=== PATIENT | male | born 1935 | race Caucasian/White ===

== ENCOUNTER → 2017-03-12 | Outpatient (CLI) | payer BC ==
[~2017-03-12] MED LIST: ATOR-22 PO; DUTACAP PO; FAMO20TA11 PO; METO50TA7 PO; MULT-506 PO; OXYC-88 PO; SALI1SPR3 NAE
[2017-03-12 11:29] LABS: ALT/SGPT 31 U/L (12-78); AST/SGOT 23 U/L (15-37); BLOOD UREA NITROGEN 16 mg/dl (7-18); BUN/CREATININE RATIO 17.8 (10-20); CALCIUM 8.7 mg/dl (8.5-10.1); CARBON DIOXIDE 27 mmol/L (21-32); CHLORIDE 103 mmol/L (98-107); CHOLESTEROL 120 mg/dl (0-200); GLUCOSE 89 mg/dl (70-99); POTASSIUM 4.1 mmol/L (3.5-5.1); SODIUM 135 mmol/L (136-145); TRIGLYCERIDES 62 mg/dl (0-150); VERY LOW DENSITY LIPOPROT CALC 12 mg/dl
[2017-03-12 11:44] LABS: BASO % 0.6 %; BASO ABS # 0.03 K/uL (0-0.2); CHOLESTEROL/HDL RATIO 2.4; COMPLETE YES; EOS % 11.6 %; HDL CHOLESTEROL 51 mg/dl; LDL CHOLESTEROL CALCULATED 57 mg/dl; LYMPH % 24.5 %; LYMPH ABS # 1.25 K/uL (1.2-3.4); MAGNESIUM 2.1 mg/dl (1.8-2.4); MEAN CELL VOLUME 94.3 fL (80-100); MEAN PLATELET VOLUME 12.9 fL (7.4-10.4); MONO % 8.8 %; NEUT % 54.5 %; PLATELET COUNT 122 K/uL (130-400); PLT ESTIMATE DECREASED; RED BLOOD COUNT 4.56 M/uL (4.7-6.1)
[2017-03-12 11:47] LABS: ESTIMATED AVERAGE GLUCOSE 111 mg/dl; HA1C FLAG Normal (Normal)
== END | disposition home or self-care (01) ==
LOC: C.LABBC 08:58
PROVIDERS: ATTEND Internal Medicine
DX: Z00.00 Encounter for general adult medical examination without abnormal findings (principal); I48.91 Unspecified atrial fibrillation; E78.5 Hyperlipidemia, unspecified

== ENCOUNTER → 2017-06-30 | Outpatient (CLI) | payer BC ==
[~2017-06-30] MED LIST changes: -METO50TA7 PO; +METO50TA8 PO
--- NOTE | 2017-06-30 11:46 | DIAGNOSTIC IMAGING REPORT ---
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 A dose lowering technique was used consistent with the principals of ANDRESSA. FINDINGS: The imaged intracranial structures demonstrate no acute abnormality. Mild to moderate cerebral and cerebellar atrophy. Cerebral vascular calcifications are seen at the level of the skull base. Mastoid air cells and middle ear cavities are clear. Moderate mucoperiosteal thickening about the left maxillary sinus. There is severe mucosal opacification about the right maxillary, bilateral frontal and bilateral ethmoid air cells. Mild mucosal thickening of the sphenoid sinuses with aerated secretions within the right sphenoid sinus. Additionally, there is mucosal thickening of the bilateral nasal turbinates. Multiple areas of polypoid mucosal thickening of the nasal turbinates are seen measuring up to 2.0 cm on the right, image 27 series 2 and 2.0 cm and the left, image 29 of series 2. The nasopharynx appears patent. Only minimal rightward bowing and spurring of the nasal septum. Small left kian bullosa. Poornima arnulfo appears normal. Moderate left and severe right mucosal thickening of the maxillary ostiomeatal units. Moderate sized bilateral Neville cells. Severe mucosal thickening with opacification of the bilateral frontoethmoidal recesses. There is mucus opacification the bilateral sphenoethmoidal recesses. No acute facial bone fracture or dislocation identified. Degenerative changes are noted within the imaged cervical spine. Soft tissues are unremarkable without opaque foreign body. Postsurgical changes of the globes. IMPRESSION: 1. Severe paranasal sinus disease as above with mucosal thickening and opacification of the sinonasal recesses and bilateral maxillary ostiomeatal units. 2. Multiple areas of polypoid mucosal thickening involves the the bilateral nasal turbinates measuring up to 2.0 cm. 3. Bilateral Neville cells. The above report was generated using voice recognition software. It may contain grammatical, syntax or spelling errors. Electronically signed by: Vik Strauss M.D. 06/30/2017 11:45 AM Dictated Date/Time: 06/30/2017 11:39 AM
== END | disposition home or self-care (01) ==
LOC: C.CTS 11:22
PROVIDERS: ATTEND Physician Assistant
DX: J32.9 Chronic sinusitis, unspecified (principal)

== ENCOUNTER → 2017-07-13 | Outpatient (CLI) | payer BC ==
[~2017-07-13] MED LIST changes: +AMOX875T PO; +BCTROWC NAE; +CLOTCRE TOP; +DUTA1CAP3 PO; +FLM4 PO; +METO-217 PO; +SACC250C3 PO; +SALI-3 NAE; -SALI1SPR3 NAE; +TRIA1SPR4 NAE; +TRMCR130WC TOP; +XRL20 PO
[2017-07-13 13:53] LABS: BLOOD UREA NITROGEN 11 mg/dl (7-18); CREATININE 0.92 mg/dl (0.60-1.40)
== END | disposition home or self-care (01) ==
LOC: C.LABBC 11:55
PROVIDERS: ATTEND Urology
DX: R33.9 Retention of urine, unspecified (principal)

== ENCOUNTER 2017-07-24 17:01 | Inpatient (IN) | payer BC, OTHER ==
[~2017-07-24] VITALS: Ht 185.4 cm; Wt 107.5 kg
[~2017-07-24 17:01] MED LIST changes: -AMOX875T PO; -BCTROWC NAE; -CLOTCRE TOP; -DUTA1CAP3 PO; -FLM4 PO; -METO-217 PO; -SACC250C3 PO; -TRIA1SPR4 NAE; -TRMCR130WC TOP; -XRL20 PO
[2017-07-24] MEDS ORDERED: SODIUM CHLORIDE 0.9% 1000ML 1,000 ML IV STA ×3 (17:37→19:46)
--- NOTE | 2017-07-24 17:51 | EMERGENCY ROOM VISIT NOTE ---
History Report prepared by Jonh: Red Pleitez Under the Supervision of: Dr. Jyoti Alston D.O. First contact with patient: 17:29 Chief Complaint: GI ASSESSMENT Stated Complaint: DIARRHEA,ABDOMINAL PAIN,ORTHOSTASIS History of Present Illness The patient is an 82 year old male who presents to the Emergency Room with complaints of persistent diarrhea beginning today. Per son, the patient has been having recent episodes of constipation and diarrhea. He states that the patient also has been feeling weak and almost passed out at home. He notes that the patient was also tachypneic, had a heart rate over 100, was diaphoretic, and did not have any blood in his diarrhea. The patient reports that he has been having a productive cough mostly at night, abdominal pain, SOB with exertion, and multiple episodes of confusion. He states that he has been producing a smaller amount of urine than usual. He notes that the urine is typically dark yellow in the mornings but becomes clear at night. The patient reports that he has not been drinking a lot of water recently. Per son, the patient seemed to be feeling better this morning and had a better appetite than usual. He states that the patient has not been sleeping a lot recently. He notes that the patient takes Xarelto for his atrial fibrillation. He reports that he also has a history of BPH. Son reports patient's recently and her memorial service is tomorrow and he feels that his father's grief could be contributing to his poor p.o. intake and subsequent symptoms. Source of History: patient, family (son) Onset: today Position: abdomen Quality: other (diarrhea) Timing: other (persistent) Associated Symptoms: + diaphoresis, + cough (productive cough mostly at night), + SOB (with exertion), + abdominal pain, + urinary symptoms (smaller amount, dark yellow in the morning and clear at night), + weakness Note: Per son, the patient has also been having episodes of constipation, was tachypneic, had a heart rate over 100, and did not have any blood in his diarrhea. He notes that the patient has also been having multiple episodes of confusion. Review of Systems See HPI for pertinent positives & negatives. A total of 10 systems reviewed and were otherwise negative. Past Medical & Surgical Medical Problems: (1) Acute respiratory failure with hypoxia (2) Atrial fibrillation (3) BPH (benign prostatic hyperplasia) (4) Dehydration (5) Diarrhea (6) Fatigue Family History No pertinent family history stated. Social History Smoking Status: Never Smoker Marital Status: Housing Status: lives with family Occupation Status: retired Current/Historical Medications Scheduled Amoxicillin & Pot Clavulanate (Augmentin 875-125 mg), 1 TAB PO BID Atorvastatin (Lipitor), 20 MG PO QPM Clotrimazole W/ Betamethasone (Lotrisone), 1 APPLN TOP BID Dutasteride (Dutasteride), 0.5 MG PO DAILY Metoprolol Succinate (Toprol Xl), 50 MG PO BID Multivitamin (Multivitamin), 1 TAB PO QPM Mupirocin (Bactroban 2% Oint), 1 APPLN MARIAM BID Rivaroxaban (Xarelto), 20 MG PO DAILY Saccharomyces Boulardii (Florastor), 1 TAB PO BID Tamsulosin HCl (Tamsulosin HCl), 0.4 MG PO DAILY Triamcinolone Acet (Aristocort 0.1%), 1 APPL TOP UD Triamcinolone Acetonide (Nasal (Nasacort Allergy 24Hr), 1 MARIAM BID Scheduled PRN Famotidine (Pepcid), 20 MG PO DAILY PRN for Indigestion Saline (Saline Nasal [place]), 2 SPRAYS MARIAM BID PRN for Nasal Congestion Allergies Coded Allergies: Cyclobenzaprine (Unverified Allergy, Severe, RASH ON FACE, 04/03/15) Flecainide (Verified Allergy, Severe, DISCOLORATION OF SKIN, 04/03/15) Ibuprofen (Verified Adverse Reaction, Unknown, RHINORRHEA, 07/24/17) INFO FROM [facility] Physical Exam Vital Signs Date Time Temp Pulse Resp B/P (MAP) Pulse Ox O2 Delivery O2 Flow Rate FiO2 07/24/17 20:51 102 29 113/80 90 07/24/17 20:41 105 28 138/60 93 07/24/17 20:31 110 28 124/72 94 07/24/17 20:20 104 07/24/17 20:15 104 07/24/17 20:11 29 123/72 92 Oxymask 07/24/17 20:10 101 07/24/17 20:05 104 07/24/17 20:01 28 134/95 92 Oxymask 07/24/17 20:00 100 07/24/17 19:55 112 29 07/24/17 19:51 27 121/70 93 Oxymask 07/24/17 19:50 105 07/24/17 19:45 115 07/24/17 19:41 30 125/83 92 Oxymask 4.0 07/24/17 19:40 112 07/24/17 19:35 106 07/24/17 19:30 110 30 116/72 89 Oxymask 4.0 07/24/17 19:20 102 18 115/68 90 Nasal Cannula 6.0 07/24/17 19:10 99 18 119/71 91 Oxymask 6.0 07/24/17 19:01 78/53 07/24/17 19:00 110 27 90 07/24/17 18:56 88/47 07/24/17 18:30 103 27 94 07/24/17 18:20 118/70 07/24/17 18:15 115 29 92 07/24/17 18:10 128/59 07/24/17 18:02 101/67 07/24/17 18:00 104 30 100 07/24/17 17:56 93/62 07/24/17 17:46 80/52 07/24/17 17:45 100 24 95 07/24/17 17:32 68/45 07/24/17 17:30 99 31 87 07/24/17 17:29 105 07/24/17 17:27 75/44 07/24/17 17:14 36.3 78 18 56/39 85 Room Air Physical Exam GENERAL: alert, ill appearing, well nourished, no distress, pale, diaphoretic. EYE EXAM: normal conjunctiva, PERRL and EOM's grossly intact OROPHARYNX: no exudate, no erythema, lips, buccal mucosa, and tongue normal and mucous membranes are moist NECK: supple, no nuchal rigidity, no adenopathy, non-tender LUNGS: Normal chest wall mechanics. Lung sounds diminished, no wheezes, rhonchi , and rales. HEART: no murmurs, S1 normal and S2 normal, grossly normal ejection fraction, no obvious pericardial effusion, no obvious AAA or flap suggestive of dissection. ABDOMEN: abdomen soft, non-tender, normo-active bowel sounds, no rebound or guarding, no pulsatile mass BACK: Back is symmetrical on inspection and there is no deformity, no midline tenderness, no CVA tenderness. SKIN: no rashes and no bruising UPPER EXTREMITIES: upper extremities are grossly normal. Normal pulses bilaterally. LOWER EXTREMITIES: No pitting edema. Normal pulses bilaterally. NEURO EXAM: Normal sensorium, cranial nerves II-XII grossly intact, normal speech, no gross weakness of arms, no gross weakness of legs. Medical Decision & Procedures ER Provider Diagnostic Interpretation: Radiology results have been interpreted by the radiologist and reviewed by me. CHEST ONE VIEW PORTABLE FINDINGS: Atherosclerosis of aortic arch. Cardiac silhouette enlarged. No focal opacity. No large effusion or pneumothorax. Degenerative changes of the thoracic spine. Degenerative changes of the right acromioclavicular and glenohumeral joints. Anterior cervical fusion hardware also noted. IMPRESSION: 1. Cardiomegaly. No other convincing evidence of acute cardiopulmonary disease. Electronically signed by: Agustin Carney M.D. 07/24/2017 6:07 PM HEAD WITHOUT CONTRAST (CT) FINDINGS: [place] topogram: Unremarkable. Ventricles and sulci normal in size. Brain parenchyma normal in appearance with preserved hood-white differentiation. No mass effect or midline shift. No hemorrhage or acute territorial infarct. No extra-axial fluid collection. Extensive mucosal thickening in the bilateral maxillary sinuses and ethmoid air cells as well as the sphenoid sinuses and frontal sinuses. Aerated secretions noted in the maxillary sinuses. Scant fluid in the left mastoid air cells may be present. No gray evidence of osseous erosion. Calvarium intact. IMPRESSION: 1. No acute intracranial abnormality. 2. Findings suspicious for acute sinusitis. Electronically signed by: Agustin Carney M.D. 07/24/2017 6:55 PM CHEST COMBO ANGIO DISSECTION FINDINGS: [place] topogram: Unremarkable. Vasculature: The study is adequate for assessment of the aorta. Precontrast imaging demonstrates no evidence of intramural hematoma. Atherosclerosis of the aorta. Postcontrast imaging demonstrates no evidence of dissection, penetrating ulcer, or aneurysm. Allowing for timing of the contrast bolus, no gross evidence of a filling defect within the pulmonary arteries to suggest embolus. Main pulmonary artery is not enlarged. No flattening of the interventricular septum. No intracardiac filling defect. No reflux of contrast into the hepatic veins. Remaining chest: On soft tissue windows, normal thyroid and thoracic inlet. No axillary, supraclavicular, hilar, or mediastinal lymphadenopathy. Mild multichamber enlargement of the heart. Coronary artery calcification. Small right and trace left pleural effusion. No pericardial effusion. Suggestion of mild esophageal wall thickening in the mid to distal portion. Multiple exophytic renal cysts. Additionally, one cyst in the left kidney measuring 5 cm is elevated in density measuring 43 Hounsfield units. On lung windows, dependent opacities greater on the right. Patchy groundglass nodular opacities at the apices. Respiratory motion artifact evaluation of lung parenchyma. 2 additional nodular groundglass opacities noted in the superior segment of the right lower lobe (series 8 image 170). Bronchial wall thickening evident. Minimal debris and subsegmental airways of the lower lobes. Central airways also demonstrate layering debris. On bone windows, partially visualized anterior cervical fusion hardware. Degenerative changes of the spine. IMPRESSION: 1. No evidence of acute aortic injury. 2. Patchy nodular groundglass opacities with an upper lobe predominance. These are nonspecific and could suggest respiratory bronchiolitis or less likely infectious bronchiolitis. 3. Additional findings suggest chronic aspiration. 4. Small right and trace left pleural effusions. 5. Indeterminate 5 cm left renal lesion. Please see separately dictated CTA of the abdomen and pelvis. Electronically signed by: Agustin Carney M.D. 07/24/2017 7:16 PM ANGIO ABD/PELVIS COMBO FINDINGS: [place] topogram: Unremarkable. Vasculature: Atherosclerosis of the abdominal aorta. Abdominal aorta is normal in caliber. Celiac, superior mesenteric, bilateral single main renal, and inferior mesenteric arteries patent aneurysmal dilatation of the right common iliac artery, which measures 3.4 cm in diameter. Displaced intimal calcifications noted (series 8 image 474). The right external and internal iliac arteries are normal in caliber and patent. Left common, external, and internal iliac arteries patent and normal in caliber. Bilateral femoral artery. Remaining abdomen and pelvis: Lung bases: Dependent consolidation greater on the right. Respiratory motion artifact at the lung bases degrades evaluation. Mild multichamber enlargement of the heart. Coronary artery calcification. Small right and trace left pleural effusions. No pericardial effusion. Liver: Normal morphology. No focal lesion allowing for arterial phase of contrast. Biliary: No gross evidence of biliary ductal dilatation allowing for arterial phase of contrast. Gallbladder contains gallstones. Pancreas: Mild parenchymal atrophy. Spleen: Normal. Adrenal glands: Normal. Kidneys and ureters: Multiple hypodensities in the bilateral kidneys, many exophytic and the largest measuring nearly 10 cm. The majority are simple appearing grade 1 exophytic cyst arising from the interpolar region of the left kidney measuring 5 cm in diameter has an elevated density (series 8 image 365). No nephrolithiasis. No hydronephrosis. Ureters normal. Bladder: Incompletely evaluated secondary to underdistention. Pelvic organs: Prostate enlargement likely secondary to benign prostatic hyperplasia. Bowel: Diverticulosis of the sigmoid colon. Fluid in the distal colon could suggest a diarrheal state. The appendix is normal. No bowel obstruction. Trace hiatal hernia may be present. Peritoneal cavity: No free fluid or intraperitoneal gas. Lymph nodes: No enlarged lymph nodes in the abdomen or pelvis. Abdominal wall: Fat-containing right inguinal hernia. Fat-containing umbilical hernia. Musculoskeletal: Degenerative changes of the spine. Degenerative changes of the hip joints and sacroiliac joints. IMPRESSION: 1. 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 2. Patent vasculature despite atherosclerotic disease. 3. No acute intra-abdominal pathology. 4. Indeterminate 5 cm hyperdense left renal lesion. This may represent a hemorrhagic or proteinaceous cyst, however, this is incompletely evaluated on this single phase examination. There is clinical concern, dedicated CT or MR renal protocol could be obtained. 5. Diverticulosis. 6. Fluid in the colon suggests a diarrheal state. Electronically signed by: Agustin Carney M.D. 07/24/2017 7:10 PM Laboratory Results Test 07/24/17 17:41 07/24/17 17:45 07/24/17 19:45 07/24/17 19:48 Phosphorus Level 3.7 mg/dl (2.5-4.9) Magnesium Level 1.8 mg/dl (1.8-2.4) Total Bilirubin 1.9 mg/dl (0.2-1) Aspartate Amino Transf (AST/SGOT) 19 U/L (15-37) Alanine Aminotransferase (ALT/SGPT) 18 U/L (12-78) Alkaline Phosphatase 70 U/L (45-117) Troponin I < 0.015 ng/ml (0-0.045) Pro-B-Type Natriuretic Peptide 2068 pg/ml (0-1800) Total Protein 7.5 gm/dl (6.4-8.2) Albumin 3.6 gm/dl (3.4-5.0) Globulin 3.9 gm/dl (2.5-4.0) Albumin/Globulin Ratio 0.9 (0.9-2) Thyroid Stimulating Hormone (TSH) 3.220 uIu/ml (0.300-4.500) Bedside D-Dimer > 450 ng/mlFEU (0-450) Bedside Troponin I < 0.030 ng/ml (0-0.045) Bedside Lactic Acid Venous 1.83 mmol/L (0.90-1.70) Bedside Hemoglobin 15.6 g/dl (14.0-18.0) Bedside Hematocrit 46 % (42-52) Bedside Sodium 136 mEq/L (135-144) Bedside Potassium 3.4 mEq/L (3.3-5.0) Bedside Chloride 101 mEq/L (101-112) Bedside Total CO2 20 mEq/l (24-31) Bedside Blood Urea Nitrogen 17 mg/dl (7-18) Bedside Creatinine 1.1 mg/dl (0.6-1.3) Bedside Glucose (other) 117 mg/dl (70-99) Bedside Ionized Calcium ([place]) 1.08 mmol/l (1.12-1.32) Laboratory results per my review. Medications Administered Medications (Trade) Dose Ordered Sig/Cassi Route Start Time Stop Time Status Last Admin Dose Admin Sodium Chloride 1,000 ml @ 999 mls/hr Q1H1M STAT IV 07/24/17 17:37 07/24/17 18:37 DC 07/24/17 17:37 999 MLS/HR Sodium Chloride 1,000 ml @ 999 mls/hr Q1H1M STAT IV 07/24/17 17:57 07/24/17 18:57 DC 07/24/17 18:12 999 MLS/HR Pantoprazole Sodium 40 mg/ Syringe 10 ml @ 5 mls/min NOW ONCE IV 07/24/17 18:15 07/24/17 18:16 DC 07/24/17 20:17 5 MLS/MIN Sodium Chloride 1,000 ml @ 125 mls/hr Q8H STAT IV 07/24/17 19:46 07/24/17 22:05 DC 07/24/17 20:18 125 MLS/HR Piperacillin Sod/ Tazobactam Sod (Zosyn Iv) 4.5 gm NOW STAT IV 07/24/17 19:51 07/24/17 19:53 DC 07/24/17 20:36 4.5 GM Albuterol/ Ipratropium (Duoneb) 3 ml STK-MED ONCE .ROUTE 07/24/17 20:54 07/24/17 20:55 DC 07/24/17 21:17 3 ML Zolpidem Tartrate (Ambien Tab) 5 mg HSZ PRN PO 07/24/17 20:45 07/25/17 10:57 DC 07/24/17 23:56 5 MG Atorvastatin Calcium (Lipitor Tab) 20 mg QPM PO 07/24/17 21:00 07/25/17 10:57 DC 07/24/17 23:56 20 MG Metoprolol Succinate (Toprol Xl Tab) 50 mg BID PO 07/24/17 21:00 07/25/17 10:57 DC 07/25/17 07:44 50 MG Triamcinolone Acetonide (Nasacort Allergy 24hr) 1 sprays BID MARIAM 07/24/17 21:00 07/25/17 10:57 DC 07/25/17 07:45 1 SPRAYS ECG Per My Interpretation Indication: weakness Rate (beats per minute): 85 Rhythm: atrial fibrillation Findings: no acute ischemic change, other (Normal axis, prolonged QTC, normal QRS) Change: EKG #2: Atrial fibrillation, 108, normal axis, normal QRS, prolonged QTC, no acute ischemic changes. ED Course 1729: The patient was evaluated in room B1. A complete history and physical exam was performed. 1737: Sodium Chloride 1000 ml @ 999 mls/hr IV 1740: I performed a bedside US of the heart and aorta on the patient. 174: The patient had an EKG done. 1757: Sodium Chloride 1000 ml @ 999 mls/hr IV 181: I reevaluated and updated the patient. He has a blood pressure of 101 systolic. He is not in any pain and his breathing is better. 1814: Pantoprazole Sodium 40mg/Syringe 10ml @ 5 mls/min IV 1907: I rechecked the patient. He is awake and alert. His blood pressure dropped when stopped receiving fluids at the end of his CT. It has since come back up again when he was restarted on fluids. 1925: Discussed the patient's CT scans with Dr. Carney - Radiologist, [facility]. 1928: Upon reevaluation, the patient is holding his blood pressure. I had an extensive bedside discussion with the patient's family. They report patient would be amenable to BiPAP if needed, however is otherwise DNR/DNI. 1950: Zosyn Iv 4.5gm IV 2052: Upon reevaluation, the patient is stable. I discussed the findings and the treatment plan with the patient. He expresses agreement and understanding. I spoke with Dr. Arroyo of the [facility] Hospitalist Service. The patient will be evaluated for further management. Medical Decision Differential diagnosis: Etiologies such as metabolic, infection, hypo/hyperglycemia, electrolyte abnormalities, cardiac sources, intracerebral event, toxicologic, neurologic, appendicitis, diverticulitis, PUD, biliary pathology, UTI, pancreatitis, obstruction, mesenteric ischemia, aortic pathology, inflammatory bowel disease, renal colic, as well as others were entertained. Patient initially quite ill-appearing here and aggressive treatment started by first obtaining IVs and starting IV fluids as well as performing a bedside echo and abdominal ultrasound for aorta by myself. No acute abnormalities were noted there. Given the reported diarrhea by the patient's family, they were concerned for volume depletion or infectious etiology of his hypotension. After a specimen was obtained and the patient was disrobed, this was found to be heme positive on guaiac testing despite not being melanotic and no gross blood. [id number] labs were drawn given concern for possible need for transfusion as well as sepsis as well as the need for additional imaging. Family present throughout evaluation and treatment and kept updated consistently on results. Patient began to improve here following 2 L of IV fluids and went for CAT scan. As the fluids finished while patient was in CAT scan his blood pressure began to drop again. Additional IV fluids were started on him when he returned to the room and his blood pressure began to improve again. Patient with normal mentation throughout this despite hypotension and initial hypoxia. Patient with a nonfocal neuro exam at bedside throughout. Patient's lactic acid improved also following IV fluids and rehydration. Multiple chronic findings noted on CAT scan including pleural effusions bilaterally as well as concern for possible aspiration. In light of this patient was covered with antibiotics after blood cultures had already been drawn. Patient made aware of all CT findings including need for outpatient follow-up of a renal lesion, need for evaluation from GI for possible GERD/ esophagitis. Patient with no active GI bleed or colitis noted on CT. H&H still stable on repeat following IV fluid resuscitation, but will need to be monitored. Patient with chronic A. fib which was seen on telemetry, heart rate improved following IV hydration. Patient and family aware of need for additional evaluation and monitoring. Case discussed with hospitalist. Medication Reconcilliation Current Medication List: was personally reviewed by me Blood Pressure Screening Patient's blood pressure: Normal blood pressure Blood pressure disposition: Did not require urgent referral Consults Time Called: 1924 Consulting Physician: Dr. Carney - Radiologist, [facility] Returned Call: 1925 Discussed the patient's CT scans with Dr. Carney Radiologist, [facility]. Additional Consults: Time Called: 1956 Consulted Physician: NORMAN Odom Returned Call: 2052 Additional Comments: I reviewed the patient's case with NORMAN Odom. He will evaluate the patient for further management. Impression Primary Impression: Hypotension Additional Impressions: Hypoxia GI bleed Pleural effusion Atrial fibrillation Aspiration pneumonia Dehydration Fatigue Critical Care I have personally spent 60 minutes of critical care time in the direct management of this patient. This includes bedside care, interpretation of diagnostic studies, and testing, discussion with consultants, patient, and family members, and other required patient management activities. This 60 minutes is in excess of all separately billable procedures. Scribe Attestation The scribe's documentation has been prepared under my direction and personally reviewed by me in its entirety. I confirm that the note above accurately reflects all work, treatment, procedures, and medical decision making performed by me. Departure Information Dispostion Being Evaluated By Hospitalist Prescriptions Saccharomyces Boulardii (Florastor) 250 Mg Cap 1 TAB PO BID for 30 Days, #60 TAB Prov: Piedad Caro MD 07/25/17 Amoxicillin & Pot Clavulanate (Augmentin 875-125 mg) 1 Tab Tab 1 TAB PO BID for 10 Days, #20 TAB Prov: Piedad Caro MD 07/25/17 Referrals Justino Mandujano M.D. (PCP) Patient Instructions My [facility] Problem Qualifiers Primary Impression: Hypotension Hypotension type: unspecified hypotension type Qualified Codes: I95.9 - Hypotension, unspecified Additional Impressions: GI bleed GI bleed type/associated pathology: unspecified gastrointestinal hemorrhage type Qualified Codes: K92.2 - Gastrointestinal hemorrhage, unspecified Atrial fibrillation Atrial fibrillation type: chronic Qualified Codes: I48.2 - Chronic atrial fibrillation Aspiration pneumonia Aspiration pneumonia type: unspecified Laterality: unspecified laterality Lung location: lower lobe of lung Qualified Codes: J69.0 - Pneumonitis due to inhalation of food and vomit Fatigue Fatigue type: unspecified Qualified Codes: R53.83 - Other fatigue
[2017-07-24 18:00] LABS: BASO % 0.1 %; BASO ABS # 0.01 K/uL (0-0.2); EOS % 2.9 %; HEMATOCRIT 46.3 % (42-52); IG# 0.06 K/uL (0.00-0.02); LYMPH % 8.6 %; LYMPH ABS # 0.88 K/uL (1.2-3.4); MEAN CELL VOLUME 91.1 fL (80-100); MEAN CORPUSCULAR HEMOGLOBIN 31.5 pg (25-34); MEAN CORPUSCULAR HGB CONC 34.6 g/dl (32-36); MEAN PLATELET VOLUME 12.3 fL (7.4-10.4); MONO % 2.4 %; MONO ABS # 0.25 K/uL (0.11-0.59); NEUT % 85.4 %; NEUT ABS # 8.78 K/uL (1.4-6.5); PLATELET COUNT 176 K/uL (130-400); RED CELL DISTRIBUTION WIDTH SD 43.3 fL (36.4-46.3); WHITE BLOOD COUNT 10.28 K/uL (4.8-10.8)
[2017-07-24 18:03] LABS: ISTAT CREATININE 1.2 mg/dl (0.6-1.3); ISTAT IONIZED CALCIUM 1.09 mmol/l (1.12-1.32); ISTAT POTASSIUM 3.3 mEq/L (3.3-5.0)
--- NOTE | 2017-07-24 18:08 | DIAGNOSTIC IMAGING REPORT ---
CHEST ONE VIEW PORTABLE CLINICAL HISTORY: 82 years-old Male presenting with hypotension. TECHNIQUE: Portable upright AP view of the chest was obtained. COMPARISON: 07/12/[address] from 03/28/2014. FINDINGS: Atherosclerosis of aortic arch. Cardiac silhouette enlarged. No focal opacity. No large effusion or pneumothorax. Degenerative changes of the thoracic spine. Degenerative changes of the right acromioclavicular and glenohumeral joints. Anterior cervical fusion hardware also noted. IMPRESSION: 1. Cardiomegaly. No other convincing evidence of acute cardiopulmonary disease. Electronically signed by: Agustin Carney M.D. 07/24/2017 6:07 PM Dictated Date/Time: 07/24/2017 6:06 PM
[2017-07-24] MEDS ORDERED: PANTOprazole INJ 40 MG in SYRINGE 0 ML IV ONE (18:15)
[2017-07-24 18:30] LABS: ALBUMIN 3.6 gm/dl (3.4-5.0); ALT/SGPT 18 U/L (12-78); AST/SGOT 19 U/L (15-37); BLOOD UREA NITROGEN 17 mg/dl (7-18); CALCIUM 9.3 mg/dl (8.5-10.1); CARBON DIOXIDE 22 mmol/L (21-32); GLUCOSE 150 mg/dl (70-99); POTASSIUM 3.3 mmol/L (3.5-5.1); SODIUM 132 mmol/L (136-145)
[2017-07-24 18:30] LABS: INR 1.9 (0.9-1.1)
[2017-07-24 18:41] LABS: ALKALINE PHOSPHATASE 70 U/L (45-117); PHOSPHORUS 3.7 mg/dl (2.5-4.9); TOTAL PROTEIN 7.5 gm/dl (6.4-8.2)
--- NOTE | 2017-07-24 18:59 | DIAGNOSTIC IMAGING REPORT ---
HEAD WITHOUT CONTRAST (CT) CLINICAL HISTORY: 82 years-old Male presenting with change in MS. TECHNIQUE: Multidetector CT imaging of the head was performed without the use of intravenous contrast. IV contrast: None. A dose lowering technique was used consistent with the principles of ALARA (as low as reasonably achievable). COMPARISON: MR brain from 2016. CT DOSE (mGy.cm): The estimated cumulative dose is 1228.53 mGy.cm. FINDINGS: Plant Maintenance Technician topogram: Unremarkable. Ventricles and sulci normal in size. Brain parenchyma normal in appearance with preserved hood-white differentiation. No mass effect or midline shift. No hemorrhage or acute territorial infarct. No extra-axial fluid collection. Extensive mucosal thickening in the bilateral maxillary sinuses and ethmoid air cells as well as the sphenoid sinuses and frontal sinuses. Aerated secretions noted in the maxillary sinuses. Scant fluid in the left mastoid air cells may be present. No gray evidence of osseous erosion. Calvarium intact. IMPRESSION: 1. No acute intracranial abnormality. 2. Findings suspicious for acute sinusitis. Electronically signed by: Agustin Carney M.D. 07/24/2017 6:55 PM Dictated Date/Time: 07/24/2017 6:53 PM
[2017-07-24] MEDS ORDERED: OPTIRAY 320 IV PRN (19:00)
--- NOTE | 2017-07-24 19:11 | DIAGNOSTIC IMAGING REPORT ---
ANGIO ABD/PELVIS COMBO CLINICAL HISTORY: 82 years-old Male presenting with hypotension and shortness of breath, abdominal pain. TECHNIQUE: Multidetector CT angiography of the abdomen and pelvis was performed before and after the administration of intravenous contrast. 3-D volumetric and/or maximum intensity projection (MIP) images were subsequently reconstructed for review. IV contrast: 115 mL of Optiray 320. A dose lowering technique was used consistent with the principles of ALARA (as low as reasonably achievable). Stenosis measurements were based on NASCET-like criteria. COMPARISON: None. CT DOSE (mGy.cm): The estimated cumulative dose is 3312.94 mGy.cm. FINDINGS: Pharmacy Customer Care Specialist topogram: Unremarkable. Vasculature: Atherosclerosis of the abdominal aorta. Abdominal aorta is normal in caliber. Celiac, superior mesenteric, bilateral single main renal, and inferior mesenteric arteries patent aneurysmal dilatation of the right common iliac artery, which measures 3.4 cm in diameter. Displaced intimal calcifications noted (series 8 image 474). The right external and internal iliac arteries are normal in caliber and patent. Left common, external, and internal iliac arteries patent and normal in caliber. Bilateral femoral artery. Remaining abdomen and pelvis: Lung bases: Dependent consolidation greater on the right. Respiratory motion artifact at the lung bases degrades evaluation. Mild multichamber enlargement of the heart. Coronary artery calcification. Small right and trace left pleural effusions. No pericardial effusion. Liver: Normal morphology. No focal lesion allowing for arterial phase of contrast. Biliary: No gross evidence of biliary ductal dilatation allowing for arterial phase of contrast. Gallbladder contains gallstones. Pancreas: Mild parenchymal atrophy. Spleen: Normal. Adrenal glands: Normal. Kidneys and ureters: Multiple hypodensities in the bilateral kidneys, many exophytic and the largest measuring nearly 10 cm. The majority are simple appearing grade 1 exophytic cyst arising from the interpolar region of the left kidney measuring 5 cm in diameter has an elevated density (series 8 image 365). No nephrolithiasis. No hydronephrosis. Ureters normal. Bladder: Incompletely evaluated secondary to underdistention. Pelvic organs: Prostate enlargement likely secondary to benign prostatic hyperplasia. Bowel: Diverticulosis of the sigmoid colon. Fluid in the distal colon could suggest a diarrheal state. The appendix is normal. No bowel obstruction. Trace hiatal hernia may be present. Peritoneal cavity: No free fluid or intraperitoneal gas. Lymph nodes: No enlarged lymph nodes in the abdomen or pelvis. Abdominal wall: Fat-containing right inguinal hernia. Fat-containing umbilical hernia. Musculoskeletal: Degenerative changes of the spine. Degenerative changes of the hip joints and sacroiliac joints. IMPRESSION: 1. 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 2. Patent vasculature despite atherosclerotic disease. 3. No acute intra-abdominal pathology. 4. Indeterminate 5 cm hyperdense left renal lesion. This may represent a hemorrhagic or proteinaceous cyst, however, this is incompletely evaluated on this single phase examination. There is clinical concern, dedicated CT or MR renal protocol could be obtained. 5. Diverticulosis. 6. Fluid in the colon suggests a diarrheal state. Electronically signed by: Agustin Carney M.D. 07/24/2017 7:10 PM Dictated Date/Time: 07/24/2017 7:01 PM
--- NOTE | 2017-07-24 19:17 | DIAGNOSTIC IMAGING REPORT ---
CHEST COMBO ANGIO DISSECTION CLINICAL HISTORY: 82 years-old Male presenting with ^hypotension, sob. TECHNIQUE: Multidetector CT angiography of the chest was performed before and after the administration of intravenous contrast. 3-D volumetric and/or maximum intensity projection (MIP) images were subsequently reconstructed for review. IV contrast: 115 mL of Optiray 320. A dose lowering technique was used consistent with the principles of ALARA (as low as reasonably achievable). COMPARISON: None. CT DOSE (mGy.cm): The estimated cumulative dose is 3312.94 inclusive of the CTA abdomen and pelvis. FINDINGS: Vault Attendant topogram: Unremarkable. Vasculature: The study is adequate for assessment of the aorta. Precontrast imaging demonstrates no evidence of intramural hematoma. Atherosclerosis of the aorta. Postcontrast imaging demonstrates no evidence of dissection, penetrating ulcer, or aneurysm. Allowing for timing of the contrast bolus, no gross evidence of a filling defect within the pulmonary arteries to suggest embolus. Main pulmonary artery is not enlarged. No flattening of the interventricular septum. No intracardiac filling defect. No reflux of contrast into the hepatic veins. Remaining chest: On soft tissue windows, normal thyroid and thoracic inlet. No axillary, supraclavicular, hilar, or mediastinal lymphadenopathy. Mild multichamber enlargement of the heart. Coronary artery calcification. Small right and trace left pleural effusion. No pericardial effusion. Suggestion of mild esophageal wall thickening in the mid to distal portion. Multiple exophytic renal cysts. Additionally, one cyst in the left kidney measuring 5 cm is elevated in density measuring 43 Hounsfield units. On lung windows, dependent opacities greater on the right. Patchy groundglass nodular opacities at the apices. Respiratory motion artifact evaluation of lung parenchyma. 2 additional nodular groundglass opacities noted in the superior segment of the right lower lobe (series 8 image 170). Bronchial wall thickening evident. Minimal debris and subsegmental airways of the lower lobes. Central airways also demonstrate layering debris. On bone windows, partially visualized anterior cervical fusion hardware. Degenerative changes of the spine. IMPRESSION: 1. No evidence of acute aortic injury. 2. Patchy nodular groundglass opacities with an upper lobe predominance. These are nonspecific and could suggest respiratory bronchiolitis or less likely infectious bronchiolitis. 3. Additional findings suggest chronic aspiration. 4. Small right and trace left pleural effusions. 5. Indeterminate 5 cm left renal lesion. Please see separately dictated CTA of the abdomen and pelvis. Electronically signed by: Agustin Carney M.D. 07/24/2017 7:16 PM Dictated Date/Time: 07/24/2017 7:10 PM
[2017-07-24] MEDS ORDERED: PIPERACILLIN/TAZOBACTAM 4.5 GM/100ML D5W IV STA (19:51)
[2017-07-24 20:01] LABS: ISTAT CREATININE 1.1 mg/dl (0.6-1.3); ISTAT IONIZED CALCIUM 1.08 mmol/l (1.12-1.32); ISTAT POTASSIUM 3.4 mEq/L (3.3-5.0)
--- NOTE | 2017-07-24 20:15 | History and Physical ---
History & Physical Date & Time of Service: Jul 24, 2017 at 20:15 Chief Complaint: Diarrhea,Abdominal Pain,Orthostasis Primary Care Physician: Justino Mandujano M.D. History of Present Illness Source: patient, family (son and daughter in law) 62M with a PMHx of Atrial Fibrillation on Xarelto, chronic rhinosinusitis p/w diarrhea x 3 days, lethargy and decreased PO intake. Pt denies that the stools are black or bright red. He denies any recent travel or eating any new foods. Of note the patient's has recently and the service and scattering of the ashes is tomorrow on 07/25/2017. Pt denies chest pain, denies SOB, denies dysuria, denies any recently swelling of the hands or feet. Pt is not on oxygen at home. Pt does have a 40pack year smoking history but has never been diagnosed with COPD or emphysema. Pt was given a bolus of 3L of NSS in the ER and a dose of Zosyn for pulmonary infiltrates. Since admission patient feels a lot better, his discomfort was an 8/10 on admission and is now a 4/10. Son confirms that his dad looks better. He does however have a new oxygen requirement. Pt is accompanied by son who is a physician in [place]. 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 PMHx: Afib, pt denies ever have an OK or invasive heart procedure. SHx: 40 pack year smoking history, never been diagnosed with COPD or emphysema. 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 Pt drinks 1 glass of whiskey per night. Past Medical/Surgical History Medical Problems: (1) Atrial fibrillation (2) BPH (benign prostatic hyperplasia) (3) Spinal stenosis, lumbar region, with neurogenic claudication Social History Smoking Status: Never Smoker Marital Status: Housing status: lives with family Occupational Status: retired Allergies Coded Allergies: Cyclobenzaprine (Unverified Allergy, Severe, RASH ON FACE, 04/03/15) Flecainide (Verified Allergy, Severe, DISCOLORATION OF SKIN, 04/03/15) Ibuprofen (Verified Adverse Reaction, Unknown, RHINORRHEA, 07/24/17) INFO FROM [facility] Home Medications Scheduled Atorvastatin (Lipitor), 20 MG PO QPM Clotrimazole W/ Betamethasone (Lotrisone), 1 APPLN TOP BID Dutasteride (Dutasteride), 0.5 MG PO DAILY Metoprolol Succinate (Toprol Xl), 50 MG PO BID Multivitamin (Multivitamin), 1 TAB PO QPM Mupirocin (Bactroban 2% Oint), 1 APPLN MARIAM BID Rivaroxaban (Xarelto), 20 MG PO DAILY Tamsulosin HCl (Tamsulosin HCl), 0.4 MG PO DAILY Triamcinolone Acet (Aristocort 0.1%), 1 APPL TOP UD Triamcinolone Acetonide (Nasal (Nasacort Allergy 24Hr), 1 MARIAM BID Scheduled PRN Famotidine (Pepcid), 20 MG PO DAILY PRN for Indigestion Saline (Saline Nasal Butler), 2 SPRAYS MARIAM BID PRN for Nasal Congestion Review of Systems Constitutional: No fever, No chills Respiratory: + cough (nightime cough x 6 months), + dyspnea at rest, No sputum Cardiovascular: No chest pain, No orthopnea, No edema, No claudication, No palpitations Abdomen: + diarrhea, No pain, No nausea, No GI bleeding Genitourinary - Male: + problem reported (dark urine earlier today), No hematuria, No urinary frequency, No urinary urgency Endocrine: + fatigue Physical Exam Vital Signs Date Time Temp Pulse Resp B/P (MAP) Pulse Ox O2 Delivery O2 Flow Rate FiO2 07/24/17 19:20 102 18 115/68 90 Nasal Cannula 6.0 07/24/17 19:10 99 18 119/71 91 Oxymask 6.0 07/24/17 19:01 78/53 07/24/17 19:00 110 27 90 07/24/17 18:56 88/47 07/24/17 18:30 103 27 94 07/24/17 18:20 118/70 07/24/17 18:15 115 29 92 07/24/17 18:10 128/59 07/24/17 18:02 101/67 07/24/17 18:00 104 30 100 07/24/17 17:56 93/62 07/24/17 17:46 80/52 07/24/17 17:45 100 24 95 07/24/17 17:32 68/45 07/24/17 17:30 99 31 87 07/24/17 17:29 105 07/24/17 17:27 75/44 07/24/17 17:14 36.3 78 18 56/39 85 Room Air General Appearance: WD/WN, no apparent distress Head: normocephalic Eyes: PERRL ENT: normal ENT inspection, hearing grossly normal Neck: supple, no adenopathy Respiratory/Chest: chest non-tender, no respiratory distress, no accessory muscle use, + pertinent finding (some crackling at the right lung base) Cardiovascular: no edema, no gallop, no JVD, no murmur, normal peripheral pulses, + tachycardia, + irregularly irregular Abdomen/GI: normal bowel sounds, non tender, soft, no organomegaly, no pulsatile mass Back: normal inspection, no CVA tenderness, no muscle spasm Extremities/Musculoskelatal: normal inspection, no calf tenderness, normal capillary refill, no pedal edema, normal range of motion Neurologic/Psych: timber bucker II-XII nml as tested, no motor/sensory deficits, alert, normal mood/affect, normal reflexes, oriented x 3 (pt could not name the hospital, but per son pt is at his mental status baseline. Pt did tell me he had 1 loose stool today when he in fact had 5 per soon. ) Skin: normal color, warm/dry, no rash Diagnostics Laboratory Results Results Past 24 Hours Test 07/24/17 17:41 07/24/17 17:45 07/24/17 17:46 07/24/17 17:50 Range/Units White Blood Count 10.28 4.8-10.8 K/uL Red Blood Count 5.08 4.7-6.1 M/uL Hemoglobin 16.0 14.0-18.0 g/dL Hematocrit 46.3 42-52 % Mean Corpuscular Volume 91.1 80-100 fL Mean Corpuscular Hemoglobin 31.5 25-34 pg Mean Corpuscular Hemoglobin Concent 34.6 32-36 g/dl Platelet Count 176 130-400 K/uL Mean Platelet Volume 12.3 7.4-10.4 fL Neutrophils (%) (Auto) 85.4 % Lymphocytes (%) (Auto) 8.6 % Monocytes (%) (Auto) 2.4 % Eosinophils (%) (Auto) 2.9 % Basophils (%) (Auto) 0.1 % Neutrophils # (Auto) 8.78 1.4-6.5 K/uL Lymphocytes # (Auto) 0.88 1.2-3.4 K/uL Monocytes # (Auto) 0.25 0.11-0.59 K/uL Eosinophils # (Auto) 0.30 0-0.5 K/uL Basophils # (Auto) 0.01 0-0.2 K/uL RDW Standard Deviation 43.3 36.4-46.3 fL RDW Coefficient of Variation 13.0 11.5-14.5 % Immature Granulocyte % (Auto) 0.6 % Immature Granulocyte # (Auto) 0.06 0.00-0.02 K/uL Sodium Level 132 136-145 mmol/L Potassium Level 3.3 3.5-5.1 mmol/L Chloride Level 99 98-107 mmol/L Carbon Dioxide Level 22 21-32 mmol/L Anion Gap 11.0 21.0 16-25 mmol/L Blood Urea Nitrogen 17 7-18 mg/dl Creatinine 1.40 0.60-1.40 mg/dl Estimated GFR () 53.8 Estimated GFR (Non- 46.5 BUN/Creatinine Ratio 12.3 10-20 Random Glucose 150 70-99 mg/dl Calcium Level 9.3 8.5-10.1 mg/dl Phosphorus Level 3.7 2.5-4.9 mg/dl Magnesium Level 1.8 1.8-2.4 mg/dl Total Bilirubin 1.9 0.2-1 mg/dl Aspartate Amino Transf (AST/SGOT) 19 15-37 U/L Alanine Aminotransferase (ALT/SGPT) 18 12-78 U/L Alkaline Phosphatase 70 45-117 U/L Troponin I < 0.015 0-0.045 ng/ml Pro-B-Type Natriuretic Peptide 2068 0-1800 pg/ml Total Protein 7.5 6.4-8.2 gm/dl Albumin 3.6 3.4-5.0 gm/dl Globulin 3.9 2.5-4.0 gm/dl Albumin/Globulin Ratio 0.9 0.9-2 Thyroid Stimulating Hormone (TSH) 3.220 0.300-4.500 uIu/ml Bedside D-Dimer > 450 0-450 ng/mlFEU Bedside Troponin I < 0.030 0-0.045 ng/ml Bedside Lactic Acid Venous 3.29 0.90-1.70 mmol/L Bedside Hemoglobin 18.0 14.0-18.0 g/dl Bedside Hematocrit 53 42-52 % Bedside Sodium 135 135-144 mEq/L Bedside Potassium 3.3 3.3-5.0 mEq/L Bedside Chloride 96 101-112 mEq/L Bedside Total CO2 22 24-31 mEq/l Bedside Blood Urea Nitrogen 19 7-18 mg/dl Bedside Creatinine 1.2 0.6-1.3 mg/dl Bedside Glucose (other) 154 70-99 mg/dl Bedside Ionized Calcium ([place]) 1.09 1.12-1.32 mmol/l Test 07/24/17 18:00 07/24/17 19:45 07/24/17 19:48 Range/Units Prothrombin Time 20.1 9.0-12.0 SECONDS Prothromb Time International Ratio 1.9 0.9-1.1 Bedside Lactic Acid Venous 1.83 0.90-1.70 mmol/L Bedside Hemoglobin 15.6 14.0-18.0 g/dl Bedside Hematocrit 46 42-52 % Bedside Sodium 136 135-144 mEq/L Bedside Potassium 3.4 3.3-5.0 mEq/L Bedside Chloride 101 101-112 mEq/L Bedside Total CO2 20 24-31 mEq/l Anion Gap 19.0 16-25 mmol/L Bedside Blood Urea Nitrogen 17 7-18 mg/dl Bedside Creatinine 1.1 0.6-1.3 mg/dl Bedside Glucose (other) 117 70-99 mg/dl Bedside Ionized Calcium ([place]) 1.08 1.12-1.32 mmol/l Microbiology Results 07/24/17 Blood Culture, Ordered Pending 07/24/17 Blood Culture, Ordered Pending Diagnostic Radiology CHEST COMBO ANGIO DISSECTION CLINICAL HISTORY: 82 years-old Male presenting with ^hypotension, sob. TECHNIQUE: Multidetector CT angiography of the chest was performed before and after the administration of intravenous contrast. 3-D volumetric and/or maximum intensity projection (MIP) images were subsequently reconstructed for review. IV contrast: 115 mL of Optiray 320. A dose lowering technique was used consistent with the principles of ALARA (as low as reasonably achievable). COMPARISON: None. CT DOSE (mGy.cm): The estimated cumulative dose is 3312.94 inclusive of the CTA abdomen and pelvis. FINDINGS: Dragline Engineer topogram: Unremarkable. Vasculature: The study is adequate for assessment of the aorta. Precontrast imaging demonstrates no evidence of intramural hematoma. Atherosclerosis of the aorta. Postcontrast imaging demonstrates no evidence of dissection, penetrating ulcer, or aneurysm. Allowing for timing of the contrast bolus, no gross evidence of a filling defect within the pulmonary arteries to suggest embolus. Main pulmonary artery is not enlarged. No flattening of the interventricular septum. No intracardiac filling defect. No reflux of contrast into the hepatic veins. Remaining chest: On soft tissue windows, normal thyroid and thoracic inlet. No axillary, supraclavicular, hilar, or mediastinal lymphadenopathy. Mild multichamber enlargement of the heart. Coronary artery calcification. Small right and trace left pleural effusion. No pericardial effusion. Suggestion of mild esophageal wall thickening in the mid to distal portion. Multiple exophytic renal cysts. Additionally, one cyst in the left kidney measuring 5 cm is elevated in density measuring 43 Hounsfield units. On lung windows, dependent opacities greater on the right. Patchy groundglass nodular opacities at the apices. Respiratory motion artifact evaluation of lung parenchyma. 2 additional nodular groundglass opacities noted in the superior segment of the right lower lobe (series 8 image 170). Bronchial wall thickening evident. Minimal debris and subsegmental airways of the lower lobes. Central airways also demonstrate layering debris. On bone windows, partially visualized anterior cervical fusion hardware. Degenerative changes of the spine. IMPRESSION: 1. No evidence of acute aortic injury. 2. Patchy nodular groundglass opacities with an upper lobe predominance. These are nonspecific and could suggest respiratory bronchiolitis or less likely infectious bronchiolitis. 3. Additional findings suggest chronic aspiration. 4. Small right and trace left pleural effusions. 5. Indeterminate 5 cm left renal lesion. Please see separately dictated CTA of the abdomen and pelvis. CHEST ONE VIEW PORTABLE CLINICAL HISTORY: 82 years-old Male presenting with hypotension. TECHNIQUE: Portable upright AP view of the chest was obtained. COMPARISON: 07/12/[address] from 03/28/2014. FINDINGS: Atherosclerosis of aortic arch. Cardiac silhouette enlarged. No focal opacity. No large effusion or pneumothorax. Degenerative changes of the thoracic spine. Degenerative changes of the right acromioclavicular and glenohumeral joints. Anterior cervical fusion hardware also noted. IMPRESSION: 1. Cardiomegaly. No other convincing evidence of acute cardiopulmonary disease. HEAD WITHOUT CONTRAST (CT) CLINICAL HISTORY: 82 years-old Male presenting with change in MS. TECHNIQUE: Multidetector CT imaging of the head was performed without the use of intravenous contrast. IV contrast: None. A dose lowering technique was used consistent with the principles of ALARA (as low as reasonably achievable). COMPARISON: MR brain from 2016. CT DOSE (mGy.cm): The estimated cumulative dose is 1228.53 mGy.cm. FINDINGS: Dragline Engineer topogram: Unremarkable. Ventricles and sulci normal in size. Brain parenchyma normal in appearance with preserved hood-white differentiation. No mass effect or midline shift. No hemorrhage or acute territorial infarct. No extra-axial fluid collection. Extensive mucosal thickening in the bilateral maxillary sinuses and ethmoid air cells as well as the sphenoid sinuses and frontal sinuses. Aerated secretions noted in the maxillary sinuses. Scant fluid in the left mastoid air cells may be present. No gray evidence of osseous erosion. Calvarium intact. IMPRESSION: 1. No acute intracranial abnormality. 2. Findings suspicious for acute sinusitis. EKG Indication: weakness Rate (beats per minute): 85 Rhythm: atrial fibrillation Findings: no acute ischemic change, other (Normal axis, prolonged QTC, normal QRS) Change: EKG #2: Atrial fibrillation, 108, normal axis, normal QRS, prolonged QTC, no acute ischemic changes. Impression Assessment and Plan 82M with a PMHx of Afib and 40pk year smoking hx p/w dehydration, fatigue and new oxygen requirement. Given 3L NSS in the ER. Trops negative. BNP was > 2000 (but no previous BNP to compare it to). Pt currently requires 4L via facemask - not on O2 at home. Pt's has a tomorrow. Will rehydrate and try to prepare for discharge in the AM. Pt will need repeat echo (last was in 2014) and PFTs as outpatient. Acute Hypoxic Respiratory Failure in setting of possible intrinsic lung disease vs CHF Pt has a 40 pack year smoking history but was never diagnosed with COPD, per Dr. Arroyo and my discussion, there is likely underlying intrinsic lung disease. Son reports a new onset nighttime cough x 6 months. Last echo was in 2014 and had an EF of 65% without wall motion abnormalities. Will reorder echo - if not completed in hospital then to be done as outpatient. s/p 3L NSS in the ER, no clinical signs of fluid overload, but we will have to watch. Pt is likely saturating in the high 80s at home. Chest Portable at 6am to assess for pulm edema. Incentive spirometry. Wean O2 as tolerated. We recommend outpatient PFTs Discharge plannning eval note - if possible we would like to send the patient to his 's on oxygen. Pt and family (son) aware of risks of hospital discharge while further workup is pending. New onset cough x 6 months 2/2 CHF vs COPD vs Aspiration Pneumo vs GERD Per son, new onset night time cough for 6 months. Pulm effusions seen on CT, given Zosyn in the ER. Pt afebrile and is not coughing on exam but hs crackles in right lung base. c/w home Pepcid. Will order speech swallow eval. Will hold off starting ABx, crackles may be from 3L fluid bolus in the ER. Recommend outpatient PFTs and PPI trial. Follow up ESR, CRP, Procalcitonin. Diarrhea Abdomen non tender, CT Abdomen did not show an inflammatory state. Follow up stool studies (rota, c diff, stool culture). EKATERINA in setting of dehydration 2/2 diarrhea s/p 3L in the ER, last creatinine was 1.1. (resolved) Lactate elevated on admission and downtrending, likely due to dehydration. Will hold IVF, PO intake is good. BMP and Lactate in AM. A. Fib Follow up echo. c/w BB and Xarelto. Heme Positive Stool Pt is actually hemoconcentrated. Pt denies melena or gross red blood per rectum. Numerous etiologies. Will not hold Xarelto. CBC in AM. Chronic Sinusitis Pt scheduled for outpatient surgical procedure for sinuses. CT Head confirm acute sinusitis. c/w Nasocort. Insomnia Per patient request he wants something for sleep, not insomnia meds at home, pt does drink 1 shot of whiskey per night, will give Ambien 5mg QHS PRN insomnia. Mild Dementia vs AMS 2/2 acute respiratory failure. Pt unable to name hospital or tell me the accurate number of loose stools (said 1 vs 5 in actuality) Per son pt is sometimes confused, son denies pt has dementia, monitor clinically. Consider MMSE once acute illness has resolved. GERD May explain pt new onset nightime cough x 6 months. c/w home Pepcid Recommend outpatient H Pylori testing and PPI trial. BPH & Urinary Retention c/w home Tamsulosin & Dutasteride PO daily. 5cmm hyperdense renal lesion Outpatient follow up - Pt's PCP is Dr. Mandujano. 3.4cm abdominal aneurysm Will need outpatient follow up. Social - Pt's of 39years recently passed , is Thursday07/15/2017, pt would like to attend (with oxygen if required). He understands that there should be further outpatient workup. Dispo - Admit to Tele. Diet: Heart Healthy DNR/DNI - per Dr. Alston Resident Physician Supervision Note: Pt evaluated independently. I discussed the case with the resident and agree with the findings and plan as documented in the note. Any exceptions or clarifications are listed here: 82 y/o M hx AF, HTN, obese, extensive smoking history. Presenting with lethargy , diarrhea and poor PO intake. Had also c/o SOB on arrival and is requiring 02 to maintain an adequate saturation - does not use ay home although son suspects possible COPD or early CHF - initial labs are notable for EKATERINA. OE AAO x 2-3 S1,2 irr , faint NT , ND Minimal edema No deficits P: IVF provided for diarrhea and lethargy which has improved labs He continues to exhibit mild hypoxia without supplemental 02 although he does not c/o of SOB so that it is possible that this is his baseline. The pt requires an echo and PFTs for additional w/u He has informed us that he would like to attend his 's 07/25 3PM so that we willl treat symptomatically and differ what can safely be pursued as an outpt. He may require home 02 It is reported that he had a (+) guiac exam, howeevr, he does not report bleeding and is anticoagulated due to AF - this should not affect the decision to DC therefore, unless his Hb drops significantly We have discussed the above with his son his is a physician and therefore would presumably have good judgement to determine if the pt should return to the hospital following the . Documented By: Best Arroyo Resuscitation Status VTE Prophylaxis Will order VTE Prophylaxis: Yes Resident Involvement: Resident Care Provided Care Provided: Adult Hospital Medicine
[2017-07-24] MEDS ORDERED: CLOTCRE TOP (20:36)
[2017-07-24] MEDS ORDERED: XRL20 PO (20:36)
[2017-07-24] MEDS ORDERED: FLM4 PO (20:36)
[2017-07-24] MEDS ORDERED: DUTA1CAP3 PO (20:36)
[2017-07-24] MEDS ORDERED: METO-217 PO (20:36)
[2017-07-24] MEDS ORDERED: TRMCR130WC TOP (20:36)
[2017-07-24] MEDS ORDERED: ZOLPIDEM TARTRATE 5 MG TAB PO PRN (20:45)
[2017-07-24] MEDS ORDERED: ALUMINUM/MAGNESIUM/SIMETH (MAALOX MAX) 30 ML UDC PO PRN (20:45)
[2017-07-24] MEDS ORDERED: ACETAMINOPHEN 325 MG TAB PO PRN (20:45)
[2017-07-24] MEDS ORDERED: MAGNESIUM HYDROXIDE SUSP 30 ML UDC PO PRN (20:45)
[2017-07-24] MEDS ORDERED: ONDANSETRON INJ 2 MG/ML 2 ML VIAL IV PRN (20:45)
[2017-07-24] MEDS ORDERED: NITROGLYCERIN 0.4 MG SL PER TAB CHARGE SL PRN (20:45)
[2017-07-24] MEDS ORDERED: POLYETHYLENE (MIRALAX) 17 GM PACK PO PRN (20:45)
[2017-07-24] MEDS ORDERED: TRIA1SPR4 NAE (20:52)
[2017-07-24] MEDS ORDERED: BCTROWC NAE (20:52)
[2017-07-24] MEDS ORDERED: ALBUT/IPRATROP 3MG/0.5MG NEB 3 ML VIAL ONE (20:54)
[2017-07-24] MEDS ORDERED: FAMOTIDINE 20 MG TAB PO PRN (21:00)
[2017-07-24] MEDS ORDERED: MULTIVITAMIN TAB PO SCH (21:00)
[2017-07-24] MEDS ORDERED: SODIUM CHLORIDE 0.65% NA SOLN 45 ML (OCEAN) NAE PRN (21:00)
[2017-07-24] MEDS ORDERED: CLOTRIMAZOLE/BETAMETHASONE CR 15 GM TUBE EXT PRN (21:00)
[2017-07-24] MEDS ORDERED: ATORVASTATIN 20 MG TAB PO SCH (21:00)
[2017-07-24] MEDS ORDERED: BACITRACIN OINT 15 GM TUBE EXT PRN (21:00)
[2017-07-24] MEDS ORDERED: IV FLUIDS COMPLETED PRN (21:30)
[2017-07-24 22:00] VITALS: BP 98/60; PULSE 113; TEMP 35.7; O2SAT 92; Ht 185.4 cm; Wt 107.5 kg
[2017-07-24] MEDS: METOPROLOL SUCC 50MG EXT REL TAB PO SCH (23:30)
[2017-07-24] MEDS: TRIAMCINOLONE ACET NASAL SPRAY 10.8ML BTL NAE SCH (23:58)
[2017-07-25 00:19] VITALS: BP 95/64; PULSE 95; TEMP 36.4; O2SAT 94
[2017-07-25 03:20] VITALS: BP 95/58; PULSE 112; TEMP 36.7; O2SAT 95
[2017-07-25 06:37] LABS: BASO % 0.1 %; BASO ABS # 0.01 K/uL (0-0.2); EOS % 3.8 %; EOS ABS # 0.32 K/uL (0-0.5); HEMATOCRIT 40.5 % (42-52); HEMOGLOBIN 13.9 g/dL (14.0-18.0); IG# 0.02 K/uL (0.00-0.02); LYMPH % 8.1 %; LYMPH ABS # 0.68 K/uL (1.2-3.4); MEAN CELL VOLUME 90.4 fL (80-100); MEAN CORPUSCULAR HGB CONC 34.3 g/dl (32-36); MEAN PLATELET VOLUME 12.3 fL (7.4-10.4); MONO % 5.4 %; MONO ABS # 0.45 K/uL (0.11-0.59); NEUT % 82.4 %; NEUT ABS # 6.89 K/uL (1.4-6.5); PLATELET COUNT 158 K/uL (130-400); RED CELL DISTRIBUTION WIDTH CV 13.2 % (11.5-14.5); RED CELL DISTRIBUTION WIDTH SD 43.2 fL (36.4-46.3); WHITE BLOOD COUNT 8.37 K/uL (4.8-10.8)
[2017-07-25 07:06] LABS: CALCIUM 8.2 mg/dl (8.5-10.1); CREATININE 1.08 mg/dl (0.60-1.40); POTASSIUM 3.9 mmol/L (3.5-5.1)
--- NOTE | 2017-07-25 07:15 | DIAGNOSTIC IMAGING REPORT ---
CHEST ONE VIEW PORTABLE CLINICAL HISTORY: Respiratory failure COMPARISON STUDY: 07/24/2017 FINDINGS: The heart is enlarged. There is elevation of the interstitium. This could indicate an interstitial inflammatory process or mild congestive failure/fluid overload. Small pleural effusions are present.[ IMPRESSION: 1. Cardiomegaly and small bilateral pleural effusions 2. Elevation of the interstitium, consistent with either mild congestive failure/fluid overload, or an interstitial inflammatory process Electronically signed by: Miko Oswald M.D. 07/25/2017 7:13 AM Dictated Date/Time: 07/25/2017 7:12 AM
[2017-07-25 07:29] VITALS: BP 125/66; PULSE 113; TEMP 36.9; O2SAT 96
[2017-07-25] MEDS: METOPROLOL SUCC 50MG EXT REL TAB PO SCH (07:44)
[2017-07-25] MEDS: TRIAMCINOLONE ACET NASAL SPRAY 10.8ML BTL NAE SCH (07:45)
[2017-07-25 07:53] LABS: INR 1.8 (0.9-1.1); PTT PATIENT 36.4 SECONDS (21.0-31.0)
[2017-07-25 08:40] VITALS: PULSE 98; O2SAT 94
[2017-07-25] MEDS ORDERED: TAMSULOSIN HCL 0.4 MG CAP PO SCH (09:00)
[2017-07-25] MEDS ORDERED: RIVAROXABAN 20 MG TAB PO SCH (09:00)
--- NOTE | 2017-07-25 09:54 | Discharge Instructions ---
Discharge Instructions Date of Service Jul 25, 2017. Admission Reason for Admission: Acute Respiratory Failure With Hypoxia; Fatigue Discharge Discharge Diagnosis / Problem: Hypoxia/ Diarrhea Discharge Goals Goal(s): Improve disease control, Improve nutritional status, Therapeutic intervention Activity Recommendations Activity Limitations: resume your previous activity Lifting Limitations: none Driving or Machine Use: no limitations . Instructions / Follow-Up Instructions / Follow-Up You were admitted to the hospital for the treatment of your dehydration/ low blood pressure and fatigue secondary to the diarrhea. Your diarrhea was tested for a bacteria called C diff and this was negative. We have also tested it for some bacterial sources of diarrhea however these studies are still pending. You were treated with IV fluids in order to improve your blood pressure. There was a slight oxygen requirement and the CT of the chest was suggestive of a possible infectious process. We would like you to complete a course of antibiotics which will be sent to your pharmacy. A script for probiotics will be provided to take with the antibiotics. Imaging was also completed in order to assess reasons for your diarrhea as well as the low oxygen level. A few incidental findings were noted which may require further imaging. 1. Indeterminate 5 cm hyperdense left renal lesion. A repeat CT specific for the kidney is required 2. 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 Follow up imaging can be arranged per your PCP You may still be weakened from your persistent diarrhea. Please maintain fluid intake as well trying not to overdo it today as I do understand you have a busy day. If you have worsening of symptoms, develop a fever, chest pain or SOB please return to the hospital for evaluation Please follow up with PCP in 1 week Current Hospital Diet Patient's current hospital diet: AHA Diet (Heart Healthy) Discharge Diet Recommended Diet: Regular Diet Pending Studies Studies pending at discharge: yes List of pending studies: Stool culture studies Medical Emergencies . Who to Call and When: Medical Emergencies: If at any time you feel your situation is an emergency, please call 911 immediately. . Non-Emergent Contact Non-Emergency issues call your: Primary Care Provider Call Non-Emergent contact if: you have a fever, your pain is worsening, you have any medication questions . . "Provider Documentation" section prepared by Piedad aCro. .
--- NOTE | 2017-07-25 10:24 | Discharge Summary ---
Discharge Summary Date of Service Jul 25, 2017. Discharge Summary Admission Date: Jul 24, 2017 at 21:06 Discharge Date: Jul 25, 2017 Discharge Disposition: Home Principal Diagnosis: dehydration Problems/Secondary Diagnoses: Atrial fibrillation BPH Spinal Stenosis Bronchiolitis Renal Cysts Abdominal Aneurysm Mild cognitive impairment Chronic sinusitis Medication Reconciliation New Medications: Amoxicillin & Pot Clavulanate (Augmentin 875-125 mg) 1 Tab Tab 1 TAB PO BID for 10 Days, #20 TAB Saccharomyces Boulardii (Florastor) 250 Mg Cap 1 TAB PO BID for 30 Days, #60 TAB Continued Medications: Atorvastatin (Lipitor) 20 Mg Tab 20 MG PO QPM, TAB Clotrimazole W/ Betamethasone (Lotrisone) 1 Cre Cre 1 APPLN TOP BID for 5 Days, #15 GM Dutasteride (Dutasteride) 0.5 Mg Cap 0.5 MG PO DAILY Famotidine (Pepcid) 20 Mg Tab 20 MG PO DAILY PRN for Indigestion, TAB Metoprolol Succinate (Toprol Xl) 50 Mg Tabcr 50 MG PO BID Multivitamin (Multivitamin) Tab 1 TAB PO QPM, TAB Mupirocin (Bactroban 2% Oint) 66 Appln/22 Gm Oint 1 APPLN MARIAM BID Rivaroxaban (Xarelto) 20 Mg Tab 20 MG PO DAILY Saline (Saline Nasal [place]) 0.65 % Spr 2 SPRAYS MARIAM BID PRN for Nasal Congestion Tamsulosin HCl (Tamsulosin HCl) 0.4 Mg Cap 0.4 MG PO DAILY Triamcinolone Acet (Aristocort 0.1%) 90 Appln/30 Gm Cr 1 APPL TOP UD Triamcinolone Acetonide (Nasal (Nasacort Allergy 24Hr) 55 Mcg/Act Spr 1 MARIAM BID Discharge Exam Patient was back to baseline this am. States that he has no cough, dyspnea or chest pain. Anxious for discharge as the patient is to be at his 's this afternoon. Discussed the case in detail with the son and father as well as plan for discharge and both are comfortable for discharge and agree with plan. We did discuss that patient may benefit from further inpatient treatment for persistent diarrhea however considering social circumstances there is preference for discharge. Review of Systems: Constitutional: No fever Eyes: No worsening of vision ENT: No hearing loss Respiratory: No cough, No sputum, No wheezing, No shortness of breath, No dyspnea on exertion, No dyspnea at rest, No hemoptysis Cardiovascular: No chest pain Abdomen: + diarrhea (without blood), No pain, No nausea, No vomiting, No constipation Musculoskeletal: No joint pain, No muscle pain Genitourinary - Male: No hematuria, No dysuria Neurologic: + weakness, + balance problems, No numbness/tingling Psychiatric: + anxiety, No depression symptoms Endocrine: No fatigue Hematologic / Lymphatic: No abnormal bleeding/bruising Integumentary: No rash Physical Exam: General Appearance: no apparent distress Eyes: normal inspection ENT: normal ENT inspection Neck: supple Respiratory/Chest: normal breath sounds, no respiratory distress, no accessory muscle use, + decreased breath sounds (bilat bases) Cardiovascular: no murmur, normal peripheral pulses, + irregularly irregular Abdomen / GI: normal bowel sounds, non tender, soft Extremities: no calf tenderness, + pedal edema (trace bilat) Neurologic/Psychiatric: alert, normal mood/affect, oriented x 3 Skin: normal color, warm/dry, no rash Lymphatic: no adenopathy Hospital Course 82M with a PMHx of Afib and 40pk year smoking hx p/w dehydration, fatigue and new oxygen requirement. The patient was quite hypotensive in the ED and required 3.5 L of NSS for resuscitation. This improved bp and patient on day of discharge was hemodynamically stable. Patient did have persistent diarrhea on day of d/c however continued to remain non bloody and considering the patient's social circumstances there was preference for discharge. He was made aware of incidental findings on CT which were noted below and was treated for potential pulmonary infectious based on consolidative changes on CT chest and oxygen requirement on admission. Acute hypoxic respiratory failure possibly secondary to infectious process - CT reveals possible infectious bronchiolitis and chronic aspiration changes - Speech eval completed, no indication of chronic aspiration on exam - Augmentin x 10 days with addition of Florastor, close follow up with PCP to determine if full 10 day course required, however less likely acute infectious process considering ESR normal, no WBC count and no respiratory symptoms otherwise - consider outpatient PFT Diarrhea - Stool cultures pending - C diff negative - Hemoccult in ED positive, HH 13.9 on day of discharge , could consider repeat hemoccult/ FIT testing vs colonoscopy in outpatient setting 5cmm hyperdense renal lesion CT renal combo ordered for outpatient, to follow up with PCP 3.4cm abdominal aneurysm Follow up with PCP to determine follow up imaging needs DNR/DNI Total Time Spent: Greater than 30 minutes (35 min) This includes examination of the patient, discharge planning, medication reconciliation, and communication with other providers. Discharge Instructions Please refer to the electronic Patient Visit Report (Discharge Instructions) for additional information. Additional Copies To Justino Mandujano M.D. Reviewed: Pt Seen/Exam by Me History breathing back to normal. no cough. Constitutional: denies: fever Respiratory: negative: short of breath Cardiovascular: denies chest pain General Appearance: no apparent distress Respiratory: lungs clear, no respiratory distress Cardiovascular: regular rate, rhythm Neurologic/Psychiatric: alert Skin Characteristics: warm/dry Assessment/Plan Resident Physician Supervision Note: I independently interviewed and examined the patient and verified the potts history and physical, reviewed labs and image studies, discussed the case with the resident Dr. Caro and agree with the findings and care plan. Time spent in discharge 40 min
[2017-07-25 10:29] VITALS: BP 125/66; PULSE 98; TEMP 36.9; O2SAT 94
[2017-07-25] MEDS ORDERED: AMOX875T PO (10:31)
[2017-07-25] MEDS ORDERED: SACC250C3 PO (10:31)
== END 2017-07-25 10:57 | disposition home or self-care (01) | DRG 189 ==
LOC: C.EDB 17:03 → C.2T 21:06 → EDBEDREQ 21:07 → ENRESERV 21:08
PROVIDERS: ADMIT Internal Medicine; ATTEND Family Medicine
DX: J96.01 Acute respiratory failure with hypoxia (principal); J21.9 Acute bronchiolitis, unspecified; I50.9 Heart failure, unspecified; R05 Cough; R19.7 Diarrhea, unspecified; R19.5 Other fecal abnormalities; I48.91 Unspecified atrial fibrillation; J32.9 Chronic sinusitis, unspecified; G47.00 Insomnia, unspecified; F03.90 Unspecified dementia, unspecified severity, without behavioral disturbance, psychotic disturbance, mood disturbance, and anxiety; R41.82 Altered mental status, unspecified; K21.9 Gastro-esophageal reflux disease without esophagitis; N40.0 Benign prostatic hyperplasia without lower urinary tract symptoms; R33.9 Retention of urine, unspecified; I71.4 Abdominal aortic aneurysm, without rupture; R93.422 Abnormal radiologic findings on diagnostic imaging of left kidney; F17.200 Nicotine dependence, unspecified, uncomplicated; Z66 Do not resuscitate; Z72.89 Other problems related to lifestyle; Z79.01 Long term (current) use of anticoagulants; Z79.51 Long term (current) use of inhaled steroids; Z79.899 Other long term (current) drug therapy; Z88.6 Allergy status to analgesic agent; Z88.8 Allergy status to other drugs, medicaments and biological substances

== ENCOUNTER 2017-07-29 13:53 | Emergency (ER) | payer BC ==
[~2017-07-29 13:53] MED LIST changes: +AMOX875T PO; +BCTROWC NAE; +CLOTCRE TOP; +DUTA1CAP3 PO; -DUTACAP PO; +FLM4 PO; +METO-217 PO; -METO50TA8 PO; -OXYC-88 PO; +SACC250C3 PO; +TRIA1SPR4 NAE; +TRMCR130WC TOP; +XRL20 PO
[2017-07-29 13:54] VITALS: TEMP 36.5
--- NOTE | 2017-07-29 14:01 | EMERGENCY ROOM VISIT NOTE ---
History First contact with patient: 13:58 Chief Complaint: UNABLE TO VOID Stated Complaint: UNABLE TO VOID History of Present Illness The patient is a 82 year old male with a h/o a fibb, htn who presents to the Emergency Room with complaints of inability to void. The patient was admitted on July for severe hypotension following 48 hours of profuse diarrhea. The patient was given 3.5 L of NSS as bolus and was discharged home with Augmentin for a potential aspiration PNA. The patient notes he has been keeping his fluid intake increased because of persistent diarrhea. He notes his diarrhea really has not improved since his discharge and he has been having frequent stools > 3/day, occasional blood in stool and has had several "accidents"/ incontinence of his stool. With the increased fluid intake he has also had increasing frequency of urination. He has had no dysuria and the daughter questions on moment of hematuria and then two days prior completely unable to void. He has no abdominal pain but abdominal pressure above the pelvic rim. He denies any back pain and his spinal stenosis surgery was "years ago". On review of the previous admission stool cultures completed and revealed no c diff, shigella/salmonella, Ecoli, norovirus or rotavirus. The UA did note to have calcium Oxalate. Patient is still taking his Augmentin. He is on Xarelto for A fibb and typically lives rate controlled. A prostate exam was completed recently by his urologist and it was considered " normal" and he is currently treated with Flomax and Dutasteride. Review of Systems A 10 point review of systems completed and negative aside from above Past Medical/Surgical History Medical Problems: (1) Acute respiratory failure with hypoxia (2) Atrial fibrillation (3) BPH (benign prostatic hyperplasia) (4) Dehydration (5) Diarrhea (6) Fatigue Family History No pertinent family history Social History Smoking Status: Former Smoker Smokeless Tobacco Use: No Alcohol Use: none Drug Use: none Marital Status: Housing Status: lives with family Occupation Status: retired Current/Historical Medications Scheduled Amoxicillin & Pot Clavulanate (Augmentin 875-125 mg), 1 TAB PO BID Atorvastatin (Lipitor), 20 MG PO QPM Dutasteride (Dutasteride), 0.5 MG PO DAILY Metoprolol Succinate (Toprol Xl), 50 MG PO BID Multivitamin (Multivitamin), 1 TAB PO QPM Mupirocin (Bactroban 2% Oint), 1 APPLN MARIAM BID Rivaroxaban (Xarelto), 20 MG PO DAILY Saccharomyces Boulardii (Florastor), 1 TAB PO BID Tamsulosin HCl (Tamsulosin HCl), 0.4 MG PO DAILY Triamcinolone Acet (Aristocort 0.1%), 1 APPL TOP UD Triamcinolone Acetonide (Nasal (Nasacort Allergy 24Hr), 1 MARIAM BID Scheduled PRN Famotidine (Pepcid), 20 MG PO DAILY PRN for Indigestion Saline (Saline Nasal [place]), 2 SPRAYS MARIAM BID PRN for Nasal Congestion Allergies Cyclobenzaprine, Flecanide, Ibuprofen Physical Exam Vital Signs Date Time Temp Pulse Resp B/P (MAP) Pulse Ox O2 Delivery O2 Flow Rate FiO2 07/29/17 20:09 88 18 137/86 96 Room Air 07/29/17 20:05 96 Room Air 07/29/17 18:55 92 18 95 Mask 4.0 07/29/17 18:10 113 24 141/89 94 Nasal Cannula 2.0 07/29/17 17:37 84 18 126/59 87 Room Air 07/29/17 15:54 95 20 142/78 97 Room Air 07/29/17 13:54 36.5 97 20 152/82 97 Room Air Physical Exam General: ambulatory, not in acute distress Skin: no rashes noted, no suspicious lesions, no areas of inflammations/ lacerations/ erythema noted CVS: S1/ S2 noted, RRR, no rubs/ murmurs noted, no cyanosis RVS: Clear throughout bilaterally, not in acute respiratory distress, no wheezing/ rales/ crackles noted ENT: no erythema/ injection/ ulcerations noted in the pharynx, no lymphadenopathy Neck: , inspection WNL, full ROM of neck ABD: BSx4, no pain/ tenderness on palpation but fullness palpated above the pelvic rim, no organomegaly, negative murphys, psoas, Rovsing, CVA tenderness Rectal: prostate is firm, slightly enlarged and non tender, very poor rectal tone, no saddle anesthesia appreciated NVS: difficult to elicit bilat patellar reflexes MSK: inspection of all limbs WNL, motor and sensation intact in all limbs, + 3 swelling of bilat LE ( BL for the patient) Lymph: No lymphadenopathy palpable Psych: Well dressed, Mood: "Good", Affect appropriate Medical Decision & Procedures ER Provider Diagnostic Interpretation: ABD/PELVIS WITHOUT FOR STONE HISTORY: 82 years-old Male urinary retention acute urinary retention COMPARISON: CTA 07/24/2017 TECHNIQUE: Multiple axial CT images of the abdomen and pelvis were obtained without the use of IV contrast. A dose lowering technique was used consistent with the principals of ANDRESSA. FINDINGS: Trace bilateral pleural effusions with subsegmental dependent bibasilar opacities suggest compressive atelectasis. There is no pneumatosis or pneumoperitoneum identified. The imaged inferior cardiac chambers are mildly enlarged with coronary arterial disease. Liver, spleen, pancreas and adrenal glands are unremarkable. Cholelithiasis without CT evidence of acute cholecystitis. No intrahepatic biliary ductal dilation. Multiple bilateral renal cysts are again seen measuring up to 10.5 cm within the superior pole right kidney. Mildly hyperattenuating 5.2 cm homogeneous lesion of the interpolar left kidney is redemonstrated suggesting possible proteinaceous or hemorrhagic cyst. No renal calculi or obstructive uropathy. Mild nonspecific perinephric and periureteral stranding. Prostate is enlarged measuring up to 6.2 cm transversely. Bladder is dilated measuring up to 16 cm in length. 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 Possible calcified intimal flap is noted which is better characterized on comparison CTA study. No bulky adenopathy identified. Scattered nonenlarged periaortic lymph nodes. Small duodenal diverticulum. No bowel obstruction or focal bowel wall thickening. Small fat filled bilateral hernias. Colonic diverticulosis without evidence of acute diverticulitis. Soft tissues are unremarkable. Degenerative changes of the lumbar spine and pelvis. IMPRESSION: 1. Prostatomegaly with distention of the urinary bladder measuring up to 16 cm in length suggesting bladder outlet obstruction. 2. No renal calculi or hydronephrosis. 3. Bilateral renal cysts redemonstrated along with a 5.2 cm mildly hyperattenuating homogeneous lesion of the left kidney suggesting possible proteinaceous or hemorrhagic cyst. 4. Cholelithiasis without evidence of acute cholecystitis. 5. Colonic diverticulosis without diverticulitis. 6. Trace bilateral pleural effusions with bibasilar opacities suggesting atelectasis. CHEST ONE VIEW PORTABLE CLINICAL HISTORY: 82 years-old Male presenting with hypoxia. TECHNIQUE: Portable upright AP view of the chest was obtained. COMPARISON: 07/25/2017. FINDINGS: Atherosclerosis of aortic arch. Cardiac silhouette enlarged. Reticular opacities in the mid to basilar distribution bilaterally. No large pleural effusion or pneumothorax. Degenerative changes of the thoracic spine. Anterior cervical fusion hardware. Upper abdomen normal. IMPRESSION: 1. Reticular opacities in the mid to basilar distribution is stable to slightly increased from prior and could reflect congestive change, pulmonary infiltrates, or chronic lung disease. No gray pulmonary edema. 2. Cardiomegaly. LUMBAR SPINE W/O CONTRAST CLINICAL HISTORY: 82 years-old Male presenting with difficulty walking for a few days, radiculopathy down both legs, no history of cancer, to prior lumbar surgeries, concern for cauda equina syndrome. TECHNIQUE: Multisequence, multiplanar MR imaging of the lumbar spine was performed without the use of intravenous contrast. IV contrast: None. COMPARISON: 08/10/2015. FINDINGS: Localizer images: Numerous T2 hyperintense well-defined lesions in the kidneys, likely cysts. The largest cyst is in the right kidney measuring over 11 cm. Postsurgical changes of L4-5 laminectomies. Adequate posterior decompression at these levels. Normal lumbar lordosis. Mild anterior vertebral body height loss of L1 with focal T2 hyperintense changes at the superior endplate, possibly a Schmorl's node. This is similar though somewhat exaggerated from prior exam. Focal fluid signal intensity in the adjacent central portion of the T12-L1 disc. Fatty endplate changes noted anteriorly at L1-2 and centrally at the superior endplate of L3. Remaining vertebral bodies demonstrate normal height, alignment, and bone marrow signal intensity. Diffuse intervertebral disc desiccation. Intervertebral disc heights are largely preserved. Multilevel degenerative changes further detailed below: L1-2: Facet arthropathy with mild bilateral neural foraminal narrowing. No significant spinal canal narrowing. L2-3: Disc bulge, ligamentum flavum hypertrophy, and facet arthropathy result in circumferential effacement of the thecal sac with no significant residual CSF signal intensity. This is stable to slightly worsened from prior exam. Mild to moderate bilateral neural foraminal narrowing. L3-4: Mild disc bulge, ligamentum flavum hypertrophy, and facet arthropathy result in mild circumferential effacement of the thecal sac and moderate bilateral neural foraminal narrowing. L4-5: Mild disc bulge and severe facet arthropathy. No significant spinal canal narrowing. Moderate to severe bilateral neural foraminal narrowing. And L5-S1: Facet arthropathy results in mild to moderate bilateral neural foraminal narrowing. No significant spinal canal narrowing. The spinal cord ends in good position at L1-2. Cauda equina crowding at L2-3. Below this level the cauda equina is not significantly buckled in morphology. Postsurgical changes noted in the subcutaneous tissue of the lumbar region. No evidence of a focal fluid collection. IMPRESSION: 1. Stable to slight interval worsened severe spinal canal stenosis at L2-3 secondary to disc bulge, ligamentum flavum hypertrophy, and facet arthropathy. No buckling of the cauda equina to suggest impingement. Correlate clinically. 2. Multilevel neural foraminal narrowing as detailed above. 3. Mild intervertebral body height loss of L1 is similar to prior exam in 2016 with slightly exaggerated deformity of the superior endplate, likely herniation of the nucleus pulposus at the T12-L1 disc into the vertebral body (enlarging Schmorl's node). Laboratory Results 07/29/17 14:25 Red Blood Count 4.79, Mean Corpuscular Volume 91.0, Mean Corpuscular Hemoglobin 31.3, Mean Corpuscular Hemoglobin Concent 34.4, Mean Platelet Volume 11.5, Neutrophils (%) (Auto) 68.4, Lymphocytes (%) (Auto) 11.4, Monocytes (%) (Auto) 8.3, Eosinophils (%) (Auto) 11.1, Basophils (%) (Auto) 0.4, Neutrophils # (Auto ) 4.68, Lymphocytes # (Auto) 0.78, Monocytes # (Auto) 0.57, Eosinophils # (Auto ) 0.76, Basophils # (Auto) 0.03 07/29/17 14:25 Test 07/29/17 14:25 07/29/17 17:20 White Blood Count 6.85 K/uL (4.8-10.8) Red Blood Count 4.79 M/uL (4.7-6.1) Hemoglobin 15.0 g/dL (14.0-18.0) Hematocrit 43.6 % (42-52) Mean Corpuscular Volume 91.0 fL (80-100) Mean Corpuscular Hemoglobin 31.3 pg (25-34) Mean Corpuscular Hemoglobin Concent 34.4 g/dl (32-36) Platelet Count 175 K/uL (130-400) Mean Platelet Volume 11.5 fL (7.4-10.4) Neutrophils (%) (Auto) 68.4 % Lymphocytes (%) (Auto) 11.4 % Monocytes (%) (Auto) 8.3 % Eosinophils (%) (Auto) 11.1 % Basophils (%) (Auto) 0.4 % Neutrophils # (Auto) 4.68 K/uL (1.4-6.5) Lymphocytes # (Auto) 0.78 K/uL (1.2-3.4) Monocytes # (Auto) 0.57 K/uL (0.11-0.59) Eosinophils # (Auto) 0.76 K/uL (0-0.5) Basophils # (Auto) 0.03 K/uL (0-0.2) RDW Standard Deviation 43.8 fL (36.4-46.3) RDW Coefficient of Variation 13.3 % (11.5-14.5) Immature Granulocyte % (Auto) 0.4 % Immature Granulocyte # (Auto) 0.03 K/uL (0.00-0.02) Prothrombin Time 13.3 SECONDS (9.0-12.0) Prothromb Time International Ratio 1.3 (0.9-1.1) Activated Partial Thromboplast Time 31.5 SECONDS (21.0-31.0) Partial Thromboplastin Ratio 1.2 Anion Gap 3.0 mmol/L (3-11) Estimated GFR () 92.7 Estimated GFR (Non- 80.0 BUN/Creatinine Ratio 7.4 (10-20) Calcium Level 9.2 mg/dl (8.5-10.1) Urine Color YELLOW Urine Appearance CLEAR (CLEAR) Urine pH 5.5 (4.5-7.5) Urine Specific [place] 1.010 (1.000-1.030) Urine Protein NEG (NEG) Urine Glucose (UA) NEG (NEG) Urine Ketones NEG (NEG) Urine Occult Blood 2+ (NEG) Urine Nitrite NEG (NEG) Urine Bilirubin NEG (NEG) Urine Urobilinogen NEG (NEG) Urine Leukocyte Esterase NEG (NEG) Urine WBC (Auto) 1-5 /hpf (0-5) Urine RBC (Auto) 0-4 /hpf (0-4) Urine Hyaline Casts (Auto) 1-5 /lpf (0-5) Urine Epithelial Cells (Auto) 0-5 /lpf (0-5) Urine Bacteria (Auto) NEG (NEG) Date/Time Source Procedure Growth Status 07/29/17 15:02 Stool C.difficile Toxin B Gene (PCR) - Final No C. difficile toxin B gene detected Complete Medications Administered Medications (Trade) Dose Ordered Sig/Cassi Route Start Time Stop Time Status Last Admin Dose Admin Levalbuterol (Xopenex 1.25MG/ 0.5ML Neb) 1.25 mg NOW STAT INH 07/29/17 18:26 07/29/17 18:27 DC 07/29/17 18:55 1.25 MG Ipratropium [place] (Atrovent 0.02% 0.5MG/2.5ML Neb) 0.5 mg NOW STAT INH 07/29/17 18:26 07/29/17 18:27 DC 07/29/17 18:55 0.5 MG Dexamethasone Sodium Phosphate (Dexamethasone Inj Pf) 10 mg NOW ONCE IV 07/29/17 18:45 07/29/17 18:46 DC 07/29/17 19:15 10 MG ECG Per My Interpretation Indication: other Rate (beats per minute): 86 Rhythm: atrial fibrillation Findings: no acute ischemic change Change: no significant change Medical Decision Differential diagnosis includes but is not limited to BPH, Prostate cancer, nephrolithiasis, UTI, pyelonephritis, cauda equina syndrome, conus medullaris syndrome This is an 82 yo m that presents to us with acute onset urinary retention with persistent fecal incontinence. The patient was evaluated and the symptoms are concerning for "red flag" symptoms of back pain and the patient was ordered and MRI of the lumbar spine. It was also concerning for a possible obstruction secondary to the BPH so a CT was ordered as well to assess for obstruction. The patient did have a recent CT abdomen which revealed lesions in the kidney however this was a CTA and may not have adequately evaluated for nephrolithiasis. The CBC did not reveal any leukocytosis and no anemia appreciated. INR elevated to 1.3 however appropriate considering the patient's Xarelto use. The patient's BMP revealed a mild hyponatremia of 130 and no EKATERINA. Negative C diff. A chandler was placed for the patient for the urinary retention following the CT abd and drained > 2000cc. Based on the CT abd there was no indication of nephrolithiasis and enlarged prostate noted. The patient is most likely suffering from urinary retention secondary to BPH. MRI was reviewed with radiologist and no indication of significant impingement which could contribute to the cause. At 1820 we were informed the patient was laying flat and coughing and got acutely hypoxic. On reexamination the patient was not tachypneic however the patient had persistent hypoxia despite being sat up. He also had diminished breath sounds throughout with occasional expiratory wheezing. He was given a nebulizer treatment as well as dexamethasone and reassessed. Patient then had improved breath sounds and was 96% on RA. Patient was not hypoxic during ambulation trial. We discussed how the most likely cause of the urinary retention was secondary to his BPH. A chandler will remain until follow up with urology which was recommended to be in the next 24-48 hours. The hypoxia the patient suffered from is concerning to be secondary to severe reflux/ aspiration. The patient was assessed by speech during the previous admission and it was felt that the patient's deglutination was WNL. Considering this and the recurrent episodes of overnight cough and the hypoxia reflux was considered. This was discussed with the family and instructions to have HOB elevated with sleep as well as a follow up sleep study was discussed. The family and patient were informed of the course and plan for discharge and they were agreeable with d/c home. Medication Reconcilliation Current Medication List: was personally reviewed by me Blood Pressure Screening Patient's blood pressure: Elevated blood pressure Blood pressure disposition: Elevated BP felt to be situational Impression Primary Impression: Urinary retention due to benign prostatic hyperplasia Additional Impressions: Hypoxia Diarrhea Departure Information Dispostion Home / Self-Care Condition GOOD Referrals Justino Mandujano M.D. (PCP) Patient Instructions My [facility] Problem Qualifiers
[2017-07-29 14:38] LABS: BASO % 0.4 %; BASO ABS # 0.03 K/uL (0-0.2); EOS % 11.1 %; EOS ABS # 0.76 K/uL (0-0.5); HEMATOCRIT 43.6 % (42-52); IG# 0.03 K/uL (0.00-0.02); LYMPH % 11.4 %; LYMPH ABS # 0.78 K/uL (1.2-3.4); MEAN CORPUSCULAR HEMOGLOBIN 31.3 pg (25-34); MEAN CORPUSCULAR HGB CONC 34.4 g/dl (32-36); MEAN PLATELET VOLUME 11.5 fL (7.4-10.4); MONO % 8.3 %; MONO ABS # 0.57 K/uL (0.11-0.59); NEUT % 68.4 %; NEUT ABS # 4.68 K/uL (1.4-6.5); PLATELET COUNT 175 K/uL (130-400); RED CELL DISTRIBUTION WIDTH CV 13.3 % (11.5-14.5); RED CELL DISTRIBUTION WIDTH SD 43.8 fL (36.4-46.3); WHITE BLOOD COUNT 6.85 K/uL (4.8-10.8)
[2017-07-29 14:48] LABS: INR 1.3 (0.9-1.1); PTT PATIENT 31.5 SECONDS (21.0-31.0)
[2017-07-29 14:59] LABS: BLOOD UREA NITROGEN 7 mg/dl (7-18); CALCIUM 9.2 mg/dl (8.5-10.1); CARBON DIOXIDE 29 mmol/L (21-32); CREATININE 0.88 mg/dl (0.60-1.40); GLUCOSE 90 mg/dl (70-99); POTASSIUM 4.1 mmol/L (3.5-5.1); SODIUM 131 mmol/L (136-145)
--- NOTE | 2017-07-29 15:40 | DIAGNOSTIC IMAGING REPORT ---
ABD/PELVIS WITHOUT FOR STONE HISTORY: 82 years-old Male urinary retention acute urinary retention COMPARISON: CTA 07/24/2017 TECHNIQUE: Multiple axial CT images of the abdomen and pelvis were obtained without the use of IV contrast. A dose lowering technique was used consistent with the principals of ANDRESSA. FINDINGS: Trace bilateral pleural effusions with subsegmental dependent bibasilar opacities suggest compressive atelectasis. There is no pneumatosis or pneumoperitoneum identified. The imaged inferior cardiac chambers are mildly enlarged with coronary arterial disease. Liver, spleen, pancreas and adrenal glands are unremarkable. Cholelithiasis without CT evidence of acute cholecystitis. No intrahepatic biliary ductal dilation. Multiple bilateral renal cysts are again seen measuring up to 10.5 cm within the superior pole right kidney. Mildly hyperattenuating 5.2 cm homogeneous lesion of the interpolar left kidney is redemonstrated suggesting possible proteinaceous or hemorrhagic cyst. No renal calculi or obstructive uropathy. Mild nonspecific perinephric and periureteral stranding. Prostate is enlarged measuring up to 6.2 cm transversely. Bladder is dilated measuring up to 16 cm in length. 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 Possible calcified intimal flap is noted which is better characterized on comparison CTA study. No bulky adenopathy identified. Scattered nonenlarged periaortic lymph nodes. Small duodenal diverticulum. No bowel obstruction or focal bowel wall thickening. Small fat filled bilateral hernias. Colonic diverticulosis without evidence of acute diverticulitis. Soft tissues are unremarkable. Degenerative changes of the lumbar spine and pelvis. IMPRESSION: 1. Prostatomegaly with distention of the urinary bladder measuring up to 16 cm in length suggesting bladder outlet obstruction. 2. No renal calculi or hydronephrosis. 3. Bilateral renal cysts redemonstrated along with a 5.2 cm mildly hyperattenuating homogeneous lesion of the left kidney suggesting possible proteinaceous or hemorrhagic cyst. 4. Cholelithiasis without evidence of acute cholecystitis. 5. Colonic diverticulosis without diverticulitis. 6. Trace bilateral pleural effusions with bibasilar opacities suggesting atelectasis. The above report was generated using voice recognition software. It may contain grammatical, syntax or spelling errors. Electronically signed by: Vik Strauss M.D. 07/29/2017 3:39 PM Dictated Date/Time: 07/29/2017 3:31 PM
--- NOTE | 2017-07-29 15:59 | EMERGENCY ROOM VISIT NOTE ---
ED Visit Note First contact with patient: 13:58 HPI: 82M with recent admission/discharge for dehydration/diarrhea presents to ED with 2 days of urinary retention. PE: AFVSS, NAD NC/AT IRIR, no murmurs CTAB Abd distended with suprapubic fullness. Mild discomfort. Ext: no edema, erythema Neuro: grossly intact Plan: CT with prostatomegaly likely etiology of urinary retention. UA negative for infection. Questionable rectal tone by resident in setting of known spinal stenosis. MRI L-spine without evidence of cord compression. WBC wnl. Cr wnl. Vera placed with ~2L retained. Patient briefly hypoxic but resolved with single dose of dexamethasone and Xopenex. Like due to patient's underlying lung disease. Plan for d/c with leg bag and urology f/u. I reviewed the patient's past medical history, medications, and visit nursing notes. I discussed the case with the resident physician, examined the patient, and agree with the findings and plan as documented in the residents note unless otherwise clarified here by me.
--- NOTE | 2017-07-29 17:37 | DIAGNOSTIC IMAGING REPORT ---
LUMBAR SPINE W/O CONTRAST CLINICAL HISTORY: 82 years-old Male presenting with difficulty walking for a few days, radiculopathy down both legs, no history of cancer, to prior lumbar surgeries, concern for cauda equina syndrome. TECHNIQUE: Multisequence, multiplanar MR imaging of the lumbar spine was performed without the use of intravenous contrast. IV contrast: None. COMPARISON: 08/10/2015. FINDINGS: Localizer images: Numerous T2 hyperintense well-defined lesions in the kidneys, likely cysts. The largest cyst is in the right kidney measuring over 11 cm. Postsurgical changes of L4-5 laminectomies. Adequate posterior decompression at these levels. Normal lumbar lordosis. Mild anterior vertebral body height loss of L1 with focal T2 hyperintense changes at the superior endplate, possibly a Schmorl's node. This is similar though somewhat exaggerated from prior exam. Focal fluid signal intensity in the adjacent central portion of the T12-L1 disc. Fatty endplate changes noted anteriorly at L1-2 and centrally at the superior endplate of L3. Remaining vertebral bodies demonstrate normal height, alignment, and bone marrow signal intensity. Diffuse intervertebral disc desiccation. Intervertebral disc heights are largely preserved. Multilevel degenerative changes further detailed below: L1-2: Facet arthropathy with mild bilateral neural foraminal narrowing. No significant spinal canal narrowing. L2-3: Disc bulge, ligamentum flavum hypertrophy, and facet arthropathy result in circumferential effacement of the thecal sac with no significant residual CSF signal intensity. This is stable to slightly worsened from prior exam. Mild to moderate bilateral neural foraminal narrowing. L3-4: Mild disc bulge, ligamentum flavum hypertrophy, and facet arthropathy result in mild circumferential effacement of the thecal sac and moderate bilateral neural foraminal narrowing. L4-5: Mild disc bulge and severe facet arthropathy. No significant spinal canal narrowing. Moderate to severe bilateral neural foraminal narrowing. And L5-S1: Facet arthropathy results in mild to moderate bilateral neural foraminal narrowing. No significant spinal canal narrowing. The spinal cord ends in good position at L1-2. Cauda equina crowding at L2-3. Below this level the cauda equina is not significantly buckled in morphology. Postsurgical changes noted in the subcutaneous tissue of the lumbar region. No evidence of a focal fluid collection. IMPRESSION: 1. Stable to slight interval worsened severe spinal canal stenosis at L2-3 secondary to disc bulge, ligamentum flavum hypertrophy, and facet arthropathy. No buckling of the cauda equina to suggest impingement. Correlate clinically. 2. Multilevel neural foraminal narrowing as detailed above. 3. Mild intervertebral body height loss of L1 is similar to prior exam in 2016 with slightly exaggerated deformity of the superior endplate, likely herniation of the nucleus pulposus at the T12-L1 disc into the vertebral body (enlarging Schmorl's node). The report will be called/faxed according to standard departmental protocol. Electronically signed by: Agustin Carney M.D. 07/29/2017 5:36 PM Dictated Date/Time: 07/29/2017 5:28 PM
[2017-07-29] MEDS ORDERED: IPRATROPIUM BROMIDE NEB SOLN 0.02% 2.5 ML VIAL INH STA (18:26)
[2017-07-29] MEDS ORDERED: LEVALBUTEROL 1.25MG/0.5ML NEB INH STA (18:26)
[2017-07-29] MEDS ORDERED: DEXAMETHASONE **PF** INJ 10 MG/ML VIAL IV ONE (18:45)
--- NOTE | 2017-07-29 18:48 | DIAGNOSTIC IMAGING REPORT ---
CHEST ONE VIEW PORTABLE CLINICAL HISTORY: 82 years-old Male presenting with hypoxia. TECHNIQUE: Portable upright AP view of the chest was obtained. COMPARISON: 07/25/2017. FINDINGS: Atherosclerosis of aortic arch. Cardiac silhouette enlarged. Reticular opacities in the mid to basilar distribution bilaterally. No large pleural effusion or pneumothorax. Degenerative changes of the thoracic spine. Anterior cervical fusion hardware. Upper abdomen normal. IMPRESSION: 1. Reticular opacities in the mid to basilar distribution is stable to slightly increased from prior and could reflect congestive change, pulmonary infiltrates, or chronic lung disease. No gray pulmonary edema. 2. Cardiomegaly. Electronically signed by: Agustin Carney M.D. 07/29/2017 6:47 PM Dictated Date/Time: 07/29/2017 6:46 PM
[2017-07-29 18:55] VITALS: PULSE 92; O2SAT 95
[2017-07-29 20:09] VITALS: BP 137/86; PULSE 88; O2SAT 96
== END 2017-07-29 20:38 | disposition home or self-care (01) ==
LOC: C.EDB 13:54
DX: N40.1 Benign prostatic hyperplasia with lower urinary tract symptoms (principal); R09.02 Hypoxemia; R19.7 Diarrhea, unspecified; J96.01 Acute respiratory failure with hypoxia; I48.91 Unspecified atrial fibrillation; Z87.891 Personal history of nicotine dependence; Z88.8 Allergy status to other drugs, medicaments and biological substances

== ENCOUNTER 2017-07-31 03:19 | Emergency (ER) | payer BC ==
[~2017-07-31] VITALS: Ht 185.4 cm; Wt 109.1 kg
[~2017-07-31 03:19] MED LIST changes: -CLOTCRE TOP
[2017-07-31 03:21] VITALS: TEMP 36.6; Ht 185.4 cm; Wt 109.1 kg
[2017-07-31] MEDS ORDERED: AMOX1TAB42 PO ×2 (03:35→03:37)
[2017-07-31] MEDS ORDERED: SACC250C PO (03:40)
[2017-07-31 04:09] LABS: BASO % 0.1 %; BASO ABS # 0.01 K/uL (0-0.2); EOS % 2.2 %; EOS ABS # 0.21 K/uL (0-0.5); HEMATOCRIT 41.5 % (42-52); HEMOGLOBIN 14.1 g/dL (14.0-18.0); IG# 0.04 K/uL (0.00-0.02); LYMPH % 11.6 %; MEAN CELL VOLUME 91.4 fL (80-100); MEAN CORPUSCULAR HEMOGLOBIN 31.1 pg (25-34); MEAN PLATELET VOLUME 11.3 fL (7.4-10.4); MONO % 8.8 %; MONO ABS # 0.84 K/uL (0.11-0.59); NEUT % 76.9 %; NEUT ABS # 7.32 K/uL (1.4-6.5); PLATELET COUNT 169 K/uL (130-400); RED CELL DISTRIBUTION WIDTH CV 13.7 % (11.5-14.5); RED CELL DISTRIBUTION WIDTH SD 44.8 fL (36.4-46.3); WHITE BLOOD COUNT 9.52 K/uL (4.8-10.8)
[2017-07-31 04:42] LABS: CALCIUM 9.2 mg/dl (8.5-10.1); CREATININE 0.85 mg/dl (0.60-1.40); POTASSIUM 3.9 mmol/L (3.5-5.1)
[2017-07-31 05:20] VITALS: BP 144/70; PULSE 98; O2SAT 98
[2017-07-31] MEDS ORDERED: CEPHALEXIN MONOHYDRATE 250 MG CAP PO ONE (05:30)
[2017-07-31] MEDS ORDERED: CEPH500C PO (05:47)
--- NOTE | 2017-08-01 03:34 | EMERGENCY ROOM VISIT NOTE ---
History First contact with patient: 03:27 Chief Complaint: URINARY SYMPTOMS Stated Complaint: BLOODY URINE Nursing Triage Summary: Patient states, "I've been here a lot recently, but tonight my catheter is half full of blood." States cath was put in approx. 4 days ago. Denies pain. History of Present Illness The patient is a 82 year old male who presents to the Emergency Room with complaints of blood in his catheter bag that began about 3 hours ago. The patient states that he was at home when he noticed a very small amount of red blood in his leg bag. He states over the past few hours this has increased significantly. The patient has a recent history of urinary retention where 2 L was drained from his bladder after catheter placement. He is expecting a call from urology this morning to arrange follow-up. The patient is not having significant pain, fever, or chills. No injury or trauma otherwise. He rates his current discomfort as 0/10. He is on Xarelto. Review of Systems More than 10 systems were reviewed and otherwise negative with the exception of history of present illness. Past Medical/Surgical History Medical Problems: (1) Acute respiratory failure with hypoxia (2) Atrial fibrillation (3) BPH (benign prostatic hyperplasia) (4) Dehydration (5) Diarrhea (6) Fatigue Family History No pertinent family history Social History Smoking Status: Never Smoker Alcohol Use: none Drug Use: none Marital Status: Housing Status: lives with family Occupation Status: retired Current/Historical Medications Scheduled Amoxicillin & Pot Clavulanate (Amoxicillin/Clavulanate P), 1 TAB PO BID Atorvastatin (Lipitor), 20 MG PO QPM Cephalexin Monohydrate (Keflex), 500 MG PO BID Dutasteride (Dutasteride), 0.5 MG PO DAILY Metoprolol Succinate (Toprol Xl), 50 MG PO BID Multivitamin (Multivitamin), 1 TAB PO QPM Mupirocin (Bactroban 2% Oint), 1 APPLN MARIAM BID Rivaroxaban (Xarelto), 20 MG PO DAILY Saccharomyces Boulardii (Florastor), 250 MG PO BID Tamsulosin HCl (Tamsulosin HCl), 0.4 MG PO DAILY Triamcinolone Acet (Aristocort 0.1%), 1 APPL TOP UD Triamcinolone Acetonide (Nasal (Nasacort Allergy 24Hr), 1 MARIAM BID Scheduled PRN Famotidine (Pepcid), 20 MG PO DAILY PRN for Indigestion Saline (Saline Nasal [place]), 2 SPRAYS MARIAM BID PRN for Nasal Congestion Physical Exam Vital Signs Date Time Temp Pulse Resp B/P (MAP) Pulse Ox O2 Delivery O2 Flow Rate FiO2 07/31/17 05:20 98 144/70 98 Room Air 07/31/17 03:21 36.6 109 20 142/67 93 Room Air Physical Exam VITALS: Vitals are noted on the nurse's note and reviewed by myself. Vital signs stable. GENERAL: Well-developed, well-nourished, white male, who is in no acute distress and resting comfortably. Patient is cooperative with the examination. HEART: Regular rate and rhythm without murmurs gallops or rubs. LUNGS: Clear to auscultation bilaterally without wheezes, rales or rhonchi. No retractions or accessory muscle use. ABDOMEN: Positive normal bowel sounds x 4. Soft, nontender, without masses or organomegaly. No guarding or rebound tenderness. Medical Decision & Procedures Laboratory Results 07/31/17 03:47 Red Blood Count 4.54, Mean Corpuscular Volume 91.4, Mean Corpuscular Hemoglobin 31.1, Mean Corpuscular Hemoglobin Concent 34.0, Mean Platelet Volume 11.3, Neutrophils (%) (Auto) 76.9, Lymphocytes (%) (Auto) 11.6, Monocytes (%) (Auto) 8.8, Eosinophils (%) (Auto) 2.2, Basophils (%) (Auto) 0.1, Neutrophils # (Auto) 7.32, Lymphocytes # (Auto) 1.10, Monocytes # (Auto) 0.84, Eosinophils # (Auto) 0.21, Basophils # (Auto) 0.01 07/31/17 03:47 Test 07/31/17 03:47 07/31/17 04:05 White Blood Count 9.52 K/uL (4.8-10.8) Red Blood Count 4.54 M/uL (4.7-6.1) Hemoglobin 14.1 g/dL (14.0-18.0) Hematocrit 41.5 % (42-52) Mean Corpuscular Volume 91.4 fL (80-100) Mean Corpuscular Hemoglobin 31.1 pg (25-34) Mean Corpuscular Hemoglobin Concent 34.0 g/dl (32-36) Platelet Count 169 K/uL (130-400) Mean Platelet Volume 11.3 fL (7.4-10.4) Neutrophils (%) (Auto) 76.9 % Lymphocytes (%) (Auto) 11.6 % Monocytes (%) (Auto) 8.8 % Eosinophils (%) (Auto) 2.2 % Basophils (%) (Auto) 0.1 % Neutrophils # (Auto) 7.32 K/uL (1.4-6.5) Lymphocytes # (Auto) 1.10 K/uL (1.2-3.4) Monocytes # (Auto) 0.84 K/uL (0.11-0.59) Eosinophils # (Auto) 0.21 K/uL (0-0.5) Basophils # (Auto) 0.01 K/uL (0-0.2) RDW Standard Deviation 44.8 fL (36.4-46.3) RDW Coefficient of Variation 13.7 % (11.5-14.5) Immature Granulocyte % (Auto) 0.4 % Immature Granulocyte # (Auto) 0.04 K/uL (0.00-0.02) Anion Gap 4.0 mmol/L (3-11) Est Creatinine Clear Calc Drug Dose 86.8 ml/min Estimated GFR () 94.0 Estimated GFR (Non- 81.1 BUN/Creatinine Ratio 19.6 (10-20) Calcium Level 9.2 mg/dl (8.5-10.1) Urine Color RED Urine Appearance CLOUDY (CLEAR) Urine pH (4.5-7.5) Urine Specific [place] 1.019 (1.000-1.030) Urine Protein POS (NEG) Urine Glucose (UA) (NEG) Urine Ketones (NEG) Urine Occult Blood (NEG) Urine Nitrite (NEG) Urine Bilirubin (NEG) Urine Urobilinogen (NEG) Urine Leukocyte Esterase (NEG) Urine RBC >30 /hpf (0-4) Urine WBC >30 /hpf (0-5) Urine Epithelial Cells 20-30 /lpf (0-5) Urine Bacteria 1+ (NEG) Medications Administered Medications (Trade) Dose Ordered Sig/Cassi Route Start Time Stop Time Status Last Admin Dose Admin Cephalexin Monohydrate (Keflex Cap) 500 mg NOW ONCE PO 07/31/17 05:30 07/31/17 05:31 DC 07/31/17 05:30 500 MG ED Course Physical exam and history were performed. Nursing notes, EMR, and Medication List were personally reviewed. Patient appears to have red blood in his urine bag which was clearly noted on presentation. The patient is on Xarelto. He is not having pain or fever. I did elect to draw basic labs and replace his catheter. His urine is very suggestive of a UTI. His blood work is as above and does not show signs of significant anemia or bandemia. The patient will be started on a short course of Keflex for presumed UTI with culture pending. His first dose was provided here in the department. He is to follow-up with urology, who is evidently to call him later this morning. This seems reasonable. The patient was otherwise invited back to the ER with any new, worsening, or concerning symptoms. The chart was completed utilizing [employer] Speech Voice Recognition Software. Grammatical errors, random word insertions, pronoun errors, and incomplete sentences are an occasional consequence of this system due to software limitations, ambient noise, and hardware issues. Any formal questions or concerns about the content, text, or information contained within the body of this dictation should be directly addressed to the provider for clarification. . Medical Decision Differential diagnosis includes, but is not limited to: Infection, hematuria, cancer, enlarged prostate, Vera catheter malfunction, and others Impression Primary Impression: Symptoms of urinary tract infection Departure Information Dispostion Home / Self-Care Condition GOOD Prescriptions Cephalexin Monohydrate (Keflex) 500 Mg Cap 500 MG PO BID for 7 Days, #14 CAP Prov: Jim Preston PA-C 07/31/17 Referrals Justino Mandujano M.D. (PCP) Ventura Crowe MD, Urology Forms HOME CARE DOCUMENTATION FORM, IMPORTANT VISIT INFORMATION Patient Instructions My [facility] Additional Instructions You were seen and evaluated today on an emergency basis only. This is not a substitute for, or an effort to provide, complete comprehensive medical care. It is not possible to recognize and treat all injuries or illnesses in a single emergency department visit. For this reason it is recommended that you followup with Urology, Dr. Crowe's office, today for recheck. Take Keflex 500 mg twice daily for the next 7 days. You are welcome to return to the emergency department anytime with new, worsening, or concerning symptoms.
== END 2017-07-31 06:02 | disposition home or self-care (01) ==
LOC: C.EDB 03:21 → C.EDA 06:02
DX: R31.9 Hematuria, unspecified (principal); I48.91 Unspecified atrial fibrillation; N40.0 Benign prostatic hyperplasia without lower urinary tract symptoms; Z79.01 Long term (current) use of anticoagulants; Z79.899 Other long term (current) drug therapy

== ENCOUNTER 2017-08-03 04:17 | Emergency (ER) | payer BC ==
[~2017-08-03] VITALS: Ht 185.4 cm; Wt 99.5 kg
[~2017-08-03 04:17] MED LIST changes: +AMOX1TAB42 PO; -AMOX875T PO; +CEPH500C PO; +SACC250C PO; -SACC250C3 PO
[2017-08-03 04:20] VITALS: Ht 185.4 cm; Wt 99.5 kg
[2017-08-03] MEDS ORDERED: HYDROCODONE/ACETAMIN 5/325MG TAB PO ONE (04:45)
[2017-08-03] MEDS ORDERED: FENTANYL CITRATE INJ 50 MCG/1 ML 2 ML VIAL IV ONE (04:45)
[2017-08-03] MEDS ORDERED: CEPH500C PO (04:53)
[2017-08-03 05:34] LABS: BASO % 0.1 %; BASO ABS # 0.01 K/uL (0-0.2); EOS % 1.7 %; EOS ABS # 0.21 K/uL (0-0.5); HEMATOCRIT 46.3 % (42-52); HEMOGLOBIN 15.5 g/dL (14.0-18.0); IG# 0.09 K/uL (0.00-0.02); LYMPH % 4.5 %; LYMPH ABS # 0.57 K/uL (1.2-3.4); MEAN CORPUSCULAR HEMOGLOBIN 31.1 pg (25-34); MEAN CORPUSCULAR HGB CONC 33.5 g/dl (32-36); MEAN PLATELET VOLUME 11.6 fL (7.4-10.4); MONO % 3.8 %; MONO ABS # 0.48 K/uL (0.11-0.59); NEUT % 89.2 %; NEUT ABS # 11.27 K/uL (1.4-6.5); PLATELET COUNT 160 K/uL (130-400); RED CELL DISTRIBUTION WIDTH CV 13.5 % (11.5-14.5); RED CELL DISTRIBUTION WIDTH SD 45.8 fL (36.4-46.3); WHITE BLOOD COUNT 12.63 K/uL (4.8-10.8)
[2017-08-03 05:51] LABS: ALBUMIN 3.4 gm/dl (3.4-5.0); CALCIUM 8.9 mg/dl (8.5-10.1); CREATININE 1.12 mg/dl (0.60-1.40); POTASSIUM 3.7 mmol/L (3.5-5.1)
[2017-08-03 05:54] LABS: TOTAL PROTEIN 7.1 gm/dl (6.4-8.2)
[2017-08-03] MEDS ORDERED: NORCO 5/325MG HOME PACK PO ONE (06:15)
[2017-08-03 06:33] VITALS: O2SAT 95
--- NOTE | 2017-08-03 06:38 | DIAGNOSTIC IMAGING REPORT ---
CT OF THE RIGHT HIP WITHOUT CONTRAST CLINICAL HISTORY: Right hip pain. Right leg pain. COMPARISON STUDY: Pelvis and right hip radiographs August 01, 2017. TECHNIQUE: Axial images of the right hip were obtained without IV contrast. Sagittal and coronal reconstructions were viewed. FINDINGS: Alignment of the right hip is anatomic. There is no acute fracture or suspicious osseous lesion. There is no evidence for avascular necrosis. There is moderate to severe joint space narrowing with osteophytosis of the right hip. The prostate gland is enlarged. There is sigmoid diverticulosis without evidence for acute diverticulitis within visualized portions of the colon. A Vera balloon is present within the bladder which is collapsed. No mass or fluid collection shown adjacent to the right hip. IMPRESSION: 1. No acute fracture or dislocation of the right hip. 2. 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 3. Prosthetic enlargement. Electronically signed by: Don Georges M.D. 08/03/2017 6:36 AM Dictated Date/Time: 08/03/2017 6:26 AM
[2017-08-03 07:20] VITALS: BP 112/64; PULSE 76
--- NOTE | 2017-08-04 04:47 | EMERGENCY ROOM VISIT NOTE ---
History First contact with patient: 04:33 Chief Complaint: LEG PAIN,LEG INJURY Stated Complaint: LEG PAIN History of Present Illness The patient is a 82 year old male who presents to the Emergency Room with complaints of right hip pain causing him to come into the emergency department tonight. The patient has been seen previously in the ER for this, but states his pain is worse than normal. He states that he was sleeping in his bed and awoke with the pain. The patient has been seen several times for another complaints, including hematuria after Vera catheter placement. He was started on antibiotics, and states the hematuria has resolved. The patient does not report injury or trauma. No numbness or paresthesias. He is not having abdominal pain or chest pain. He did not take anything [id number] for his symptoms, and states that it worsens when he tries to walk. He has upcoming appointments this week with orthopedics, urology, and his primary care physician. He rates his current discomfort in 11/20. Review of Systems More than 10 systems were reviewed and otherwise negative with the exception of history of present illness. Past Medical/Surgical History Medical Problems: (1) Acute respiratory failure with hypoxia (2) Atrial fibrillation (3) BPH (benign prostatic hyperplasia) (4) Dehydration (5) Diarrhea (6) Fatigue Family History No pertinent family history Social History Smoking Status: Former Smoker Alcohol Use: none Drug Use: none Marital Status: Housing Status: lives with family Occupation Status: retired Current/Historical Medications Scheduled Atorvastatin (Lipitor), 20 MG PO QPM Cephalexin Monohydrate (Keflex), 500 MG PO BID Dutasteride (Dutasteride), 0.5 MG PO DAILY Metoprolol Succinate (Toprol Xl), 50 MG PO BID Multivitamin (Multivitamin), 1 TAB PO QPM Mupirocin (Bactroban 2% Oint), 1 APPLN MARIAM BID Rivaroxaban (Xarelto), 20 MG PO DAILY Saccharomyces Boulardii (Florastor), 250 MG PO BID Tamsulosin HCl (Tamsulosin HCl), 0.4 MG PO DAILY Triamcinolone Acet (Aristocort 0.1%), 1 APPL TOP UD Triamcinolone Acetonide (Nasal (Nasacort Allergy 24Hr), 1 MARIAM BID Scheduled PRN Famotidine (Pepcid), 20 MG PO DAILY PRN for Indigestion Saline (Saline Nasal [place]), 2 SPRAYS MARIAM BID PRN for Nasal Congestion Physical Exam Vital Signs Date Time Temp Pulse Resp B/P (MAP) Pulse Ox O2 Delivery O2 Flow Rate FiO2 08/03/17 07:20 76 112/64 08/03/17 06:33 78 18 102/62 95 Room Air 08/03/17 05:24 80 18 111/65 92 Room Air 08/03/17 04:20 109 16 92/58 96 Room Air Physical Exam VITALS: Vitals are noted on the nurse's note and reviewed by myself. Vital signs stable. GENERAL: Elderly appearing male who is holding his right hip with his right hand. He appears uncomfortable on presentation. NECK: Supple without nuchal rigidity. No lymphadenopathy. No thyromegaly. Cervical spine is nontender. HEART: Regular rate and rhythm with systolic murmur LUNGS: Clear to auscultation bilaterally without wheezes, rales or rhonchi. No retractions or accessory muscle use. ABDOMEN: Positive normal bowel sounds x 4. Soft, nontender, without masses or organomegaly. No guarding or rebound tenderness. MUSCULOSKELETAL: No significant thoracolumbar spine tenderness. Diffuse tenderness throughout the right lateral proximal hip into the right inguinal hip. The right leg is not shortened or rotated. Neurovascular status appears intact. Internal and external rotation causes significant patient discomfort, thus limiting exam. No saddle paresthesias. NEURO: Patient was alert and oriented to person place and time. Medical Decision & Procedures ER Provider Diagnostic Interpretation: CT OF THE RIGHT HIP WITHOUT CONTRAST CLINICAL HISTORY: Right hip pain. Right leg pain. COMPARISON STUDY: Pelvis and right hip radiographs August 01, 2017. TECHNIQUE: Axial images of the right hip were obtained without IV contrast. Sagittal and coronal reconstructions were viewed. FINDINGS: Alignment of the right hip is anatomic. There is no acute fracture or suspicious osseous lesion. There is no evidence for avascular necrosis. There is moderate to severe joint space narrowing with osteophytosis of the right hip. The prostate gland is enlarged. There is sigmoid diverticulosis without evidence for acute diverticulitis within visualized portions of the colon. A Vera balloon is present within the bladder which is collapsed. No mass or fluid collection shown adjacent to the right hip. IMPRESSION: 1. No acute fracture or dislocation of the right hip. 2. 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 3. Prosthetic enlargement. Laboratory Results 08/03/17 05:23 Red Blood Count 4.98, Mean Corpuscular Volume 93.0, Mean Corpuscular Hemoglobin 31.1, Mean Corpuscular Hemoglobin Concent 33.5, Mean Platelet Volume 11.6, Neutrophils (%) (Auto) 89.2, Lymphocytes (%) (Auto) 4.5, Monocytes (%) (Auto) 3.8, Eosinophils (%) (Auto) 1.7, Basophils (%) (Auto) 0.1, Neutrophils # (Auto) 11.27, Lymphocytes # (Auto) 0.57, Monocytes # (Auto) 0.48, Eosinophils # (Auto) 0.21, Basophils # (Auto) 0.01 08/03/17 05:23 Test 08/03/17 05:23 White Blood Count 12.63 K/uL (4.8-10.8) Red Blood Count 4.98 M/uL (4.7-6.1) Hemoglobin 15.5 g/dL (14.0-18.0) Hematocrit 46.3 % (42-52) Mean Corpuscular Volume 93.0 fL (80-100) Mean Corpuscular Hemoglobin 31.1 pg (25-34) Mean Corpuscular Hemoglobin Concent 33.5 g/dl (32-36) Platelet Count 160 K/uL (130-400) Mean Platelet Volume 11.6 fL (7.4-10.4) Neutrophils (%) (Auto) 89.2 % Lymphocytes (%) (Auto) 4.5 % Monocytes (%) (Auto) 3.8 % Eosinophils (%) (Auto) 1.7 % Basophils (%) (Auto) 0.1 % Neutrophils # (Auto) 11.27 K/uL (1.4-6.5) Lymphocytes # (Auto) 0.57 K/uL (1.2-3.4) Monocytes # (Auto) 0.48 K/uL (0.11-0.59) Eosinophils # (Auto) 0.21 K/uL (0-0.5) Basophils # (Auto) 0.01 K/uL (0-0.2) RDW Standard Deviation 45.8 fL (36.4-46.3) RDW Coefficient of Variation 13.5 % (11.5-14.5) Immature Granulocyte % (Auto) 0.7 % Immature Granulocyte # (Auto) 0.09 K/uL (0.00-0.02) Anion Gap 8.0 mmol/L (3-11) Est Creatinine Clear Calc Drug Dose 63.1 ml/min Estimated GFR () 70.5 Estimated GFR (Non- 60.8 BUN/Creatinine Ratio 12.1 (10-20) Calcium Level 8.9 mg/dl (8.5-10.1) Total Bilirubin 1.6 mg/dl (0.2-1) Aspartate Amino Transf (AST/SGOT) 28 U/L (15-37) Alanine Aminotransferase (ALT/SGPT) 35 U/L (12-78) Alkaline Phosphatase 70 U/L (45-117) Total Protein 7.1 gm/dl (6.4-8.2) Albumin 3.4 gm/dl (3.4-5.0) Globulin 3.7 gm/dl (2.5-4.0) Albumin/Globulin Ratio 0.9 (0.9-2) Medications Administered Medications (Trade) Dose Ordered Sig/Cassi Route Start Time Stop Time Status Last Admin Dose Admin Fentanyl Citrate (Fentanyl Inj) 50 mcg NOW ONCE IV 08/03/17 04:45 08/03/17 04:46 DC 08/03/17 04:55 50 MCG ED Course Physical exam and history were performed. Nursing notes, EMR, and Medication List were personally reviewed. Patient appears to have right hip pain bring him to the ER tonight. The patient 's symptoms are reportedly worse than they were the other night. He appears quite uncomfortable on exam, and movement of the right leg certainly worsens his pain. IV access was established and basic labs were obtained. I did give the patient a dose of fentanyl here in the department. CT scan of the hip was performed. The patient's blood work is as above and was reviewed. The patient has a minimally elevated white blood cell count. He does not have a gross anemia or significant electrolyte imbalance. CT scan is as above and was reviewed by myself and radiology showing severe degenerative changes but no acute fracture. On reevaluation the patient felt much better after analgesics. He was monitored for some time and was very comfortably resting in his ER bed. I discussed options of care with the patient, who is comfortable with being discharged home. He has multiple specialty appointments over the next 3 or 4 days, including one with orthopedics. The patient primary concern today is for pain, and I will give him a a home pack of Vicodin. I did discuss the importance of taking extra precautions to prevent falling. He may otherwise use vfxv-[id number]-hodylqo analgesics. The patient was very pleased with this and rated his discomfort a 1/10 at the time of departure. The chart was completed utilizing [employer] Speech Voice Recognition Software. Grammatical errors, random word insertions, pronoun errors, and incomplete sentences are an occasional consequence of this system due to software limitations, ambient noise, and hardware issues. Any formal questions or concerns about the content, text, or information contained within the body of this dictation should be directly addressed to the provider for clarification. . Medical Decision Differential diagnosis includes, but is not limited to: Sprain, strain, fracture , dislocation, subluxation, contusion, infection, and others Medication Reconcilliation Current Medication List: was personally reviewed by me Blood Pressure Screening Patient's blood pressure: Normal blood pressure Impression Primary Impression: Right hip pain Departure Information Dispostion Home / Self-Care Condition GOOD Forms HOME CARE DOCUMENTATION FORM, IMPORTANT VISIT INFORMATION Patient Instructions My [facility] Additional Instructions You were seen and evaluated today on an emergency basis only. This is not a substitute for, or an effort to provide, complete comprehensive medical care. It is not possible to recognize and treat all injuries or illnesses in a single emergency department visit. For this reason it is recommended that you followup with your primary care physician on and your orthopedist on Thursday as scheduled. [place] (hydrocodone/acetaminophen) 5/325 mg every 6 hours as needed for worsening breakthrough pain. Do not drink or drive on [place]. This medication will likely make you tired. Do not take [place] and Tylenol at the same time as both contain acetaminophen. [place] may cause constipation. You may wish to take an egrq-wsd-vjsguxn stool softener like Colace if this occurs. Take extra precautions to prevent falling. You are welcome to return to the emergency department anytime with new, worsening, or concerning symptoms.
== END 2017-08-03 07:21 | disposition home or self-care (01) ==
LOC: C.EDB 04:18
DX: M25.551 Pain in right hip (principal); N40.0 Benign prostatic hyperplasia without lower urinary tract symptoms; I48.91 Unspecified atrial fibrillation; Z79.01 Long term (current) use of anticoagulants; Z87.891 Personal history of nicotine dependence

== ENCOUNTER 2017-08-05 19:30 | Emergency (ER) | payer BC ==
[~2017-08-05] VITALS: Ht 185.4 cm; Wt 105.4 kg
[~2017-08-05 19:30] MED LIST changes: -OPTIRAY 320 IV PRN
[2017-08-05 19:38] VITALS: TEMP 36.7; Ht 185.4 cm; Wt 105.4 kg
--- NOTE | 2017-08-05 20:10 | EMERGENCY ROOM VISIT NOTE ---
History Report prepared by Jonh: Grace Schmitz Under the Supervision of: Anuja GarciaO. First contact with patient: 19:42 Chief Complaint: CATHETER REPLACEMENT Stated Complaint: BLOCKED CATHETER History of Present Illness The patient is a 82 year old male who presents to the Emergency Room with complaints of a catheter replacement today. The patient states that the last time he emptied his catheter earlier today it was bloody but that his catheter is blocked now. The patient also reports having abdominal pressure, but denies having headache, change in vision, fevers, chest pain, shortness of breath, nausea, vomiting, diarrhea, and melena. The patient states that he sees Dr. Crowe and that the last time he saw him was about 3 weeks ago and states that Dr Crowe is aware that he has been having issues with his catheter. The patient states that he originally had a catheter placed about a week ago due to urinary retention. His family reports that the patient had a CT scan of his kidneys done this morning. Source of History: patient Onset: today Position: other (genitourinary) Quality: other (catheter replacement ) Associated Symptoms: + abdominal pain (abdominal pressure ), No fevers Review of Systems See HPI for pertinent positives & negatives. A total of 10 systems reviewed and were otherwise negative. Past Medical & Surgical Medical Problems: (1) Acute respiratory failure with hypoxia (2) Atrial fibrillation (3) BPH (benign prostatic hyperplasia) (4) Dehydration (5) Diarrhea (6) Fatigue Family History Diabetes mellitus Hypertension Social History Smoking Status: Never Smoker Alcohol Use: none Drug Use: none Marital Status: Housing Status: lives with family Occupation Status: retired Current/Historical Medications Scheduled Atorvastatin (Lipitor), 20 MG PO QPM Cephalexin Monohydrate (Keflex), 500 MG PO BID Dutasteride (Dutasteride), 0.5 MG PO DAILY Metoprolol Succinate (Toprol Xl), 50 MG PO BID Multivitamin (Multivitamin), 1 TAB PO QPM Mupirocin (Bactroban 2% Oint), 1 APPLN MARIAM BID Rivaroxaban (Xarelto), 20 MG PO DAILY Saccharomyces Boulardii (Florastor), 250 MG PO BID Tamsulosin HCl (Tamsulosin HCl), 0.4 MG PO DAILY Triamcinolone Acet (Aristocort 0.1%), 1 APPL TOP UD Triamcinolone Acetonide (Nasal (Nasacort Allergy 24Hr), 1 MARIAM BID Scheduled PRN Famotidine (Pepcid), 20 MG PO DAILY PRN for Indigestion Saline (Saline Nasal [place]), 2 SPRAYS MARIAM BID PRN for Nasal Congestion Allergies Coded Allergies: Cyclobenzaprine (Verified Allergy, Severe, RASH ON FACE, 08/05/17) Flecainide (Verified Allergy, Severe, DISCOLORATION OF SKIN, 08/05/17) Ibuprofen (Verified Adverse Reaction, Unknown, RHINORRHEA, 08/05/17) INFO FROM [facility] Physical Exam Vital Signs Date Time Temp Pulse Resp B/P (MAP) Pulse Ox O2 Delivery O2 Flow Rate FiO2 08/05/17 22:31 85 19 129/73 95 Room Air 08/05/17 21:21 72 16 126/80 08/05/17 19:38 36.7 91 18 114/68 93 Room Air Physical Exam GENERAL: alert, well appearing, well nourished, no distress, non-toxic LUNGS: Clear to auscultation. Normal chest wall mechanics HEART: no murmurs, S1 normal and S2 normal ABDOMEN: abdomen soft, non-tender, normo-active bowel sounds, no masses, no rebound or guarding. BACK: Back is symmetrical on inspection and there is no deformity, no midline tenderness, no CVA tenderness. SKIN: no rashes and no bruising UPPER EXTREMITIES: upper extremities are grossly normal. LOWER EXTREMITIES: No pitting edema. NEURO EXAM: Normal sensorium, cranial nerves II-XII intact, normal speech, no weakness of arms, no weakness of legs. : Circumcised. Vera catheter in place. Gross hematuria noted in catheter bag. Medical Decision & Procedures Laboratory Results 08/05/17 20:04 Red Blood Count 4.46, Mean Corpuscular Volume 92.6, Mean Corpuscular Hemoglobin 30.9, Mean Corpuscular Hemoglobin Concent 33.4, Mean Platelet Volume 11.3, Neutrophils (%) (Auto) 75.2, Lymphocytes (%) (Auto) 12.0, Monocytes (%) (Auto) 6.8, Eosinophils (%) (Auto) 5.6, Basophils (%) (Auto) 0.2, Neutrophils # (Auto) 4.46, Lymphocytes # (Auto) 0.71, Monocytes # (Auto) 0.40, Eosinophils # (Auto) 0.33, Basophils # (Auto) 0.01 08/05/17 20:04 Test 08/05/17 20:04 White Blood Count 5.92 K/uL (4.8-10.8) Red Blood Count 4.46 M/uL (4.7-6.1) Hemoglobin 13.8 g/dL (14.0-18.0) Hematocrit 41.3 % (42-52) Mean Corpuscular Volume 92.6 fL (80-100) Mean Corpuscular Hemoglobin 30.9 pg (25-34) Mean Corpuscular Hemoglobin Concent 33.4 g/dl (32-36) Platelet Count 171 K/uL (130-400) Mean Platelet Volume 11.3 fL (7.4-10.4) Neutrophils (%) (Auto) 75.2 % Lymphocytes (%) (Auto) 12.0 % Monocytes (%) (Auto) 6.8 % Eosinophils (%) (Auto) 5.6 % Basophils (%) (Auto) 0.2 % Neutrophils # (Auto) 4.46 K/uL (1.4-6.5) Lymphocytes # (Auto) 0.71 K/uL (1.2-3.4) Monocytes # (Auto) 0.40 K/uL (0.11-0.59) Eosinophils # (Auto) 0.33 K/uL (0-0.5) Basophils # (Auto) 0.01 K/uL (0-0.2) RDW Standard Deviation 46.5 fL (36.4-46.3) RDW Coefficient of Variation 13.8 % (11.5-14.5) Immature Granulocyte % (Auto) 0.2 % Immature Granulocyte # (Auto) 0.01 K/uL (0.00-0.02) Anion Gap 3.0 mmol/L (3-11) Est Creatinine Clear Calc Drug Dose 84.4 ml/min Estimated GFR () 93.6 Estimated GFR (Non- 80.8 BUN/Creatinine Ratio 17.1 (10-20) Calcium Level 8.8 mg/dl (8.5-10.1) Total Bilirubin 1.1 mg/dl (0.2-1) Aspartate Amino Transf (AST/SGOT) 23 U/L (15-37) Alanine Aminotransferase (ALT/SGPT) 28 U/L (12-78) Alkaline Phosphatase 60 U/L (45-117) Total Protein 6.8 gm/dl (6.4-8.2) Albumin 3.1 gm/dl (3.4-5.0) Globulin 3.7 gm/dl (2.5-4.0) Albumin/Globulin Ratio 0.8 (0.9-2) Laboratory results per my review. Medications Administered Medications (Trade) Dose Ordered Sig/Cassi Route Start Time Stop Time Status Last Admin Dose Admin Sodium Chloride 1,000 ml @ 999 mls/hr Q1H1M STAT IV 08/05/17 21:04 08/05/17 22:04 DC 08/05/17 21:53 999 MLS/HR ED Course 1943: The patient was evaluated in room D7. A complete history and physical exam was performed. 2054: I checked on the patient and he is doing well. A new catheter has been placed but there is nothing draining into it right now. 2103: Ordered Sodium Chloride 1,000 ml @ 999 mls/hr IV. 2223: Upon reevaluation, the urine in the catheter is now a dark yellow and not hematuria. I discussed the findings and the treatment plan with the patient. He verbalizes agreement and understanding. He was discharged home. Medical Decision The patient is a 82 year old male who presents to the ED with complaints of a Vera catheter replacement. Differentials include catheter obstruction, catheter dislodgement, UTI, acute renal failure, and bladder cancer. Patient well-appearing here despite complaints. Nurse initially unable to flush an en bloc his catheter so it was removed and a new catheter was placed. This likely contributed to some blood noted given the trauma reinsertion. Patient also takes a blood thinner daily which contributes to bleeding. Patient with no other new or concerning symptoms to suggest evolving urinary tract infection. A specimen from the catheter was sent for culture as a precaution. Labs are drawn as a precaution given recurrence of bleeding and were reassuring. Patient does have an appointment Thursday with urology and encouraged him to keep this. Patient encouraged to continue his routine medications as prescribed. No evidence of acute kidney failure or UTI. Likely this was a catheter obstruction or slight dislodgment initially which contributed to irritation and bleeding. Discussed with patient and family his urinary retention and why the catheter was originally placed. All questions answered at bedside. Patient well-appearing at time of discharge and daughter driving home. Medication Reconcilliation Current Medication List: was personally reviewed by me Blood Pressure Screening Patient's blood pressure: Normal blood pressure Impression Primary Impression: Hematuria Additional Impressions: Vera catheter problem Dehydration Scribe Attestation The scribe's documentation has been prepared under my direction and personally reviewed by me in its entirety. I confirm that the note above accurately reflects all work, treatment, procedures, and medical decision making performed by me. Departure Information Dispostion Home / Self-Care Referrals No Doctor, Assigned (PCP) Forms HOME CARE DOCUMENTATION FORM, IMPORTANT VISIT INFORMATION Patient Instructions My [facility] Additional Instructions Please keep your appointment with Dr. Crowe on Thursday. Please make sure you are drinking adequate fluid to create urine and allow the catheter to drain. If you are having abdominal pain, back pain, nausea or vomiting, fevers or chills, the catheter does not seem to be draining, or you have any other new concerns, please return the emergency room. Problem Qualifiers Primary Impression: Hematuria Hematuria type: unspecified type Qualified Codes: R31.9 - Hematuria, unspecified Additional Impressions: Vera catheter problem Encounter type: subsequent encounter Qualified Codes: T83.9XXD - Unspecified complication of genitourinary prosthetic device, implant and graft, subsequent encounter
[2017-08-05 20:18] LABS: BASO % 0.2 %; BASO ABS # 0.01 K/uL (0-0.2); EOS % 5.6 %; EOS ABS # 0.33 K/uL (0-0.5); HEMATOCRIT 41.3 % (42-52); HEMOGLOBIN 13.8 g/dL (14.0-18.0); IG# 0.01 K/uL (0.00-0.02); LYMPH ABS # 0.71 K/uL (1.2-3.4); MEAN CELL VOLUME 92.6 fL (80-100); MEAN CORPUSCULAR HEMOGLOBIN 30.9 pg (25-34); MEAN CORPUSCULAR HGB CONC 33.4 g/dl (32-36); MEAN PLATELET VOLUME 11.3 fL (7.4-10.4); MONO % 6.8 %; NEUT % 75.2 %; NEUT ABS # 4.46 K/uL (1.4-6.5); PLATELET COUNT 171 K/uL (130-400); RED CELL DISTRIBUTION WIDTH CV 13.8 % (11.5-14.5); RED CELL DISTRIBUTION WIDTH SD 46.5 fL (36.4-46.3); WHITE BLOOD COUNT 5.92 K/uL (4.8-10.8)
[2017-08-05 20:46] LABS: ALBUMIN 3.1 gm/dl (3.4-5.0); CALCIUM 8.8 mg/dl (8.5-10.1); CREATININE 0.86 mg/dl (0.60-1.40); POTASSIUM 4.3 mmol/L (3.5-5.1)
[2017-08-05 21:01] LABS: TOTAL PROTEIN 6.8 gm/dl (6.4-8.2)
[2017-08-05] MEDS ORDERED: SODIUM CHLORIDE 0.9% 1000ML 1,000 ML IV STA (21:04)
[2017-08-05 22:31] VITALS: BP 129/73; PULSE 85; O2SAT 95
== END 2017-08-05 22:40 | disposition home or self-care (01) ==
LOC: C.EDB 19:31 → C.EDD 22:40
DX: R31.9 Hematuria, unspecified (principal); T83.098A Other mechanical complication of other urinary catheter, initial encounter; Y84.6 Urinary catheterization as the cause of abnormal reaction of the patient, or of later complication, without mention of misadventure at the time of the procedure; E86.0 Dehydration; I48.91 Unspecified atrial fibrillation; N40.0 Benign prostatic hyperplasia without lower urinary tract symptoms; Z79.01 Long term (current) use of anticoagulants; Z79.899 Other long term (current) drug therapy; Z88.8 Allergy status to other drugs, medicaments and biological substances

== ENCOUNTER → 2017-08-05 | Outpatient (CLI) | payer BC ==
[~2017-08-05] MED LIST changes: -AMOX1TAB42 PO; +OPTIRAY 320 IV PRN
--- NOTE | 2017-08-05 12:13 | DIAGNOSTIC IMAGING REPORT ---
ABDOMEN COMBO CT DOSE: 1912.19 mGycm HISTORY: Renal cyst RENAL LESION/CYSTS TECHNIQUE: Multiaxial CT images of the abdomen was performed pre and post intravenous contrast enhancement. A dose lowering technique was utilized adhering to the principles of ALARA. COMPARISON STUDY: 07/29/2017 FINDINGS: Chronic pleural reactive change right lung base. Small right effusion unchanged. Improved aeration left base compared to the prior study. Liver enhances uniformly. Spleen and pancreas are also uniform. There multiple bilateral renal cysts which have been described previously. These are unchanged. A slightly hyperdense cyst of left kidney is unchanged. There is no abnormal postcontrast enhancement or calcification. Kidneys are specifically negative for hydronephrosis. Bowel pattern is nonobstructive. There is atherosclerotic change abdominal aorta. 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 This is considered stable. Overall diameter of the aneurysm is 3.5 cm. This is unchanged in the prior study. No significant adenopathy of the retroperitoneum is present. Bowel pattern again is nonobstructive.. IMPRESSION: 1. Multiple bilateral renal cysts including a mildly hyperdense cyst of the interpolar region left kidney. 2. No evidence for abnormal postcontrast enhancement with these cysts considered benign. 3. Gallstones. 4. 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 5. Unchanging pleural reactive change with a small amount pleural fluid right base. 6. Study is otherwise negative. The above report was generated using voice recognition software. It may contain grammatical, syntax or spelling errors. Electronically signed by: Lg Arzate M.D. 08/05/2017 12:12 PM Dictated Date/Time: 08/05/2017 12:05 PM
== END | disposition home or self-care (01) ==
LOC: C.CTS 10:58
PROVIDERS: ATTEND Student in an Organized Health Care Education/Training Program
DX: N28.1 Cyst of kidney, acquired (principal); K80.20 Calculus of gallbladder without cholecystitis without obstruction; I72.3 Aneurysm of iliac artery

== ENCOUNTER → 2017-08-07 | Outpatient (CLI) | payer BC ==
--- NOTE | 2017-08-07 09:06 | DIAGNOSTIC IMAGING REPORT ---
GI WITH AIR AND BARIUM SWALLOW CLINICAL HISTORY: 82 years-old Male with COUGH. Chronic cough with concern for aspiration TECHNIQUE: A standard air contrast upper GI series was performed following administration of barium and effervescent crystals. Multiple spot fluoroscopic images were obtained and provided for review. COMPARISON STUDY: Chest radiograph 07/29/2017 FLUOROSCOPY TIME: 0.5 minutes. 7 total images were submitted. FINDINGS: The patient swallowed barium without difficulty. At the beginning of the study, the patient aspirated barium. The study was then terminated. Limited images of the contrast opacified esophagus appear unremarkable without evidence of strictures, mucosal ulcerations, or intraluminal mass lesions. The gastroesophageal junction, stomach and duodenum are not evaluated. Fusion hardware of the cervical spine incidentally noted. IMPRESSION: The patient aspirated and the study was then terminated. Follow-up with speech pathology recommended. The above report was generated using voice recognition software. It may contain grammatical, syntax or spelling errors. Electronically signed by: Vik Strauss M.D. 08/07/2017 9:04 AM Dictated Date/Time: 08/07/2017 9:02 AM
== END | disposition home or self-care (01) ==
LOC: C.RAD 07:34
PROVIDERS: ATTEND Physician Assistant
DX: R05 Cough (principal)

== ENCOUNTER 2017-11-29 12:31 | Emergency (ER) | payer BC ==
[~2017-11-29] VITALS: Ht 185.4 cm; Wt 103.0 kg
[~2017-11-29 12:31] MED LIST changes: +DUTA1CAP17 PO; -DUTA1CAP3 PO
[2017-11-29 12:36] VITALS: TEMP 36.3; Ht 185.4 cm; Wt 103.0 kg
--- NOTE | 2017-11-29 14:05 | EMERGENCY ROOM VISIT NOTE ---
ED Visit Note First contact with patient: 13:12 The patient was seen and examined with Jennifer Rose PA-C. I agree with the history, physical and findings. Please see the note for disposition and details.
--- NOTE | 2017-11-29 14:33 | EMERGENCY ROOM VISIT NOTE ---
ED Visit Note First contact with patient: 13:12 CHIEF COMPLAINT: Hematuria HISTORY OF PRESENTING ILLNESS: This is an 82-year-old male who presents to the emergency department with complaint of hematuria that started yesterday. He self caths once a day for history of urinary retention, he states that after he self cathed last night that he noticed a little bit of blood in his urine. He denies any pain. He denies any abdominal or pelvic pain, he denies any dysuria or urinary frequency. He denies any back pain. He is on Xarelto. He denies any other unusual bruising or bleeding. He denies any fevers or chills. He is followed by Dr. Crowe with urology, he is not sure when he has his next follow- up appointment. He denies any symptoms of chest pain, shortness of breath, dizziness, syncope, nausea or vomiting, diarrhea, or unusual rash. REVIEW OF SYSTEMS: A complete 10 point review of systems was reviewed with the patient with pertinent positives and negatives as per history of present illness. All else were negative. PAST MEDICAL HISTORY: Hyperlipidemia, BPH, hypertension, A. fib SOCIAL HISTORY: Lives at home. Denies tobacco use. ALLERGIES: Reviewed in chart, see below. PHYSICAL EXAM: CONSTITUTIONAL: Pleasant and cooperative. No acute distress. Well-hydrated, well appearing and well nourished. HEENT: Normocephalic, atraumatic. Moist mucous membranes. NECK: Supple, full active range of motion without discomfort. RESPIRATORY: Clear to auscultation bilaterally with no wheezing, crackles, rhonchi or stridor. Equal expansion bilaterally. CARDIOVASCULAR: Regular rate and rhythm with no murmurs, rubs or gallops. Normal peripheral perfusion. No edema. GASTROINTESTINAL: Soft, nontender, nondistended. No palpable masses or HSM. Bowel sounds present in all quadrants. MUSCULOSKELETAL: Full range of motion of all joints without discomfort. INTEGUMENTARY: No rash or other significant dermatologic conditions noted. NEUROLOGIC: Alert and oriented X 4 with normal affect. Normal strength and sensation in all 4 extremities. No focal neurologic deficits noted. Normal speech. Normal gait observed. ED COURSE AND MEDICAL DECISION MAKING: CC: Patient presenting with complaint of hematuria DIFFERENTIAL DIAGNOSIS: Includes, but not limited to traumatic hematuria, UTI, cystitis, ureteral stone, among others. INTERPRETATION OF LABS: UA shows microscopic blood, no evidence of infection. MEDICATION RECONCILIATION: I attest that I have personally reviewed the patient 's current medication list. INITIAL VITAL SIGNS REVIEW: I reviewed the patient's initial vital signs and interpret them as follows: T: Afebrile; BP: Normotensive; HR: Bradycardic; RR : Within normal limits; Pulse Ox: Within normal limits on room air. Blood pressure screening: The patient was found to have normal blood pressure on screening and does not require follow-up for repeat blood pressure check. SUMMARY: Patient was evaluated at bedside, history and physical exam performed. Patient is alert and oriented, no acute distress, resting calmly in a chair in the exam room. No abdominal tenderness, no CVA tenderness. The patient appears to be well- hydrated and does not appear to be anemic. Orders were placed at bedside for urinalysis to evaluate for hematuria. Patient discussed with Dr. Morales, who also evaluated the patient and agrees with my assessment and plan. UA shows blood and no evidence of infection. I suspect the hematuria is most likely secondary to trauma of catheterization and exacerbated by blood thinners. Patient reassessed multiple times throughout ED stay, he has remained stable with no complaints. Patient was updated on all results and plan for discharge, he was encouraged to follow-up with his PCP and urologist. Patient was also given strict return precautions should his symptoms worsen, he verbalized understanding. Patient was discharged home in stable condition and ambulatory. Current/Historical Medications Scheduled Atorvastatin (Lipitor), 20 MG PO QPM Cephalexin Monohydrate (Keflex), 500 MG PO BID Dutasteride (Dutasteride), 0.5 MG PO DAILY Metoprolol Succinate (Toprol Xl), 50 MG PO BID Multivitamin (Multivitamin), 1 TAB PO QPM Mupirocin (Bactroban 2% Oint), 1 APPLN MARIAM BID Rivaroxaban (Xarelto), 20 MG PO DAILY Saccharomyces Boulardii (Florastor), 250 MG PO BID Tamsulosin HCl (Tamsulosin HCl), 0.4 MG PO DAILY Triamcinolone Acet (Aristocort 0.1%), 1 APPL TOP UD Triamcinolone Acetonide (Nasal (Nasacort Allergy 24Hr), 1 MARIAM BID Scheduled PRN Famotidine (Pepcid), 20 MG PO DAILY PRN for Indigestion Saline (Saline Nasal [place]), 2 SPRAYS MARIAM BID PRN for Nasal Congestion Allergies Coded Allergies: Cyclobenzaprine (Verified Allergy, Intermediate, RASH ON FACE, 09/25/17) Flecainide (Verified Allergy, Intermediate, DISCOLORATION OF SKIN, 09/25/17 ) Ibuprofen (Verified Adverse Reaction, Mild, RHINORRHEA, 09/25/17) INFO FROM [facility] Vital Signs Date Time Temp Pulse Resp B/P (MAP) Pulse Ox O2 Delivery O2 Flow Rate FiO2 11/29/17 14:40 67 20 141/82 100 11/29/17 12:36 36.3 58 16 127/72 99 Room Air Laboratory Results Test 11/29/17 13:30 Urine Color YELLOW Urine Appearance CLEAR (CLEAR) Urine pH 8.0 (4.5-7.5) Urine Specific [place] 1.007 (1.000-1.030) Urine Protein NEG (NEG) Urine Glucose (UA) NEG (NEG) Urine Ketones NEG (NEG) Urine Occult Blood 3+ (NEG) Urine Nitrite NEG (NEG) Urine Bilirubin NEG (NEG) Urine Urobilinogen NEG (NEG) Urine Leukocyte Esterase NEG (NEG) Urine WBC (Auto) 1-5 /hpf (0-5) Urine RBC (Auto) >30 /hpf (0-4) Urine Hyaline Casts (Auto) 0 /lpf (0-5) Urine Epithelial Cells (Auto) 0-5 /lpf (0-5) Urine Bacteria (Auto) NEG (NEG) Departure Information Impression Primary Impression: Hematuria Dispostion Home / Self-Care Condition GOOD Referrals Justino Mandujano M.D. (PCP) Ventura Crowe MD, Urology Patient Instructions ED Hematuria, [facility] Additional Instructions You have been evaluated and treated in the emergency department today for blood in your urine (hematuria). Urinalysis today shows microscopic blood in your urine, but does not show any signs of infection. The blood in your urine is most likely secondary to catheterization and that you are on Xarelto blood thinner medication. Please follow-up with your urologist in the next few days if you continue to have blood in your urine. Please return to the emergency department for any worsening symptoms, including abdominal or back pain, large amounts of blood in the urine or passing blood clots, difficulty urinating or inability to urinate for more than 8 hours, development of fevers, chills, or feeling ill, dizziness or passing out, or for any other concerns. Problem Qualifiers Primary Impression: Hematuria Hematuria type: unspecified type Qualified Codes: R31.9 - Hematuria, unspecified
[2017-11-29 14:40] VITALS: BP 141/82; PULSE 67; O2SAT 100
== END 2017-11-29 14:40 | disposition home or self-care (01) ==
LOC: C.EDB 12:32 → C.EDD 14:40
DX: R31.9 Hematuria, unspecified (principal); E78.5 Hyperlipidemia, unspecified; N40.0 Benign prostatic hyperplasia without lower urinary tract symptoms; I10 Essential (primary) hypertension; I48.91 Unspecified atrial fibrillation; Z79.01 Long term (current) use of anticoagulants; Z79.899 Other long term (current) drug therapy; Z88.6 Allergy status to analgesic agent; Z88.8 Allergy status to other drugs, medicaments and biological substances

== ENCOUNTER 2018-05-30 18:41 | Inpatient (IN) ==
[2018-05-30] MEDS ORDERED: NITROGLYCERIN SL 0.4 MG/TAB TAB SL STA (18:48)
[2018-05-30] MEDS ORDERED: NITROGLYCERIN/D5W 100MCG/ML 250 ML IV SCH (19:00)
[2018-05-30 19:19] LABS: Base Excess VBG 0.6 mEq/L; Oxygen Saturation VBG 76.3 %; pH VBG 7.23 (7.36-7.41)
[2018-05-30 19:21] LABS: iSTAT Hemoglobin 14.6 g/dl (14.0-18.0); iSTAT Ionized Calcium 1.22 mmol/l (1.12-1.32)
[2018-05-30 19:24] LABS: Basophils # (auto) 0.01 K/uL (0-0.2); Basophils % (auto) 0.2 %; Eosinophils # (auto) 0.23 K/uL (0-0.5); Eosinophils % (auto) 5.7 %; Hematocrit (blood only) 41.3 % (42-52); Hemoglobin 13.3 g/dL (14.0-18.0); Immature Granulocytes # (auto) 0.01 K/uL (0.00-0.02); Immature Granulocytes % (auto) 0.2 %; Lymphocytes % (auto) 31.9 %; Mean Corpuscular Hgb Conc 32.2 g/dL (32-36); Mean Corpuscular Volume 88.1 fL (80-100); Mean Platelet Volume 12.6 fL (7.4-10.4); Monocytes # (auto) 0.21 K/uL (0.11-0.59); Monocytes % (auto) 5.2 %; Neutrophils # (auto) 2.31 K/uL (1.4-6.5); Neutrophils % (auto) 56.8 %; Platelet Count 181 K/uL (130-400); RDW Coefficient of Variation 14.2 % (11.5-14.5); RDW Standard Deviation 45.5 fL (36.4-46.3); Red Blood Count 4.69 M/uL (4.7-6.1); White Blood Count 4.07 K/uL (4.8-10.8)
[2018-05-30 19:35] LABS: INR 1.6 (0.9-1.1); Partial Thromboplastin Ratio 1.1; Partial Thromboplastin Time 29.3 Seconds (21.0-31.0); Prothrombin Time 15.5 Seconds (9.0-12.0)
--- NOTE | 2018-05-30 19:45 | XRay Report ---
XR chest 1V portable CLINICAL HISTORY: Shortness of breath COMPARISON STUDY: 01/21/2018 FINDINGS: The heart remains enlarged. There is no failure. There is no lobar consolidation. There is an indeterminate 15 mm left midlung zone opacity. A nonemergent CT scan is recommended in follow-up. There are no pleural effusions. IMPRESSION: 1. Cardiomegaly 2. No evidence of lobar consolidation 3. Indeterminate 15 mm left midlung zone opacity. A nonemergent chest CT is recommended in follow-up. Electronically signed by: Miko Oswald M.D. 05/30/2018 7:43 PM
[2018-05-30 19:59] LABS: Alanine Aminotransferase 28 U/L (12-78); Albumin Globulin Ratio 0.9 (0.9-2); Albumin Level 3.7 gm/dl (3.4-5.0); Alkaline Phosphatase 94 U/L (45-117); Aspartate Aminotransferase 30 U/L (15-37); BUN Creatinine Ratio 19.1 (10-20); Blood Urea Nitrogen 20 mg/dl (7-18); Calcium 8.7 mg/dl (8.5-10.1); Carbon Dioxide 29 mmol/L (21-32); Chloride 100 mmol/L (98-107); Creatinine Clr Calc Pharmacy 66.2 ml/min; Est GFR (African American) 78.4; Est GFR (Non-African American) 67.7; Globulin 4.3 gm/dl (2.5-4.0); Glucose 120 mg/dl (70-99); Potassium 4.6 mmol/L (3.5-5.1); Sodium 137 mmol/L (136-145); Troponin I < 0.015 ng/ml (0-0.045)
[2018-05-30 20:08] LABS: NT Pro B Type Natriuretic Pept 1361 pg/ml (0-1800)
[2018-05-30 20:12] LABS: Influenza A virus by PCR Neg for Influ A (Neg); Influenza B virus by PCR Neg for Influ B (Neg)
--- NOTE | 2018-05-30 23:48 | History & Physical Report ---
Date of Service May 30, 2018 Assessment & Plan (1) Acute respiratory failure with hypoxia: Patient initially with SOB, tachypnea and hypoxia. Was on CPAP to BiPAP to NC. Saturation has since improved. Patient is conversing without difficulty , no evidence of respiratory distress. Pulmonary exam unremarkable and saturation adequate on nasal cannula. ?episode of aspiration vs pulmonary edema - patient with relatively elevated blood pressure on arrival. -Supplemental O2 as needed -Aspiration precautions -Blood pressure control as needed -CXR mentions indeterminate 15mm left midlung zone opacity - will order CT chest to further assess -Albuterol PRN (2) Hypertension: Elevated blood pressure on arrival. On Nitro drip in ER, now improved. -Will DC Nitro drip -Continue Metoprolol XL 50mg po BID -Continue to monitor (3) Atrial fibrillation: Rate controlled, on Xarelto anticoagulation -Continue Toprol XL -Continue Xarelto -Monitor (4) Chronic pulmonary aspiration: ?aspiration event. Patient denies coughing prior to SOB. 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 Gao is an 83yo male with history of AF, chronic aspiration presenting with acute episode of SOB, hypoxia. At 18:00 patient was getting ready to sit down for dinner when he became acutely short of breath and began to experience palpitations. EMS was called, patient found to be 75% on room air. He was initially started on CPAP and transferred to [facility]. Upon arrival he was found to be hypertensive at 189/107. He was transitioned to BiPAP and he was started on a Nitro drip for presumed hypertensive emergency/flash pulmonary edema. During my encounter, patient was looking markedly improved. He was weaned off the BiPAP and placed on NC x 2 liters with adequate saturation 94-96%. The Nitro drip was weaned off prior to transfer to the floor. Patient with no additional complaints at this time. Specifically denies chest pain, cough, weight gain, worsening orthopnea or edema - he does report stable orthopnea and bilateral LE edema. Denies wheezing. Does not use O2 at home. Patient presented to [facility] similarly in July 2017. He was diagnosed with chronic aspiration. He was treated with Augmentin x 10 days. ER Course: BiPAP, Nitro drip Allergies Allergy/AdvReac Type Severity Reaction Status Date / Time cyclobenzaprine Allergy Intermediate RASH ON Verified 05/30/18 19:58 FACE flecainide Allergy Intermediate DISCOLORATION Verified 05/30/18 19:58 OF SKIN ibuprofen AdvReac Mild RHINORRHEA Verified 05/30/18 19:58 Home Medications Home Medications Medication Instructions Recorded Confirmed Type albuterol sulfate [Proventil HFA] 2 puff INHALATION Q6H PRN 05/30/18 05/30/18 History alprazolam [Xanax] 0.25 mg PO HS 05/30/18 05/30/18 History atorvastatin [Lipitor] 20 mg PO HS 05/30/18 05/30/18 History cholecalciferol (vitamin D3) 1,000 unit PO DAILY 05/30/18 05/30/18 History [Vitamin D3] dutasteride [Avodart] 0.5 mg PO DAILY 05/30/18 05/30/18 History famotidine 20 mg PO DAILY PRN 05/30/18 05/30/18 History metoprolol succinate [Toprol XL] 50 mg PO BID 05/30/18 05/30/18 History multivitamin 1 tab PO DAILY 05/30/18 05/30/18 History mupirocin [Centany] 1 applic TOPICAL BID 05/30/18 05/30/18 History pantoprazole [Protonix] 40 mg PO DAILY 05/30/18 05/30/18 History ranitidine HCl [Zantac] 300 mg PO HS 05/30/18 05/30/18 History rivaroxaban [Xarelto] 20 mg PO DAILY 05/30/18 05/30/18 History sodium chloride [Saline Nasal] 1 spray INTRANASAL BID PRN 05/30/18 05/30/18 History triamcinolone acetonide 1 applic TOPICAL BID 05/30/18 05/30/18 History triamcinolone acetonide [Nasacort] 2 spray INTRANASAL BID 05/30/18 05/30/18 History Past Med/Surg History Medical History Atrial fibrillation BPH (benign prostatic hyperplasia) CHF (congestive heart failure) Chronic pulmonary aspiration Iliac artery aneurysm Spinal stenosis Surgical History History of back surgery Family History Other Family history non-contributory Social History Feels Safe at Home: Yes Smoking Status: Former smoker Hx Alcohol Use: Yes (1.5 drinks/day) Hx Substance Use: No Review of Systems All systems reviewed & are unremarkable except as noted in HPI & below Physical Exam 2 Vital Signs (Past 24 Hours): Last Vital Signs Temp 37.7 C H 05/30/18 18:52 Pulse 71 05/30/18 23:34 Resp 16 05/30/18 23:34 BP 130/70 05/30/18 23:34 Pulse Ox 99 05/30/18 23:34 Physical Exam: General: patient resting comfortably, NAD, non-toxic in appearance, AA&O x 4 Skin: warm, dry, abrasions on right arm with eschar, no active bleeding or evidence of infection HEENT: NC/AT, PERRL, EOMI, anicteric sclera, conjunctiva without injection, external ear normal to inspection and nontender, nares patent, moist mucus membranes, dentition intact, no oropharyngeal lesions, neck supple, trachea midline, no LAD, no thyromegaly, no JVD Heart: +S1/S2, irregularly irregular, no m/r/g Lungs: equal air entry bilaterally, no rales/rhonchi, scattered end-expiratory wheezing Abd: +BS, soft, NT/ND, no masses/organomegaly/ascites Ext: warm, 2+ pulses in UE/LE bilaterally, no clubbing/cyanosis, trace edema bilateral LE Neuro: nonfocal, patient AA&O x 4, speech intact, no facial droop, moving all extremities on command with equal strength 5/5 Results & Data Laboratory Results Lab Results 05/30/18 05/30/18 05/30/18 Range/Units 19:00 19:00 19:00 WBC 4.07 L (4.8-10.8) K/uL RBC 4.69 L (4.7-6.1) M/uL Hgb 13.3 L (14.0-18.0) g/dL POC Hgb (14.0-18.0) g/dl Hct 41.3 L (42-52) % POC Hct (42-52) % MCV 88.1 (80-100) fL MCH 28.4 (25-34) pg MCHC 32.2 (32-36) g/dL RDW Std Deviation 45.5 (36.4-46.3) fL RDW Coeff of Gilda 14.2 (11.5-14.5) % Plt Count 181 (130-400) K/uL MPV 12.6 H (7.4-10.4) fL Immature Gran % (Auto) 0.2 % Neut % (Auto) 56.8 % Lymph % (Auto) 31.9 % [place] % (Auto) 5.2 % Eos % (Auto) 5.7 % Baso % (Auto) 0.2 % Immature Gran # (Auto) 0.01 (0.00-0.02) K/uL Neut # (Auto) 2.31 (1.4-6.5) K/uL Lymph # (Auto) 1.30 (1.2-3.4) K/uL [place] # (Auto) 0.21 (0.11-0.59) K/uL Eos # (Auto) 0.23 (0-0.5) K/uL Baso # (Auto) 0.01 (0-0.2) K/uL PT 15.5 H (9.0-12.0) Seconds INR 1.6 H (0.9-1.1) APTT 29.3 (21.0-31.0) Seconds PTT Ratio 1.1 VBG pH (7.36-7.41) VBG pCO2 (38-50) mmHg VBG pO2 mmHg VBG HCO3 mmol/L VBG O2 Saturation % VBG Base Excess mEq/L Barometric Pressure mm/Hg POC Sodium (135-144) mEq/L Sodium 137 (136-145) mmol/L POC Potassium (3.3-5.0) mEq/L Potassium 4.6 (3.5-5.1) mmol/L POC Chloride (101-112) mEq/L Chloride 100 (98-107) mmol/L Carbon Dioxide 29 (21-32) mmol/L POC Total CO2 (24-31) mEq/l Anion Gap 7.0 (3-11) POC Anion Gap (16-25) mmol/L POC BUN (7-18) mg/dl BUN 20 H (7-18) mg/dl Creatinine 1.02 (0.6-1.4) mg/dl POC Creatinine (0.6-1.3) mg/dl Est Cr Clr Drug Dosing 66.2 ml/min Est GFR ( Amer) 78.4 Est GFR (Non-Af Amer) 67.7 BUN/Creatinine Ratio 19.1 (10-20) Glucose 120 H (70-99) mg/dl POC Glucose (other) (70-99) mg/dl Calcium 8.7 (8.5-10.1) mg/dl POC Ioniz Calcium [place] (1.12-1.32) mmol/l Total Bilirubin 2.0 H (0.2-1) mg/dl AST 30 (15-37) U/L ALT 28 (12-78) U/L Alkaline Phosphatase 94 (45-117) U/L Troponin I < 0.015 (0-0.045) ng/ml NT-Pro-B Natriuret Pep 1361 (0-1800) pg/ml Total Protein 8.0 (6.4-8.2) gm/dl Albumin 3.7 (3.4-5.0) gm/dl Globulin 4.3 H (2.5-4.0) gm/dl Albumin/Globulin Ratio 0.9 (0.9-2) Influenza Type A (PCR) (Neg) Influenza Type B (PCR) (Neg) 05/30/18 05/30/18 05/30/18 Range/Units 19:02 19:07 19:33 WBC (4.8-10.8) K/uL RBC (4.7-6.1) M/uL Hgb (14.0-18.0) g/dL POC Hgb 14.6 (14.0-18.0) g/dl Hct (42-52) % POC Hct 43 (42-52) % MCV (80-100) fL MCH (25-34) pg MCHC (32-36) g/dL RDW Std Deviation (36.4-46.3) fL RDW Coeff of Gilda (11.5-14.5) % Plt Count (130-400) K/uL MPV (7.4-10.4) fL Immature Gran % (Auto) % Neut % (Auto) % Lymph % (Auto) % [place] % (Auto) % Eos % (Auto) % Baso % (Auto) % Immature Gran # (Auto) (0.00-0.02) K/uL Neut # (Auto) (1.4-6.5) K/uL Lymph # (Auto) (1.2-3.4) K/uL [place] # (Auto) (0.11-0.59) K/uL Eos # (Auto) (0-0.5) K/uL Baso # (Auto) (0-0.2) K/uL PT (9.0-12.0) Seconds INR (0.9-1.1) APTT (21.0-31.0) Seconds PTT Ratio VBG pH 7.23 L (7.36-7.41) VBG pCO2 73 H (38-50) mmHg VBG pO2 49 mmHg VBG HCO3 30 mmol/L VBG O2 Saturation 76.3 % VBG Base Excess 0.6 mEq/L Barometric Pressure 728.2 mm/Hg POC Sodium 138 (135-144) mEq/L Sodium (136-145) mmol/L POC Potassium 4.7 (3.3-5.0) mEq/L Potassium (3.5-5.1) mmol/L POC Chloride 97 L (101-112) mEq/L Chloride (98-107) mmol/L Carbon Dioxide (21-32) mmol/L POC Total CO2 30 (24-31) mEq/l Anion Gap (3-11) POC Anion Gap 16.0 (16-25) mmol/L POC BUN 26 H (7-18) mg/dl BUN (7-18) mg/dl Creatinine (0.6-1.4) mg/dl POC Creatinine 0.9 (0.6-1.3) mg/dl Est Cr Clr Drug Dosing ml/min Est GFR ( Amer) Est GFR (Non-Af Amer) BUN/Creatinine Ratio (10-20) Glucose (70-99) mg/dl POC Glucose (other) 122 H (70-99) mg/dl Calcium (8.5-10.1) mg/dl POC Ioniz Calcium [place] 1.22 (1.12-1.32) mmol/l Total Bilirubin (0.2-1) mg/dl AST (15-37) U/L ALT (12-78) U/L Alkaline Phosphatase (45-117) U/L Troponin I (0-0.045) ng/ml NT-Pro-B Natriuret Pep (0-1800) pg/ml Total Protein (6.4-8.2) gm/dl Albumin (3.4-5.0) gm/dl Globulin (2.5-4.0) gm/dl Albumin/Globulin Ratio (0.9-2) Influenza Type A (PCR) Neg for Influ A (Neg) Influenza Type B (PCR) Neg for Influ B (Neg) Diagnostic Findings XR chest 1V portable CLINICAL HISTORY: Shortness of breath COMPARISON STUDY: 01/21/2018 FINDINGS: The heart remains enlarged. There is no failure. There is no lobar consolidation. There is an indeterminate 15 mm left midlung zone opacity. A nonemergent CT scan is recommended in follow-up. There are no pleural effusions. IMPRESSION: 1. Cardiomegaly 2. No evidence of lobar consolidation 3. Indeterminate 15 mm left midlung zone opacity. A nonemergent chest CT is recommended in follow-up. Electronically signed by: Miko Oswald M.D. 05/30/2018 7:43 PM Dictated: 05/30/181940 Transcribed: 05/30/181940 ECG Additional Comments: The study shows atrial fibrillation at 72bpm, QRS=92, QTc= 429, no acute ischemia Code Status & VTE Plan Code Status Full per discussion with patient VTE Prophylaxis Plan VTE Prophylaxis will be ordered: Yes Critical Care Time Critical Care Time: No _ (1) Hypertension Hypertension type: unspecified Qualified Code(s): I10 - Essential (primary) hypertension (2) Atrial fibrillation Atrial fibrillation type: permanent Qualified Code(s): I48.2 - Chronic atrial fibrillation (3) BPH (benign prostatic hyperplasia) Lower urinary tract symptom presence: symptoms absent Qualified Code(s): N40.0 - Benign prostatic hyperplasia without lower urinary tract symptoms (4) Chronic pulmonary aspiration Encounter type: subsequent encounter Qualified Code(s): T17.908D - Unspecified foreign body in respiratory tract, part unspecified causing other injury, subsequent encounter
--- NOTE | 2018-05-31 00:51 | Emergency Department Note ---
Entered by Kevin Taylor acting as a scribe for History of Present Illness General Chief complaint: Shortness of Breath/Dyspnea Time Seen by Provider: 05/30/18 18:42 Source: patient and EMS History of Present Illness Provider complaint: SOB Onset (ago): minute(s) Location: chest Severity: severe Quality: + constant Relieved By: + other (biPap) Associated symptoms: + denies other symptoms ( sore throat, abdominal pain, pain with urination, orthopnea); no chest pain, no cough and no nausea/vomiting Treatments prior to arrival: other (biPap, NG) The patient is a 83 year old male who presents to the Emergency Room via EMS with complaints of shortness of breath beginning shortly prior to arrival. Per EMS, the patient was unable to explain how fast this episode of shortness of breath came on. They also note the patient was "fighting for air", making gurgling sounds. EMS adds that the patient has a history of COPD and CHF. They treatment intervention of biPap with 95% O2 and add that the patient was given 7 Nitroglycerin with no relief of his symptoms. The patient reports that he has had shortness of breath for the past 5 hours. He denies a cough, sore throat, abdominal pain, nausea/vomiting, pain with urination, chest pain with exertion, and orthopnea. The patient also notes that the biPap has been helping his breathing. Home Medications Home Medications Medication Instructions Recorded Confirmed Type albuterol sulfate [Proventil HFA] 2 puff INHALATION Q6H PRN 05/30/18 05/30/18 History alprazolam [Xanax] 0.25 mg PO HS 05/30/18 05/30/18 History atorvastatin [Lipitor] 20 mg PO HS 05/30/18 05/30/18 History cholecalciferol (vitamin D3) 1,000 unit PO DAILY 05/30/18 05/30/18 History [Vitamin D3] dutasteride [Avodart] 0.5 mg PO DAILY 05/30/18 05/30/18 History famotidine 20 mg PO DAILY PRN 05/30/18 05/30/18 History metoprolol succinate [Toprol XL] 50 mg PO BID 05/30/18 05/30/18 History multivitamin 1 tab PO DAILY 05/30/18 05/30/18 History mupirocin [Centany] 1 applic TOPICAL BID 05/30/18 05/30/18 History pantoprazole [Protonix] 40 mg PO DAILY 05/30/18 05/30/18 History ranitidine HCl [Zantac] 300 mg PO HS 05/30/18 05/30/18 History rivaroxaban [Xarelto] 20 mg PO DAILY 05/30/18 05/30/18 History sodium chloride [Saline Nasal] 1 spray INTRANASAL BID PRN 05/30/18 05/30/18 History triamcinolone acetonide 1 applic TOPICAL BID 05/30/18 05/30/18 History triamcinolone acetonide [Nasacort] 2 spray INTRANASAL BID 05/30/18 05/30/18 History Allergies Allergy/AdvReac Type Severity Reaction Status Date / Time cyclobenzaprine Allergy Intermediate RASH ON Verified 05/30/18 19:58 FACE flecainide Allergy Intermediate DISCOLORATION Verified 05/30/18 19:58 OF SKIN ibuprofen AdvReac Mild RHINORRHEA Verified 05/30/18 19:58 Past Med/Surg History Medical History Atrial fibrillation BPH (benign prostatic hyperplasia) CHF (congestive heart failure) Chronic pulmonary aspiration Iliac artery aneurysm Spinal stenosis Surgical History History of back surgery Social History Feels Safe at Home: Yes Smoking Status: Former smoker Hx Alcohol Use: Yes (1.5 drinks/day) Hx Substance Use: No Review of Systems See HPI for pertinent positives & negatives. and A total of 10 systems reviewed and were otherwise negative Physical Exam Vital Signs Vital Signs - 24 hr 05/30/18 18:52 05/30/18 18:57 05/30/18 19:11 Temperature 37.7 C H Temperature Source Axillary Sepsis Recent Fever Within 48 Hours No Sepsis Action Taken by Nursing No Action Required Pulse Rate 80 90 Pulse Rate [Finger] Respiratory Rate 33 H Respiratory Effort / Characteristics Accessory Muscle Use Labored Short of Breath Respiratory Pattern Tachypnea Blood Pressure 189/107 H Blood Pressure [Right Arm] Blood Pressure Mean 134 Blood Pressure Mean [Right Arm] Blood Pressure Position [Right Arm] Pulse Oximetry 97 96 99 Oxygen Delivery Method CPAP Oxygen Flow Rate Fraction of Inspired Oxygen 60 05/30/18 19:13 05/30/18 19:15 05/30/18 19:16 Temperature Temperature Source Sepsis Recent Fever Within 48 Hours Sepsis Action Taken by Nursing Pulse Rate 71 76 80 Pulse Rate [Finger] Respiratory Rate 26 H 24 25 H Respiratory Effort / Characteristics Respiratory Pattern Blood Pressure 148/82 H 155/77 H Blood Pressure [Right Arm] Blood Pressure Mean 104 103 Blood Pressure Mean [Right Arm] Blood Pressure Position [Right Arm] Pulse Oximetry 100 100 100 Oxygen Delivery Method CPAP CPAP CPAP Oxygen Flow Rate Fraction of Inspired Oxygen 05/30/18 19:23 05/30/18 19:24 05/30/18 19:30 Temperature Temperature Source Sepsis Recent Fever Within 48 Hours Sepsis Action Taken by Nursing Pulse Rate 72 70 Pulse Rate [Finger] 69 Respiratory Rate 24 24 Respiratory Effort / Characteristics Respiratory Pattern Blood Pressure Blood Pressure [Right Arm] 155/77 H Blood Pressure Mean Blood Pressure Mean [Right Arm] 103 Blood Pressure Position [Right Arm] Pulse Oximetry 100 100 100 Oxygen Delivery Method CPAP CPAP CPAP Oxygen Flow Rate Fraction of Inspired Oxygen 05/30/18 19:31 05/30/18 19:32 05/30/18 19:45 Temperature Temperature Source Sepsis Recent Fever Within 48 Hours Sepsis Action Taken by Nursing Pulse Rate 73 70 70 Pulse Rate [Finger] Respiratory Rate 23 23 22 Respiratory Effort / Characteristics Respiratory Pattern Blood Pressure 154/82 H Blood Pressure [Right Arm] Blood Pressure Mean 106 Blood Pressure Mean [Right Arm] Blood Pressure Position [Right Arm] Pulse Oximetry 100 99 100 Oxygen Delivery Method CPAP Oxygen Flow Rate Fraction of Inspired Oxygen 05/30/18 19:46 05/30/18 20:00 05/30/18 20:01 Temperature Temperature Source Sepsis Recent Fever Within 48 Hours Sepsis Action Taken by Nursing Pulse Rate 72 64 71 Pulse Rate [Finger] Respiratory Rate 20 21 22 Respiratory Effort / Characteristics Respiratory Pattern Blood Pressure 165/79 H 155/72 H Blood Pressure [Right Arm] Blood Pressure Mean 107 99 Blood Pressure Mean [Right Arm] Blood Pressure Position [Right Arm] Pulse Oximetry 100 100 100 Oxygen Delivery Method Oxygen Flow Rate Fraction of Inspired Oxygen 05/30/18 20:15 05/30/18 20:16 05/30/18 20:30 Temperature Temperature Source Sepsis Recent Fever Within 48 Hours Sepsis Action Taken by Nursing Pulse Rate 66 73 68 Pulse Rate [Finger] Respiratory Rate 19 19 19 Respiratory Effort / Characteristics Respiratory Pattern Blood Pressure 147/78 H Blood Pressure [Right Arm] Blood Pressure Mean 101 Blood Pressure Mean [Right Arm] Blood Pressure Position [Right Arm] Pulse Oximetry 100 100 100 Oxygen Delivery Method Oxygen Flow Rate Fraction of Inspired Oxygen 05/30/18 20:31 05/30/18 20:45 05/30/18 20:46 Temperature Temperature Source Sepsis Recent Fever Within 48 Hours Sepsis Action Taken by Nursing Pulse Rate 75 95 H 65 Pulse Rate [Finger] Respiratory Rate 22 26 H 21 Respiratory Effort / Characteristics Respiratory Pattern Blood Pressure 136/58 L 144/76 H Blood Pressure [Right Arm] Blood Pressure Mean 84 98 Blood Pressure Mean [Right Arm] Blood Pressure Position [Right Arm] Pulse Oximetry 98 Oxygen Delivery Method Oxygen Flow Rate Fraction of Inspired Oxygen 05/30/18 21:00 05/30/18 21:01 05/30/18 21:15 Temperature Temperature Source Sepsis Recent Fever Within 48 Hours Sepsis Action Taken by Nursing Pulse Rate 68 61 62 Pulse Rate [Finger] Respiratory Rate 18 18 18 Respiratory Effort / Characteristics Respiratory Pattern Blood Pressure 120/61 Blood Pressure [Right Arm] Blood Pressure Mean 80 Blood Pressure Mean [Right Arm] Blood Pressure Position [Right Arm] Pulse Oximetry 100 100 100 Oxygen Delivery Method Oxygen Flow Rate Fraction of Inspired Oxygen 05/30/18 21:16 05/30/18 21:17 05/30/18 21:30 Temperature Temperature Source Sepsis Recent Fever Within 48 Hours Sepsis Action Taken by Nursing Pulse Rate 70 58 L 64 Pulse Rate [Finger] Respiratory Rate 18 18 16 Respiratory Effort / Characteristics Respiratory Pattern Blood Pressure 118/66 Blood Pressure [Right Arm] Blood Pressure Mean 83 Blood Pressure Mean [Right Arm] Blood Pressure Position [Right Arm] Pulse Oximetry 100 100 100 Oxygen Delivery Method Oxygen Flow Rate Fraction of Inspired Oxygen 05/30/18 21:31 05/30/18 21:32 05/30/18 21:45 Temperature Temperature Source Sepsis Recent Fever Within 48 Hours Sepsis Action Taken by Nursing Pulse Rate 63 64 71 Pulse Rate [Finger] Respiratory Rate 17 18 20 Respiratory Effort / Characteristics Respiratory Pattern Blood Pressure 115/57 L Blood Pressure [Right Arm] Blood Pressure Mean 76 Blood Pressure Mean [Right Arm] Blood Pressure Position [Right Arm] Pulse Oximetry 100 100 98 Oxygen Delivery Method Oxygen Flow Rate Fraction of Inspired Oxygen 05/30/18 21:47 05/30/18 22:00 05/30/18 22:01 Temperature Temperature Source Sepsis Recent Fever Within 48 Hours Sepsis Action Taken by Nursing Pulse Rate 76 73 74 Pulse Rate [Finger] Respiratory Rate 24 25 H 16 Respiratory Effort / Characteristics Respiratory Pattern Blood Pressure 123/65 139/69 Blood Pressure [Right Arm] Blood Pressure Mean 84 92 Blood Pressure Mean [Right Arm] Blood Pressure Position [Right Arm] Pulse Oximetry 99 92 94 Oxygen Delivery Method Nasal Cannula Nasal Cannula Oxygen Flow Rate 2 2 Fraction of Inspired Oxygen 05/30/18 22:02 05/30/18 22:15 05/30/18 22:17 Temperature Temperature Source Sepsis Recent Fever Within 48 Hours Sepsis Action Taken by Nursing Pulse Rate 67 68 72 Pulse Rate [Finger] Respiratory Rate 13 19 19 Respiratory Effort / Characteristics Respiratory Pattern Blood Pressure 110/57 L Blood Pressure [Right Arm] Blood Pressure Mean 74 Blood Pressure Mean [Right Arm] Blood Pressure Position [Right Arm] Pulse Oximetry 95 94 95 Oxygen Delivery Method Oxygen Flow Rate Fraction of Inspired Oxygen 05/30/18 22:30 05/30/18 22:31 05/30/18 22:32 Temperature Temperature Source Sepsis Recent Fever Within 48 Hours Sepsis Action Taken by Nursing Pulse Rate 67 65 68 Pulse Rate [Finger] Respiratory Rate 15 19 20 Respiratory Effort / Characteristics Respiratory Pattern Blood Pressure 129/60 Blood Pressure [Right Arm] Blood Pressure Mean 83 Blood Pressure Mean [Right Arm] Blood Pressure Position [Right Arm] Pulse Oximetry 95 96 95 Oxygen Delivery Method Oxygen Flow Rate Fraction of Inspired Oxygen 05/30/18 22:45 05/30/18 22:46 05/30/18 22:47 Temperature Temperature Source Sepsis Recent Fever Within 48 Hours Sepsis Action Taken by Nursing Pulse Rate 66 67 64 Pulse Rate [Finger] Respiratory Rate 18 20 20 Respiratory Effort / Characteristics Respiratory Pattern Blood Pressure 115/68 Blood Pressure [Right Arm] Blood Pressure Mean 83 Blood Pressure Mean [Right Arm] Blood Pressure Position [Right Arm] Pulse Oximetry 94 95 96 Oxygen Delivery Method Oxygen Flow Rate Fraction of Inspired Oxygen 05/30/18 23:00 05/30/18 23:01 05/30/18 23:34 Temperature Temperature Source Sepsis Recent Fever Within 48 Hours Sepsis Action Taken by Nursing Pulse Rate 67 64 Pulse Rate [Finger] 71 Respiratory Rate 16 19 16 Respiratory Effort / Characteristics Non-Labored Spontaneous Respiratory Pattern Regular Blood Pressure 131/66 Blood Pressure [Right Arm] 130/70 Blood Pressure Mean 87 Blood Pressure Mean [Right Arm] 90 Blood Pressure Position [Right Arm] Sitting Pulse Oximetry 96 97 99 Oxygen Delivery Method Nasal Cannula Nasal Cannula Oxygen Flow Rate 2 2 Fraction of Inspired Oxygen 05/31/18 00:39 Temperature Temperature Source Sepsis Recent Fever Within 48 Hours Sepsis Action Taken by Nursing Pulse Rate 66 Pulse Rate [Finger] Respiratory Rate 18 Respiratory Effort / Characteristics Respiratory Pattern Blood Pressure 127/77 Blood Pressure [Right Arm] Blood Pressure Mean Blood Pressure Mean [Right Arm] Blood Pressure Position [Right Arm] Pulse Oximetry 99 Oxygen Delivery Method Nasal Cannula Oxygen Flow Rate 2 Fraction of Inspired Oxygen GENERAL: Sitting up in bed, diaphoretic, in respiratory distress. EYE EXAM: normal conjunctiva. OROPHARYNX: no exudate, no erythema, lips, buccal mucosa, and tongue normal and mucous membranes are moist NECK: supple, no nuchal rigidity, no adenopathy, non-tender. Positive JVD LUNGS: Diffuse rhonchi bilaterally. Normal chest wall mechanics HEART: no murmurs, S1 normal and S2 normal. Tachycardic ABDOMEN: abdomen soft, non-tender, normo-active bowel, sounds, no masses, no rebound or guarding. BACK: Back is symmetrical on inspection and there is no deformity, no midline tenderness, no CVA tenderness. SKIN: no rashes and no bruising UPPER EXTREMITIES: upper extremities are grossly normal. LOWER EXTREMITIES: Bilateral pitting edema NEURO EXAM: Normal sensorium, cranial nerves II-XII grossly intact, normal speech, no gross weakness of arms, no gross weakness of legs. Course ED COURSE: Vital signs were reviewed and showed hypoxia and hypertension The patients medical record was reviewed The above diagnostic studies were performed and reviewed. ED treatments and interventions as stated above. 1842: The patient was evaluated in room A10. A complete history and physical examination was performed. 1940: With biPap and NG, the patient is much more comfortable 2116: The patient significantly improved Based on the patients age, coexisting illnesses, exam and lab findings the decision to treat as an inpatient was made. The patient remained stable while under my care. The patient will be evaluated for further management. Administered Medications Nitroglycerin/Dextrose (Nitroglycerin/D5w 100 Mcg/Ml) 250 mls @ 3 mls/hr IV .Q24H [facility]; Protocol Stop: 06/29/18 18:59 Last Titration: 05/30/18 22:22 Dose: 0 mcg/min, 0 mls/hr Titration: 05/30/18 20:04 Dose: 10 mcg/min, 6 mls/hr Admin: 05/30/18 19:18 Dose: 5 mcg/min, 3 mls/hr Discontinued Medications Nitroglycerin (Nitrostat) 0.4 mg SL NOW STA Stop: 05/30/18 18:49 Last Admin: 05/30/18 19:36 Dose: Not Given Medical Decision Making Differential Diagnosis Differential diagnosis: Etiologies such as infections, reactive airway disease, COPD, pneumonia, pleural effusion, pulmonary edema, ARDS, pneumothorax, CHF, cardiac ischemia, cardiac tamponade, dysrhythmia, anemia, pulmonary embolism, musculoskeletal, gastrointestinal process, as well as others were entertained. . Medical Records Attestation: I reviewed the patient's medical records. Home Medications Current Medication List: was personally reviewed by me Laboratory Data Attestation: I reviewed the patient's lab results. Result diagrams: 05/30/18 19:00 05/30/18 19:00 Lab Results 05/30/18 05/30/18 05/30/18 Range/Units 19:00 19:00 19:00 WBC 4.07 L (4.8-10.8) K/uL RBC 4.69 L (4.7-6.1) M/uL Hgb 13.3 L (14.0-18.0) g/dL POC Hgb (14.0-18.0) g/dl Hct 41.3 L (42-52) % POC Hct (42-52) % MCV 88.1 (80-100) fL MCH 28.4 (25-34) pg MCHC 32.2 (32-36) g/dL RDW Std Deviation 45.5 (36.4-46.3) fL RDW Coeff of Gilda 14.2 (11.5-14.5) % Plt Count 181 (130-400) K/uL MPV 12.6 H (7.4-10.4) fL Immature Gran % (Auto) 0.2 % Neut % (Auto) 56.8 % Lymph % (Auto) 31.9 % [place] % (Auto) 5.2 % Eos % (Auto) 5.7 % Baso % (Auto) 0.2 % Immature Gran # (Auto) 0.01 (0.00-0.02) K/uL Neut # (Auto) 2.31 (1.4-6.5) K/uL Lymph # (Auto) 1.30 (1.2-3.4) K/uL [place] # (Auto) 0.21 (0.11-0.59) K/uL Eos # (Auto) 0.23 (0-0.5) K/uL Baso # (Auto) 0.01 (0-0.2) K/uL PT 15.5 H (9.0-12.0) Seconds INR 1.6 H (0.9-1.1) APTT 29.3 (21.0-31.0) Seconds PTT Ratio 1.1 VBG pH (7.36-7.41) VBG pCO2 (38-50) mmHg VBG pO2 mmHg VBG HCO3 mmol/L VBG O2 Saturation % VBG Base Excess mEq/L Barometric Pressure mm/Hg POC Sodium (135-144) mEq/L Sodium 137 (136-145) mmol/L POC Potassium (3.3-5.0) mEq/L Potassium 4.6 (3.5-5.1) mmol/L POC Chloride (101-112) mEq/L Chloride 100 (98-107) mmol/L Carbon Dioxide 29 (21-32) mmol/L POC Total CO2 (24-31) mEq/l Anion Gap 7.0 (3-11) POC Anion Gap (16-25) mmol/L POC BUN (7-18) mg/dl BUN 20 H (7-18) mg/dl Creatinine 1.02 (0.6-1.4) mg/dl POC Creatinine (0.6-1.3) mg/dl Est Cr Clr Drug Dosing 66.2 ml/min Est GFR ( Amer) 78.4 Est GFR (Non-Af Amer) 67.7 BUN/Creatinine Ratio 19.1 (10-20) Glucose 120 H (70-99) mg/dl POC Glucose (other) (70-99) mg/dl Calcium 8.7 (8.5-10.1) mg/dl POC Ioniz Calcium [place] (1.12-1.32) mmol/l Total Bilirubin 2.0 H (0.2-1) mg/dl AST 30 (15-37) U/L ALT 28 (12-78) U/L Alkaline Phosphatase 94 (45-117) U/L Troponin I < 0.015 (0-0.045) ng/ml NT-Pro-B Natriuret Pep 1361 (0-1800) pg/ml Total Protein 8.0 (6.4-8.2) gm/dl Albumin 3.7 (3.4-5.0) gm/dl Globulin 4.3 H (2.5-4.0) gm/dl Albumin/Globulin Ratio 0.9 (0.9-2) Influenza Type A (PCR) (Neg) Influenza Type B (PCR) (Neg) 05/30/18 05/30/18 05/30/18 Range/Units 19:02 19:07 19:33 WBC (4.8-10.8) K/uL RBC (4.7-6.1) M/uL Hgb (14.0-18.0) g/dL POC Hgb 14.6 (14.0-18.0) g/dl Hct (42-52) % POC Hct 43 (42-52) % MCV (80-100) fL MCH (25-34) pg MCHC (32-36) g/dL RDW Std Deviation (36.4-46.3) fL RDW Coeff of Gilda (11.5-14.5) % Plt Count (130-400) K/uL MPV (7.4-10.4) fL Immature Gran % (Auto) % Neut % (Auto) % Lymph % (Auto) % [place] % (Auto) % Eos % (Auto) % Baso % (Auto) % Immature Gran # (Auto) (0.00-0.02) K/uL Neut # (Auto) (1.4-6.5) K/uL Lymph # (Auto) (1.2-3.4) K/uL [place] # (Auto) (0.11-0.59) K/uL Eos # (Auto) (0-0.5) K/uL Baso # (Auto) (0-0.2) K/uL PT (9.0-12.0) Seconds INR (0.9-1.1) APTT (21.0-31.0) Seconds PTT Ratio VBG pH 7.23 L (7.36-7.41) VBG pCO2 73 H (38-50) mmHg VBG pO2 49 mmHg VBG HCO3 30 mmol/L VBG O2 Saturation 76.3 % VBG Base Excess 0.6 mEq/L Barometric Pressure 728.2 mm/Hg POC Sodium 138 (135-144) mEq/L Sodium (136-145) mmol/L POC Potassium 4.7 (3.3-5.0) mEq/L Potassium (3.5-5.1) mmol/L POC Chloride 97 L (101-112) mEq/L Chloride (98-107) mmol/L Carbon Dioxide (21-32) mmol/L POC Total CO2 30 (24-31) mEq/l Anion Gap (3-11) POC Anion Gap 16.0 (16-25) mmol/L POC BUN 26 H (7-18) mg/dl BUN (7-18) mg/dl Creatinine (0.6-1.4) mg/dl POC Creatinine 0.9 (0.6-1.3) mg/dl Est Cr Clr Drug Dosing ml/min Est GFR ( Amer) Est GFR (Non-Af Amer) BUN/Creatinine Ratio (10-20) Glucose (70-99) mg/dl POC Glucose (other) 122 H (70-99) mg/dl Calcium (8.5-10.1) mg/dl POC Ioniz Calcium [place] 1.22 (1.12-1.32) mmol/l Total Bilirubin (0.2-1) mg/dl AST (15-37) U/L ALT (12-78) U/L Alkaline Phosphatase (45-117) U/L Troponin I (0-0.045) ng/ml NT-Pro-B Natriuret Pep (0-1800) pg/ml Total Protein (6.4-8.2) gm/dl Albumin (3.4-5.0) gm/dl Globulin (2.5-4.0) gm/dl Albumin/Globulin Ratio (0.9-2) Influenza Type A (PCR) Neg for Influ A (Neg) Influenza Type B (PCR) Neg for Influ B (Neg) Imaging Data Radiologist's Impression: Radiology results as stated below per my review and the radiologist's interpretation: XR chest 1V portable CLINICAL HISTORY: Shortness of breath COMPARISON STUDY: 01/21/2018 FINDINGS: The heart remains enlarged. There is no failure. There is no lobar consolidation. There is an indeterminate 15 mm left midlung zone opacity. A nonemergent CT scan is recommended in follow-up. There are no pleural effusions. IMPRESSION: 1. Cardiomegaly 2. No evidence of lobar consolidation 3. Indeterminate 15 mm left midlung zone opacity. A nonemergent chest CT is recommended in follow-up. Electronically signed by: Miko Oswald M.D. 05/30/2018 7:43 PM ECG Data Attestation: I personally reviewed and interpreted this ECG as follows: Indication: SOB/dyspnea Rate (beats per minute): 72 Rhythm: atrial fibrillation Findings: + other (normal axis); no PVC Blood Pressure Blood Pressure Findings: Elevated blood pressure Blood Pressure Disposition: further management by hospitalist ANIA Narrative Patient is an 83-year-old male that presents the ER via EMS on CPAP. Upon arrival to the ER patient is in clear respiratory distress. He was placed on BiPAP. He was hypertensive with systolic pressures in the 180s-190s. On exam he had rhonchi bilaterally with mild JVD and pitting edema in the lower extremities. He notes the symptoms all started within the past 5 hours. IV was established and labs were obtained and showed no significant leukocytosis or anemia. INR was 1.6. ABG with pH of 7.23 and a CO2 of 73. BMP along with LFTs bilirubin was unremarkable. Troponin was negative. I did place him on a nitroglycerin drip although the chest x-ray showed no overt failure. He did improve significantly and was able to have a conversation. Patient was updated bedside. Did discuss with hospitalist and he was admitted on BiPAP and nitroglycerin drip. Impression & Plan Respiratory failure, CHF (congestive heart failure) Critical Care Time I have personally spent greater than 75 minutes of critical care time in the direct management of this patient. This includes bedside care, interpretation of diagnostic studies, and testing, discussion with consultants, patient, and family members, and other required patient management activities. This 75 minutes is in excess of all separately billable procedures. Critical Care Time: Yes Total Critical Care Time: 75 Discharge Plan Visit Data Chief Complaint: Shortness of Breath/Dyspnea ED Provider: Yves Summers Discharge Problem: Respiratory failure, CHF (congestive heart failure) Discharge Instructions Interventions: ED Discharge Assessment Last Done: 05/31/18 00:39 The scribe's documentation has been prepared under my direction and personally reviewed by me in its entirety. I confirm that the note above accurately reflects all work, treatment, procedures, and medical decision making performed by me.
[2018-05-31] MEDS ORDERED: ALBUTEROL 0.083% NEBU SOLN 3 ML VIAL NEB PRN (00:53)
[2018-05-31] MEDS ORDERED: SODIUM CHLORIDE 0.65% NA SOLN 45 ML (OCEAN) PRN (00:53)
[2018-05-31] MEDS ORDERED: DOCUSATE SODIUM 100 MG CAP PO PRN (00:53)
[2018-05-31] MEDS ORDERED: FAMOTIDINE 20 MG TAB PO PRN (00:53)
[2018-05-31] MEDS ORDERED: ACETAMINOPHEN 325 MG TAB PO PRN (00:53)
[2018-05-31 01:31] LABS: Phosphorus 5.1 mg/dl (2.5-4.9)
[2018-05-31] MEDS: AVODART~ORDER AWAITING ACTION SCH ×3 (01:54→21:05)
[2018-05-31] MEDS ORDERED: ALPRAZolam 0.25 MG TABLET PO ONE (02:00)
[2018-05-31] MEDS: TRIAMCINOLONE ACET NASAL SPRAY 10.8ML BTL SCH ×2 (08:14→21:06)
[2018-05-31] MEDS: RIVAROXABAN 20 MG TAB PO SCH (08:15)
[2018-05-31] MEDS: PANTOprazole 40 MG TAB PO SCH (08:15)
[2018-05-31] MEDS: TRIAMCINOLONE ACET 0.1% CR 15 GM TUBE TOP SCH ×2 (08:15→21:05)
[2018-05-31 08:42] LABS: Appearance Urine Clear (Clear); Bacteria Urine Automated 1+ (Negative); Bilirubin Urine Negative (Negative); Color Urine Yellow; Glucose Urine UA Negative (Negative); Ketones Urine Negative (Negative); Leukocyte Esterase Urine Trace (Negative); Nitrite Urine Positive (Negative); Protein Urine Negative (Negative); Specific Gravity Urine 1.016 (1.000-1.030); Urobilinogen Urine Negative (Negative)
[2018-05-31] MEDS ORDERED: METOPROLOL SUCC 50MG EXT REL TAB PO SCH (09:00)
--- NOTE | 2018-05-31 11:33 | CT Scan Report ---
CT chest wo con CT DOSE: 898.96 mGy.cm CLINICAL HISTORY: 83 years-old Male with abnormal CXR. Follow-up study in a patient with indetermina te density about the left midlung seen on comparison chest radiograph. TECHNIQUE: Multiaxial CT images of the chest were performed without contrast. A dose lowering techni que was utilized adhering to the principles of ALARA. COMPARISON: Chest radiograph 05/30/2018, CTA chest 07/24/2017. FINDINGS: Limited study without the use of IV contrast. No large thyroid lesion identified. Prominent and mild ly enlarged paratracheal and subcarinal lymph nodes measure up to 1.1 cm in short axis, unchanged. Mo derate multichamber cardiac enlargement with coronary arterial calcifications. Mild fusiform dilation about the ascending thoracic aorta, 4.1 x 4.1 cm is unchanged. The unopacified pulmonary arterial tr ee is within normal limits. Trace bilateral pleural effusions. No pneumothorax. Pleural calcifications about the lung apices. Sub pleural bleb formation with suggestion of mild emphysematous changes of the lung apices also noted. M oderate bilateral bronchial wall thickening with mild dependent groundglass densities suggestive of a telectasis. Additionally, dependent bibasilar left greater than right subsegmental consolidative opac ities are present. No suspicious pulmonary nodules or masses identified. The previously described nod ular density about the left midlung on comparison chest radiograph is likely secondary to summation d ensity from adjacent rib. Mild degree of tracheobronchial secretions are noted. 4 mm solid nodule of the right middle lobe on image 173 series 4 is unchanged. 6 mm nodule about the right lung base on im age 205 series 4 is suggestive of a fissural lymph node. Nodules abutting the left major fissure prosper uring up to 5 mm are also suggestive of fissural lymph nodes. These appear unchanged from comparison. Lesions about the superior kidneys are noted bilaterally which appear unchanged from comparison study . No acute process of the imaged upper abdomen. Mild wall thickening about the distal esophagus. Soft tissues are unremarkable. Degenerative changes of the shoulders and spine. Complete opacification ab out the bilateral maxillary sinuses. IMPRESSION: 1. No suspicious pulmonary nodule or mass identified about the left midlung to correlate with the fin ding seen on comparison chest radiograph, likely reflecting summation density from adjacent rib. 2. There are a few likely benign bilateral solid pulmonary nodules as above measuring up to 6 mm, mos t of which are suggestive of fissural lymph nodes and appear unchanged from comparison study. 3. Cardiomegaly without overt pulmonary edema. 4. Trace bilateral pleural effusions with bilateral bronchial wall thickening suggestive of bronchiti s. 5. Left greater than right subsegmental bibasilar groundglass and consolidative opacities suggest ate lectasis with a superimposed pneumonitis difficult to exclude. 6. Unchanged mild fusiform dilation of the thinning thoracic aorta, 4.1 cm. Please refer to below summary of Fleischner criteria recommendations for follow-up of incidental CT n odules (Ramin Munguia, Guidelines for management of small pulmonary nodules detected on CT scans: A sta tement from the Fleischner Society, Radiology 237: [phone].) SOLID NODULES Multiple nodules size: <6 mm * Low risk patients: no routine follow-up * high risk patients: optional CT at 12 months Multiple nodules size: 6-8 mm * Low risk patients: follow-up at 3-6 months, then consider further follow-up at 18-24 months * high risk patients: follow-up at 3-6 months, then at 18-24 months if no change Note: newly detected indeterminate nodule in persons 35 years of age or older. * Low risk patients: minimal or absent history of smoking and/or other known risk factors * high risk patients: history of smoking or of other known risk factors (e.g. first degree relative with lung cancer, or exposure to asbestos, radon, uranium) * if a nodule up to 8 mm is partly solid or is ground glass further follow-up is required after 24 m onths to exclude possible slow growing adenocarcinoma (GARRY) The above report was generated using voice recognition software. It may contain grammatical, syntax o r spelling errors. Dictated: 05/31/2018 11:17 AM Transcribed: 05/31/2018 11:33 AM Tesha [id number] Yanely Electronically signed by: Vik Strauss M.D. 05/31/2018 12:11 PM
--- NOTE | 2018-05-31 17:26 | Hospitalist Progress Note ---
Date of Service May 31, 2018 Assessment & Plan (1) Acute respiratory failure with hypoxia: most likely reflux aspiration based on acuity /// rapid resolution // very little other disease burden noted -CT quite c/w that described from [place] [facility] stay in december (was able to see reference in allscripts) -not currently on abx, and without infiltrate/leukocytosis/fever and with much improved hypoxia, seems unnecessary - continue to follow -speech re-eval ?updated recs or value in modifying diet -work to wean O2 and work towards home (2) Hypertension: continue home meds, continue to follow - BP's have ipmroved (3) Atrial fibrillation: Rate controlled, on Xarelto anticoagulation -continue above meds, continue to follow (4) Chronic pulmonary aspiration: continue PPI and H2, speech eval again as above (5) BPH (benign prostatic hyperplasia): Chronic -Continue Dutasteride F/E/N- Heplock, monitor electrolytes and replete as needed, regular diet as tolerated with aspiration precautions, Colace PRN DVT proph - anticoagulation Code - Full per discussion with patient and admitting hospitalist Dispo - PT/OT eval and treat, hopefully will be able to go home in 1-2 days as long as O2 can be weaned Subjective feeling better, notes that the same thing happened in [place] "and they let me out in time for the football game" in december. later notes that it was in [place] but he was visiting family on the way to the [employer] game. doesn't quite remember what they told him happened, asks me if i could write it down when he is discharged. when i ask about aspiration, he believes that sounds familiar. no other new complaints, wonders when he can go home. when discussing further testing (pt seen prior to CT) he seems confused a little and reiterates about CT that was done in april as ordered by [facility] - discussed that this was a different CT and he still seems a little easily confused by the situation. Review of Systems chronic cough yellow sputum now no different. all other ROS negative except for as above. ROS otherwise entirely negative except for as above Physical Exam 2 Vital Signs (Past 24 Hours): Last Vital Signs Temp 36.6 C 05/31/18 14:31 Pulse 62 05/31/18 14:31 Resp 18 05/31/18 14:31 BP 118/68 05/31/18 14:31 Pulse Ox 97 05/31/18 14:31 Physical Exam: gen - pleasant nad heent - nc at [facility] cardio - reg no r/m/g lungs - cta b/l no r/r/w good effort no accessory muscles abd - soft nd nt ext - no c/c/e neuro - no focal deficits mental - as above _ (1) Hypertension Hypertension type: unspecified Qualified Code(s): I10 - Essential (primary) hypertension (2) Atrial fibrillation Atrial fibrillation type: permanent Qualified Code(s): I48.2 - Chronic atrial fibrillation (3) Chronic pulmonary aspiration Encounter type: subsequent encounter Qualified Code(s): T17.908D - Unspecified foreign body in respiratory tract, part unspecified causing other injury, subsequent encounter (4) BPH (benign prostatic hyperplasia) Lower urinary tract symptom presence: symptoms absent Lower urinary tract symptom detail: Qualified Code(s): N40.0 - Benign prostatic hyperplasia without lower urinary tract symptoms
[2018-05-31] MEDS: ATORVASTATIN 20 MG TAB PO SCH (21:05)
[2018-05-31] MEDS: METOPROLOL SUCC 50MG EXT REL TAB PO SCH (21:06)
[2018-05-31] MEDS: ALPRAZolam 0.25 MG TABLET PO SCH (21:08)
[2018-06-01] MEDS: AVODART~ORDER AWAITING ACTION SCH ×3 (00:14→16:22)
[2018-06-01] MEDS: PANTOprazole 40 MG TAB PO SCH (07:56)
[2018-06-01] MEDS: METOPROLOL SUCC 50MG EXT REL TAB PO SCH (07:57)
[2018-06-01] MEDS: TIOTROPIUM BROMIDE 5 PUFF/90 MCG INH INH SCH (07:58)
[2018-06-01] MEDS: RIVAROXABAN 20 MG TAB PO SCH (07:58)
[2018-06-01] MEDS: TRIAMCINOLONE ACET NASAL SPRAY 10.8ML BTL SCH ×2 (07:59→20:27)
[2018-06-01] MEDS: TRIAMCINOLONE ACET 0.1% CR 15 GM TUBE TOP SCH ×2 (07:59→20:26)
--- NOTE | 2018-06-01 13:33 | Cardiology Consultation ---
Date of Consultation June 01, 2018 Assessment & Plan (1) Bradycardia: Pt has hx of permanent rate controlled Afib and has been stable on his medication regimen. During this current admission he had an episode of bradycardia to the high 30's with corresponding pause. Given his recent hx x 2 of admissions for trouble breathing I am concerned these could be bradycardic episodes presenting as apnea. An ecg obtained during the episode demonstrated Afib with slow ventricular response. Question whether slow ventricular response is present all the time or 2/2 to stress from recent illness and medications -Continue Toprolol xl 25 mg bid and monitor on tele for 48 hours, if no more bradycardic episodes occur discharge with close ep follow up, if more bradycardia persists will try lowering toprolol further -EP Cardiology referral + Holter monitor as outpt -Consider ICD placement, -Consider radioablative therapy for afib (2) Atrial fibrillation: Hx of permanent afib as above. -Toprolol 25 mg BID -Continue Xarelto (3) Hypertension: HTN episode requiring nitro drip on admission, has been normotensive with few deviations since -Toprolol XL 25mg BID as above (4) Hypercholesteremia: Tolerating Atorvastatin - Continue 20 mg QHS Supervising Physician Co-Signing Physician Notes Cardiology attending addendum: This is a family practice resident note. Please refer to cardiology consultation under separate cover. History of Present Illness Reason for Consultation: Bradycardia in the setting of afib Requesting Physician: Dr. Tavarez Attending Physician: Dr. Lemus History of Present Illness Admission HPI and Interval hx: Mr. Gao is an 83yo male with history of AF, chronic aspiration presenting with acute episode of SOB, hypoxia. At 18:00 patient was getting ready to sit down for dinner when he became acutely short of breath and began to experience palpitations. EMS was called, patient found to be 75% on room air. He was initially started on CPAP and transferred to [facility]. Upon arrival he was found to be hypertensive at 189/107. He was transitioned to BiPAP and he was started on a Nitro drip for presumed hypertensive emergency/flash pulmonary edema. During my encounter, patient was looking markedly improved. He was weaned off the BiPAP and placed on NC x 2 liters with adequate saturation 94-96%. The Nitro drip was weaned off prior to transfer to the floor. The patient was monitored over the next 2 days, given supportive therapy, his condition improved and was about to be discharged by the primary team when he had an episode of bradycardia to the 30's with corresponding pause. (Questionable HX. Pt has dementia, however it is hard to assess the severity given his high baseline IQ. He was AAOx3 however I suspect he pieced this together from information in the room ie. dates on the nursing board etc. When asked to recall stories he repeatedly changed the cities name, was unsure of an upcoming procedure, and asked me the same questions repeatedly.) Cardiology was consulted for evaluation of bradycardia. The patient is a 83 year old male known to Dr. Elliott with a cardiac PMHX of HTN, Hypercholesterolemia, 3 cm Illiac aneurysm, and permanent afib previously rate controlled. Pt reports being asyx from a cardiac standpoint since admission. Specifically denies chest pain, chest heaviness, palpitations, funny feeling in his left arm, odd feelings in his chest or neck. During our interview the patients biggest concern was discharge. Pt endorsed some baseline SOB, when I asked him why he came to the hospital he changed is story repeatedly stating his heart stopped, later he told me he stopped breathing. (see hx above) Upon reviewing his telemetry stripes he had a couple episodes of bradycardia to the high 30's with corresponding pause, longest was 3 seconds, when questioning the pt about these episodes he reports that he was asyx. The patients ECG demonstrated bradycardia with an irregularly irregular rhythm consistent with Afib with slow ventricular response, HR 47, Qtc 410. Allergies Allergy/AdvReac Type Severity Reaction Status Date / Time cyclobenzaprine Allergy Intermediate RASH ON Verified 06/04/18 14:25 FACE flecainide Allergy Intermediate DISCOLORATION Verified 06/04/18 14:25 OF SKIN ibuprofen AdvReac Mild RHINORRHEA Verified 06/04/18 14:25 Home Medications Home Medications Medication Instructions Recorded Confirmed Type albuterol sulfate [Proventil HFA] 2 puff INHALATION Q6H PRN 05/30/18 06/04/18 History alprazolam [Xanax] 0.25 mg PO HS 05/30/18 06/04/18 History atorvastatin [Lipitor] 20 mg PO HS 05/30/18 06/04/18 History cholecalciferol (vitamin D3) 1,000 unit PO QAM 05/30/18 06/04/18 History [Vitamin D3] dutasteride [Avodart] 0.5 mg PO QAM 05/30/18 06/04/18 History famotidine 20 mg PO DAILY PRN 05/30/18 06/04/18 History multivitamin 1 tab PO QAM 05/30/18 06/04/18 History mupirocin [Centany] 1 applic TOPICAL BID 05/30/18 06/04/18 History pantoprazole [Protonix] 40 mg PO QAM 05/30/18 06/04/18 History ranitidine HCl [Zantac] 300 mg PO HS 05/30/18 06/04/18 History rivaroxaban [Xarelto] 20 mg PO QAM 05/30/18 06/04/18 History sodium chloride [Saline Nasal] 1 spray INTRANASAL BID 05/30/18 06/04/18 History triamcinolone acetonide 1 applic TOPICAL BID 05/30/18 06/04/18 History triamcinolone acetonide [Nasacort] 2 spray INTRANASAL BID 05/30/18 06/04/18 History tiotropium bromide [Spiriva with 1 puff INHALATION QAM #30 inh 06/03/18 Rx HandiHaler] Patient History Medical History AVNRT (AV danette re-entry tachycardia) Atrial fibrillation BPH (benign prostatic hyperplasia) Chronic pulmonary aspiration Iliac artery aneurysm Spinal stenosis Family History Other Family history non-contributory Social History marital status: / Current Living Situation: Alone Other Information That Helps Us Care for You: No Feels Safe at Home: Yes Safety Concerns: Feels Safe At This Time Smoking Status: Former smoker Hx Alcohol Use: Yes Alcohol type: wine and hard liquor Alcohol Intake Frequency : 0-2 drinks per day Hx Substance Use: No Beliefs That Will Affect Care: None Communication Ability: Effective Communication Ability Comment: Hx:Short term memory loss per MD noted. Burglar Alarm Inspector Required: Yes Review of Systems 12 point review of systems was conducted and negative except as detailed above. Physical Exam 2 Vital Signs (Past 24 Hours): Last Vital Signs Temp 36.4 C L 06/01/18 11:28 Pulse 51 L 06/01/18 11:28 Resp 18 06/01/18 11:28 BP 128/60 06/01/18 11:28 Pulse Ox 95 06/01/18 11:28 Physical Exam: General: Well developed 80 year old male sitting up in his chair HEENT: EOMI, Neck: - JVD, Trachea midline, normal to visual inspection Cards: Irregularly Irregular Rhythm, Rate=59, I did not appreciate MRG Resp: CTAB/L Abd: NL BS, soft nontender, nondistended MSK: Moved all 4 extremities Skin: diffuse bruises 2/2 AC, otherwise intact, warm, dry, and well perfused Neuro: High baseline IQ, AAOx3, tangential, repetitive Results & Data Medications Administered Current Inpatient Medications Acetaminophen (Tylenol) 650 mg PO Q4H PRN PRN Reason: pain/fever Stop: 06/30/18 00:52 Albuterol (Ventolin 0.083% 2.5mg/3ml) 2.5 mg NEB Q4H PRN PRN Reason: sob Stop: 06/30/18 00:52 Alprazolam (Xanax) 0.25 mg PO HS VIBHA Stop: 06/30/18 20:59 Last Admin: 05/31/18 21:08 Dose: 0.25 mg Atorvastatin Calcium (Lipitor) 20 mg PO HS VIBHA Stop: 06/30/18 20:59 Last Admin: 05/31/18 21:05 Dose: 20 mg Docusate Sodium (Colace) 100 mg PO BID PRN PRN Reason: Constipation Stop: 06/30/18 00:52 Famotidine (Pepcid) 20 mg PO DAILY PRN PRN Reason: Acid Reflux Stop: 06/30/18 00:52 Last Admin: 05/31/18 08:15 Dose: 20 mg Metoprolol Succinate (Toprol Xl) 25 mg PO BID VIBHA Stop: 06/30/18 20:59 Last Admin: 06/01/18 07:57 Dose: 25 mg Miscellaneous (Order Awaiting Action) 1 ea N/A QS VIBHA Stop: 06/30/18 00:59 Last Admin: 06/01/18 08:00 Dose: Not Given Pantoprazole Sodium (Protonix) 40 mg PO DAILY VIBHA Stop: 06/30/18 08:59 Last Admin: 06/01/18 07:56 Dose: 40 mg Ranitidine HCl (Zantac) 300 mg PO HS [facility] Stop: 06/30/18 20:59 Last Admin: 05/31/18 21:07 Dose: 300 mg Rivaroxaban (Xarelto) 20 mg PO DAILY [facility] Stop: 06/30/18 08:59 Last Admin: 06/01/18 07:58 Dose: 20 mg Sodium Chloride (Schuyler Nasal) 1 sprays NA BID PRN PRN Reason: Nasal Congestion Stop: 06/30/18 00:52 Tiotropium [place] (Spiriva) 1 puffs INH QAM [facility] Stop: 07/01/18 08:59 Last Admin: 06/01/18 07:58 Dose: 1 puffs Triamcinolone Acetonide (Nasacort) 2 sprays NA BID [facility] Stop: 06/30/18 08:59 Last Admin: 06/01/18 07:59 Dose: 2 sprays Triamcinolone Acetonide (Kenalog 0.1%) 1 appln TOP BID [facility] Stop: 06/30/18 08:59 Last Admin: 06/01/18 07:59 Dose: 1 appln Resident Activity Tracking Resident Involvement: Resident Care Provided Care Provided: Adult [facility] Medicine _ (1) Atrial fibrillation Atrial fibrillation type: permanent Qualified Code(s): I48.2 - Chronic atrial fibrillation (2) Hypertension Hypertension type: unspecified Qualified Code(s): I10 - Essential (primary) hypertension
--- NOTE | 2018-06-01 16:23 | Cardiology Consultation ---
Date of Consultation June 01, 2018 Assessment & Plan (1) Bradycardia: He has atrial fibrillation with slow ventricular response. He appears to be asymptomatic but reportedly had a pause of approximately 3 seconds while walking. Agree with reduction in beta-leidy. Heart rate remains in the 50s and had a 3.5 second pause late this morning. Can further reduce metoprolol succinate to 25 mg once daily. Monitor for tachycardia. 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 Continue monitoring. TSH ordered. (2) Atrial fibrillation: He has permanent atrial fibrillation and appears to be asymptomatic in this regard. Reducing beta-leidy as noted above for bradycardia. Continue anticoagulation for stroke risk reduction. (3) Hypertension: Blood pressure has been normotensive to mildly hypertensive more recently. With reduction in beta-leidy, other agents can be adjusted to better control blood pressure as necessary. Will defer to primary service. (4) Acute respiratory failure with hypoxia: According to records there was initially concern for flash pulmonary edema but now the consensus appears to be aspiration as the cause. According to his PCP records, he has a history of aspiration causing respiratory distress and has had aspiration pneumonia. As per primary service. He currently appears euvolemic on examination and has not been aggressively diuresed but despite this, is now on room air and feels back to his baseline. It does not appear as though heart failure is playing a role in this presentation. Disposition: Dr. Elliott, his primary revolving inventory clerk, will resume his cardiology care tomorrow. Plan of care discussed with Dr. Tavarez of the primary hospitalist service. Thank you for allowing me to participate in the care of your patient. Please call for any other questions or concerns. Sincerely, Zane Lemus M.D. History of Present Illness Reason for Consultation: Bradycardia with pauses Requesting Physician: Dr. Tavarez Attending Physician: Yves Tavarez, History of Present Illness Mr. Gao is a pleasant 83-year-old gentleman with a history significant for AV danette reentry tachycardia, permanent atrial fibrillation, anticoagulation therapy, and dyslipidemia. He also has iliac aneurysm and aspiration pneumonia. Dr. Elliott is his primary revolving inventory clerk. He was hospitalized in January while visiting family in [place]. He was hospitalized for acute shortness of breath with respiratory distress requiring BiPAP for oxygen saturation is 77%. Symptoms were thought to be secondary to aspiration, which is a notedIssue for him. He was hospitalized in July 2017 with aspiration pneumonia as well according to outpatient records. This hospitalization occurred on 05/31/2018 for acute shortness of breath with an oxygen saturation of 75% on room air according to EMS. He was started on CPAP and was found to be hypertensive. He was transitioned to BiPAP and started on a nitroglycerin drip. He did well throughout his hospital stay but due to pauses noted on telemetry up to 3.5 seconds in duration, primary service has consult to Cardiology. He denies a history of syncope, near-syncope, and has not had palpitations. It does not appear as though he was symptomatic during the pauses despite 1 episode occurring at 10:40 a.m. today. Through report, he apparently had a pause while ambulating however his longest pause appears to be less than 4 seconds. He denies chest pain, angina, orthopnea, PND. His shortness of breath upon presentation occurred while sitting at a restaurant and occurred acutely. He now denies shortness of breath and feels back to his baseline. He has had edema for the past 6 months or so, mostly at the ankles. He does not monitor his sodium intake but basically eats frozen dinners most of the time. He denies melena, hematochezia, hematuria, or other bleeding but admits to easy bruising. Review of systems: As above. Review of systems otherwise negative/ unremarkable. Social history: He is a . He quit smoking over 40 years ago. 1-2 alcoholic beverages per day. He has a total of 4 children, 3 with his first in 1 with a second. His son is a doctor in [place]. He is unaccompanied. He lives alone. Family history: No known premature CAD. Brother of DC in his 80s. Allergies Allergy/AdvReac Type Severity Reaction Status Date / Time cyclobenzaprine Allergy Intermediate RASH ON Verified 05/30/18 19:58 FACE flecainide Allergy Intermediate DISCOLORATION Verified 05/30/18 19:58 OF SKIN ibuprofen AdvReac Mild RHINORRHEA Verified 05/30/18 19:58 Home Medications Home Medications Medication Instructions Recorded Confirmed Type albuterol sulfate [Proventil HFA] 2 puff INHALATION Q6H PRN 05/30/18 05/30/18 History alprazolam [Xanax] 0.25 mg PO HS 05/30/18 05/30/18 History atorvastatin [Lipitor] 20 mg PO HS 05/30/18 05/30/18 History cholecalciferol (vitamin D3) 1,000 unit PO DAILY 05/30/18 05/30/18 History [Vitamin D3] dutasteride [Avodart] 0.5 mg PO DAILY 05/30/18 05/30/18 History famotidine 20 mg PO DAILY PRN 05/30/18 05/30/18 History metoprolol succinate [Toprol XL] 50 mg PO BID 05/30/18 05/30/18 History multivitamin 1 tab PO DAILY 05/30/18 05/30/18 History mupirocin [Centany] 1 applic TOPICAL BID 05/30/18 05/30/18 History pantoprazole [Protonix] 40 mg PO DAILY 05/30/18 05/30/18 History ranitidine HCl [Zantac] 300 mg PO HS 05/30/18 05/30/18 History rivaroxaban [Xarelto] 20 mg PO DAILY 05/30/18 05/30/18 History sodium chloride [Saline Nasal] 1 spray INTRANASAL BID PRN 05/30/18 05/30/18 History triamcinolone acetonide 1 applic TOPICAL BID 05/30/18 05/30/18 History triamcinolone acetonide [Nasacort] 2 spray INTRANASAL BID 05/30/18 05/30/18 History Patient History Medical History AVNRT (AV danette re-entry tachycardia) Atrial fibrillation BPH (benign prostatic hyperplasia) Chronic pulmonary aspiration Iliac artery aneurysm Spinal stenosis Surgical History History of back surgery Family History Other Family history non-contributory Social History marital status: / Current Living Situation: Alone Feels Safe at Home: Yes Smoking Status: Former smoker Hx Alcohol Use: Yes Alcohol type: wine and hard liquor Alcohol Intake Frequency : 0-2 drinks per day Hx Substance Use: No Beliefs That Will Affect Care: None Communication Ability: Effective Physical Exam 2 Vital Signs (Past 24 Hours): Last Vital Signs Temp 36.5 C 06/01/18 14:33 Pulse 53 L 06/01/18 14:33 Resp 18 06/01/18 14:33 BP 145/75 H 06/01/18 14:33 Pulse Ox 99 06/01/18 14:33 Physical Exam: Gen.: No acute distress. Alert and oriented. HEENT: Anicteric sclera. Neck: No JVD. No bruits. Normal carotid upstrokes bilaterally. Cardiac: PMI was nonpalpable. No ventricular heave. Irregularly irregular and bradycardic in the 50s. Normal S1-S2. No murmurs, rubs, or gallops. Pulmonary: Clear to auscultation bilaterally without wheezes, rales, or rhonchi. Abdomen: Soft, nontender, nondistended, with normoactive bowel sounds. No bruits noted. Extremities: 2+ radial pulses bilaterally. 1+ posterior tibialis pulses bilaterally. Trace to 1+ bilateral pedal edema. No cyanosis. Psychiatric: Affect appears appropriate. Results & Data Laboratory Results Laboratory Results - last 48 hr 05/30/18 05/30/18 05/30/18 19:00 19:00 19:00 WBC 4.07 L RBC 4.69 L Hgb 13.3 L POC Hgb Hct 41.3 L POC Hct MCV 88.1 MCH 28.4 MCHC 32.2 RDW Std Deviation 45.5 RDW Coeff of Gilda 14.2 Plt Count 181 MPV 12.6 H Immature Gran % (Auto) 0.2 Neut % (Auto) 56.8 Lymph % (Auto) 31.9 [place] % (Auto) 5.2 Eos % (Auto) 5.7 Baso % (Auto) 0.2 Immature Gran # (Auto) 0.01 Neut # (Auto) 2.31 Lymph # (Auto) 1.30 [place] # (Auto) 0.21 Eos # (Auto) 0.23 Baso # (Auto) 0.01 PT 15.5 H INR 1.6 H APTT 29.3 PTT Ratio 1.1 VBG pH VBG pCO2 VBG pO2 VBG HCO3 VBG O2 Saturation VBG Base Excess Barometric Pressure POC Sodium Sodium 137 POC Potassium Potassium 4.6 POC Chloride Chloride 100 Carbon Dioxide 29 POC Total CO2 Anion Gap 7.0 POC Anion Gap POC BUN BUN 20 H Creatinine 1.02 POC Creatinine Est Cr Clr Drug Dosing 66.2 Est GFR ( Amer) 78.4 Est GFR (Non-Af Amer) 67.7 BUN/Creatinine Ratio 19.1 Glucose 120 H POC Glucose (other) Calcium 8.7 POC Ioniz Calcium Tahira Phosphorus Magnesium Total Bilirubin 2.0 H AST 30 ALT 28 Alkaline Phosphatase 94 Troponin I < 0.015 NT-Pro-B Natriuret Pep 1361 Total Protein 8.0 Albumin 3.7 Globulin 4.3 H Albumin/Globulin Ratio 0.9 Urine Color Urine Appearance Urine pH Ur Specific [place] Urine Protein Urine Glucose (UA) Urine Ketones Urine Blood Urine Nitrite Urine Bilirubin Urine Urobilinogen Ur Leukocyte Esterase Urine WBC (Auto) Urine RBC (Auto) U Hyaline Cast (Auto) U Epithel Cells (Auto) Urine Bacteria (Auto) Influenza Type A (PCR) Influenza Type B (PCR) 05/30/18 05/30/18 05/30/18 19:00 19:02 19:07 WBC RBC Hgb POC Hgb 14.6 Hct POC Hct 43 MCV MCH MCHC RDW Std Deviation RDW Coeff of Gilda Plt Count MPV Immature Gran % (Auto) Neut % (Auto) Lymph % (Auto) [place] % (Auto) Eos % (Auto) Baso % (Auto) Immature Gran # (Auto) Neut # (Auto) Lymph # (Auto) [place] # (Auto) Eos # (Auto) Baso # (Auto) PT INR APTT PTT Ratio VBG pH 7.23 L VBG pCO2 73 H VBG pO2 49 VBG HCO3 30 VBG O2 Saturation 76.3 VBG Base Excess 0.6 Barometric Pressure 728.2 POC Sodium 138 Sodium POC Potassium 4.7 Potassium POC Chloride 97 L Chloride Carbon Dioxide POC Total CO2 30 Anion Gap POC Anion Gap 16.0 POC BUN 26 H BUN Creatinine POC Creatinine 0.9 Est Cr Clr Drug Dosing Est GFR ( Amer) Est GFR (Non-Af Amer) BUN/Creatinine Ratio Glucose POC Glucose (other) 122 H Calcium POC Ioniz Calcium Tahira 1.22 Phosphorus 5.1 H Magnesium 2.0 Total Bilirubin AST ALT Alkaline Phosphatase Troponin I NT-Pro-B Natriuret Pep Total Protein Albumin Globulin Albumin/Globulin Ratio Urine Color Urine Appearance Urine pH Ur Specific [place] Urine Protein Urine Glucose (UA) Urine Ketones Urine Blood Urine Nitrite Urine Bilirubin Urine Urobilinogen Ur Leukocyte Esterase Urine WBC (Auto) Urine RBC (Auto) U Hyaline Cast (Auto) U Epithel Cells (Auto) Urine Bacteria (Auto) Influenza Type A (PCR) Influenza Type B (PCR) 05/30/18 05/31/18 19:33 08:15 WBC RBC Hgb POC Hgb Hct POC Hct MCV MCH MCHC RDW Std Deviation RDW Coeff of Gilda Plt Count MPV Immature Gran % (Auto) Neut % (Auto) Lymph % (Auto) [place] % (Auto) Eos % (Auto) Baso % (Auto) Immature Gran # (Auto) Neut # (Auto) Lymph # (Auto) [place] # (Auto) Eos # (Auto) Baso # (Auto) PT INR APTT PTT Ratio VBG pH VBG pCO2 VBG pO2 VBG HCO3 VBG O2 Saturation VBG Base Excess Barometric Pressure POC Sodium Sodium POC Potassium Potassium POC Chloride Chloride Carbon Dioxide POC Total CO2 Anion Gap POC Anion Gap POC BUN BUN Creatinine POC Creatinine Est Cr Clr Drug Dosing Est GFR ( Amer) Est GFR (Non-Af Amer) BUN/Creatinine Ratio Glucose POC Glucose (other) Calcium POC Ioniz Calcium [place] Phosphorus Magnesium Total Bilirubin AST ALT Alkaline Phosphatase Troponin I NT-Pro-B Natriuret Pep Total Protein Albumin Globulin Albumin/Globulin Ratio Urine Color Yellow Urine Appearance Clear Urine pH 7.0 Ur Specific [place] 1.016 Urine Protein Negative Urine Glucose (UA) Negative Urine Ketones Negative Urine Blood Negative Urine Nitrite Positive H Urine Bilirubin Negative Urine Urobilinogen Negative Ur Leukocyte Esterase Trace H Urine WBC (Auto) 10-30 H Urine RBC (Auto) 5-10 H U Hyaline Cast (Auto) 1-5 U Epithel Cells (Auto) 10-20 H Urine Bacteria (Auto) 1+ H Influenza Type A (PCR) Neg for Influ A Influenza Type B (PCR) Neg for Influ B Diagnostic Findings Telemetry personally reviewed: Atrial fibrillation with slow ventricular response. 3.5 second pause this morning at approximately 10:40 a.m.. Through report, he apparently also had a short pause while ambulating. ECG personally reviewed: ECG 05/30/18 at 1859: AFib 72 bpm. ECG 05/31/2018 at 9:48 a.m.: Atrial fibrillation [address] chest 05/31/2018: Pulmonary nodules. No pulmonary edema. Bilateral bronchial wall thickening suggestive of bronchitis. Left greater than right subsegmental bibasilar ground-glass and consolidative opacities. Thoracic aorta 4.1 cm. Medications Administered Current Inpatient Medications Acetaminophen (Tylenol) 650 mg PO Q4H PRN PRN Reason: pain/fever Stop: 06/30/18 00:52 Albuterol (Ventolin 0.083% 2.5mg/3ml) 2.5 mg NEB Q4H PRN PRN Reason: sob Stop: 06/30/18 00:52 Alprazolam (Xanax) 0.25 mg PO HS VIBHA Stop: 06/30/18 20:59 Last Admin: 05/31/18 21:08 Dose: 0.25 mg Atorvastatin Calcium (Lipitor) 20 mg PO HS VIBHA Stop: 06/30/18 20:59 Last Admin: 05/31/18 21:05 Dose: 20 mg Docusate Sodium (Colace) 100 mg PO BID PRN PRN Reason: Constipation Stop: 06/30/18 00:52 Famotidine (Pepcid) 20 mg PO DAILY PRN PRN Reason: Acid Reflux Stop: 06/30/18 00:52 Last Admin: 05/31/18 08:15 Dose: 20 mg Metoprolol Succinate (Toprol Xl) 25 mg PO QAM [facility] Stop: 07/02/18 08:59 Miscellaneous (Order Awaiting Action) 1 ea N/A QS VIBHA Stop: 06/30/18 00:59 Last Admin: 06/01/18 08:00 Dose: Not Given Pantoprazole Sodium (Protonix) 40 mg PO DAILY VIBHA Stop: 06/30/18 08:59 Last Admin: 06/01/18 07:56 Dose: 40 mg Ranitidine HCl (Zantac) 300 mg PO HS VIBHA Stop: 06/30/18 20:59 Last Admin: 05/31/18 21:07 Dose: 300 mg Rivaroxaban (Xarelto) 20 mg PO DAILY VIBHA Stop: 06/30/18 08:59 Last Admin: 06/01/18 07:58 Dose: 20 mg Sodium Chloride ([place] Nasal) 1 sprays NA BID PRN PRN Reason: Nasal Congestion Stop: 06/30/18 00:52 Tiotropium [place] (Spiriva) 1 puffs INH QAM [facility] Stop: 07/01/18 08:59 Last Admin: 06/01/18 07:58 Dose: 1 puffs Triamcinolone Acetonide (Nasacort) 2 sprays NA BID [facility] Stop: 06/30/18 08:59 Last Admin: 06/01/18 07:59 Dose: 2 sprays Triamcinolone Acetonide (Kenalog 0.1%) 1 appln TOP BID [facility] Stop: 06/30/18 08:59 Last Admin: 06/01/18 07:59 Dose: 1 appln _ (1) Atrial fibrillation Atrial fibrillation type: permanent Qualified Code(s): I48.2 - Chronic atrial fibrillation (2) Hypertension Hypertension type: unspecified Qualified Code(s): I10 - Essential (primary) hypertension
--- NOTE | 2018-06-01 18:37 | Hospitalist Progress Note ---
Date of Service June 01, 2018 Assessment & Plan (1) Acute respiratory failure with hypoxia: -most likely reflux aspiration based on acuity /// rapid resolution // very little other disease burden noted -Mucus plugging from chronic bronchitis also possible, Spiriva added. -speech re-eval appreciated, video tomorrow. -O2 weaned (2) Hypertension: continue home meds, continue to follow - BP's have ipmroved (3) Atrial fibrillation: -Xarelto anticoagulation -Weights have been quite slow. Metoprolol is being weaned down, he does appear that he may be devolving into sick sinus. Continue to monitor on lower metoprolol. If his rates are reasonable on the lower dosing, he will be able to go home with close and ongoing monitoring. If he becomes more tachycardic at lower dosing or continues to be inappropriately bradycardic, then we may need to move to a pacemaker sooner. (4) Chronic pulmonary aspiration: continue PPI and H2, speech eval ongoing (5) BPH (benign prostatic hyperplasia): Chronic -Continue Dutasteride F/E/N- Heplock, monitor electrolytes and replete as needed, regular diet as tolerated with aspiration precautions, Colace PRN DVT proph - anticoagulation Code - Full per discussion with patient and admitting hospitalist Dispo - PT/OT eval and treat, home once bradycardia situation is more stabilized Subjective Feeling good overall. Breathing feels better. He feels steady on his feet, I discussed needing to see how therapy works for the more given yesterday's input , he appreciates this. Later I am informed that he is significantly bradycardic in the 30s while he is walking on the room. He also has a 3.5- second pause And later revisit to discuss all this, he is feeling fine sitting in the chair, he is understanding of why it is not quite time to go home They discussed the case with his son Alvaro over the phone at the bedside with the patient. Answered all questions to the best of my ability. Review of Systems All systems reviewed & are unremarkable except as noted in HPI & below Physical Exam 2 Vital Signs (Past 24 Hours): Last Vital Signs Temp 36.5 C 06/01/18 14:33 Pulse 53 L 06/01/18 14:33 Resp 18 06/01/18 14:33 BP 145/75 H 06/01/18 14:33 Pulse Ox 99 06/01/18 14:33 Physical Exam: In general he is awake alert and oriented pleasant no distress. HEENT normocephalic atraumatic mucous members moist. Cardio is bradycardic. Lungs are clear to auscultation bilaterally no rales rhonchi or wheezes good effort. Skin shows no rashes no pallor or icterus. Neuro shows no focal deficits. _ (1) Hypertension Hypertension type: unspecified Qualified Code(s): I10 - Essential (primary) hypertension (2) Atrial fibrillation Atrial fibrillation type: permanent Qualified Code(s): I48.2 - Chronic atrial fibrillation (3) Chronic pulmonary aspiration Encounter type: subsequent encounter Qualified Code(s): T17.908D - Unspecified foreign body in respiratory tract, part unspecified causing other injury, subsequent encounter (4) BPH (benign prostatic hyperplasia) Lower urinary tract symptom presence: symptoms absent Lower urinary tract symptom detail: Qualified Code(s): N40.0 - Benign prostatic hyperplasia without lower urinary tract symptoms
[2018-06-01] MEDS: ATORVASTATIN 20 MG TAB PO SCH (20:26)
[2018-06-01] MEDS: ALPRAZolam 0.25 MG TABLET PO SCH (20:28)
[2018-06-02] MEDS: AVODART~ORDER AWAITING ACTION SCH ×3 (00:02→15:50)
[2018-06-02] MEDS: TRIAMCINOLONE ACET NASAL SPRAY 10.8ML BTL SCH ×2 (08:33→21:10)
[2018-06-02] MEDS: TIOTROPIUM BROMIDE 5 PUFF/90 MCG INH INH SCH (08:34)
[2018-06-02] MEDS: PANTOprazole 40 MG TAB PO SCH (08:35)
[2018-06-02] MEDS: RIVAROXABAN 20 MG TAB PO SCH (08:35)
[2018-06-02] MEDS: TRIAMCINOLONE ACET 0.1% CR 15 GM TUBE TOP SCH ×2 (08:36→21:10)
[2018-06-02] MEDS ORDERED: METOPROLOL SUCC 25MG EXT REL TAB PO SCH (09:00)
--- NOTE | 2018-06-02 09:26 | Cardiology Progress Note ---
Date of Service June 02, 2018 Assessment & Plan (1) Bradycardia: Patient was admitted with atrial fibrillation with slow ventricular response. He had a 3.5 second pause yesterday morning. His metoprolol succinate was reduced to 25 mg daily and his heart rate has improved to 50-60s without any further pauses. Continue current dose of metoprolol. Pacemaker implantation not indicated at this time. OK to discharge from a cardiac standpoint. (2) Atrial fibrillation: He has permanent atrial fibrillation and appears to be asymptomatic in this regard. Reducing beta-leidy as noted above for bradycardia. Continue anticoagulation for stroke risk reduction. (3) Hypertension: Blood pressure is adequately controlled on current regimen. (4) Acute respiratory failure with hypoxia: According to records there was initially concern for flash pulmonary edema but acutually felt to be secondary to aspiration which he has a history of. He appears euvolemic on exam. As per primary service. Supervising Physician Co-Signing Physician Notes Agree with above. Continue to withhold beta-leidy for heart rate. Anand Elliott MD Subjective Patient is feeling well and has no acute complaints. He denies any palpitations , lightheadedness, near syncope or syncope. His heart rate has improved with reduction in his metoprolol. He denies chest pain, dyspnea, orthopnea, PND or edema. Review of Systems 10 point ROS was completed and otherwise negative unless stated in HPI Physical Exam 2 Vital Signs (Past 24 Hours): Last Vital Signs Temp 36.6 C 06/02/18 07:27 Pulse 66 06/02/18 07:27 Resp 18 06/02/18 07:27 BP 127/79 06/02/18 07:27 Pulse Ox 94 06/02/18 07:27 Physical Exam: General: No acute distress, comfortable. HEENT: Head is normal. PERRLA. EOMI. Sclerae anicteric. Ears, nose and throat unremarkable. Mucous membranes moist. Neck: Normal carotid upstrokes, no bruits. No appreciable JVD. Lungs: Clear to auscultation bilaterally without rales, rhonchi or wheezes. Cardiac: Irregularly irregular. S1-S2 normal. No appreciable murmur, gallop or rub. Abdomen: Soft and nontender. Bowel sounds normal. No mass or organomegaly. No abdominal bruit. Extremities/vascular: Well perfused. Trace to 1+ pretibial edema bilaterally Radial, DP and PT pulses intact Skin: No rash or abnormal lesions. Normal turgor. Neurologic: Nonfocal Psychiatric: Affect appropriate. Alert and oriented. Results & Data ECG Additional Comments: Telemetry reviewed- afib with rate in 50-60s, no pauses since late yesterday morning _ (1) Atrial fibrillation Atrial fibrillation type: permanent Qualified Code(s): I48.2 - Chronic atrial fibrillation (2) Hypertension Hypertension type: unspecified Qualified Code(s): I10 - Essential (primary) hypertension
--- NOTE | 2018-06-02 13:01 | Fluoroscopy Report ---
FL video swallow CLINICAL HISTORY: 83 years-old Male presenting with aspiration on prior barium swallow from July, reassess for aspiration. TECHNIQUE: Video fluoroscopic evaluation of swallowing was performed in the AP and lateral projection s in conjunction with speech pathology. The patient was administered various textures, including nect ar-thick and thin liquid barium, a barium coated wafer, and barium pudding. COMPARISON: 08/07/2017. FINDINGS: Anterior cervical fusion hardware noted. Prominent anterior osteophytosis. Residual evident with vari ous textures in the valleculae and piriform sinuses. Limited evaluation of the esophagus demonstrates intraesophageal reflux and tertiary contractions. Normal oral transit time though premature pooling of the oral bolus in the vallecula evident. Normal oral propulsion. The epiglottis has an exaggerated cranial curvature. This slightly negatively affect s epiglottic deflection. Intermittent silent aspiration of thin liquids in addition to intermittent flash penetration. There i s no penetration or aspiration of nectar thick liquids, pudding, or solid consistencies. Fluoroscopy dosage (mGy): Not available. Fluoroscopy time: 1.9 minutes. Number or time of fluoroscopic spot images: 0. IMPRESSION: 1. Intermittent silent aspiration of thin liquids. 2. 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 3. Please see the speech pathologist report for detailed findings and recommendations. Electronically signed by: Agustin Carney M.D. 06/02/2018 1:00 PM
--- NOTE | 2018-06-02 16:41 | Hospitalist Progress Note ---
Date of Service June 02, 2018 Assessment & Plan (1) Acute respiratory failure with hypoxia: -most likely reflux aspiration based on acuity /// rapid resolution // very little other disease burden noted -Mucus plugging from chronic bronchitis also possible, Iglesia added. -speech re-eval appreciated, will try to make his swallowing recommendations quite clear to him. His memory loss may make this difficult. -O2 weaned -From the standpoint he is actually stable to go home (2) Hypertension: continue home meds, continue to follow - BP's reasonable control (3) Atrial fibrillation: -Xarelto anticoagulation -Rates have been quite slow. He had pauses again today after having been seen by cardiology. We will stop the metoprolol and continue to follow. It is not clear but he may need a pacemaker sooner rather than later, versus being off of metoprolol altogether and being followed closely. Fortunately he has been asymptomatic and hemodynamically stable, but with his memory issues, and living alone, it does not appear safe to get him home until it is clear that his heart rates are stable enough to not get him into trouble. (4) Chronic pulmonary aspiration: continue PPI and H2, speech eval appreciated (5) BPH (benign prostatic hyperplasia): Chronic -Continue Dutasteride F/E/N- Heplock, monitor electrolytes and replete as needed, regular diet as tolerated with aspiration precautions, Colace PRN DVT proph - anticoagulation Code - Full per discussion with patient and admitting hospitalist Dispo - PT/OT eval and treat, home once bradycardia situation is more stabilized (6) Memory loss: He has very poor short-term memory, despite having good other cognitive function. My suspicion is that he is a very high functioning individual who now has a degree of dementia. TSH was okay, head CT from not quite a year ago showed no focal findings, MRI brain from about 2-1/2 years ago similar. He shows no focal issues and repeat brain imaging seems to be low yield. Check a B12. It seems unlikely, but if he is having low perfusion from the bradycardia it is possible that improving that situation may improve his memory, but again this is not extremely likely to be the case. He does have some extra caregiving at home, this may need to be increased over the near future. Subjective Feeling good overall. He denies any complaints. He does not have any shortness of breath, no cough right now, no dyspnea on exertion, he feels stronger on his feet. Case discussed with speech therapy, input greatly appreciated. Video swallow results and high risk for aspiration noted. furthermore cognitive testing yielded extremely poor memory, despite good overall reasoning and judgment Telemetry reviewed several times throughout the day. This morning he had had nothing significant through the night, with no pauses, and bradycardia only to may be the 50s. Mid morning unfortunately dropped in the 30s again, with about a 2-1/2-second pause Physical Exam 2 Vital Signs (Past 24 Hours): Last Vital Signs Temp 36.4 C L 06/02/18 11:21 Pulse 58 L 06/02/18 16:04 Resp 20 06/02/18 11:21 BP 136/68 06/02/18 11:21 Pulse Ox 97 06/02/18 11:21 Physical Exam: He is awake and alert, pleasant no distress. HEENT normocephalic atraumatic mucous members are moist. Cardio is regular without rubs murmurs or gallops. Lungs are unlabored clear to auscultation bilaterally no rales rhonchi or wheezes good effort. Skin shows no rashes no pallor or icterus. He shows no focal neuro deficits. _ (1) Hypertension Hypertension type: unspecified Qualified Code(s): I10 - Essential (primary) hypertension (2) Atrial fibrillation Atrial fibrillation type: permanent Qualified Code(s): I48.2 - Chronic atrial fibrillation (3) Chronic pulmonary aspiration Encounter type: subsequent encounter Qualified Code(s): T17.908D - Unspecified foreign body in respiratory tract, part unspecified causing other injury, subsequent encounter (4) BPH (benign prostatic hyperplasia) Lower urinary tract symptom presence: symptoms absent Lower urinary tract symptom detail: Qualified Code(s): N40.0 - Benign prostatic hyperplasia without lower urinary tract symptoms
[2018-06-02] MEDS: ATORVASTATIN 20 MG TAB PO SCH (21:11)
[2018-06-02] MEDS: ALPRAZolam 0.25 MG TABLET PO SCH (22:20)
[2018-06-03] MEDS: AVODART~ORDER AWAITING ACTION SCH ×3 (09:01→15:04)
[2018-06-03] MEDS: TRIAMCINOLONE ACET 0.1% CR 15 GM TUBE TOP SCH (09:02)
[2018-06-03] MEDS: TIOTROPIUM BROMIDE 5 PUFF/90 MCG INH INH SCH (09:02)
[2018-06-03] MEDS: PANTOprazole 40 MG TAB PO SCH (09:02)
[2018-06-03] MEDS: TRIAMCINOLONE ACET NASAL SPRAY 10.8ML BTL SCH (09:02)
[2018-06-03] MEDS: RIVAROXABAN 20 MG TAB PO SCH (09:03)
[2018-06-03] MEDS ORDERED: ALBUTEROL HFA 8 GM INHALER INH ONE (10:22)
--- NOTE | 2018-06-03 10:31 | Cardiology Progress Note ---
Date of Service June 03, 2018 Assessment & Plan (1) Bradycardia: Although he had some bradycardia on presentation I do not believe this is a cause of his presentation. I suspect that was pulmonary. I would agree with discontinuing beta-blockade now as he may not need beta-blockers for rate control any longer. We can follow this as an outpatient but he has not been bradycardic over the last 24 hours off of beta-blockade. (2) Atrial fibrillation: He has permanent atrial fibrillation and appears to be asymptomatic in this regard. He may not need medications for rate control. Continue anticoagulation for stroke risk reduction. (3) Hypertension: Blood pressure is elevated on his current regimen, I would avoid blood pressure medications which slow heart rate. (4) Acute respiratory failure with hypoxia: The cause remains unclear, it does not appear to have been due to pulmonary edema. Subjective He is feeling well today. He has had no further lightheadedness or dizziness. He now reports 2 episodes of syncope, one several months ago and one on presentation here, both with a prolonged prodrome of lightheadedness followed by loss of consciousness. On this most recent occasion leading to this admission he describes being very lightheaded but was able to walk all the way to the bar, get his coat, ask someone to call 911 before he passed out. This disagrees with the history outlined in the chart where he was complaining of shortness of breath. I suspect he did not actually become unresponsive, but perhaps was so hypoxic he does not recall it and has a gap in his memory which he relates to being unconscious. This is certainly not suggestive of a sudden arrhythmia such as a pause during atrial fibrillation or even a moderately slow heart rate. He denies having that prodrome when he does not pass out in the past. Physical Exam 2 Vital Signs (Past 24 Hours): Last Vital Signs Temp 36.3 C L 06/03/18 07:15 Pulse 60 06/03/18 10:07 Resp 16 06/03/18 10:07 BP 151/79 H 06/03/18 07:15 Pulse Ox 99 06/03/18 10:07 Physical Exam: Constitutional: Alert, cooperative and in no distress. Pulmonary: Clear to auscultation bilaterally. Cardiac: Irregular rhythm with no murmur, gallop or rub. Abdomen: Soft, nontender with normal bowel sounds. Extremities: No edema. Skin: No rash, ecchymoses or petechiae. Results & Data Diagnostic Findings Atrial fibrillation, heart rate overnight in the 50s and 60s, no significant pauses _ (1) Atrial fibrillation Atrial fibrillation type: permanent Qualified Code(s): I48.2 - Chronic atrial fibrillation (2) Hypertension Hypertension type: unspecified Qualified Code(s): I10 - Essential (primary) hypertension
--- NOTE | 2018-06-03 17:50 | Discharge Summary ---
Date of Service June 03, 2018 Admission HPI Per Admitting Provider Mr. Gao is an 83yo male with history of AF, chronic aspiration presenting with acute episode of SOB, hypoxia. At 18:00 patient was getting ready to sit down for dinner when he became acutely short of breath and began to experience palpitations. EMS was called, patient found to be 75% on room air. He was initially started on CPAP and transferred to [facility]. Upon arrival he was found to be hypertensive at 189/107. He was transitioned to BiPAP and he was started on a Nitro drip for presumed hypertensive emergency/flash pulmonary edema. During my encounter, patient was looking markedly improved. He was weaned off the BiPAP and placed on NC x 2 liters with adequate saturation 94-96%. The Nitro drip was weaned off prior to transfer to the floor. Patient with no additional complaints at this time. Specifically denies chest pain, cough, weight gain, worsening orthopnea or edema - he does report stable orthopnea and bilateral LE edema. Denies wheezing. Does not use O2 at home. Patient presented to [facility] similarly in July 2017. He was diagnosed with chronic aspiration. He was treated with Augmentin x 10 days. ER Course: BiPAP, Nitro drip Principal Diagnosis Transient hypoxia most likely related to aspiration, less likely related to mucous plugging Secondary diagnosis bradycardia, with concern on developing sick sinus syndrome Discharge Data Allergies Allergy/AdvReac Type Severity Reaction Status Date / Time cyclobenzaprine Allergy Intermediate RASH ON Verified 05/30/18 19:58 FACE flecainide Allergy Intermediate DISCOLORATION Verified 05/30/18 19:58 OF SKIN ibuprofen AdvReac Mild RHINORRHEA Verified 05/30/18 19:58 Consultations 05/30/18 20:12 ED Decision to Admit Stat 06/01/18 11:13 Consult Cardiology Routine Ordered Studies 05/31/18 00:53 CT chest wo con Routine 06/02/18 12:30 FL video swallow Routine Hospital Course (1) Acute respiratory failure with hypoxia: -most likely reflux aspiration based on acuity /// rapid resolution // very little other disease burden noted -Mucus plugging from chronic bronchitis also possible, Spiriva added. -speech re-eval appreciated, reviewed swallowing recommendations with patient both by speech therapy who also left things in writing and in my discharge instructions. His memory loss may make this difficult, but we discussed that he should definitely work on a system for this. -O2 weaned (2) Hypertension: Metoprolol stopped, continue home meds otherwise (3) Atrial fibrillation: -Xarelto anticoagulation -Rates have been quite slow. He even had at times bradycardia in the 30s and several pauses of 2-1/2-3-1/2 seconds. His metoprolol eventually was weaned and then stopped, and his rates have been better. Fortunately he has been asymptomatic the whole time. Given his age, atrial fibrillation, and apparent exquisite sensitivity to beta-blockers, it seems most likely he is working towards sick sinus syndrome. Cardiology is actively following him, he will have an event monitor done as an outpatient, and we anticipate the likelihood of needing a pacemaker in the near future, however it certainly did not need one now. (4) Chronic pulmonary aspiration: continue PPI and H2, speech eval appreciated Instructions given verbally and in writing by speech and myself (5) BPH (benign prostatic hyperplasia): Chronic -Continue Dutasteride DVT proph - anticoagulation Code - Full per discussion with patient and admitting hospitalist Dispo -home with home nursing (6) Memory loss: He has very poor short-term memory, despite having good other cognitive function. My suspicion is that he is a very high functioning individual who now has a degree of dementia. TSH was okay, head CT from not quite a year ago showed no focal findings, MRI brain from about 2-1/2 years ago similar. He shows no focal issues and repeat brain imaging seems to be low yield. B12 okay. It seems unlikely, but if he is having low perfusion from the bradycardia it is possible that improving that situation may improve his memory , but again this is not extremely likely to be the case. He does have some extra caregiving at home, this may need to be increased over the near future. Case discussed with his son who is well aware of ups and downs of his father's memory Total Time Total Time Spent Total Time Spent (In Minutes): >30 Discharge Plan Discharge Items Patient Disposition: Home - Home Health Services Reason For Visit: HYPOXIA Discharge Diagnosis: aspiration events, mucous plugging. separately bradycardia Discharge Goals: Diagnostic testing and Therapeutic intervention Activity: Resume your previous activity Non-emergency contact: Primary Care Provider and Donor Relations Officer Call non-emergency contact if: you have any medication questions and your symptoms worsen Follow-up/Referrals: [facility]Provider Group] - 06/09/18 10:30 am (Please, follow up at [facility] on ThursdayJune 09 at 11:00 am (arrive 10:30 am) for pulmonary function testing (PFT's). *You should register at the main desk in the lobby of this hospital at 10:30 am. Do not use any inhaled medications or "puffers" 6 hours prior to this test. Wear comfortable clothes and shoes. If you need to change or cancel this appointment, call the central scheduling department at [phone].) Jared Mandujano MD [Primary Care Provider] - 06/07/18 3:00 pm (Please, follow up at Dr. Mandujano's office with his assistant director of public works, Anne Maria PA-C , on ThursdayJune 07 at 3:00 pm. If you need to change this appointment, call their office at [phone].) Anand Elliott MD [Physician] - 06/17/18 11:00 am (Please, follow up at [facility] Cardiology Office with Dr. Elliott's assistant director of public works, Clifton Stubbs PA-C, on June 17 at 11:00 am. *If you need to change this appointment, call the office at [phone]. A CARDIAC EVENT MONITOR AND EASY TO FOLLOW INSTRUCTIONS WILL BE MAILED TO YOUR HOME. THE RESULTS WILL BE SENT TO DR. MANDUJANO AND DR. ELLIOTT.) Diet: See below Addtl Provider Instructions: hypoxia (low oxygen) -you had another low oxygen event that was the main cause for admission -this appears most likely to have been related to aspiration events (this means that when you swallow you suck some food into your airway in addition to it going down your esophagus into your stomach) -in addition, you now have multiple CT scans showing airway mucous/thickening consistent with chronic bronchitis. while this is most likely caused by chronic inflammation from the aspiration events, it's also something that can plug up airways with mucous -see below aspiration (food getting into lungs in addition to stomach) -this is something that we actually see fairly commonly when people get older. the tricky thing is that you don't really notice as much as you would think (ie there's not much coughing/gagging/etc to let you know that food is going down the "wrong pipe") -we'll want you to be extremely careful when you eat so as to minimize the risk of this happening: -always be upright when you eat, and stay upright for at least 45 minutes after -chew very slowly -swallow twice after every drink, and swallow twice after every bite -don't use any straws -continue to see speech therapy in office visits for follow up to continue to jv baseball coach you on swallowing -brush your teeth at least three times a day, and use rinse as well - while good oral hygiene won't change getting things in your lungs by itself, it will reduce how much bacteria get into your lungs, and reduce the chances of having an aspiration event turn into a pneumonia chronic bronchitis -as above noted, this is probably due to chronic airway inflammation from repeated aspiration events, but the bronchitis itself can cause excess mucous production, which can also "ball up" and plug an airway, making it hard to breathe -to evaluate this further, we'll have you set up for pulmonary function tests ( "lung volume measurements") to ensure that you're not having difficulty moving air with the chronic bronchitis -we're also starting an inhaler once a day every day (spiriva, tiotropium) as this class of inhalers helps reduce mucous and airway inflammation, hopefully reducing the chances that you plug up airways with mucous balls bradycardia (low heart rate) -incidentally noted, while you were here, we saw that your heart rates get really low. while fortunately you did not show any symptoms from this (weakness /lightheadedness/passing out), the rates themselves were low enough to cause concern -this is something we frequently see as people age - it falls into the category of what is known as "sick sinus syndrome" -- usually the natural history of this is that people start to become more sensitive to their heart medications ( beta blockers - in your case, the metoprolol (toprol)) -- which is what we're seeing now. at this point in the evolution, the right thing to do is to stop the toprol (metoprolol) entirely, and follow you closely. they'll be mailing you a heart monitor to follow your rates closely over a few weeks time, and you' ll follow up closely with Dr Elliott. some people level out for quite a while - where heart rates don't really change much, but the need for the medicines isn 't there either. on the other hand, some people have "no middle ground" -- where once they're off the medicines for a little while they have racing hearts , but when they're on the medicines heart rates go too slow. lastly, some people continue to go too slow despite being off medicines altogether. the bottom line is that most people eventually evolve into needing a pacemaker ( which fortunately in the modern era is a fairly easy procedure to go through as a patient, and is usually quite successful) -- our goal is to follow you close enough to see that you need it before you really feel it. -wear the heart monitor when it arrives -follow up with Dr Elliott as scheduled -stop taking the metoprolol (toprol) for now -if you feel weak/lightheaded/dizzy/unsteady OR if you feel heart racing/ palpitations call Dr Mandujano or Dr Elliott right away Prescriptions: New tiotropium bromide [Spiriva with HandiHaler] 18 mcg Capsule, W/Inhalation Device 1 puff Inhalation QAM Qty: 30 RF: 0 Continue multivitamin Tablet 1 tab PO DAILY RF: 0 atorvastatin [Lipitor] 20 mg tablet 20 mg PO HS RF: 0 ranitidine HCl [Zantac] 300 mg tablet 300 mg PO HS RF: 0 triamcinolone acetonide 0.1 % cream 1 applic topical BID RF: 0 alprazolam [Xanax] 0.25 mg tablet 0.25 mg PO HS RF: 0 famotidine 20 mg Tablet 20 mg PO DAILY PRN (Reason: Acid Reflux) RF: 0 pantoprazole [Protonix] 40 mg tablet,delayed release (DR/EC) 40 mg PO DAILY RF: 0 triamcinolone acetonide [Nasacort] 55 mcg Aerosol,Hinckley 2 spray INTRANASAL BID RF: 0 mupirocin [Centany] 2 % ointment 1 applic topical BID RF: 0 albuterol sulfate [Proventil HFA] 90 mcg/actuation Hfa Aerosol Inhaler 2 puff INHALATION Q6H PRN (Reason: Shortness Of Breath) RF: 0 cholecalciferol (vitamin D3) [Vitamin D3] 1,000 unit Capsule 1,000 unit PO DAILY RF: 0 dutasteride [Avodart] 0.5 mg capsule 0.5 mg PO DAILY RF: 0 sodium chloride [Saline Nasal] 0.65 % Aerosol,Hinckley 1 spray INTRANASAL BID PRN (Reason: Nasal Congestion) RF: 0 rivaroxaban [Xarelto] 20 mg tablet 20 mg PO DAILY RF: 0 Discontinued metoprolol succinate [Toprol XL] 50 mg tablet extended release 24 hr 50 mg PO BID RF: 0 Stand-Alone Forms: [facility] Discharge Orders: Discharge Order (Routine); Ordered 06/03/18 Ordered By: Yves Tavarez Admission Data Admit Date/Time: 05/31/18 13:09 Attending Provider: Yves Tavarez Admit Provider: Berta Jordan Primary Care Provider: Jared Mandujano Other Providers: Berta Jordan ; Dustin Enriquez ; José Manuel Lemus Service: Telemetry Medical Other Interventions: Discharge Summary Assessment (RN) Last Done: 06/03/18 15:07 DC Date/Time DO NOT enter until pt leaves facility: 06/03/18 16:38
== END 2018-06-03 16:38 | disposition home health service (06) | DRG 205 ==
LOC: ED 18:41 → 2W 18:41 → SUATTDRO 22:10 → 2W 05-31 00:39
DX: I10 Essential (primary) hypertension; J96.01 Acute respiratory failure with hypoxia; J42 Unspecified chronic bronchitis; Z88.8 Allergy status to other drugs, medicaments and biological substances; Z87.891 Personal history of nicotine dependence; R41.3 Other amnesia; Z88.6 Allergy status to analgesic agent; N40.0 Benign prostatic hyperplasia without lower urinary tract symptoms; T17.990A Other foreign object in respiratory tract, part unspecified in causing asphyxiation, initial encounter; R00.1 Bradycardia, unspecified; E78.00 Pure hypercholesterolemia, unspecified; I48.2 Chronic atrial fibrillation

== ENCOUNTER 2018-06-04 12:21 | Inpatient (IN) ==
[2018-06-04] MEDS ORDERED: ALBUT/IPRATROP 3MG/0.5MG NEB 3 ML VIAL INH STA (12:48)
[2018-06-04] MEDS ORDERED: PIPERACILLIN/TAZOBACTAM 3.375 GM/115 ML BAG IV STA (12:56)
[2018-06-04] MEDS ORDERED: PIPERACILL/TAZOBAC CONSULT ACTIVE PRN ×2 (12:56→17:33)
[2018-06-04] MEDS ORDERED: LEVOFLOXACIN/D5W 500 MG/100 ML BAG IV ONE (12:57)
--- NOTE | 2018-06-04 13:26 | XRay Report ---
SINGLE VIEW CHEST CLINICAL HISTORY: Dyspnea. FINDINGS: 2 AP, portable, upright chest radiographs are compared to study dated 05/30/2018 and correla mono with chest CT dated 05/31/2018 . The examination is degraded by portable technique and patient rot ation. The heart is enlarged and there is atherosclerotic calcification of the thoracic aorta. The pu lmonary vasculature is noncongested. Patchy airspace opacities are present at both lung bases. No lar ge pleural effusion or pneumothorax is seen. The bony thorax is grossly intact. Fusion hardware is no mono in the lower cervical spine. IMPRESSION: 1. Cardiomegaly without radiographic evidence of congestive failure. 2. Patchy airspace opacities are present at both lung bases, similar in appearance to the recent [facility] t CT. Correlate clinically for evidence of a mild infectious/inflammatory pneumonitis. Electronically signed by: Kevin Still M.D. 06/04/2018 1:24 PM
[2018-06-04 13:27] LABS: Basophils # (auto) 0.01 K/uL (0-0.2); Basophils % (auto) 0.3 %; Eosinophils # (auto) 0.15 K/uL (0-0.5); Eosinophils % (auto) 4.9 %; Hematocrit (blood only) 40.7 % (42-52); Lymphocytes # (auto) 0.45 K/uL (1.2-3.4); Lymphocytes % (auto) 14.6 %; Mean Corpuscular Hgb Conc 31.9 g/dL (32-36); Mean Corpuscular Volume 87.9 fL (80-100); Mean Platelet Volume 11.7 fL (7.4-10.4); Monocytes # (auto) 0.32 K/uL (0.11-0.59); Monocytes % (auto) 10.4 %; Neutrophils # (auto) 2.16 K/uL (1.4-6.5); Neutrophils % (auto) 69.8 %; Platelet Count 153 K/uL (130-400); RDW Coefficient of Variation 14.3 % (11.5-14.5); RDW Standard Deviation 45.8 fL (36.4-46.3); Red Blood Count 4.63 M/uL (4.7-6.1); White Blood Count 3.09 K/uL (4.8-10.8)
[2018-06-04 13:50] LABS: Alanine Aminotransferase 25 U/L (12-78); Albumin Globulin Ratio 0.9 (0.9-2); Albumin Level 3.5 gm/dl (3.4-5.0); Alkaline Phosphatase 80 U/L (45-117); BUN Creatinine Ratio 18.2 (10-20); Bilirubin,Total 1.9 mg/dl (0.2-1); Blood Urea Nitrogen 16 mg/dl (7-18); Calcium 8.8 mg/dl (8.5-10.1); Carbon Dioxide 28 mmol/L (21-32); Chloride 101 mmol/L (98-107); Est GFR (African American) 91.6; Est GFR (Non-African American) 79.1; Globulin 3.7 gm/dl (2.5-4.0); Glucose 155 mg/dl (70-99); Sodium 134 mmol/L (136-145); Total Protein 7.2 gm/dl (6.4-8.2); Troponin I < 0.015 ng/ml (0-0.045)
[2018-06-04 13:55] LABS: Potassium 4.1 mmol/L (3.5-5.1)
[2018-06-04 14:02] LABS: Aspartate Aminotransferase 27 U/L (15-37)
--- NOTE | 2018-06-04 14:09 | Emergency Department Note ---
Entered by Neto Hayden acting as a scribe for History of Present Illness General Chief complaint: Shortness of Breath/Dyspnea Stated complaint: sob Time Seen by Provider: 06/04/18 12:43 Source: patient and other (neighbor) History of Present Illness Provider complaint: shortness of breath Onset (ago): day(s) (today) Location: chest Pain Consistency: + other (worsening) Quality: + other (shortness of breath) Associated symptoms: + cough; no chest pain The patient is an 83 year old male who presents to the Emergency Room with complaints of worsening shortness of breath that started today. The patient's neighbor reports that he was discharged from the hospital yesterday after being admitted for the same symptoms and was told he was aspirating. He denies being prescribed any antibiotics. The patient denies wearing oxygen at home. He reports that his symptoms are worsening right now. The patient admits to a cough , but denies any chest pain. The patient also admits to a history of afib and states he is prescribed Xarelto. Home Medications Home Medications Medication Instructions Recorded Confirmed Type albuterol sulfate [Proventil HFA] 2 puff INHALATION Q6H PRN 05/30/18 05/30/18 History alprazolam [Xanax] 0.25 mg PO HS 05/30/18 05/30/18 History atorvastatin [Lipitor] 20 mg PO HS 05/30/18 05/30/18 History cholecalciferol (vitamin D3) 1,000 unit PO DAILY 05/30/18 05/30/18 History [Vitamin D3] dutasteride [Avodart] 0.5 mg PO DAILY 05/30/18 05/30/18 History famotidine 20 mg PO DAILY PRN 05/30/18 05/30/18 History multivitamin 1 tab PO DAILY 05/30/18 05/30/18 History mupirocin [Centany] 1 applic TOPICAL BID 05/30/18 05/30/18 History pantoprazole [Protonix] 40 mg PO DAILY 05/30/18 05/30/18 History ranitidine HCl [Zantac] 300 mg PO HS 05/30/18 05/30/18 History rivaroxaban [Xarelto] 20 mg PO DAILY 05/30/18 05/30/18 History sodium chloride [Saline Nasal] 1 spray INTRANASAL BID PRN 05/30/18 05/30/18 History triamcinolone acetonide 1 applic TOPICAL BID 05/30/18 05/30/18 History triamcinolone acetonide [Nasacort] 2 spray INTRANASAL BID 05/30/18 05/30/18 History tiotropium bromide [Spiriva with 1 puff INHALATION QAM #30 inh 06/03/18 Rx HandiHaler] Allergies Allergy/AdvReac Type Severity Reaction Status Date / Time cyclobenzaprine Allergy Intermediate RASH ON Verified 05/30/18 19:58 FACE flecainide Allergy Intermediate DISCOLORATION Verified 05/30/18 19:58 OF SKIN ibuprofen AdvReac Mild RHINORRHEA Verified 05/30/18 19:58 Past Med/Surg History Medical History AVNRT (AV danette re-entry tachycardia) Atrial fibrillation BPH (benign prostatic hyperplasia) Chronic pulmonary aspiration Iliac artery aneurysm Spinal stenosis Surgical History History of back surgery Family History Other Family history non-contributory Social History marital status: / Current Living Situation: Alone Feels Safe at Home: Yes Smoking Status: Former smoker Hx Alcohol Use: Yes Alcohol type: wine and hard liquor Alcohol Intake Frequency : 0-2 drinks per day Hx Substance Use: No Beliefs That Will Affect Care: None Communication Ability: Effective Review of Systems See HPI for pertinent positives & negatives. and A total of 10 systems reviewed and were otherwise negative Physical Exam Vital Signs Vital Signs - 24 hr 06/04/18 12:21 06/04/18 12:23 06/04/18 12:35 Temperature 36.5 C Temperature Source Oral Sepsis Recent Fever Within 48 Hours No Sepsis Action Taken by Nursing No Action Required Pulse Rate 117 H Pulse Rate [Right] 104 H Pulse Rhythm Regular Pulse Strength Normal Respiratory Rate 16 28 H Respiratory Effort / Characteristics Short of Breath Spontaneous Respiratory Depth Normal Respiratory Pattern Regular Blood Pressure 173/97 H Blood Pressure [Left Arm] 170/97 H Blood Pressure Mean 122 Blood Pressure Mean [Left Arm] 121 Blood Pressure Position Sitting Pulse Oximetry 97 86 L Oxygen Delivery Method Room Air Room Air Nasal Cannula Oxygen Flow Rate 06/04/18 13:17 Temperature Temperature Source Sepsis Recent Fever Within 48 Hours Sepsis Action Taken by Nursing Pulse Rate Pulse Rate [Right] Pulse Rhythm Pulse Strength Respiratory Rate Respiratory Effort / Characteristics Respiratory Depth Respiratory Pattern Blood Pressure Blood Pressure [Left Arm] Blood Pressure Mean Blood Pressure Mean [Left Arm] Blood Pressure Position Pulse Oximetry 94 Oxygen Delivery Method Nasal Cannula Oxygen Flow Rate 3 CONSTITUTIONAL/VITAL SIGNS: Reviewed / noted above. GENERAL: Non-toxic in appearance. INTEGUMENTARY: Warm, dry, and [place]. HEAD: Normocephalic. EYES: without scleral icterus or trauma. ENT/OROPHARYNX: clear and moist. LYMPHADENOPATHY/NECK: Is supple without lymphadenopathy or meningismus. RESPIRATORY: Expiratory wheezing bilaterally. Diminished breath sounds. CARDIOVASCULAR: Regular rate and rhythm. GI/ABDOMEN: Soft and nontender. No organomegaly or pulsatile mass. No rebound or guarding. Normal bowel sounds. EXTREMITIES: Warm and well perfused. BACK: No CVA tenderness. NEUROLOGICAL: Intact without focal deficits. PSYCHIATRIC: normal affect. MUSCULOSKELETAL: Normally developed with good muscle tone. Course 1251: Past medical records reviewed. The patient was evaluated in room A11B, and a complete history and physical examination were performed. 1353: I reviewed the patient's case with Dr. Chan, [facility]. He will evaluate the patient for further management. Consultations Consultation #1: Dr. Chan, [facility] Time: 13:53 Administered Medications Discontinued Medications Albuterol (Duoneb) 3 ml INH NOW STA Stop: 06/04/18 12:49 Last Admin: 06/04/18 13:04 Dose: 3 ml Levofloxacin/Dextrose (Levaquin/D5w) 500 mg in 100 mls @ 100 mls/hr IV ONE ONE Stop: 06/04/18 13:56 Last Admin: 06/04/18 13:41 Dose: 100 mls/hr Piperacillin Sod/Tazobactam Sod (Zosyn) 3.375 gm in 115 mls @ 230 mls/hr IV NOW STA Stop: 06/04/18 13:25 Last Infusion: 06/04/18 13:53 Dose: 0 mls/hr Admin: 06/04/18 13:21 Dose: 230 mls/hr Medical Decision Making Differential Diagnosis Differential diagnosis: Etiologies such as infections, reactive airway disease, pneumonia, pneumothorax , COPD, CHF, cardiac ischemia, pulmonary embolism, musculoskeletal, gastrointestinal, as well as others were entertained. Medical Records Attestation: I reviewed the patient's medical records. Home Medications Current Medication List: was personally reviewed by me Laboratory Data Attestation: I reviewed the patient's lab results. Result diagrams: 06/04/18 13:05 06/04/18 13:05 Lab Results 06/04/18 06/04/18 06/04/18 Range/Units 13:05 13:05 13:05 WBC 3.09 L (4.8-10.8) K/uL RBC 4.63 L (4.7-6.1) M/uL Hgb 13.0 L (14.0-18.0) g/dL Hct 40.7 L (42-52) % MCV 87.9 (80-100) fL MCH 28.1 (25-34) pg MCHC 31.9 L (32-36) g/dL RDW Std Deviation 45.8 (36.4-46.3) fL RDW Coeff of Gilda 14.3 (11.5-14.5) % Plt Count 153 (130-400) K/uL MPV 11.7 H (7.4-10.4) fL Immature Gran % (Auto) 0.0 % Neut % (Auto) 69.8 % Lymph % (Auto) 14.6 % [place] % (Auto) 10.4 % Eos % (Auto) 4.9 % Baso % (Auto) 0.3 % Immature Gran # (Auto) 0.00 (0.00-0.02) K/uL Neut # (Auto) 2.16 (1.4-6.5) K/uL Lymph # (Auto) 0.45 L (1.2-3.4) K/uL [place] # (Auto) 0.32 (0.11-0.59) K/uL Eos # (Auto) 0.15 (0-0.5) K/uL Baso # (Auto) 0.01 (0-0.2) K/uL PT Cancelled INR Cancelled APTT Cancelled PTT Ratio Cancelled Sodium 134 L (136-145) mmol/L Potassium 4.1 (3.5-5.1) mmol/L Chloride 101 (98-107) mmol/L Carbon Dioxide 28 (21-32) mmol/L Anion Gap 5.0 (3-11) BUN 16 (7-18) mg/dl Creatinine 0.89 (0.6-1.4) mg/dl Est Cr Clr Drug Dosing Not Reportable Est GFR ( Amer) 91.6 Est GFR (Non-Af Amer) 79.1 BUN/Creatinine Ratio 18.2 (10-20) Glucose 155 H (70-99) mg/dl Calcium 8.8 (8.5-10.1) mg/dl Total Bilirubin 1.9 H (0.2-1) mg/dl AST 27 (15-37) U/L ALT 25 (12-78) U/L Alkaline Phosphatase 80 (45-117) U/L Troponin I < 0.015 (0-0.045) ng/ml Total Protein 7.2 (6.4-8.2) gm/dl Albumin 3.5 (3.4-5.0) gm/dl Globulin 3.7 (2.5-4.0) gm/dl Albumin/Globulin Ratio 0.9 (0.9-2) Imaging Data Radiologist's Impression: Radiology results as stated below per my review and the radiologist's interpretation: SINGLE VIEW CHEST CLINICAL HISTORY: Dyspnea. FINDINGS: 2 AP, portable, upright chest radiographs are compared to study dated 05/30/2018 and correlated with chest CT dated 05/31/2018 . The examination is degraded by portable technique and patient rotation. The heart is enlarged and there is atherosclerotic calcification of the thoracic aorta. The pulmonary vasculature is noncongested. Patchy airspace opacities are present at both lung bases. No large pleural effusion or pneumothorax is seen. The bony thorax is grossly intact. Fusion hardware is noted in the lower cervical spine. IMPRESSION: 1. Cardiomegaly without radiographic evidence of congestive failure. 2. Patchy airspace opacities are present at both lung bases, similar in appearance to the recent chest CT. Correlate clinically for evidence of a mild infectious/inflammatory pneumonitis. Electronically signed by: Kevin Still M.D. 06/04/2018 1:24 PM ECG Data Attestation: I personally reviewed and interpreted this ECG as follows: Indication: SOB/dyspnea Rate (beats per minute): 96 Rhythm: atrial fibrillation Findings: no ST elevation and no ectopy Blood Pressure Blood Pressure Findings: Elevated blood pressure Blood Pressure Disposition: further management by hospitalist MDM Narrative This is an 83-year-old male who presents to the ED with a chief complaint of shortness of breath. The patient was discharged from the hospital yesterday after a 3-day stay. His ultimate diagnosis appears to be that of aspiration pneumonia. He was not discharged on antibiotics. He clinically is improved during his hospitalization. The patient developed the symptoms today and came to the hospital for evaluation. He is currently not on home oxygen. His oxygen saturations on room air was 86% when he arrived. He is tachypneic and tachycardic. His blood pressure was elevated. His exam revealed bilateral expiratory wheezing and diminished breath sounds. A chest x-ray reveals bibasilar consolidations. CBC is unremarkable. Chemistry panel was unremarkable. Troponin was negative. The patient was given a DuoNeb treatment here. He was given IV Levaquin and IV Zosyn. The patient was seen by the hospitalist for further evaluation and care. Discharge Plan Visit Data Chief Complaint: Shortness of Breath/Dyspnea Stated Complaint: sob ED Provider: Chin Valdez Discharge Problem: Hypoxia, Pneumonia Patient Disposition: Being Evaluated by Hospitalist Forms Stand Alone Forms: [facility] Prescriptions Prescriptions: No Action multivitamin Tablet 1 tab PO DAILY RF: 0 atorvastatin [Lipitor] 20 mg tablet 20 mg PO HS RF: 0 ranitidine HCl [Zantac] 300 mg tablet 300 mg PO HS RF: 0 triamcinolone acetonide 0.1 % cream 1 applic topical BID RF: 0 alprazolam [Xanax] 0.25 mg tablet 0.25 mg PO HS RF: 0 famotidine 20 mg Tablet 20 mg PO DAILY PRN (Reason: Acid Reflux) RF: 0 pantoprazole [Protonix] 40 mg tablet,delayed release (DR/EC) 40 mg PO DAILY RF: 0 triamcinolone acetonide [Nasacort] 55 mcg Aerosol,[place] 2 spray INTRANASAL BID RF: 0 mupirocin [Centany] 2 % ointment 1 applic topical BID RF: 0 albuterol sulfate [Proventil HFA] 90 mcg/actuation Hfa Aerosol Inhaler 2 puff INHALATION Q6H PRN (Reason: Shortness Of Breath) RF: 0 cholecalciferol (vitamin D3) [Vitamin D3] 1,000 unit Capsule 1,000 unit PO DAILY RF: 0 dutasteride [Avodart] 0.5 mg capsule 0.5 mg PO DAILY RF: 0 sodium chloride [Saline Nasal] 0.65 % Aerosol,[place] 1 spray INTRANASAL BID PRN (Reason: Nasal Congestion) RF: 0 rivaroxaban [Xarelto] 20 mg tablet 20 mg PO DAILY RF: 0 tiotropium bromide [Spiriva with HandiHaler] 18 mcg Capsule, W/Inhalation Device 1 puff Inhalation QAM Qty: 30 RF: 0 Referrals Referrals: Jared Mandujano MD [Primary Care Provider] - The scribe's documentation has been prepared under my direction and personally reviewed by me in its entirety. I confirm that the note above accurately reflects all work, treatment, procedures, and medical decision making performed by me.
[2018-06-04 14:59] LABS: INR 1.3 (0.9-1.1); Partial Thromboplastin Ratio 1.1; Partial Thromboplastin Time 28.5 Seconds (21.0-31.0); Prothrombin Time 13.1 Seconds (9.0-12.0)
[2018-06-04] MEDS ORDERED: SODIUM CHLORIDE 0.65% NA SOLN 45 ML (OCEAN) NAE PRN (15:57)
[2018-06-04] MEDS ORDERED: FAMOTIDINE 20 MG TAB PO PRN (15:57)
[2018-06-04] MEDS ORDERED: ALBUTEROL HFA 8 GM INHALER INH PRN (15:57)
[2018-06-04] MEDS ORDERED: ALBUT/IPRATROP 3MG/0.5MG NEB 3 ML VIAL NEB PRN (17:36)
--- NOTE | 2018-06-04 17:41 | History & Physical Report ---
Date of Service June 04, 2018 Assessment & Plan (1) Hypoxia: This appears to be most likely caused by a recurrent aspiration event. See below for management Will ask pulmonary to see him as a fresh set of eyes, just to ensure there is no other possible causes of acute and transient hypoxia that are being overlooked, but seems recurrent aspiration is far and away most likely with mucous plugging being a distant second. (2) Atrial fibrillation: During his last admission he was getting progressively more bradycardic, and we had to reduce and eventually stop his beta-leidy. He is now somewhat tachycardic, but is likely physiologic response to the stress and the aspiration event. We will hold off on any deliberate rate control right now, and treat the hypoxia and aspiration. Should he remain tachycardic, then we will have to resume beta-blockers with caution. 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 He is trying to follow through with speech recommendations, however his dysphasia seems to be fairly significant as far as his aspiration risk, and my concern would also be that his memory loss may play a role and not always being able to follow through with recommendations. We will ask speech to see him to continue to work with him and continue to try to think of other ways to protect him from aspiration (4) Pneumonia: Given his lung exam and persistent tachycardia, this particular aspiration event appears to need treatment as a potential aspiration pneumonia. Unasyn is on back order, will substitute Zosyn and follow (5) Memory loss: See above (6) BPH (benign prostatic hyperplasia): (7) Iliac artery aneurysm: (8) Hypertension: Follow blood pressures (9) BPH (benign prostatic hyperplasia): (10) Hypercholesteremia: (11) DVT prophylaxis: He is anticoagulated as per his A. fib History of Present Illness Chief Complaint: I could not breathe Primary Care Provider: Jared Mandujano MD Patient is a very pleasant 83-year-old male well-known to me from hospital stay ending yesterday. He notes he went home feeling quite well. He had dinner, he even notes that he had a couple glasses of wine with dinner. He notes everything went down well he had no breathing issues. He went to bed feeling fine. He had no shortness of breath through the night. He did wake up at 3 in the morning had to void and was awake for about an hour, but he notes this is entirely normal for him as part of his normal nighttime routine and he did not have any shortness of breath at that time. He woke up this morning again feeling fine. He had breakfast he believes around 1030 this morning, noting it was a bowl of cereal. He relates trying to follow through with speech therapy recommendations as far as chewing at least 5 times, going very slowly swallowing at least twice, small swallows. He does not recall any immediate problems. Around noon he suddenly started to feel more short of breath, feeling like he could not get enough air and feeling like "I was going to " so he came to the ER for further evaluation. He does note that he had some orange juice around that time. He denies fevers chills or sweats, no chest pain no shortness of breath. No abdominal pain, nausea vomiting no indigestion. No new swelling. No change in his cough or sputum. Allergies Allergy/AdvReac Type Severity Reaction Status Date / Time cyclobenzaprine Allergy Intermediate RASH ON Verified 06/04/18 14:25 FACE flecainide Allergy Intermediate DISCOLORATION Verified 06/04/18 14:25 OF SKIN ibuprofen AdvReac Mild RHINORRHEA Verified 06/04/18 14:25 Home Medications Home Medications Medication Instructions Recorded Confirmed Type albuterol sulfate [Proventil HFA] 2 puff INHALATION Q6H PRN 05/30/18 06/04/18 History alprazolam [Xanax] 0.25 mg PO HS 05/30/18 06/04/18 History atorvastatin [Lipitor] 20 mg PO HS 05/30/18 06/04/18 History cholecalciferol (vitamin D3) 1,000 unit PO QAM 05/30/18 06/04/18 History [Vitamin D3] dutasteride [Avodart] 0.5 mg PO QAM 05/30/18 06/04/18 History famotidine 20 mg PO DAILY PRN 05/30/18 06/04/18 History multivitamin 1 tab PO QAM 05/30/18 06/04/18 History mupirocin [Centany] 1 applic TOPICAL BID 05/30/18 06/04/18 History pantoprazole [Protonix] 40 mg PO QAM 05/30/18 06/04/18 History ranitidine HCl [Zantac] 300 mg PO HS 05/30/18 06/04/18 History rivaroxaban [Xarelto] 20 mg PO QAM 05/30/18 06/04/18 History sodium chloride [Saline Nasal] 1 spray INTRANASAL BID 05/30/18 06/04/18 History triamcinolone acetonide 1 applic TOPICAL BID 05/30/18 06/04/18 History triamcinolone acetonide [Nasacort] 2 spray INTRANASAL BID 05/30/18 06/04/18 History tiotropium bromide [Spiriva with 1 puff INHALATION QAM #30 inh 06/03/18 Rx HandiHaler] Past Med/Surg History Medical History AVNRT (AV danette re-entry tachycardia) Atrial fibrillation BPH (benign prostatic hyperplasia) Chronic pulmonary aspiration Iliac artery aneurysm Spinal stenosis Surgical History History of back surgery Family History Mother Breast cancer Type 2 diabetes mellitus without complications Other Family history non-contributory Social History marital status: / Current Living Situation: Alone Feels Safe at Home: Yes Smoking Status: Former smoker Hx Alcohol Use: Yes Alcohol type: wine and hard liquor Alcohol Intake Frequency : 0-2 drinks per day Hx Substance Use: No Beliefs That Will Affect Care: None Communication Ability: Effective Review of Systems All systems reviewed & are unremarkable except as noted in HPI & below Physical Exam 2 Vital Signs (Past 24 Hours): Last Vital Signs Temp 36.5 C 06/04/18 12:23 Pulse 102 H 06/04/18 15:22 Resp 22 06/04/18 15:22 BP 108/84 06/04/18 15:22 Pulse Ox 95 06/04/18 15:22 Physical Exam: General he is awake alert oriented x3, pleasant sitting upright in bed no distress HEENT normal cephalic atraumatic mucous membranes are moist Cardio is slightly tachycardic irregularly irregular no clearly notable rubs murmurs or gallops Lungs are clear in the upper lung [place], may be more slightly diminished at the bases probably more pronounced base right and left with the hint of a rhonchus. No clearly definable rales rhonchi or wheezes good effort no accessory muscle use Abdomen is soft nondistended nontender no masses or organomegaly Extremities show no sinus clubbing, may be trace edema no calf tenderness Neuro shows cranial nerves II through XII be grossly intact gross motor and sensory intact, no focal deficits Musculoskeletal exam shows normal spinal alignment and mobility, normal joint movement, no gross deformities Mental status shows fair recent and remote recall normal mood and affect good judgment and insight Skin shows no rashes no pallor icterus Results & Data Laboratory Results Noted Diagnostic Findings Chest x-ray noted _ (1) Pneumonia Aspiration pneumonia type: Laterality: bilateral Lung location: lower lobe of lung Pneumonia type: due to unspecified organism Qualified Code(s): J18.1 - Lobar pneumonia, unspecified organism (2) Hypertension Hypertension type: unspecified Qualified Code(s): I10 - Essential (primary) hypertension (3) BPH (benign prostatic hyperplasia) Lower urinary tract symptom presence: symptoms absent Lower urinary tract symptom detail: Qualified Code(s): N40.0 - Benign prostatic hyperplasia without lower urinary tract symptoms
[2018-06-04] MEDS: PIPERACILLIN/TAZOBACTAM 3.375 GM in DEXTROSE 5% 100 ML IV SCH (18:37)
[2018-06-04] MEDS: TRIAMCINOLONE ACET 0.1% CR 15 GM TUBE TOP SCH (20:31)
[2018-06-04] MEDS: ATORVASTATIN 20 MG TAB PO SCH (20:32)
[2018-06-04] MEDS: TRIAMCINOLONE ACET NASAL SPRAY 10.8ML BTL NAE SCH (20:33)
[2018-06-04] MEDS: ALPRAZolam 0.25 MG TABLET PO SCH (22:22)
[2018-06-05] MEDS: PIPERACILLIN/TAZOBACTAM 3.375 GM in DEXTROSE 5% 100 ML IV SCH ×3 (02:26→17:48)
[2018-06-05] MEDS: DUTASTERIDE: ORDER AWAITING ACTION SCH ×4 (02:26→23:50)
[2018-06-05] MEDS ORDERED: MAGNESIUM HYDROXIDE SUSP 30 ML UDC PO PRN (03:16)
[2018-06-05] MEDS: TRIAMCINOLONE ACET NASAL SPRAY 10.8ML BTL NAE SCH ×2 (08:23→21:14)
[2018-06-05] MEDS: TIOTROPIUM BROMIDE 5 PUFF/90 MCG INH INH SCH (08:23)
[2018-06-05] MEDS: MULTIVITAMIN TAB PO SCH (08:23)
[2018-06-05] MEDS: CHOLECALCIFEROL 1,000 UNITS TAB PO SCH (08:23)
[2018-06-05] MEDS: TRIAMCINOLONE ACET 0.1% CR 15 GM TUBE TOP SCH ×2 (08:23→21:16)
[2018-06-05] MEDS: PANTOprazole 40 MG TAB PO SCH (08:23)
[2018-06-05 09:59] LABS: Basophils # (auto) 0.02 K/uL (0-0.2); Basophils % (auto) 0.5 %; Eosinophils # (auto) 0.18 K/uL (0-0.5); Eosinophils % (auto) 4.8 %; Hematocrit (blood only) 39.3 % (42-52); Hemoglobin 12.7 g/dL (14.0-18.0); Lymphocytes # (auto) 0.53 K/uL (1.2-3.4); Lymphocytes % (auto) 14.2 %; Mean Corpuscular Hgb Conc 32.3 g/dL (32-36); Mean Corpuscular Volume 87.3 fL (80-100); Mean Platelet Volume 12.1 fL (7.4-10.4); Monocytes # (auto) 0.31 K/uL (0.11-0.59); Monocytes % (auto) 8.3 %; Neutrophils % (auto) 72.2 %; Platelet Count 152 K/uL (130-400); RDW Coefficient of Variation 14.4 % (11.5-14.5); RDW Standard Deviation 46.2 fL (36.4-46.3); White Blood Count 3.74 K/uL (4.8-10.8)
[2018-06-05 10:45] LABS: Calcium 8.7 mg/dl (8.5-10.1); Creatinine Clr Calc Pharmacy 63.9 ml/min; Est GFR (African American) 81.3; Est GFR (Non-African American) 70.1; Potassium 4.1 mmol/L (3.5-5.1)
--- NOTE | 2018-06-05 14:02 | Pulmonary Consultation ---
Date of Consultation June 05, 2018 Assessment & Plan (1) Hypoxia: Impression: 1. Brief episodes of apnea accompanied with hypoxia in a patient who had dilated esophagus noted on the CAT scan highly suspicious to me for GERD that is gone chronic. The patient claimed that he had EGD in the past but I could not find any records of it. 2. With the presence of dysphagia accompanied with the episodes of hypoxia, dyspnea, it is concerning to me for globus hystericus, myasthenia gravis or bulbar palsy. He does have dysphonia only during the event but not in between. Myasthenia gravis . 3. I do not have pulmonary function test done on him in the past to evaluate him for COPD given his [id number] history of smoking in the past. Plan: 1. Start the patient on PPI twice daily in addition to extrapyramidal medication such as Reglan before meals and at bedtime. 2. GI consult will be helpful with evaluation with EGD. 3. Esophageal manometry. 4. Acetylcholinestrase receptors antibodies. 5. PFTs. 6. The above workup can be done as an outpatient. Thank you, will follow. History of Present Illness Reason for Consultation: Hypoxia Requesting Physician: Dr. Tavarez Attending Physician: Yves Tavarez, History of Present Illness Dear Dr. Tavarez: Thank you for the kind referral Mr. Gao to pulmonary service. 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 fib, chronic back pain, spinal stenosis, GERD, chronic aspiration , has been followed by gastroenterology in the past and underwent EGD in the past which I do not have the results of it, presented to the hospital with multiple episodes of sudden onset of apnea according to him. The patient has been having these episodes periodically. His episodes accompanied also with palpitation, no chest pain. He does have difficulty swallowing and dysphagia. He did not have any chest pain per se. He has heartburn that has been ongoing for the past several years. He does have difficulty swallowing none particular type of food which could be thin fluids or solid food. The patient had O2 saturation of 75% on arrival to the ED. He was also hypotensive and bradycardic. When I interviewed the patient today, he was asymptomatic, using the oxygen with O2 sat of 99% on 2 L. The patient describes his episodes periodically. He could not give me more details, he did not recall losing his consciousness or going to dizziness with near syncopal episode. His symptoms has been recurrent since July. Denies any visual disturbances, no dysarthria or dysphonia either. He noticed increased swelling in his lower extremities. No change in his bowel movement. No muscle weakness and no skin rash. The rest of his review of system was otherwise on room couple. No neurologic deficit also reported. His family history is not contributory. He is ex-smoker, quit 4 years ago, and smoked only for [id number] history in the past. 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 He did not work in the agriculture or on a farm. Allergies Allergy/AdvReac Type Severity Reaction Status Date / Time cyclobenzaprine Allergy Intermediate RASH ON Verified 06/04/18 14:25 FACE flecainide Allergy Intermediate DISCOLORATION Verified 06/04/18 14:25 OF SKIN ibuprofen AdvReac Mild RHINORRHEA Verified 06/04/18 14:25 Home Medications Home Medications Medication Instructions Recorded Confirmed Type albuterol sulfate [Proventil HFA] 2 puff INHALATION Q6H PRN 05/30/18 06/04/18 History alprazolam [Xanax] 0.25 mg PO HS 05/30/18 06/04/18 History atorvastatin [Lipitor] 20 mg PO HS 05/30/18 06/04/18 History cholecalciferol (vitamin D3) 1,000 unit PO QAM 05/30/18 06/04/18 History [Vitamin D3] dutasteride [Avodart] 0.5 mg PO QAM 05/30/18 06/04/18 History famotidine 20 mg PO DAILY PRN 05/30/18 06/04/18 History multivitamin 1 tab PO QAM 05/30/18 06/04/18 History mupirocin [Centany] 1 applic TOPICAL BID 05/30/18 06/04/18 History pantoprazole [Protonix] 40 mg PO QAM 05/30/18 06/04/18 History ranitidine HCl [Zantac] 300 mg PO HS 05/30/18 06/04/18 History rivaroxaban [Xarelto] 20 mg PO QAM 05/30/18 06/04/18 History sodium chloride [Saline Nasal] 1 spray INTRANASAL BID 05/30/18 06/04/18 History triamcinolone acetonide 1 applic TOPICAL BID 05/30/18 06/04/18 History triamcinolone acetonide [Nasacort] 2 spray INTRANASAL BID 05/30/18 06/04/18 History tiotropium bromide [Spiriva with 1 puff INHALATION QAM #30 inh 06/03/18 Rx HandiHaler] Patient History Medical History AVNRT (AV danette re-entry tachycardia) Atrial fibrillation BPH (benign prostatic hyperplasia) Chronic pulmonary aspiration Iliac artery aneurysm Spinal stenosis Surgical History History of back surgery Family History Mother Breast cancer Type 2 diabetes mellitus without complications Other Family history non-contributory Social History marital status: / Current Living Situation: Alone Other Information That Helps Us Care for You: No Feels Safe at Home: Yes Safety Concerns: Feels Safe At This Time Smoking Status: Former smoker Hx Alcohol Use: Yes Alcohol type: wine and hard liquor Alcohol Intake Frequency : 0-2 drinks per day Hx Substance Use: No Beliefs That Will Affect Care: None Communication Ability: Effective Communication Ability Comment: Hx:Short term memory loss per MD noted. 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 Physical Exam 2 Vital Signs (Past 24 Hours): Last Vital Signs Temp 36.8 C 06/05/18 12:09 Pulse 95 H 06/05/18 12:09 Resp 18 06/05/18 12:09 BP 125/78 06/05/18 12:09 Pulse Ox 99 06/05/18 12:09 Physical Exam: Vital signs remained stable, S1-S2 regular rate and rhythm, clear lung field, abdomen is benign, 1+ edema in the periphery, no rash, no pain in his muscles, no swelling of his joints, no oral thrush, no visual disturbances, neurologically he is nonfocal. Results & Data Laboratory Results His labs were reviewed which showed neutropenia borderline, hematocrit has been stable, platelets of 152. The rest of his chemistry labs were within normal range.
[2018-06-05] MEDS ORDERED: POLYETHYLENE (MIRALAX) 17 GM PACK PO PRN (15:33)
[2018-06-05] MEDS ORDERED: RIVAROXABAN 20 MG TAB PO SCH (16:30)
--- NOTE | 2018-06-05 17:35 | Hospitalist Progress Note ---
Date of Service June 05, 2018 Assessment & Plan (1) Hypoxia: This appears to be most likely caused by a recurrent aspiration event. See below for management Appreciate pulmonary input (2) Atrial fibrillation: During his last admission he was getting progressively more bradycardic, and we had to reduce and eventually stop his beta-leidy. He is now somewhat tachycardic, but is likely physiologic response to the stress and the aspiration event. We will hold off on any deliberate rate control right now, and treat the hypoxia and aspiration. Tachycardia is slowly improving, continue to follow for now. Should we need to reinitiate beta blockade, will also consult cardiology, given that he had such significant bradycardia and pauses the last time he was on beta-blockers at all, but it may indicate time for him to need pacemaker for tachybradycardia syndrome. (3) Chronic pulmonary aspiration: Is very concerning that he was just in the hospital with an aspiration event as the most likely diagnosis, went home, and immediately had this happen again. He is trying to follow through with speech recommendations, however his dysphasia seems to be fairly significant as far as his aspiration risk, and my concern would also be that his memory loss may play a role and not always being able to follow through with recommendations. Pulmonary input appreciated, will ask GI for input as well. Ongoing speech therapy eval and treat. (4) Pneumonia: Given his lung exam and persistent tachycardia, this particular aspiration event appears to need treatment as a potential aspiration pneumonia. Zosyn and follow (5) Memory loss: See above (6) BPH (benign prostatic hyperplasia): (7) Iliac artery aneurysm: (8) Hypertension: Follow blood pressures (9) Hypercholesteremia: (10) DVT prophylaxis: He is anticoagulated as per his A. fib (11) Constipation: miralax Subjective Feeling better now, notes that he was not feeling great this morning, but recently is starting to feel better. His breathing is better. His cough is about the same with occasional yellow sputum. He does feel a bit constipated. Try to call his son to update, got voicemail. Left a message will try to get hold of them again Discussed with pulmonary, input appreciated Review of Systems All systems reviewed & are unremarkable except as noted in HPI & below Physical Exam 2 Vital Signs (Past 24 Hours): Last Vital Signs Temp 36.3 C L 06/05/18 14:58 Pulse 87 06/05/18 14:58 Resp 18 06/05/18 14:58 BP 121/76 06/05/18 14:58 Pulse Ox 99 06/05/18 14:58 Physical Exam: General he is awake alert and oriented. No distress. HEENT normocephalic atraumatic mucous membranes are moist. Breathing is unlabored, faintly diminished base right, no rales rhonchi or wheezes otherwise good effort. Abdomen mildly distended. Skin shows no rashes no pallor or icterus. _ (1) Pneumonia Aspiration pneumonia type: Laterality: bilateral Lung location: lower lobe of lung Pneumonia type: due to unspecified organism Qualified Code(s): J18.1 - Lobar pneumonia, unspecified organism (2) Hypertension Hypertension type: unspecified Qualified Code(s): I10 - Essential (primary) hypertension
--- NOTE | 2018-06-05 18:34 | Gastrointestinal Consultation ---
Date of Consultation June 05, 2018 Assessment & Plan (1) Dysphagia: The patient at the very least has oropharygeal dysphagia which needs continued management by speech path. For possibility of esophageal component would recommend EGD with possible esophageal dilatation if stricture found. He is agreeable to that and can be done tentatively thursday pending his pulmonary condition. Procedure and risks explaeind to patient which include but not limited to med reaction, bleeding, perforation, and aspiration esophageal dysmotility on VFS--nothing can be done to fix that gerd---PPI History of Present Illness Reason for Consultation: dysphagia, rule out esophageal stricture Requesting Physician: Dr Tavarez Attending Physician: Yves Tavarez, DO History of Present Illness cc dysphagia HPI Looke at EMR and found no GI notes or scopes in EMR. he had A/P CTA 04/16/18 with patent abd vesels, galltones. He has had dysphagia with "food going down wrong pipe" for several months. He has what appears in the chart and per my discussion with DR Tavarez recurrent aspiration pneumonia. He has GERD. Video swallow 06/02/18 esophageal dysmotility and silent aspiration per radiology notes and per speech path mild to moderate oropharygeal dysphagia. Allergies Allergy/AdvReac Type Severity Reaction Status Date / Time cyclobenzaprine Allergy Intermediate RASH ON Verified 06/04/18 14:25 FACE flecainide Allergy Intermediate DISCOLORATION Verified 06/04/18 14:25 OF SKIN ibuprofen AdvReac Mild RHINORRHEA Verified 06/04/18 14:25 Home Medications Home Medications Medication Instructions Recorded Confirmed Type albuterol sulfate [Proventil HFA] 2 puff INHALATION Q6H PRN 05/30/18 06/04/18 History alprazolam [Xanax] 0.25 mg PO HS 05/30/18 06/04/18 History atorvastatin [Lipitor] 20 mg PO HS 05/30/18 06/04/18 History cholecalciferol (vitamin D3) 1,000 unit PO QAM 05/30/18 06/04/18 History [Vitamin D3] dutasteride [Avodart] 0.5 mg PO QAM 05/30/18 06/04/18 History famotidine 20 mg PO DAILY PRN 05/30/18 06/04/18 History multivitamin 1 tab PO QAM 05/30/18 06/04/18 History mupirocin [Centany] 1 applic TOPICAL BID 05/30/18 06/04/18 History pantoprazole [Protonix] 40 mg PO QAM 05/30/18 06/04/18 History ranitidine HCl [Zantac] 300 mg PO HS 05/30/18 06/04/18 History rivaroxaban [Xarelto] 20 mg PO QAM 05/30/18 06/04/18 History sodium chloride [Saline Nasal] 1 spray INTRANASAL BID 05/30/18 06/04/18 History triamcinolone acetonide 1 applic TOPICAL BID 05/30/18 06/04/18 History triamcinolone acetonide [Nasacort] 2 spray INTRANASAL BID 05/30/18 06/04/18 History tiotropium bromide [Spiriva with 1 puff INHALATION QAM #30 inh 06/03/18 Rx HandiHaler] Patient History Medical History AVNRT (AV danette re-entry tachycardia) Atrial fibrillation BPH (benign prostatic hyperplasia) Chronic pulmonary aspiration Iliac artery aneurysm Spinal stenosis Surgical History History of back surgery Family History Mother Breast cancer Type 2 diabetes mellitus without complications Other Family history non-contributory Social History marital status: / Current Living Situation: Alone Other Information That Helps Us Care for You: No Feels Safe at Home: Yes Safety Concerns: Feels Safe At This Time Smoking Status: Former smoker Hx Alcohol Use: Yes Alcohol type: wine and hard liquor Alcohol Intake Frequency : 0-2 drinks per day Hx Substance Use: No Beliefs That Will Affect Care: None Communication Ability: Effective Review of Systems SEE HPI. Othwerwise 10 ROS neg Physical Exam 2 Vital Signs (Past 24 Hours): Last Vital Signs Temp 36.3 C L 06/05/18 14:58 Pulse 87 06/05/18 14:58 Resp 18 06/05/18 14:58 BP 121/76 06/05/18 14:58 Pulse Ox 99 06/05/18 14:58 Constitutional: WD/WN, vitals as above Eyes: PERRL, conjunctivae normal, anicteric sclerae ENMT: external ear and nose normal, oropharynx normal Respiratory: normal respiratory effort, lungs clear to auscultation Cardiovascular: RRR, no murmur, no edema Gastrointestinal (Abdomen): normal bowel sounds, soft, nontender, no hepatosplenomegaly Neurologic: PERRL, EOMI, accommodation nl, no face palsy, no dysarthria Psychiatric: A+Ox3, euthymic affect
[2018-06-05] MEDS: ALPRAZolam 0.25 MG TABLET PO SCH (21:16)
[2018-06-05] MEDS: ATORVASTATIN 20 MG TAB PO SCH (21:16)
[2018-06-06] MEDS: PIPERACILLIN/TAZOBACTAM 3.375 GM in DEXTROSE 5% 100 ML IV SCH ×3 (01:20→17:34)
[2018-06-06] MEDS: MULTIVITAMIN TAB PO SCH (08:14)
[2018-06-06] MEDS: DUTASTERIDE: ORDER AWAITING ACTION SCH ×3 (08:14→23:16)
[2018-06-06] MEDS: CHOLECALCIFEROL 1,000 UNITS TAB PO SCH (08:14)
[2018-06-06] MEDS: TRIAMCINOLONE ACET 0.1% CR 15 GM TUBE TOP SCH ×2 (08:14→20:51)
[2018-06-06] MEDS: PANTOprazole 40 MG TAB PO SCH (08:14)
[2018-06-06] MEDS: TRIAMCINOLONE ACET NASAL SPRAY 10.8ML BTL NAE SCH ×2 (08:15→20:50)
[2018-06-06] MEDS: TIOTROPIUM BROMIDE 5 PUFF/90 MCG INH INH SCH (08:15)
[2018-06-06 08:28] LABS: Creatinine Clr Calc Pharmacy 77.1 ml/min; Est GFR (African American) 94.8; Est GFR (Non-African American) 81.8
[2018-06-06] MEDS: LACTOBACILLUS ACIDOPHILUS (FLORANEX) TAB PO SCH ×2 (13:05→15:12)
--- NOTE | 2018-06-06 17:25 | Pulmonology Progress Note ---
Date of Service June 06, 2018 Assessment & Plan (1) Hypoxia: Impression: 1. Brief episodes of apnea accompanied with hypoxia in a patient who had dilated esophagus noted on the CAT scan highly suspicious to me for GERD that is gone chronic. The patient claimed that he had EGD in the past but I could not find any records of it. 2. With the presence of dysphagia accompanied with the episodes of hypoxia, dyspnea, it is concerning to me for globus hystericus, myasthenia gravis or bulbar palsy. He does have dysphonia only during the event but not in between. Myasthenia gravis . 3. I do not have pulmonary function test done on him in the past to evaluate him for COPD given his [id number] history of smoking in the past. Plan: 1. Continue PPI twice daily and Reglan before meals and at bedtime for 28 days. 2. GI consult will be helpful with evaluation with EGD. 3. Esophageal manometry. 4. Acetylcholinestrase receptors antibodies, although he does not show weakness in any group muscles which makes it less likely. 5. PFTs as outpatient. Thank you, will follow as needed. Subjective The patient is feeling better, off oxygen, no events of apnea occurred, denies any chest pain shortness of breath hemoptysis or cough no sputum production. Oral intake has been adequate. Physical Exam 2 Vital Signs (Past 24 Hours): Last Vital Signs Temp 36.6 C 06/06/18 15:12 Pulse 86 06/06/18 15:12 Resp 20 06/06/18 15:12 BP 124/77 06/06/18 15:12 Pulse Ox 97 06/06/18 15:12 Physical Exam: Elderly gentleman, does not appear to be in any distress, vital signs are stable, 97% on room air, S1-S2 regular rate and rhythm, scattered rhonchi bilaterally. Abdomen is benign no edema. Neurologically he is intact. Results & Data Laboratory Results No new labs. Diagnostic Findings No new imaging.
--- NOTE | 2018-06-06 17:32 | Gastroenterology Progress Note ---
Date of Service June 06, 2018 Assessment & Plan (1) Dysphagia: The patient at the very least has oropharygeal dysphagia which needs continued management by speech path. For possibility of esophageal component would recommend EGD with possible esophageal dilatation if stricture found. Discussed with patient in room yesterday and son Alvaro on phone today regarding procedure and risks which include but not limited to med reaction, bleeding, perforation, aspiration. Son states patient can sign own consent. EGD tomorrow. esophageal dysmotility on VFS--nothing can be done to fix that gerd---PPI Subjective CC f/u dysphagia HPI Spoke with patient who thought he had EGD her or Ellen recently but spoke with son Alvaro who stated he had ENT recently so patient ok with EGD tomorrow. Respiratory: no dyspnea Cardiovascular: no chest pain Physical Exam 2 Vital Signs (Past 24 Hours): Last Vital Signs Temp 36.6 C 06/06/18 15:12 Pulse 86 06/06/18 15:12 Resp 20 06/06/18 15:12 BP 124/77 06/06/18 15:12 Pulse Ox 97 06/06/18 15:12 Constitutional: WD/WN, vitals as above Respiratory: normal respiratory effort, lungs clear to auscultation Cardiovascular: without obvious murmur, irregular rate Gastrointestinal (Abdomen): normal bowel sounds, soft, nontender, no hepatosplenomegaly Psychiatric: A+Ox3, euthymic affect
--- NOTE | 2018-06-06 20:07 | Hospitalist Progress Note ---
Date of Service June 06, 2018 Assessment & Plan (1) Hypoxia: This appears to be most likely caused by a recurrent aspiration event. See below for management (2) Atrial fibrillation: During his last admission he was getting progressively more bradycardic, and we had to reduce and eventually stop his beta-leidy. He is now somewhat tachycardic, but is likely physiologic response to the stress and the aspiration event. Fortunately with improvement in his respiratory status ( treating the pneumonia and resolving his hypoxia) his heart rates have resolved to normal. Continue to follow closely, as he does appear to be slowly working on sick sinus syndrome, just not quite at the point of needing a pacer yet. (3) Chronic pulmonary aspiration: Is very concerning that he was just in the hospital with an aspiration event as the most likely diagnosis, went home, and immediately had this happen again. He is trying to follow through with speech recommendations, however his dysphasia seems to be fairly significant as far as his aspiration risk, and my concern would also be that his memory loss may play a role and not always being able to follow through with recommendations. GI input greatly appreciated. Speech therapy for ongoing treatment, hopefully coaching him on better swallowing techniques. (4) Pneumonia: Given his lung exam and persistent tachycardia, this particular aspiration event appears to need treatment as a potential aspiration pneumonia. Can transition to Augmentin (5) Memory loss: See above (6) BPH (benign prostatic hyperplasia): (7) Iliac artery aneurysm: (8) Hypertension: Follow blood pressures (9) Hypercholesteremia: (10) DVT prophylaxis: He is anticoagulated as per his A. fib (11) Constipation: miralax has improved his situation Subjective Feeling better, breathing is better. His belly is better as he had a bowel movement. Currently no acute complaints. He does have a lot of questions about his current situation what we are doing and with the overall plan is. I answered them to the best of my ability, and given his short-term memory loss we agreed that it would be helpful for me to write things down. Below is what I gave to the patient in writing to help him remember what were doing right now. I was going to call the son Alvaro, but Dr. Obrien had already done this , and the main updates today related to gastroenterology input. Aspiration -The main problem landing you in the hospital again and again is that you are struggling to have swallowing go into your stomach instead of partly into your lungs. This is called aspiration When you swallow, some of the food goes down your esophagus into your stomach, but some is silently going into your lungs without you noticing. This is generally quite a difficult problem, as there is no definitive fix. Working with speech therapy can help hitting coach you on swallowing technique to try to reduce how much food goes into your lungs, and potentially the gastroenterologists can help find some solutions to reduce how much things reflux up your esophagus into your lungs Right now you appear to have a mild pneumonia from this, we are treating it with antibiotics Because you do so well overall, and her able to live independently, we are trying to put together any schemes that can help reduce how often you aspirate. Bradycardia Your heart rate the last hospital admission had been fairly slow, we reduced your metoprolol until finally having to stop it. This was because your heart rates were going sometimes in the low 30s with even 2-3-second pauses. Once we stopped the metoprolol your heart rates have been more level. When you first came to the hospital this time, your heart rates were up again, this was concerning because it could mean that your heart conduction system allows for "no middle ground" where either things are going fast or slow. Fortunately however, treating the pneumonia and getting your breathing better, your heart rates have slowed down nicely. We will still need to keep an eye on this, but it appears that right now we do not need to move towards getting a pacemaker. Review of Systems All systems reviewed & are unremarkable except as noted in HPI & below Physical Exam 2 Vital Signs (Past 24 Hours): Last Vital Signs Temp 36.6 C 06/06/18 19:15 Pulse 75 06/06/18 19:15 Resp 18 06/06/18 19:15 BP 125/67 06/06/18 19:15 Pulse Ox 98 06/06/18 19:15 Physical Exam: In general he is awake and alert no distress. HEENT normal cephalic atraumatic mucous members are moist. Breathing is unlabored no accessory muscle use. His lungs are overall clear. Skin shows no rashes no pallor or icterus _ (1) Pneumonia Aspiration pneumonia type: Laterality: bilateral Lung location: lower lobe of lung Pneumonia type: due to unspecified organism Qualified Code(s): J18.1 - Lobar pneumonia, unspecified organism (2) Hypertension Hypertension type: unspecified Qualified Code(s): I10 - Essential (primary) hypertension
[2018-06-06] MEDS: ALPRAZolam 0.25 MG TABLET PO SCH (20:50)
[2018-06-06] MEDS: ATORVASTATIN 20 MG TAB PO SCH (20:50)
[2018-06-07 08:02] LABS: Basophils # (auto) 0.01 K/uL (0-0.2); Basophils % (auto) 0.3 %; Eosinophils # (auto) 0.35 K/uL (0-0.5); Eosinophils % (auto) 8.8 %; Hematocrit (blood only) 36.9 % (42-52); Hemoglobin 12.1 g/dL (14.0-18.0); Lymphocytes # (auto) 0.68 K/uL (1.2-3.4); Lymphocytes % (auto) 17.1 %; Mean Corpuscular Hgb Conc 32.8 g/dL (32-36); Mean Platelet Volume 11.6 fL (7.4-10.4); Monocytes # (auto) 0.41 K/uL (0.11-0.59); Monocytes % (auto) 10.3 %; Neutrophils # (auto) 2.52 K/uL (1.4-6.5); Neutrophils % (auto) 63.5 %; Platelet Count 136 K/uL (130-400); RDW Coefficient of Variation 14.3 % (11.5-14.5); RDW Standard Deviation 44.3 fL (36.4-46.3); Red Blood Count 4.29 M/uL (4.7-6.1); White Blood Count 3.97 K/uL (4.8-10.8)
[2018-06-07 08:30] LABS: BUN Creatinine Ratio 19.6 (10-20); Calcium 8.7 mg/dl (8.5-10.1); Creatinine Clr Calc Pharmacy 75.3 ml/min; Est GFR (African American) 93.8; Potassium 3.8 mmol/L (3.5-5.1)
[2018-06-07 08:33] LABS: Albumin Globulin Ratio 0.9 (0.9-2); Bilirubin,Total 1.7 mg/dl (0.2-1); Globulin 3.4 gm/dl (2.5-4.0); Total Protein 6.4 gm/dl (6.4-8.2)
[2018-06-07] MEDS: PANTOprazole 40 MG TAB PO SCH (08:50)
[2018-06-07] MEDS: MULTIVITAMIN TAB PO SCH (08:50)
[2018-06-07] MEDS: LACTOBACILLUS ACIDOPHILUS (FLORANEX) TAB PO SCH ×3 (08:50→16:54)
[2018-06-07] MEDS: CHOLECALCIFEROL 1,000 UNITS TAB PO SCH (08:51)
[2018-06-07] MEDS: DUTASTERIDE: ORDER AWAITING ACTION SCH ×3 (08:51→23:27)
[2018-06-07] MEDS: TRIAMCINOLONE ACET 0.1% CR 15 GM TUBE TOP SCH ×2 (08:52→20:44)
[2018-06-07] MEDS: TIOTROPIUM BROMIDE 5 PUFF/90 MCG INH INH SCH (08:52)
[2018-06-07] MEDS: TRIAMCINOLONE ACET NASAL SPRAY 10.8ML BTL NAE SCH ×2 (08:53→20:43)
[2018-06-07] MEDS: AMOXICILLIN/CLAVULANATE 875 MG TAB PO SCH ×2 (08:57→16:54)
[2018-06-07] MEDS: ALBUTEROL HFA 8 GM INHALER INH SCH ×5 (10:42→23:27)
--- NOTE | 2018-06-07 11:12 | Family Medicine Progress Note ---
Date of Service June 07, 2018 Assessment & Plan (1) Pneumonia: 83-year-old male with history of dementia admitted for acute hypoxic respiratory distress secondary to aspiration pneumonia, currently being worked up for dysphagia/esophageal dysmotility. Aspiration pneumonia in the setting of dysphagia/esophageal dysmotility Was started on Zosyn on 06/04/2018 until 06/06/2018, 3 days total Transition to Augmentin on 06/07/2018, will continue for a total of 10 days Following speech therapy recommendations Continue PPI/ranitidine GI following, EGD today Dementia Functional, alert and oriented, but has trouble with short-term memory May be complicating ability to follow speech recommendations Hypertension/hyperlipidemia/A. fib Continue Lipitor 20 mg Previously on beta-leidy, but stopped recently because of bradycardiarates are well controlled, continue to follow Continue Xarelto BPH Currently holding home dutasteride DVT prophylaxis Xarelto for A. fib FEN N.p.o., following speech recommendation (2) Dysphagia: (3) Constipation: (4) DVT prophylaxis: (5) Hypoxia: (6) Memory loss: (7) Hypercholesteremia: (8) Bradycardia: (9) Chronic pulmonary aspiration: (10) Hypertension: (11) Atrial fibrillation: (12) BPH (benign prostatic hyperplasia): Supervising Physician Co-Signing Physician Notes I saw the patient with the resident physician and confirmed potts portions of the history and physical exam. I agree with the resident documentation as noted above. The patient was without complaints today. He did describe a sensation of a pill being stuck in his esophagus. We discussed how that while this could be a possibility, sometimes after a pill gets caught in this area there is a perceived sensation long after the pill has passed. In any event, the patient is scheduled for an EGD later today which will help further evaluate this symptom. IMPRESSION Oropharyngeal dysphasia Esophageal dysmotility Possible foreign body in esophagus PLAN EGD scheduled today with dilatation if needed Continue speech therapy recommendations His course of Augmentin should be completed today and less clinical findings today resuscitate extending his course. Subjective 83-year-old male with history of dementia admitted for acute hypoxic respiratory distress secondary to aspiration pneumonia, currently being worked up for dysphagia/esophageal dysmotility. The patient states that he is doing well. He is able to ambulate his own. He denies any issues with going the bathroom. He was n.p.o. overnight. He has been following the recommendations of speech, eating food with liquids and swallowing twice. He does state that it feels like his pills got stuck in his throat this morning. Constitutional: no fever, no sweats and no body aches Ear, Nose, Mouth, Throat: + dysphagia; no nasal congestion, no nasal discharge and no sore throat Respiratory: + cough and + wheezing; no chest congestion and no dyspnea Cardiovascular: no chest pain, no palpitations and no syncope Gastrointestinal: no abdominal pain, no nausea, no vomiting and no diarrhea/ loose stools Genitourinary (Male): no dysuria Physical Exam 2 Vital Signs (Past 24 Hours): Last Vital Signs Temp 36.7 C 06/07/18 08:00 Pulse 87 06/07/18 08:00 Resp 20 06/07/18 08:00 BP 130/77 06/07/18 08:00 Pulse Ox 94 06/07/18 08:00 Constitutional: WD/WN, vitals as above Eyes: PERRL, conjunctivae normal, anicteric sclerae ENMT: external ear and nose normal, oropharynx normal Neck: trachea midline, no thyromegaly Respiratory: normal respiratory effort; no respiratory distress, no labored breathing and no nasal flaring Auscultation: + wheezes (bl, expiratory ) Cardiovascular: RRR, no murmur, no edema Gastrointestinal (Abdomen): normal bowel sounds, soft, nontender, no hepatosplenomegaly Musculoskeletal: Extremities: extremities normal to inspection Skin: no rashes, warm and dry Results & Data Laboratory Results Laboratory Last Values WBC 3.97 K/uL (4.8-10.8) L 06/07/18 07:35 RBC 4.29 M/uL (4.7-6.1) L 06/07/18 07:35 Hgb 12.1 g/dL (14.0-18.0) L 06/07/18 07:35 Hct 36.9 % (42-52) L 06/07/18 07:35 MCV 86.0 fL (80-100) 06/07/18 07:35 MCH 28.2 pg (25-34) 06/07/18 07:35 MCHC 32.8 g/dL (32-36) 06/07/18 07:35 RDW Std Deviation 44.3 fL (36.4-46.3) 06/07/18 07:35 RDW Coeff of Gilda 14.3 % (11.5-14.5) 06/07/18 07:35 Plt Count 136 K/uL (130-400) 06/07/18 07:35 MPV 11.6 fL (7.4-10.4) H 06/07/18 07:35 Immature Gran % (Auto) 0.0 % 06/07/18 07:35 Neut % (Auto) 63.5 % 06/07/18 07:35 Lymph % (Auto) 17.1 % 06/07/18 07:35 [place] % (Auto) 10.3 % 06/07/18 07:35 Eos % (Auto) 8.8 % 06/07/18 07:35 Baso % (Auto) 0.3 % 06/07/18 07:35 Immature Gran # (Auto) 0.00 K/uL (0.00-0.02) 06/07/18 07:35 Neut # (Auto) 2.52 K/uL (1.4-6.5) 06/07/18 07:35 Lymph # (Auto) 0.68 K/uL (1.2-3.4) L 06/07/18 07:35 [place] # (Auto) 0.41 K/uL (0.11-0.59) 06/07/18 07:35 Eos # (Auto) 0.35 K/uL (0-0.5) 06/07/18 07:35 Baso # (Auto) 0.01 K/uL (0-0.2) 06/07/18 07:35 PT 13.1 Seconds (9.0-12.0) H 06/04/18 14:26 INR 1.3 (0.9-1.1) H 06/04/18 14:26 APTT 28.5 Seconds (21.0-31.0) 06/04/18 14:26 PTT Ratio 1.1 06/04/18 14:26 Sodium 137 mmol/L (136-145) 06/07/18 07:35 Potassium 3.8 mmol/L (3.5-5.1) 06/07/18 07:35 Chloride 103 mmol/L (98-107) 06/07/18 07:35 Carbon Dioxide 29 mmol/L (21-32) 06/07/18 07:35 Anion Gap 5.0 (3-11) 06/07/18 07:35 BUN 16 mg/dl (7-18) 06/07/18 07:35 Creatinine 0.84 mg/dl (0.6-1.4) 06/07/18 07:35 Est Cr Clr Drug Dosing 75.3 ml/min 06/07/18 07:35 Est GFR ( Amer) 93.8 06/07/18 07:35 Est GFR (Non-Af Amer) 81.0 06/07/18 07:35 BUN/Creatinine Ratio 19.6 (10-20) 06/07/18 07:35 Glucose 83 mg/dl (70-99) 06/07/18 07:35 Calcium 8.7 mg/dl (8.5-10.1) 06/07/18 07:35 Total Bilirubin 1.7 mg/dl (0.2-1) H 06/07/18 07:35 AST 24 U/L (15-37) 06/07/18 07:35 ALT 24 U/L (12-78) 06/07/18 07:35 Alkaline Phosphatase 67 U/L (45-117) 06/07/18 07:35 Troponin I < 0.015 ng/ml (0-0.045) 06/04/18 13:05 Total Protein 6.4 gm/dl (6.4-8.2) 06/07/18 07:35 Albumin 3.0 gm/dl (3.4-5.0) L 06/07/18 07:35 Globulin 3.4 gm/dl (2.5-4.0) 06/07/18 07:35 Albumin/Globulin Ratio 0.9 (0.9-2) 06/07/18 07:35 Resident Activity Tracking Resident Involvement: Resident Care Provided Care Provided: [facility] _ (1) BPH (benign prostatic hyperplasia) Lower urinary tract symptom detail: Lower urinary tract symptom presence: symptoms absent Qualified Code(s): N40.0 - Benign prostatic hyperplasia without lower urinary tract symptoms (2) Atrial fibrillation Atrial fibrillation type: permanent Qualified Code(s): I48.2 - Chronic atrial fibrillation (3) Chronic pulmonary aspiration Encounter type: subsequent encounter Qualified Code(s): T17.908D - Unspecified foreign body in respiratory tract, part unspecified causing other injury, subsequent encounter (4) Hypertension Hypertension type: unspecified Qualified Code(s): I10 - Essential (primary) hypertension (5) Pneumonia Aspiration pneumonia type: Laterality: bilateral Lung location: lower lobe of lung Pneumonia type: due to unspecified organism Qualified Code(s): J18.1 - Lobar pneumonia, unspecified organism
--- NOTE | 2018-06-07 11:27 | Anesthesiology Consultation ---
Date of Service June 07, 2018 Assessment & Plan (1) Encounter for pre-operative examination: Chart Review Chart Review: Acceptable Risk for Surgery and Patient NOT seen in Pre Admission Testing Consults Requested none ASA ASA3 Proposed Anesthesia Anesthesia Type: MAC NPO Date Last Intake of Fluids: 06/07/18 Time Last Intake of Fluids: 10:15 Date Last Intake of Solids: 06/06/18 Time Last Intake of Solids: 17:00 History Surgery Operation Date: 06/07/18 08:30 Proposed Procedures p Esophagogastroduodenoscopy Dr Micah Obrien Height/Weight Height: 6 ft 1 in Weight: 95.8 kg Allergies Allergy/AdvReac Type Severity Reaction Status Date / Time cyclobenzaprine Allergy Intermediate RASH ON Verified 06/04/18 14:25 FACE flecainide Allergy Intermediate DISCOLORATION Verified 06/04/18 14:25 OF SKIN ibuprofen AdvReac Mild RHINORRHEA Verified 06/04/18 14:25 Medications Home Medications Medication Instructions Recorded Confirmed Last Taken albuterol sulfate [Proventil HFA] 2 puff INHALATION Q6H PRN 05/30/18 06/04/18 alprazolam [Xanax] 0.25 mg PO HS 05/30/18 06/04/18 06/03/18 atorvastatin [Lipitor] 20 mg PO HS 05/30/18 06/04/18 06/03/18 cholecalciferol (vitamin D3) 1,000 unit PO QAM 05/30/18 06/04/18 06/04/18 [Vitamin D3] dutasteride [Avodart] 0.5 mg PO QAM 05/30/18 06/04/18 06/04/18 famotidine 20 mg PO DAILY PRN 05/30/18 06/04/18 Unknown multivitamin 1 tab PO QAM 05/30/18 06/04/18 06/04/18 mupirocin [Centany] 1 applic TOPICAL BID 05/30/18 06/04/18 06/04/18 pantoprazole [Protonix] 40 mg PO QAM 05/30/18 06/04/18 06/04/18 ranitidine HCl [Zantac] 300 mg PO HS 05/30/18 06/04/18 06/03/18 rivaroxaban [Xarelto] 20 mg PO QAM 05/30/18 06/04/18 06/04/18 sodium chloride [Saline Nasal] 1 spray INTRANASAL BID 05/30/18 06/04/18 06/04/18 triamcinolone acetonide 1 applic TOPICAL BID 05/30/18 06/04/18 06/04/18 triamcinolone acetonide [Nasacort] 2 spray INTRANASAL BID 05/30/18 06/04/18 tiotropium bromide [Spiriva with 1 puff INHALATION QAM #30 inh 06/03/1806/04/18 HandiHaler] Active Medications Generic Name Dose Route Start Last Admin Trade Name Freq PRN Reason Stop Dose Admin Albuterol 2 puffs 06/07/18 09:00 06/07/18 10:42 Ventolin Hfa INH 07/07/18 08:59 2 puffs Q4H VIBHA Administration Alprazolam 0.25 mg 06/04/18 21:00 06/06/18 20:50 Xanax PO 07/04/18 20:59 0.25 mg HS VIBHA Administration Amoxicillin/Clavulanate Potassium 1 tab 06/07/18 08:00 06/07/18 08:57 Augmentin 875mg PO 06/14/18 07:59 1 tab BIDM VIBHA Administration Atorvastatin Calcium 20 mg 06/04/18 21:00 06/06/18 20:50 Lipitor PO 07/04/18 20:59 20 mg HS VIBHA Administration Lactobacillus Acidophilus 4 tab 06/06/18 12:00 06/07/18 08:50 Floranex PO 07/06/18 11:59 4 tab TIDM VIBHA Administration Magnesium Hydroxide 30 ml 06/05/18 03:16 06/05/18 04:41 Milk Of Magnesia PO 07/05/18 03:15 30 ml Q6H PRN Administration Constipation Miscellaneous 1 ea 06/05/18 00:00 06/07/18 08:51 Order Awaiting Action N/A 07/05/18 00:00 Not Given QS VIBHA Multivitamins 1 tab 06/05/18 09:00 06/07/18 08:50 Multivitamin Tab PO 07/05/18 08:59 1 tab DAILY VIBHA Administration Pantoprazole Sodium 40 mg 06/05/18 09:00 06/07/18 08:50 Protonix PO 07/05/18 08:59 40 mg DAILY VIBHA Administration Polyethylene Glycol 17 gm 06/05/18 15:33 06/05/18 16:06 Miralax Powder Packet PO 07/05/18 15:32 17 gm TID PRN Administration Constipation Ranitidine HCl 300 mg 06/04/18 21:00 06/06/18 20:50 Zantac PO 07/04/18 20:59 300 mg HS VIBHA Administration Rivaroxaban 20 mg 06/05/18 16:30 06/05/18 16:06 Xarelto PO 07/05/18 16:29 20 mg QDD VIBHA Administration Tiotropium [place] 1 puffs 06/05/18 09:00 06/07/18 08:52 Spiriva INH 07/05/18 08:59 1 puffs QAM VIBHA Administration Triamcinolone Acetonide 2 sprays 06/04/18 21:00 06/07/18 08:53 Nasacort MARIAM 07/04/18 20:59 2 sprays BID VIBHA Administration Triamcinolone Acetonide 1 appln 06/04/18 21:00 06/07/18 08:52 Kenalog 0.1% TOP 07/04/18 20:59 1 appln BID VIBHA Administration Vitamin D 1,000 units 06/05/18 09:00 06/07/18 08:51 Vitamin D3 PO 07/05/18 08:59 1,000 units DAILY VIBHA Administration Past Medical History Medical History AVNRT (AV danette re-entry tachycardia) Atrial fibrillation BPH (benign prostatic hyperplasia) Chronic pulmonary aspiration Iliac artery aneurysm Spinal stenosis Past Family History Family History Mother Breast cancer Type 2 diabetes mellitus without complications Other Family history non-contributory Past Surgical History Surgical History History of back surgery Social History Smoking Status: Former smoker Hx Alcohol Use: Yes Alcohol type: wine and hard liquor alcohol intake frequency: 0-2 drinks per day Hx Substance Use: No Physical Exam Vital Signs Last Vital Signs Temp 36.1 C L 06/07/18 11:24 Pulse 78 06/07/18 11:24 Resp 20 06/07/18 11:24 BP 132/77 06/07/18 11:24 Pulse Ox 97 06/07/18 11:24 Testing Laboratory Results 06/07/18 07:35 06/07/18 07:35 PT 13.1 Seconds (9.0-12.0) H 06/04/18 14:26 INR 1.3 (0.9-1.1) H 06/04/18 14:26 APTT 28.5 Seconds (21.0-31.0) 06/04/18 14:26 06/04/18 13:05 Blood Culture - Preliminary Blood No growth to date. 06/04/18 13:00 Blood Culture - Preliminary Blood No growth to date.
--- NOTE | 2018-06-07 11:34 | Gastroenterology Progress Note ---
Date of Service June 07, 2018 Assessment & Plan (1) Dysphagia: oropharyngeal dysphagia---EGD today with prn dilatation to r/o additional esophageal component. Proc and risks previously discussed with son include but not limited to med reaction, bleeding, perforation, aspiration. foreign body in esophagus--possible pill caught in esophagus discussed with patient will remove if present. esophageal dysmotility on VFS--nothing can be done to fix that gerd---PPI Subjective CC f/u dysphagia HPI Pt had his meds this am with small sips of water and states a large one that was broken up he feels is stuck in esopahagus. Physical Exam 2 Vital Signs (Past 24 Hours): Last Vital Signs Temp 36.1 C L 06/07/18 11:24 Pulse 78 06/07/18 11:24 Resp 20 06/07/18 11:24 BP 132/77 06/07/18 11:24 Pulse Ox 97 06/07/18 11:24 Constitutional: WD/WN, vitals as above Respiratory: normal respiratory effort, lungs clear to auscultation Cardiovascular: RRR, no murmur, no edema Gastrointestinal (Abdomen): normal bowel sounds, soft, nontender, no hepatosplenomegaly Psychiatric: A+Ox3, euthymic affect
[2018-06-07] MEDS ORDERED: ePHEDrine sulfate 50 MG/ML AMP IV PRN (11:41)
[2018-06-07] MEDS ORDERED: ATROPINE SULFATE 0.1 MG/ML 10ML SYR IV PRN (11:41)
[2018-06-07] MEDS ORDERED: fentaNYL citrate 100 MCG/2 ML VIAL ONE (11:45)
[2018-06-07] MEDS ORDERED: LIDOCAINE HCL 2% 2 ML VIAL/AMP(20MG/ML) INFIL ONE (12:10)
[2018-06-07] MEDS ORDERED: PROPOFOL IV EMULSION 10 MG/ML 20 ML VIAL IV ONE (12:10)
--- NOTE | 2018-06-07 12:14 | GI REPORT ---
Patient Name: Piero Gao Procedure Date: 06/07/2018 11:42 AM Date of : 1935 Admit Type: Inpatient Age: 83 Gender: Male Attending MD: Gaurav Obrien MD Procedure: Upper GI endoscopy Providers: Gaurav Orbien MD Referring MD: Yves Tavarez Indications: Dysphagia, Gastro-esophageal reflux disease Medicines: Monitored Anesthesia Care Complications: No immediate complications. Estimated blood loss: Minimal. Estimated Blood Loss: Estimated blood loss was minimal. Procedure: Pre-Anesthesia Assessment: - The risks and benefits of the procedure and the sedation options and risks were discussed with the patient. All questions were answered and informed consent was obtained. - Patient identification and proposed procedure were verified prior to the procedure by the physician, the nurse and the stencil sprayer. The procedure was verified in the procedure room. After obtaining informed consent, the endoscope was passed under direct vision. Throughout the procedure, the patient's blood pressure, pulse, and oxygen saturations were monitored continuously. The Endoscope was introduced through the mouth, and advanced to the second part of duodenum. The upper GI endoscopy was accomplished without difficulty. The patient tolerated the procedure well. Procedure and risks explained to patient which include but not limited to medication reaction, bleeding, perforation, aspiration , and missed lesions. Judicious gas insufflation was used and gas removal done on the way out. The lumen was always visualized when advancing the scope. Prep was good. Washes and suctioning used as needed to get good visualization of the mucosa. Retroflexion to look at the fundus and cardia of the stomach and GE junction was done. Findings: Abnormal motility was noted in the esophagus. There is spasticity of the esophageal body. The distal esophagus/lower esophageal sphincter is patulous. Esophagogastric landmarks were identified: the gastroesophageal junction was found at 43 cm from the incisors. There were esophageal mucosal changes consistent with long-segment Perez's esophagus present in the lower third of the esophagus. The maximum longitudinal extent of these mucosal changes was 6 cm in length. Mucosa was biopsied with a cold forceps for histology. Estimated blood loss was minimal. The stomach was normal. The examined duodenum was normal. Pill fragments in oropharynx just above EUS pushed into esophagus. No foreign body in esophagus. The exam was otherwise without abnormality. Impression: - Abnormal esophageal motility, consistent with presbyesophagus. - Esophagogastric landmarks identified. 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 Biopsied. - Normal stomach. - Normal examined duodenum. - Pill fragments in oropharynx just above EUS pushed into esophagus. No foreign body in esophagus. - The examination was otherwise normal. Recommendation: - Return patient to [facility] for [facility] care. - Dysphagia mainly oropharyngeal but esophageal motility can contribute ( no treatment for presbyesophagus). PPI for GERD and Barretts Gaurav Obrien M.D. Gaurav Obrien MD 06/07/2018 12:13:57 PM This report has been signed electronically. Note Initiated On: 06/07/2018 11:42 AM Number of Addenda: 0 I attest to the content of the Intraoperative Record and orders documented therein, exceptions below {[id number]}
--- NOTE | 2018-06-07 12:22 | Post Operative Brief Note ---
Immediate Post Op Note v1 Date of Surgery June 07, 2018 Pre & Post Diagnosis Operation Date: 06/07/18 08:30 Pre-Op Diagnosis: Dysphagia Post-Op Diagnosis: Barretts esophagus. Procedure Operation Date: 06/07/18 08:30 Actual Procedures p EGD Biopsy Cytology - Gaurav Obrien See full note. Plan PPI for Barretts. Esophageal dysmotility may contribute to problem (presbyesophgus) but no treatment for that. NO esophageal stricture. Surgeon Gaurav Obrien Group Manager None Estimated Blood Loss 5 Findings Consistent with Post-Op Diagnosis
--- NOTE | 2018-06-07 15:17 | Anesthesiology Progress Note ---
Date of Service June 07, 2018 Anesthesia Post Procedure Vital Signs Vital Signs: Temp Pulse Resp BP BP Pulse Ox 06/07/18 15:07 35.9 C L 71 20 114/70 100 06/07/18 12:36 71 16 123/69 98 06/07/18 12:24 95 H 16 119/60 95 06/07/18 12:09 93 H 16 121/81 97 06/07/18 11:24 36.1 C L 78 20 132/77 97 06/07/18 08:00 36.7 C 87 20 130/77 94 06/07/18 03:35 36.5 C 79 18 123/55 L 95 06/06/18 22:48 36.6 C 83 20 131/69 96 06/06/18 19:15 36.6 C 75 18 125/67 98 Notes Mental Status: alert / awake / arousable Patient Amnestic to Procedure: Yes Nausea / Vomiting: adequately controlled Pain: adequately controlled Airway Patency, RR, SpO2: stable & adequate BP & HR: stable & adequate Hydration State: stable & adequate Anesthetic Complications: no major complications apparent and Pt Satisfied with anesthetic care
[2018-06-07] MEDS: ALPRAZolam 0.25 MG TABLET PO SCH (20:41)
[2018-06-07] MEDS: ATORVASTATIN 20 MG TAB PO SCH (20:42)
[2018-06-08] MEDS: ALBUTEROL HFA 8 GM INHALER INH SCH ×3 (05:22→12:37)
[2018-06-08] MEDS: DUTASTERIDE: ORDER AWAITING ACTION SCH (07:14)
[2018-06-08] MEDS: MULTIVITAMIN TAB PO SCH (07:52)
[2018-06-08] MEDS: AMOXICILLIN/CLAVULANATE 875 MG TAB PO SCH (07:52)
[2018-06-08] MEDS: CHOLECALCIFEROL 1,000 UNITS TAB PO SCH (07:52)
[2018-06-08] MEDS: LACTOBACILLUS ACIDOPHILUS (FLORANEX) TAB PO SCH ×2 (07:52→12:37)
[2018-06-08] MEDS: TRIAMCINOLONE ACET 0.1% CR 15 GM TUBE TOP SCH (07:52)
[2018-06-08] MEDS: TIOTROPIUM BROMIDE 5 PUFF/90 MCG INH INH SCH (07:52)
[2018-06-08] MEDS: PANTOprazole 40 MG TAB PO SCH (07:52)
[2018-06-08] MEDS: TRIAMCINOLONE ACET NASAL SPRAY 10.8ML BTL NAE SCH (07:52)
[2018-06-08 08:10] LABS: Creatinine Clr Calc Pharmacy 81.1 ml/min; Est GFR (African American) 96.7; Est GFR (Non-African American) 83.5
[2018-06-08 15:29] VITALS: PULSE 75; TEMP 97.3; O2SAT 98
--- NOTE | 2018-06-08 15:32 | Discharge Summary ---
Date of Service June 08, 2018 Admission HPI Per Admitting Provider Patient is a very pleasant 83-year-old male well-known to me from hospital stay ending yesterday. He notes he went home feeling quite well. He had dinner, he even notes that he had a couple glasses of wine with dinner. He notes everything went down well he had no breathing issues. He went to bed feeling fine. He had no shortness of breath through the night. He did wake up at 3 in the morning had to void and was awake for about an hour, but he notes this is entirely normal for him as part of his normal nighttime routine and he did not have any shortness of breath at that time. He woke up this morning again feeling fine. He had breakfast he believes around 1030 this morning, noting it was a bowl of cereal. He relates trying to follow through with speech therapy recommendations as far as chewing at least 5 times, going very slowly swallowing at least twice, small swallows. He does not recall any immediate problems. Around noon he suddenly started to feel more short of breath, feeling like he could not get enough air and feeling like "I was going to " so he came to the ER for further evaluation. He does note that he had some orange juice around that time. He denies fevers chills or sweats, no chest pain no shortness of breath. No abdominal pain, nausea vomiting no indigestion. No new swelling. No change in his cough or sputum. Admission Exam Per Admitting Provider General he is awake alert oriented x3, pleasant sitting upright in bed no distress HEENT normal cephalic atraumatic mucous membranes are moist Cardio is slightly tachycardic irregularly irregular no clearly notable rubs murmurs or gallops Lungs are clear in the upper lung hamilton, may be more slightly diminished at the bases probably more pronounced base right and left with the hint of a rhonchus. No clearly definable rales rhonchi or wheezes good effort no accessory muscle use Abdomen is soft nondistended nontender no masses or organomegaly Extremities show no sinus clubbing, may be trace edema no calf tenderness Neuro shows cranial nerves II through XII be grossly intact gross motor and sensory intact, no focal deficits Musculoskeletal exam shows normal spinal alignment and mobility, normal joint movement, no gross deformities Mental status shows fair recent and remote recall normal mood and affect good judgment and insight Skin shows no rashes no pallor icterus Principal Diagnosis Aspiration pneumonia Discharge Exam Constitutional: WD/WN, vitals as above Eyes: PERRL, conjunctivae normal, anicteric sclerae ENMT: external ear and nose normal, oropharynx normal Neck: trachea midline, no thyromegaly Respiratory: normal respiratory effort; no respiratory distress, no labored breathing and no nasal flaring Auscultation: Cardiovascular: RRR, no murmur, no edema Gastrointestinal (Abdomen): normal bowel sounds, soft, nontender, no hepatosplenomegaly Musculoskeletal: Extremities: extremities normal to inspection Skin: no rashes, warm and dry Discharge Data Allergies Allergy/AdvReac Type Severity Reaction Status Date / Time cyclobenzaprine Allergy Intermediate RASH ON Verified 06/04/18 14:25 FACE flecainide Allergy Intermediate DISCOLORATION Verified 06/04/18 14:25 OF SKIN ibuprofen AdvReac Mild RHINORRHEA Verified 06/04/18 14:25 Consultations 06/04/18 15:57 Consult Case Management - Discharge Planning Routine 06/04/18 17:33 Consult Pulmonology Routine 06/05/18 17:39 Consult Gastroenterology Routine Procedures Performed Operation Date: 06/07/18 08:30 Actual Procedures p EGD Biopsy Cytology - Gaurav Obrien "Impressionabnormal esophageal motility, consistent with presbyesophagus. Esophagogastric landmarks identified. 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 Biopsied. Normal stomach, normal examined duodenum, pill fragments in oropharynx just above EUS pushed into esophagus. No foreign body in the esophagus Recommendations Dysphagia mainly oropharyngeal but esophageal motility can contribute no treatment for presbyesophagus PPI for GERD and Perez's" Chest x-ray FINDINGS: 2 AP, portable, upright chest radiographs are compared to study dated 05/30/2018 and correlated with chest CT dated 05/31/2018 . The examination is degraded by portable technique and patient rotation. The heart is enlarged and there is atherosclerotic calcification of the thoracic aorta. The pulmonary vasculature is noncongested. Patchy airspace opacities are present at both lung bases. No large pleural effusion or pneumothorax is seen. The bony thorax is grossly intact. Fusion hardware is noted in the lower cervical spine. IMPRESSION: 1. Cardiomegaly without radiographic evidence of congestive failure. 2. Patchy airspace opacities are present at both lung bases, similar in appearance to the recent chest CT. Correlate clinically for evidence of a mild infectious/inflammatory pneumonitis. Electronically signed by: Kevin Still M.D. 06/04/2018 1:24 PM [place], [place] [phone] Fluoroscopy Report Patient: Vianey GAO Date: 05/31/18 MR#: [id number]: [id number] Acct ID:[id number]: Date: [address] Zip: [place] [address] Age: 83Location: 2W Sex: M Room/Bed: [facility] Att Phy: Yves Tavarez D.O.Diagnosis: HYPOXIA Lana Phy: Justino Mandujanoervice Date: 06/02/18 Fam Phy: Interpreting Phy: Agustin Carney MD Admit Phy: Berta Jordan D.O. Ordering Phy: Yves Tavarez D.O. cc: ~ FL video swallow CLINICAL HISTORY: 83 years-old Male presenting with aspiration on prior barium swallow from July 2017, reassess for aspiration. TECHNIQUE: Video fluoroscopic evaluation of swallowing was performed in the AP and lateral projections in conjunction with speech pathology. The patient was administered various textures, including nectar-thick and thin liquid barium, a barium coated wafer, and barium pudding. COMPARISON: 08/07/2017. FINDINGS: Anterior cervical fusion hardware noted. Prominent anterior osteophytosis. Residual evident with various textures in the valleculae and piriform sinuses. Limited evaluation of the esophagus demonstrates intraesophageal reflux and tertiary contractions. Normal oral transit time though premature pooling of the oral bolus in the vallecula evident. Normal oral propulsion. The epiglottis has an exaggerated cranial curvature. This slightly negatively affects epiglottic deflection. Intermittent silent aspiration of thin liquids in addition to intermittent flash penetration. There is no penetration or aspiration of nectar thick liquids , pudding, or solid consistencies. Fluoroscopy dosage (mGy): Not available. Fluoroscopy time: 1.9 minutes. Number or time of fluoroscopic spot images: 0. IMPRESSION: 1. Intermittent silent aspiration of thin liquids. 2. 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 3. Please see the speech pathologist report for detailed findings and recommendations. Electronically signed by: Agustin Carney M.D. 06/02/2018 1:00 PM Dictated: 06/02/18 1256 Transcribed: 06/02/18 1256 Hospital Course (1) Pneumonia: 83-year-old male with history of memory loss admitted for acute hypoxic respiratory distress secondary to aspiration pneumonia, worked up for dysphagia /esophageal dysmotility. Aspiration pneumonia in the setting of dysphagia/esophageal dysmotility Was started on Zosyn on 06/04/2018 until 06/06/2018, 3 days total Transition to Augmentin on 06/07/2018, will continue for a total of 10 days Following speech therapy recommendationsMay need outpatient speech therapy services continues to have issues with dysphagia Continue home inhalers Spiriva/albuterolwould recommend PFTs once the patient is recovered Perez's esophagus/GERD Seen by GI, Dr. Obrien EGD performeddemonstrated Perez's esophagus, biopsy obtained. Abnormal esophageal motility consistent with presbyesophagus. Continue PPI/ranitidine Memory loss Described to me in sign out, minor of present. Functional, alert and oriented, but has trouble with short-term memory Would recommend PCP to follow-up with cognitive testing May be complicating ability to follow speech recommendations Hypertension/hyperlipidemia/A. fib Continue Lipitor 20 mg Previously on beta-leidy, but stopped recently because of bradycardiarates are well controlled, continue to follow Continue Xarelto (2) Dysphagia: (3) Constipation: (4) DVT prophylaxis: (5) Hypoxia: (6) Memory loss: (7) Hypercholesteremia: (8) Bradycardia: (9) Chronic pulmonary aspiration: (10) Hypertension: (11) Atrial fibrillation: (12) BPH (benign prostatic hyperplasia): Total Time Total Time Spent Total Time Spent (In Minutes): Greater than 30 minutes Total Time Includes: Examination of the Patient, Discharge Planning, Medication Reconciliation and Communication With Other Providers Discharge Plan Discharge Items Patient Disposition: Home - Home Health Services Reason For Visit: HYPOXIA Discharge Diagnosis: Aspiration pneumonia Condition: Good Discharge Goals: Improve disease control and Improve function Activity: Per 'Additional Instructions' section Non-emergency contact: Primary Care Provider Call non-emergency contact if: your symptoms worsen and your pain is worsening Follow-up/Referrals: Jared Mandujano MD [Primary Care Provider] - 06/14/18 11:30 am (Please, follow up at Dr. Mandujano's office with his tv production assistant, Anne Maria PA-C on ThursdayJune 14 at 11:30 am. *If you need to change this appointment, call the office at [phone].) Diet: Regular Addtl Provider Instructions: Mr. Gao, You came to the hospital and were found to have pneumonia likely related to aspiration. Aspiration is when you choke on food or liquid. This can affect your lungs, and you can get sick. It can give you fevers and can make it difficult for you to breathe. In the hospital, we ran some test to see what could be causing you to choke. There are 2 things that are occurring at the level of your esophagus, the tube that runs for your mouth your stomach. Your esophagus show some signs "dysmotility" which is a way of saying that as we age the function of the esophagus is not as effective. In addition, you are found to have signs of gastric reflux. We recommend continuing your antacid medications; pantoprazole 40 mg daily and ranitidine 300 mg daily. In addition , we recommend that you follow the recommendations of speech therapy listed below. Furthermore, we would like you to complete your antibiotic, Augmentin for 5 more days, a pill in the morning and in the evening. Speech therapy recommends the following 1. Slippery food diet: Eat foods that are moist, loose, slippery. Avoid foods that are doughy, thick, sticky, dry. Add liquids, broth, healthy oils to foods to make them more slippery. 2. Good oral hygieneclean all surfaces of mouth prior to eating in the morning, after meals and before bed 3. Double swallow with each bite of food/sip of liquid. Limit sips of liquid to one single sip 4. If you continue to choke with liquids, you may consider using a thickening agent 5. Discuss this with your primary care doctor if you continue to have issues at home. You may benefit from follow-up with home health services to continue education regarding aspiration precautions Prescriptions: New amoxicillin-pot clavulanate [Augmentin] 875-125 mg tablet 1 tab PO BID 5 Days Qty: 10 RF: 0 Continue multivitamin Tablet 1 tab PO QAM RF: 0 atorvastatin [Lipitor] 20 mg tablet 20 mg PO HS RF: 0 ranitidine HCl [Zantac] 300 mg tablet 300 mg PO HS RF: 0 triamcinolone acetonide 0.1 % cream 1 applic topical BID RF: 0 alprazolam [Xanax] 0.25 mg tablet 0.25 mg PO HS RF: 0 pantoprazole [Protonix] 40 mg tablet,delayed release (DR/EC) 40 mg PO QAM RF: 0 triamcinolone acetonide [Nasacort] 55 mcg Aerosol,[place] 2 spray INTRANASAL BID RF: 0 mupirocin [Centany] 2 % ointment 1 applic topical BID RF: 0 albuterol sulfate [Proventil HFA] 90 mcg/actuation Hfa Aerosol Inhaler 2 puff INHALATION Q6H PRN (Reason: Shortness Of Breath) RF: 0 cholecalciferol (vitamin D3) [Vitamin D3] 1,000 unit Capsule 1,000 unit PO QAM RF: 0 dutasteride [Avodart] 0.5 mg capsule 0.5 mg PO QAM RF: 0 sodium chloride [Saline Nasal] 0.65 % Aerosol,[place] 1 spray INTRANASAL BID RF: 0 rivaroxaban [Xarelto] 20 mg tablet 20 mg PO QAM RF: 0 tiotropium bromide [Spiriva with HandiHaler] 18 mcg Capsule, W/Inhalation Device 1 puff Inhalation QAM Qty: 30 RF: 0 Discontinued famotidine 20 mg Tablet 20 mg PO DAILY PRN (Reason: Acid Reflux) RF: 0 Stand-Alone Forms: [facility] Discharge Orders: Discharge Order (Routine); Ordered 06/08/18 Ordered By: Lowell Nagel Admission Data Admit Date/Time: 06/04/18 14:08 Attending Provider: Jaydon Alvraez Admit Provider: Yves Tavarez Primary Care Provider: Jared Mandujano Other Providers: Jessica Abrams ; Gaurav Obrien ; Home,Nursing Agency Service: Telemetry Other Interventions: Discharge Summary Assessment (RN) Last Done: 06/08/18 15:40 Supervising Physician Co-Signing Physician Notes I saw the patient with the resident physician and confirmed potts portions of the history and physical exam. I agree with the resident documentation as noted above. The patient is without complaints today. Results of EGD and GI consult reviewed with patient. Discussed recommendations of speech pathology, and he is able to repeat these to me, in better detail than I provided, so it seems as if he recalls earlier instruction. IMPRESSION Oropharyngeal dysphasia Esophageal dysmotility Aspiration Dementia, mild cognitive impairment. PLAN Continue speech therapy recommendations; home speech therapy may be beneficial, although unsure if this would be covered. Close outpatient follow up to assure adherence to ST recommendations. Resident Activity Tracking Resident Involvement: Resident Care Provided Care Provided: Adult Hospital Medicine
[2018-06-08 15:43] VITALS: BP 130/77
== END 2018-06-08 16:54 | disposition home health service (06) | DRG 179 ==
LOC: ED 12:21 → 2N 14:08 → SUATTDRO 14:08 → 2N 15:22

== ENCOUNTER 2018-11-02 10:12 | Inpatient (IN) ==
[2018-11-02 11:00] LABS: Basophils # (auto) 0.04 K/uL (0-0.2); Basophils % (auto) 0.8 %; Eosinophils # (auto) 0.22 K/uL (0-0.5); Eosinophils % (auto) 4.4 %; Hematocrit (blood only) 40.4 % (42-52); Hemoglobin 13.2 g/dL (14.0-18.0); Lymphocytes # (auto) 0.61 K/uL (1.2-3.4); Lymphocytes % (auto) 12.3 %; Mean Corpuscular Hgb Conc 32.7 g/dL (32-36); Mean Corpuscular Volume 86.1 fL (80-100); Mean Platelet Volume 11.1 fL (7.4-10.4); Monocytes # (auto) 0.49 K/uL (0.11-0.59); Monocytes % (auto) 9.9 %; Neutrophils # (auto) 3.59 K/uL (1.4-6.5); Neutrophils % (auto) 72.6 %; Platelet Count 184 K/uL (130-400); RDW Coefficient of Variation 14.4 % (11.5-14.5); RDW Standard Deviation 44.9 fL (36.4-46.3); Red Blood Count 4.69 M/uL (4.7-6.1); White Blood Count 4.95 K/uL (4.8-10.8)
[2018-11-02 11:09] LABS: iSTAT Creatinine 0.9 mg/dl (0.6-1.3); iSTAT Hemoglobin 14.3 g/dl (14.0-18.0); iSTAT Ionized Calcium 1.24 mmol/l (1.12-1.32)
[2018-11-02 11:27] LABS: Albumin Level 4.1 gm/dl (3.4-5.0); BUN Creatinine Ratio 12.5 (10-20); Calcium 9.1 mg/dl (8.5-10.1); Creatinine Clr Calc Pharmacy 65.2 ml/min; Est GFR (African American) 83.3; Est GFR (Non-African American) 71.9
[2018-11-02] MEDS ORDERED: IOVERSOL 100ml IV PRN (11:27)
[2018-11-02 11:29] LABS: Bilirubin,Total 1.3 mg/dl (0.2-1); Total Protein 8.1 gm/dl (6.4-8.2)
[2018-11-02] MEDS ORDERED: HYDROmorphone INJ 0.5 MG/0.5 ML SYR IV PRN (11:45)
[2018-11-02] MEDS ORDERED: METOCLOPRAMIDE HCL INJ 5 MG/ML 2 ML VIAL IV STA (11:45)
[2018-11-02 11:49] LABS: Appearance Urine Clear (Clear); Bilirubin Urine Negative (Negative); Blood Urine Negative (Negative); Color Urine Yellow; Glucose Urine UA Negative (Negative); Ketones Urine Negative (Negative); Leukocyte Esterase Urine Negative (Negative); Nitrite Urine Negative (Negative); Protein Urine Negative (Negative); Specific Gravity Urine 1.016 (1.000-1.030); Urobilinogen Urine Negative (Negative)
[2018-11-02] MEDS ORDERED: SODIUM CHLORIDE 0.9% 1000ML 500 ML IV ONE (11:55)
--- NOTE | 2018-11-02 11:58 | CT Scan Report ---
CT SCAN OF THE ABDOMEN AND PELVIS WITH IV CONTRAST CLINICAL HISTORY: Right groin pain. COMPARISON STUDY: Abdominal CT dated 04/16/2018. TECHNIQUE: Following the IV administration of 94 cc of Optiray 320, CT scan of the abdomen and pelvi s is performed from the lung bases to the proximal femora. Images are reviewed in the axial, sagittal , and coronal planes. IV contrast was administered without complication. A dose lowering technique wa s utilized adhering to the principles of ALARA. FINDINGS: Lung bases: The heart is enlarged and without pericardial effusion. The coronary arteries are densely calcified. There is mild elevation of the right hemidiaphragm. The lung bases are otherwise clear no ting bibasilar scarring/atelectasis. There is a small hiatal hernia. Liver: The contrast-enhanced liver is normal in size, contour, and attenuation. There is no intrahepa tic biliary ductal dilatation. The hepatic veins and portal veins are patent. Scattered subcentimeter hepatic hypodensities likely represent cysts but are too small for definitive characterization. Gallbladder: There are numerous calcified gallstones, with no CT evidence of acute cholecystitis. Spleen: Normal in size and attenuation. Pancreas: Moderately atrophic and grossly unremarkable. Adrenal glands: Unremarkable. Kidneys: The contrast enhanced kidneys demonstrate cortical atrophy and are without hydronephrosis. T he kidneys enhance symmetrically. There are numerous large bilateral renal cysts which measure up to 11 cm. Abdominal vasculature: There is advanced atherosclerotic calcification of the abdominal aorta. The ab dominal aorta is normal in caliber. 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 Bowel: There is mild to moderate colonic diverticulosis without CT evidence of acute diverticulitis. Mild fecal retention is seen throughout the colon. The cecum is contained within a large right inguin al hernia. The cecum is distended and filled with stool, and the mucosa appears hyperemic. Mild surro unding inflammatory stranding and fluid is seen within the hernia sac. The small bowel loops are norm al in caliber. The appendix is not identified. Peritoneum: There is no intraperitoneal free air or abdominal ascites. Lymphadenopathy: None. Pelvic viscera: The prostate gland is enlarged and heterogeneous measuring 6.4 [address] transverse [address]ame ter. There is median lobe hypertrophy. The bladder wall is thickened and trabeculated indicating trap puller contreras outlet obstruction. There is a large right inguinal hernia which contains bowel. Skeletal structures: The skeletal structures are osteopenic. There is moderate lumbosacral spondylosi s. Postlaminectomy change is noted in the lower lumbar region. Iliopsoas bursitis is seen on the righ t. No lytic or blastic lesions are seen. IMPRESSION: 1. The stool-filled cecum is contained within a large right inguinal hernia. The mucosa appears hyper emic and there is mild surrounding inflammatory change and fluid. Correlate clinically for evidence o f incarceration. 2. There is no evidence of bowel obstruction. 3. 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 4. Cholelithiasis without CT evidence of acute cholecystitis. 5. Mild to moderate colonic diverticulosis without CT evidence of acute diverticulitis. 6. Cardiomegaly. 7. Additional findings as above. Electronically signed by: Kevin Still M.D. 11/02/2018 11:56 AM
--- NOTE | 2018-11-02 12:06 | XRay Report ---
XR chest 1V portable CLINICAL HISTORY: Incarcerated hernia pain COMPARISON STUDY: 06/04/2018 FINDINGS: Mild stable cardiomegaly. Lungs are clear. Diaphragms are smooth. IMPRESSION: Mild stable cardiomegaly. Otherwise negative study. The above report was generated using voice recognition software. It may contain grammatical, syntax or spelling errors. Electronically signed by: Lg Arzate M.D. 11/02/2018 12:05 PM
--- NOTE | 2018-11-02 12:45 | Surgery Consultation ---
Date of Consultation November 02, 2018 Assessment & Plan (1) Inguinal hernia: Hernia had reduced by the time I saw him but given the size of the hernia, Dr. Champagne recommends repair in the near future before he re-incarcerates or strangulates, also while on Xarelto. Would ask medical service to evaluate him for admission, consider bridging if necessary and repair his hernia later this week. History of Present Illness History of Present Illness 83 y/o male on Xarelto for A-fib with pain and bulge in his right groin today, more than has been present in the past. No N/V. Thought it might be related to right common iliac aneursym he follows at [facility] for. Feels better after pain meds and ice was applied. Allergies Allergy/AdvReac Type Severity Reaction Status Date / Time cyclobenzaprine Allergy Intermediate RASH ON Verified 11/02/18 10:50 FACE flecainide Allergy Intermediate DISCOLORATION Verified 11/02/18 10:50 OF SKIN ibuprofen AdvReac Mild RHINORRHEA Verified 11/02/18 10:50 Home Medications Home Medications Medication Instructions Recorded Confirmed Type Xarelto 20 mg PO QAM 05/30/18 11/02/18 History albuterol sulfate [Proventil HFA] 2 puff INHALATION Q6H PRN 05/30/18 11/02/18 History alprazolam [Xanax] 0.25 mg PO HS 05/30/18 11/02/18 History atorvastatin [Lipitor] 20 mg PO HS 05/30/18 11/02/18 History cholecalciferol (vitamin D3) 1,000 unit PO QAM 05/30/18 11/02/18 History [Vitamin D3] dutasteride [Avodart] 0.5 mg PO QAM 05/30/18 11/02/18 History multivitamin 1 tab PO QAM 05/30/18 11/02/18 History mupirocin [Centany] 1 applic TOPICAL BID 05/30/18 11/02/18 History pantoprazole [Protonix] 40 mg PO QAM 05/30/18 11/02/18 History ranitidine HCl [Zantac] 300 mg PO HS 05/30/18 11/02/18 History sodium chloride [Saline Nasal] 1 spray INTRANASAL BID 05/30/18 11/02/18 History triamcinolone acetonide 1 applic TOPICAL BID 05/30/18 11/02/18 History triamcinolone acetonide [Nasacort] 2 spray INTRANASAL BID 05/30/18 11/02/18 History Spiriva with HandiHaler 1 puff INHALATION QAM #30 inh 06/03/18 11/02/18 Rx Patient History Medical History AVNRT (AV danette re-entry tachycardia) Atrial fibrillation BPH (benign prostatic hyperplasia) Chronic pulmonary aspiration Iliac artery aneurysm Spinal stenosis Surgical History History of back surgery Family History Mother Breast cancer Type 2 diabetes mellitus without complications Other Family history non-contributory Social History Preferred Language: Kosovan Communication Ability: Effective Beliefs That Will Affect Care: None marital status: / Current Living Situation: Alone Feels Safe at Home: Yes Smoking Status: Former smoker Hx Alcohol Use: Yes Alcohol type: wine and hard liquor Hx Substance Use: No Review of Systems Constitutional: no fever and no chills Cardiovascular: no chest pain Gastrointestinal: no nausea and no vomiting Physical Exam Constitutional: WD/WN, vitals as above Respiratory: normal respiratory effort Cardiovascular: Rate/Rhythm: regular rate Gastrointestinal (Abdomen): Percussion/Palpation: abdomen soft and + hernia (right inguinal/scrotal hernia reduced); abdomen nontender Psychiatric: A+Ox3, euthymic affect Results & Data Vital Signs (Past 12 Hours) Vital Signs Temp Pulse Pulse Resp BP BP Pulse Ox 11/02/18 11:41 67 20 148/86 H 98 11/02/18 10:14 36.2 C L 89 18 167/84 H 100
--- NOTE | 2018-11-02 13:29 | History & Physical Report ---
Date of Service November 02, 2018 Assessment & Plan (1) Inguinal hernia: Reducible right inguinal/scrotal hernia which was reduced in the ED. General surgery has recommended surgical intervention this hospital stay. Xarelto has been placed on hold. I do not believe bridging is necessary at this time. Will request cardiology opinion Present on Admission?: Yes (2) Atrial fibrillation: Chronic. Rate controlled. Hold Xarelto. Cardiac echo. Consult cardiology for clearance Present on Admission?: Yes (3) COPD (chronic obstructive pulmonary disease): Stable. Continue inhalation therapy Present on Admission?: Yes (4) Esophageal dysmotility: Producing chronic recurrent aspiration. Lungs are clear at this time. Provide supportive care Present on Admission?: Yes (5) Barretts esophagus: Continue PPI and H2 leidy therapy Present on Admission?: Yes (6) Medication induced coagulopathy: Hold Xarelto Present on Admission?: Yes History of Present Illness Chief Complaint: Large right inguinal bulge Primary Care Provider: Jared Mandujano MD 83-year-old male who is a poor historian. He states he awoke this morning with a large right inguinal bulge that prevented him from walking him he came to the ED for evaluation. He was found to have a large right inguinal/scrotal hernia that was reduced in the ED. He has been seen by general surgery who recommended surgical intervention. He is on Xarelto therapy for chronic atrial fibrillation which needs to be temporarily stopped. I do not believe he needs bridging anticoagulation due to chronic atrial fibrillation but cardiology consultation will be requested for their opinion. Cardiac echo is pending. He is asym ptomatic at the time of my examination. No recent changes in bladder or bowel function. Allergies Allergy/AdvReac Type Severity Reaction Status Date / Time cyclobenzaprine Allergy Intermediate RASH ON Verified 11/02/18 10:50 FACE flecainide Allergy Intermediate DISCOLORATION Verified 11/02/18 10:50 OF SKIN ibuprofen AdvReac Mild RHINORRHEA Verified 11/02/18 10:50 Home Medications Home Medications Medication Instructions Recorded Confirmed Type Xarelto 20 mg PO QAM 05/30/18 11/02/18 History albuterol sulfate [Proventil HFA] 2 puff INHALATION Q6H PRN 05/30/18 11/02/18 History alprazolam [Xanax] 0.25 mg PO HS 05/30/18 11/02/18 History atorvastatin [Lipitor] 20 mg PO HS 05/30/18 11/02/18 History cholecalciferol (vitamin D3) 1,000 unit PO QAM 05/30/18 11/02/18 History [Vitamin D3] dutasteride [Avodart] 0.5 mg PO QAM 05/30/18 11/02/18 History multivitamin 1 tab PO QAM 05/30/18 11/02/18 History mupirocin [Centany] 1 applic TOPICAL BID 05/30/18 11/02/18 History pantoprazole [Protonix] 40 mg PO QAM 05/30/18 11/02/18 History ranitidine HCl [Zantac] 300 mg PO HS 05/30/18 11/02/18 History sodium chloride [Saline Nasal] 1 spray INTRANASAL BID 05/30/18 11/02/18 History triamcinolone acetonide 1 applic TOPICAL BID 05/30/18 11/02/18 History triamcinolone acetonide [Nasacort] 2 spray INTRANASAL BID 05/30/18 11/02/18 History Spiriva with HandiHaler 1 puff INHALATION QAM #30 inh 06/03/18 11/02/18 Rx Past Med/Surg History Medical History AVNRT (AV danette re-entry tachycardia) Atrial fibrillation BPH (benign prostatic hyperplasia) Chronic pulmonary aspiration Iliac artery aneurysm Spinal stenosis Surgical History History of back surgery Family History Mother Breast cancer Type 2 diabetes mellitus without complications Other Family history non-contributory Social History Preferred Language: Kiswahili Communication Ability: Effective Beliefs That Will Affect Care: None marital status: / Current Living Situation: Alone Feels Safe at Home: Yes Smoking Status: Former smoker Hx Alcohol Use: Yes Alcohol type: wine and hard liquor Hx Substance Use: No Review of Systems Review of Systems: Constitutional-no fever or chills ENT-no blurred vision, no double vision, no epistaxis, no sore throat Respiratory-no cough, no wheezing, no shortness of breath Cardiac-no palpitations, no chest pain, no syncope GI-no nausea, vomiting, diarrhea, melena, hematochezia. Developed a large right inguinal bulge early this morning -no urinary retention, no urinary incontinence, no dysuria, no hematuria Musculoskeletal-no joint pain, no muscle tenderness Skin-no bruising, no rashes, no pruritus Neuro-no isolated weakness, no paresthesia, no weakness Psych-no depression, no anxiety Physical Exam Physical Exam: General-alert and oriented x3, no fevers, no chills HEENT-head atraumatic and normocephalic, TMs intact bilaterally, pupils equal and reactive to light, extraocular muscles intact Neck-no lymphadenopathy or thyromegaly, trachea midline Chest-clear to auscultation percussion. No rales wheezing or rhonchi Cardiac-irregular controlled rate, normal S1 and S2, no murmurs Abdomen-normal bowel sounds, nontender, no hepatosplenomegaly. No obvious right inguinal hernia at this time. It was reduced earlier in the ED by the ED physician Extremities-no cyanosis, clubbing, or edema Neuro-cranial nerves II through XII intact, motor and sensory function within normal limits, strength symmetrical , no focal deficits Psych-normal affect, normal mood Results & Data Vital Signs (Past 12 Hours) Vital Signs Temp Pulse Pulse Resp BP BP Pulse Ox 11/02/18 13:01 82 20 142/81 H 97 11/02/18 11:41 67 20 148/86 H 98 11/02/18 10:14 36.2 C L 89 18 167/84 H 100 Laboratory Results 11/02/18 10:41 11/02/18 10:41 PG Care Time/CCT Total # of Minutes Spent Total Time Spent with Patient: Total time spent is greater than 50% in coordination of care (as documented) at patient's floor/unit and/or counseling patient: (1) Atrial fibrillation Atrial fibrillation type: permanent Qualified Code(s): I48.2 - Chronic atrial fibrillation
[2018-11-02] MEDS ORDERED: ALUMINUM/MAGNESIUM SUSP 30 ML UDC PO PRN (16:39)
[2018-11-02] MEDS ORDERED: ONDANSETRON INJ 2 MG/ML 2 ML VIAL IV PRN (16:39)
[2018-11-02] MEDS ORDERED: ALBUTEROL HFA 8 GM INHALER INH PRN (16:39)
--- NOTE | 2018-11-02 16:49 | Emergency Department Note ---
Entered by Piedad Peter acting as a scribe for Chin Blue MD History of Present Illness General Chief complaint: Testicular Pain Stated complaint: PAIN IN RIGHT CROTCH Time Seen by Provider: 11/02/18 10:30 Source: patient Mode of arrival: ambulatory Limitations: no limitations History of Present Illness Provider complaint: right groin pain Onset (ago): hour(s) (this morning) Location: genitals and right Pain Consistency: + other (episode) Maximum Pain Intensity: 10 Current Pain Intensity: 9 Quality: + other (bulging artery) Associated symptoms: + other (swelling) The patient is an 83 year old male who presents to the ER with complaints of an episode of right groin pain that onset this morning. The patient reports that he believes he has a bulging artery in his right groin area. He states that he was evaluated at [facility] for it and was told to go to the ER if it caused him any problems. The patient notes that this morning he developed some swelling as well as associated pain. He reports that he is currently on Xarelto. The patient rated his pain a 9/10 at triage. Home Medications Home Medications Medication Instructions Recorded Confirmed Type Xarelto 20 mg PO QAM 05/30/18 11/02/18 History albuterol sulfate [Proventil HFA] 2 puff INHALATION Q6H PRN 05/30/18 11/02/18 History alprazolam [Xanax] 0.25 mg PO HS 05/30/18 11/02/18 History atorvastatin [Lipitor] 20 mg PO HS 05/30/18 11/02/18 History cholecalciferol (vitamin D3) 1,000 unit PO QAM 05/30/18 11/02/18 History [Vitamin D3] dutasteride [Avodart] 0.5 mg PO QAM 05/30/18 11/02/18 History multivitamin 1 tab PO QAM 05/30/18 11/02/18 History mupirocin [Centany] 1 applic TOPICAL BID 05/30/18 11/02/18 History pantoprazole [Protonix] 40 mg PO QAM 05/30/18 11/02/18 History ranitidine HCl [Zantac] 300 mg PO HS 05/30/18 11/02/18 History sodium chloride [Saline Nasal] 1 spray INTRANASAL BID 05/30/18 11/02/18 History triamcinolone acetonide 1 applic TOPICAL BID 05/30/18 11/02/18 History triamcinolone acetonide [Nasacort] 2 spray INTRANASAL BID 05/30/18 11/02/18 History Spiriva with HandiHaler 1 puff INHALATION QAM #30 inh 06/03/18 11/02/18 Rx oxycodone-acetaminophen [Percocet] 1 - 2 tab PO Q4H PRN #12 tab 11/05/18 Rx Allergies Allergy/AdvReac Type Severity Reaction Status Date / Time cyclobenzaprine Allergy Intermediate RASH ON Verified 11/04/18 09:33 FACE flecainide Allergy Intermediate DISCOLORATION Verified 11/04/18 09:33 OF SKIN ibuprofen AdvReac Mild RHINORRHEA Verified 11/04/18 09:33 Past Med/Surg History Medical History Medication induced coagulopathy (Chronic) Barretts esophagus (Chronic) Esophageal dysmotility (Chronic) COPD (chronic obstructive pulmonary disease) (Chronic) Inguinal hernia (Acute) Atrial fibrillation (Chronic) AVNRT (AV danette re-entry tachycardia) Atrial fibrillation BPH (benign prostatic hyperplasia) Chronic pulmonary aspiration Iliac artery aneurysm Spinal stenosis Surgical History History of back surgery Family History Mother Breast cancer Type 2 diabetes mellitus without complications Other Family history non-contributory Social History Preferred Language: Mongolian Communication Ability: Effective Communication Ability Comment: short term memory loss Bag Hanger Required: Yes Beliefs That Will Affect Care: None marital status: / Current Living Situation: Alone Other Information That Helps Us Care for You: No Feels Safe at Home: Yes Safety Concerns: Feels Safe At This Time Smoking Status: Former smoker Hx Alcohol Use: Yes Alcohol type: wine and hard liquor Hx Substance Use: No Review of Systems See HPI for pertinent positives & negatives. and A total of 10 systems reviewed and were otherwise negative Physical Exam Vital Signs Vital Signs - 24 hr 11/02/18 10:14 11/02/18 11:41 11/02/18 13:01 Temperature 36.2 C L Temperature Source Oral Sepsis Recent Fever Within 48 Hours No Sepsis Action Taken by Nursing No Action Required Pulse Rate 89 Pulse Rate [Right Finger] 67 82 Respiratory Rate 18 20 20 Respiratory Effort / Characteristics Non-Labored Spontaneous Non-Labored Spontaneous Respiratory Depth Normal Normal Normal Respiratory Pattern Regular Regular Blood Pressure 167/84 H Blood Pressure [Right Arm] 148/86 H 142/81 H Blood Pressure Mean 111 Blood Pressure Mean [Right Arm] 106 101 Blood Pressure Position Lying Blood Pressure Position [Right Arm] Sitting Lying Pulse Oximetry 100 98 97 Oxygen Delivery Method Room Air Room Air Room Air GENERAL: Awake, alert, well-appearing, in no acute distress HENT: Normocephalic, atraumatic. Oropharynx unremarkable. EYES: Normal conjunctiva. Sclera non-icteric. NECK: Supple. No nuchal rigidity. FROM. No JVD. RESPIRATORY: Clear to auscultation. CARDIAC: Regular rate, normal rhythm. Extremities warm and well perfused. Pulses equal. ABDOMEN: Soft, non-distended. No tenderness to palpation. No rebound or guarding. MASS Rt LQ in pelvic wall going down into testicle : Right inguinal region he has a large bulge RECTAL: Deferred. MUSCULOSKELETAL: Chest examination reveals no tenderness. The back is symmetrical on inspection without obvious abnormality. There is no CVA tenderness to palpation. No joint edema. LOWER EXTREMITIES: Calves are equal size bilaterally and non-tender. No edema. No discoloration. NEURO: Normal sensorium. No sensory or motor deficits noted. SKIN: No rash or jaundice noted. Procedures Free Text Procedures Patient was laid supine and given pain medication. He had a right inguinal hernia which I applied ice to. Using pressure the hernia was reduced. Course 1032: Past medical records reviewed. The patient was evaluated in room B9. A complete history and physical examination was performed. 1147: I discussed the patient's case with Dr. Mandujano - Nephrology. 1152: I reviewed the patient's case with Hay Allen PA-C - General Surgery. 1232: I discussed the patient's case with Hay Allen PA-C - General Surgery. He is requesting that medicine admit the patient. 1239: I discussed the patient's case with Dr. Sifuentes - [facility] Hospitalist. He will evaluate the patient for further management. Administered Medications Acetaminophen (Tylenol) 650 mg PO Q4H PRN PRN Reason: Pain or Fever Stop: 12/02/18 16:38 Last Admin: 11/03/18 13:32 Dose: 650 mg Documented by: [id number] Atorvastatin Calcium (Lipitor) 20 mg PO HS [facility] Stop: 12/02/18 20:59 Last Admin: 11/04/18 20:18 Dose: 20 mg Documented by: [id number] Admin: 11/03/18 21:38 Dose: 20 mg Documented by: [id number] Admin: 11/02/18 20:21 Dose: 20 mg Documented by: [id number] Miscellaneous (Order Awaiting Action) 1 ea N/A QS [facility] Stop: 12/03/18 00:00 Last Admin: 11/05/18 01:04 Dose: Not Given Documented by: [id number] Admin: 11/04/18 18:36 Dose: Not Given Documented by: [id number] Admin: 11/04/18 09:11 Dose: Not Given Documented by: [id number] Admin: 11/03/18 23:11 Dose: Not Given Documented by: [id number] Admin: 11/03/18 16:33 Dose: Not Given Documented by: [id number] Admin: 11/03/18 07:26 Dose: Not Given Documented by: [id number] Admin: 11/03/18 01:16 Dose: Not Given Documented by: [id number] Morphine Sulfate (Morphine Sulfate) 2 mg IV Q2H PRN PRN Reason: Pain Stop: 11/18/18 12:50 Last Admin: 11/04/18 13:37 Dose: 2 mg Documented by: [id number] Multivitamins (Multivitamin Tab) 1 tab PO [facility] Stop: 12/03/18 08:59 Last Admin: 11/04/18 09:05 Dose: Not Given Documented by: [id number] Admin: 11/03/18 08:36 Dose: 1 tab Documented by: [id number] Pantoprazole Sodium (Protonix) [facility] Stop: 12/03/18 08:59 Last Admin: 11/04/18 09:03 Dose: 40 mg Documented by: [id number] Admin: 11/03/18 08:36 Dose: 40 mg Documented by: [id number] Ranitidine HCl (Zantac) 300 mg PO DAILY@1900 [facility] Stop: 12/02/18 19:59 Last Admin: 11/04/18 20:18 Dose: 300 mg Documented by: [id number] Admin: 11/03/18 21:39 Dose: 300 mg Documented by: [id number] Admin: 11/02/18 20:19 Dose: 300 mg Documented by: [id number] Sodium Chloride ([place] Nasal) 1 sprays MARIAM BID VIBHA Stop: 12/02/18 20:59 Last Admin: 11/04/18 20:19 Dose: 1 sprays Documented by: [id number] Admin: 11/04/18 09:03 Dose: 1 sprays Documented by: [id number] Admin: 11/03/18 21:39 Dose: 1 sprays Documented by: [id number] Admin: 11/03/18 08:35 Dose: 1 sprays Documented by: [id number] Admin: 11/02/18 20:30 Dose: 1 sprays Documented by: [id number] Tiotropium [place] (Spiriva) 1 puffs INH QAM VIBHA Stop: 12/03/18 08:59 Last Admin: 11/04/18 09:04 Dose: 1 puffs Documented by: [id number] Admin: 11/03/18 08:37 Dose: 1 puffs Documented by: [id number] Triamcinolone Acetonide (Nasacort) 2 sprays MARIAM BID VIBHA Stop: 12/02/18 20:59 Last Admin: 11/04/18 20:18 Dose: 2 sprays Documented by: [id number] Admin: 11/04/18 09:03 Dose: 2 sprays Documented by: [id number] Admin: 11/03/18 21:38 Dose: 2 sprays Documented by: [id number] Admin: 11/03/18 08:35 Dose: 2 sprays Documented by: [id number] Admin: 11/02/18 20:20 Dose: 2 sprays Documented by: [id number] Vitamin D (Vitamin D3) 1,000 units PO QAM VIBHA Stop: 12/03/18 08:59 Last Admin: 11/04/18 09:05 Dose: Not Given Documented by: [id number] Admin: 11/03/18 08:36 Dose: 1,000 units Documented by: [id number] Discontinued Medications Bacitracin (Bacitracin) Confirm Administered Dose 50,000 units .ROUTE .STK-MED ONE Stop: 11/04/18 10:06 Last Admin: 11/04/18 10:35 Dose: 50,000 units Documented by: [id number] Bupivacaine HCl (Marcaine 0.5% Mpf) Confirm Administered Dose 30 ml .ROUTE .STK- MED ONE Stop: 11/04/18 10:06 Last Admin: 11/04/18 11:22 Dose: 10 ml Documented by: [id number] Enoxaparin Sodium (Lovenox) 40 mg SQ HS VIBHA Stop: 12/02/18 20:59 Last Admin: 11/03/18 21:38 Dose: 40 mg Documented by: [id number] Admin: 11/02/18 20:20 Dose: 40 mg Documented by: [id number] Fentanyl Citrate (Fentanyl Citrate) 25 mcg IV Q5M PRN PRN Reason: PACU Use Only-Pain Stop: 11/04/18 14:59 Last Admin: 11/04/18 12:10 Dose: 25 mcg Documented by: [id number] Admin: 11/04/18 12:05 Dose: 25 mcg Documented by: [id number] Admin: 11/04/18 12:00 Dose: 25 mcg Documented by: [id number] Hydromorphone HCl (Dilaudid) 0.5 mg IV Q15M PRN PRN Reason: Pain Stop: 11/16/18 11:44 Last Admin: 11/02/18 11:50 Dose: 0.5 mg Documented by: [id number] Sodium Chloride (Nss 1000ml) 500 mls @ 999 mls/hr IV .Q31M ONE Stop: 11/02/18 12:25 Last Infusion: 11/02/18 13:00 Dose: 0 mls/hr Documented by: [id number] Admin: 11/02/18 11:59 Dose: 999 mls/hr Documented by: [id number] Cefazolin Sodium (Ancef 2000mg) 2,000 mg in 15 mls @ 3.75 mls/min IV PREOP ONE Stop: 11/04/18 10:37 Last Admin: 11/04/18 10:23 Dose: 3.75 mls/min Documented by: [id number] Ioversol (Optiray 320 100ml) 94 ml IV ONCE PRN PRN Reason: Interaction Checking Stop: 11/06/18 11:26 Last Admin: 11/02/18 11:27 Dose: 94 ml Documented by: [id number] Metoclopramide HCl (Reglan) 10 mg IV NOW STA Stop: 11/02/18 11:46 Last Admin: 11/02/18 11:51 Dose: 10 mg Documented by: [id number] Polyethylene Glycol (Miralax Powder Packet) 17 gm PO 2029 ONE Stop: 11/03/18 20:31 Last Admin: 11/03/18 21:36 Dose: 17 gm Documented by: [id number] Medical Decision Making Differential Diagnosis Differential diagnosis includes: gastritis, peptic ulcer disease, GERD, gallbladder disease, pancreatitis, SBO, ACS, pericarditis, ischemic bowel, irritable bowel disease, IBS, appendicitis, diverticulitis, malignancy, cholecystitis, AAA, hernia, UTI, torsion, perforation, or trauma. Medical Records Attestation: I reviewed the patient's medical records. Home Medications Current Medication List: was personally reviewed by me Laboratory Data Attestation: I reviewed the patient's lab results. Result diagrams: 11/05/18 06:28 11/05/18 06:28 Lab Results 11/02/18 11/02/18 11/02/18 Range/Units 10:41 10:41 10:53 WBC 4.95 (4.8-10.8) K/uL RBC 4.69 L (4.7-6.1) M/uL Hgb 13.2 L (14.0-18.0) g/dL POC Hgb 14.3 (14.0-18.0) g/dl Hct 40.4 L (42-52) % POC Hct 42 (42-52) % MCV 86.1 (80-100) fL MCH 28.1 (25-34) pg MCHC 32.7 (32-36) g/dL RDW Std Deviation 44.9 (36.4-46.3) fL RDW Coeff of Gilda 14.4 (11.5-14.5) % Plt Count 184 (130-400) K/uL MPV 11.1 H (7.4-10.4) fL Immature Gran % (Auto) 0.0 % Neut % (Auto) 72.6 % Lymph % (Auto) 12.3 % [place] % (Auto) 9.9 % Eos % (Auto) 4.4 % Baso % (Auto) 0.8 % Immature Gran # (Auto) 0.00 (0.00-0.02) K/uL Neut # (Auto) 3.59 (1.4-6.5) K/uL Lymph # (Auto) 0.61 L (1.2-3.4) K/uL [place] # (Auto) 0.49 (0.11-0.59) K/uL Eos # (Auto) 0.22 (0-0.5) K/uL Baso # (Auto) 0.04 (0-0.2) K/uL POC Sodium 138 (135-144) mEq/L Sodium 136 (136-145) mmol/L POC Potassium 4.0 (3.3-5.0) mEq/L Potassium 4.0 (3.5-5.1) mmol/L POC Chloride 98 L (101-112) mEq/L Chloride 101 (98-107) mmol/L Carbon Dioxide 30 (21-32) mmol/L POC Total CO2 27 (24-31) mEq/l Anion Gap 5.0 (3-11) POC Anion Gap 18.0 (16-25) mmol/L POC BUN 12 (7-18) mg/dl BUN 12 (7-18) mg/dl Creatinine 0.97 (0.6-1.4) mg/dl POC Creatinine 0.9 (0.6-1.3) mg/dl Est Cr Clr Drug Dosing 65.2 ml/min Est GFR ( Amer) 83.3 Est GFR (Non-Af Amer) 71.9 BUN/Creatinine Ratio 12.5 (10-20) Glucose 106 H (70-99) mg/dl POC Glucose (other) 110 H (70-99) mg/dl POC Lactic Acid Yves (0.90-1.70) mmol/L Calcium 9.1 (8.5-10.1) mg/dl POC Ioniz Calcium Tahira 1.24 (1.12-1.32) mmol/l Total Bilirubin 1.3 H (0.2-1) mg/dl AST 24 (15-37) U/L ALT 28 (12-78) U/L Alkaline Phosphatase 80 (45-117) U/L Total Protein 8.1 (6.4-8.2) gm/dl Albumin 4.1 (3.4-5.0) gm/dl Globulin 4.0 (2.5-4.0) gm/dl Albumin/Globulin Ratio 1.0 (0.9-2) Lipase 177 (73-393) U/L Urine Color Urine Appearance (Clear) Urine pH (4.5-7.5) Ur Specific [place] (1.000-1.030) Urine Protein (Negative) Urine Glucose (UA) (Negative) Urine Ketones (Negative) Urine Blood (Negative) Urine Nitrite (Negative) Urine Bilirubin (Negative) Urine Urobilinogen (Negative) Ur Leukocyte Esterase (Negative) 11/02/18 11/02/18 Range/Units 11:12 11:51 WBC (4.8-10.8) K/uL RBC (4.7-6.1) M/uL Hgb (14.0-18.0) g/dL POC Hgb (14.0-18.0) g/dl Hct (42-52) % POC Hct (42-52) % MCV (80-100) fL MCH (25-34) pg MCHC (32-36) g/dL RDW Std Deviation (36.4-46.3) fL RDW Coeff of Gilda (11.5-14.5) % Plt Count (130-400) K/uL MPV (7.4-10.4) fL Immature Gran % (Auto) % Neut % (Auto) % Lymph % (Auto) % [place] % (Auto) % Eos % (Auto) % Baso % (Auto) % Immature Gran # (Auto) (0.00-0.02) K/uL Neut # (Auto) (1.4-6.5) K/uL Lymph # (Auto) (1.2-3.4) K/uL [place] # (Auto) (0.11-0.59) K/uL Eos # (Auto) (0-0.5) K/uL Baso # (Auto) (0-0.2) K/uL POC Sodium (135-144) mEq/L Sodium (136-145) mmol/L POC Potassium (3.3-5.0) mEq/L Potassium (3.5-5.1) mmol/L POC Chloride (101-112) mEq/L Chloride (98-107) mmol/L Carbon Dioxide (21-32) mmol/L POC Total CO2 (24-31) mEq/l Anion Gap (3-11) POC Anion Gap (16-25) mmol/L POC BUN (7-18) mg/dl BUN (7-18) mg/dl Creatinine (0.6-1.4) mg/dl POC Creatinine (0.6-1.3) mg/dl Est Cr Clr Drug Dosing ml/min Est GFR ( Amer) Est GFR (Non-Af Amer) BUN/Creatinine Ratio (10-20) Glucose (70-99) mg/dl POC Glucose (other) (70-99) mg/dl POC Lactic Acid Yves 0.75 L (0.90-1.70) mmol/L Calcium (8.5-10.1) mg/dl POC Ioniz Calcium [place]ira (1.12-1.32) mmol/l Total Bilirubin (0.2-1) mg/dl AST (15-37) U/L ALT (12-78) U/L Alkaline Phosphatase (45-117) U/L Total Protein (6.4-8.2) gm/dl Albumin (3.4-5.0) gm/dl Globulin (2.5-4.0) gm/dl Albumin/Globulin Ratio (0.9-2) Lipase (73-393) U/L Urine Color Yellow Urine Appearance Clear (Clear) Urine pH 7.0 (4.5-7.5) Ur Specific [place] 1.016 (1.000-1.030) Urine Protein Negative (Negative) Urine Glucose (UA) Negative (Negative) Urine Ketones Negative (Negative) Urine Blood Negative (Negative) Urine Nitrite Negative (Negative) Urine Bilirubin Negative (Negative) Urine Urobilinogen Negative (Negative) Ur Leukocyte Esterase Negative (Negative) Imaging Data Radiologist's Impression: Radiology results as stated below per my review and the radiologist's interpretation: CT SCAN OF THE ABDOMEN AND PELVIS WITH IV CONTRAST CLINICAL HISTORY: Right groin pain. COMPARISON STUDY: Abdominal CT dated 04/16/2018. TECHNIQUE: Following the IV administration of 94 cc of Optiray 320, CT scan of the abdomen and pelvis is performed from the lung bases to the proximal femora. Images are reviewed in the axial, sagittal, and coronal planes. IV contrast was administered without complication. A dose lowering technique was utilized adhering to the principles of ALARA. FINDINGS: Lung bases: The heart is enlarged and without pericardial effusion. The coronary arteries are densely calcified. There is mild elevation of the right hemidiaphragm. The lung bases are otherwise clear noting bibasilar scarring/atelectasis. There is a small hiatal hernia. Liver: The contrast-enhanced liver is normal in size, contour, and attenuation. There is no intrahepatic biliary ductal dilatation. The hepatic veins and portal veins are patent. Scattered subcentimeter hepatic hypodensities likely represent cysts but are too small for definitive characterization. Gallbladder: There are numerous calcified gallstones, with no CT evidence of acute cholecystitis. Spleen: Normal in size and attenuation. Pancreas: Moderately atrophic and grossly unremarkable. Adrenal glands: Unremarkable. Kidneys: The contrast enhanced kidneys demonstrate cortical atrophy and are without hydronephrosis. The kidneys enhance symmetrically. There are numerous large bilateral renal cysts which measure up to 11 cm. Abdominal vasculature: There is advanced atherosclerotic calcification of the a bdominal aorta. The abdominal aorta is normal in caliber. 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 Bowel: There is mild to moderate colonic diverticulosis without CT evidence of acute diverticulitis. Mild fecal retention is seen throughout the colon. The cecum is contained within a large right inguinal hernia. The cecum is distended and filled with stool, and the mucosa appears hyperemic. Mild surrounding inflammatory stranding and fluid is seen within the hernia sac. The small bowel loops are normal in caliber. The appendix is not identified. Peritoneum: There is no intraperitoneal free air or abdominal ascites. Lymphadenopathy: None. Pelvic viscera: The prostate gland is enlarged and heterogeneous measuring 6.4 cm in transverse diameter. There is median lobe hypertrophy. The bladder wall is thickened and trabeculated indicating chronic outlet obstruction. There is a large right inguinal hernia which contains bowel. Skeletal structures: The skeletal structures are osteopenic. There is moderate lumbosacral spondylosis. Postlaminectomy change is noted in the lower lumbar region. Iliopsoas bursitis is seen on the right. No lytic or blastic lesions are seen. IMPRESSION: 1. The stool-filled cecum is contained within a large right inguinal hernia. The mucosa appears hyperemic and there is mild surrounding inflammatory change and fluid. Correlate clinically for evidence of incarceration. 2. There is no evidence of bowel obstruction. 3. 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 4. Cholelithiasis without CT evidence of acute cholecystitis. 5. Mild to moderate colonic diverticulosis without CT evidence of acute divertic ulitis. 6. Cardiomegaly. 7. Additional findings as above. Electronically signed by: Kevin Still M.D. 11/02/2018 11:56 AM XR chest 1V portable CLINICAL HISTORY: Incarcerated hernia pain COMPARISON STUDY: 06/04/2018 FINDINGS: Mild stable cardiomegaly. Lungs are clear. Diaphragms are smooth. IMPRESSION: Mild stable cardiomegaly. Otherwise negative study. The above report was generated using voice recognition software. It may contain grammatical, syntax or spelling errors. Electronically signed by: Lg Arzate M.D. 11/02/2018 12:05 PM ECG Data Attestation: I personally reviewed and interpreted this ECG as follows: Indication: abdominal pain Rate (beats per minute): 73 Rhythm: atrial fibrillation Findings: + other (old septal infarct); no ST depression and no ST elevation Blood Pressure Blood Pressure Findings: Elevated blood pressure Blood Pressure Disposition: further management by hospitalist [facility] Narrative This is an 83-year-old male who presents emergency department complaining of right lower quadrant pelvic pain. The patient is concerned about an aneurysm in this area. On my physical examination he has a hernia. Because of the aneurysm the patient was sent for CAT scan of the abdomen and pelvis. This confirmed hernia of the bowel wall. This was reduced as above. I did discuss the case with the surgical team who asked that the patient be admitted to the hospitalist service. I then discussed the patient with the patient's son who was in agreement with the treatment plan. Patient was given Dilaudid here for his pain. Repeat examination revealed improvement patient's symptoms. Impression & Plan Abdominal pain, Hernia Discharge Plan Visit Data *Final* Discharge Date/Time: 11/02/18 16:20 Chief Complaint: Testicular Pain Stated Complaint: PAIN IN RIGHT CROTCH ED Provider: Chin Blue Discharge Problem: Abdominal pain, Hernia Patient Disposition: Admitted As Inpatient Discharge Instructions Interventions: ED Discharge Assessment Last Done: 11/02/18 16:20 Discharge Problem: Abdominal pain Qualifiers: Abdominal location: right lower quadrant Qualified Code(s): R10.31 - Right low er quadrant pain The scribe's documentation has been prepared under my direction and personally reviewed by me in its entirety. I confirm that the note above accurately reflects all work, treatment, procedures, and medical decision making performed by me.
[2018-11-02 17:55] LABS: INR 1.2 (0.9-1.1); Prothrombin Time 11.9 Seconds (9.0-12.0)
[2018-11-02] MEDS ORDERED: Nursing to Pharmacy Communication ONE (19:35)
[2018-11-02] MEDS ORDERED: ALUMINUM/MAGNESIUM/SIMETH (MAALOX MAX) 30 ML UDC PO PRN (19:37)
[2018-11-02] MEDS ORDERED: ALPRAZolam 0.25 MG TABLET PO PRN (19:46)
[2018-11-02 20:03] LABS: Partial Thromboplastin Ratio 1.1; Partial Thromboplastin Time 28.8 Seconds (21.0-31.0)
[2018-11-02] MEDS: ENOXAPARIN INJ 40 MG/0.4 ML SYR SQ SCH (20:20)
[2018-11-02] MEDS: TRIAMCINOLONE ACET NASAL SPRAY 10.8ML BTL NAE SCH (20:20)
[2018-11-02] MEDS: ATORVASTATIN 20 MG TAB PO SCH (20:21)
[2018-11-02] MEDS: SODIUM CHLORIDE 0.65% NA SOLN 45 ML (OCEAN) NAE SCH (20:30)
[2018-11-02] MEDS ORDERED: ALPRAZolam 0.25 MG TABLET PO SCH (21:00)
[2018-11-03] MEDS: DUTASTERIDE - ORDER AWAITING ACTION SCH ×4 (01:16→23:11)
--- NOTE | 2018-11-03 07:28 | Hospitalist Progress Note ---
Date of Service November 03, 2018 Assessment & Plan (1) Inguinal hernia: Reducible right inguinal/scrotal hernia which was reduced in the ED. General surgery has recommended surgical intervention this hospital stay. Xarelto has been placed on hold. I agree that bridging is necessary at this t willie. Will request cardiology opinion (2) Atrial fibrillation: Chronic. remains Rate controlled. Hold Xarelto. Cardiac echo. (3) COPD (chronic obstructive pulmonary disease): Stable. Continue inhalation therapy (4) Esophageal dysmotility: Thickened liquids and swallowing safe techniques (5) Barretts esophagus: Continue PPI and H2 leidy therapy (6) Medication induced coagulopathy: Hold Xarelto Subjective Patient seems slightly forgetful he is improvement of his abdominal pain he complains of mild constipation reportedly is for inguinal hernia repair once his Xarelto washes out Review of Systems Review of Systems: ROS: well nourished well developed. No double vision blurry vision No problems with speech or swallowing No palpitations, chest pain or pressure No Wheezing or breathing issueschanges in appetite or weight No burning urine urine frequency or changes in color No focal joint pain or muscle pain No skin rashes or oral lesions No unusual bruising or bleeding No focused back pain or numbness or loss of strength seemingly forgetful Physical Exam Physical Exam: The patient appeared well nourished and normally developed. Vital signs as documented. Head exam is unremarkable. normocephalic, atraumatic Neck is without jugular venous distension, thyromegaly, or lymphademopathy Lungs are clear to auscultation and percussion. Cardiac exam reveals Rhythm is regular. First and second heart sounds normal. Abdominal exam reveals normal bowel sounds, no masses, no organomegaly I cannot see or feel the hernia at this point time Extremities are nonedematous and both pedal pulses are present Neurologic exam is A&Ox2, no focal deficits, strength is equal bilateral Psychologically seems neither anxious or depressed Skin is warm Dry without bruises or lesions Results & Data Vital Signs (Past 12 Hours) Vital Signs Temp Pulse Pulse Resp BP Pulse Ox 11/03/18 07:15 83 11/03/18 06:54 36.4 C L 93 H 18 152/77 H 95 11/03/18 04:07 36.4 C L 83 18 151/80 H 96 11/03/18 01:18 66 11/02/18 23:45 36.6 C 76 17 135/75 97 11/02/18 19:43 36.4 C L 75 18 115/65 96 PG Care Time/CCT Total # of Minutes Spent Total Time Spent with Patient: Total time spent is greater than 50% in coordination of care (as documented) at patient's floor/unit and/or counseling patient: (1) Atrial fibrillation Atrial fibrillation type: permanent Qualified Code(s): I48.2 - Chronic atrial fibrillation
--- NOTE | 2018-11-03 08:09 | Surgery Progress Note ---
Date of Service November 03, 2018 Assessment & Plan (1) Inguinal hernia: plan for open repair with mesh tomorrow. hold anticoagulation/no bridge per medicine awaiting cardiology input discussed risks/options ( bleeding/infection/dvt/pe/mi/cva/injury to an organ/chronic pain etc...) questions answered for OR tomorrow/NPO after midnight. pt agreeable. Subjective pt feeling better now. no recurrence of hernia/symptoms. Physical Exam Physical Exam: alert. oriented. nad abd: soft. nt. no incarceration. Results & Data Vital Signs (Past 12 Hours) Vital Signs Temp Pulse Pulse Resp BP Pulse Ox 11/03/18 07:15 83 11/03/18 06:54 36.4 C L 93 H 18 152/77 H 95 11/03/18 04:07 36.4 C L 83 18 151/80 H 96 11/03/18 01:18 66 11/02/18 23:45 36.6 C 76 17 135/75 97
[2018-11-03] MEDS: TRIAMCINOLONE ACET NASAL SPRAY 10.8ML BTL NAE SCH ×2 (08:35→21:38)
[2018-11-03] MEDS: SODIUM CHLORIDE 0.65% NA SOLN 45 ML (OCEAN) NAE SCH ×2 (08:35→21:39)
[2018-11-03] MEDS: MULTIVITAMIN TAB PO SCH (08:36)
[2018-11-03] MEDS: CHOLECALCIFEROL 1,000 UNITS TAB PO SCH (08:36)
[2018-11-03] MEDS: PANTOprazole 40 MG TAB PO SCH (08:36)
[2018-11-03] MEDS: TIOTROPIUM BROMIDE 5 PUFF/90 MCG INH INH SCH (08:37)
[2018-11-03] MEDS: ACETAMINOPHEN 325 MG TAB PO PRN (13:32)
--- NOTE | 2018-11-03 15:39 | Cardiology Consultation ---
Date of Consultation November 03, 2018 Assessment & Plan (1) Preoperative cardiovascular examination: The patient demonstrates adequate functional status without limiting cardiac symptoms. His EKG notes normal systolic function with mild valvular disease. The patient is felt to be acceptable cardiac risk for repair of his inguinal hernia without further testing. (2) Atrial fibrillation: The patient's Xarelto has been placed on hold for his upcoming surgical procedure. He does not require rate-controlling therapies due to bradycardia identified back in May. 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 He follows closely with Dr. Smith from [facility]. (4) AVNRT (AV danette re-entry tachycardia): He may be at risk for this dysrhythmia during the postoperative period. (5) Hypertension: Adequate control on his current regimen. History of Present Illness Attending Physician: Dustin Enriquez MD History of Present Illness Mr. Gao is an 83-year-old male admitted yesterday with a large, reducible, right inguinal/scrotal hernia which will require urgent surgical attention. This consultation was ordered as a preoperative evaluation. Of note, patient typically follows with Dr. Elliott in the outpatient setting. The patient was in his usual state of health until yesterday morning when he awoke with a large cold in the right inguinal area and scrotum. This made it difficult for him to ambulate. He presented to the emergency room and was evaluated by the surgical team felt he required an urgent procedure. The patient carries a history of permanent atrial fibrillation treated with Xarelto as his long-term anticoagulant. He had been on metoprolol for rate control, however, this was discontinued during hospitalization back in May due to bradycardia. The patient is able to carry on activities of daily life without exertional chest pain or limiting dyspnea. He does ambulate with the assistance of a cane. He is able to climb 1 flight of stairs without limiting symptoms. He further denies syncope, presyncope, PND, orthopnea, palpitations, lower extremity edema, and claudication. The patient does follow closely with Dr. Smith on at [facility] for a right iliac aneurysm. He was seen earlier this month and no surgical intervention recommended at this time. The patient is resting comfortably in bed without complaints. Past medical and surgical history 1. Hypertension 2. Hypercholesterolemia 3. Permanent atrial fibrillation 4. AV node reentrant tachycardia 5. Peripheral vascular disease 6. Right iliac aneurysm-3.5 cm-[facility] 7. Esophageal dysmotility 8. Perez's esophagus 9. Bilateral renal cysts 10. 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 BPH 13. Lumbar spinal stenosis 14. Cervical spinal stenosis 15. Lumbar laminectomy 16. Cervical laminectomy Social history x1 year. Lives alone. Quit tobacco 40 years ago One or 2 alcoholic drinks per day Family history No early coronary artery disease Review of systems A 10 point review of systems was negative except for that described above. Allergies Allergy/AdvReac Type Severity Reaction Status Date / Time cyclobenzaprine Allergy Intermediate RASH ON Verified 11/02/18 10:50 FACE flecainide Allergy Intermediate DISCOLORATION Verified 11/02/18 10:50 OF SKIN ibuprofen AdvReac Mild RHINORRHEA Verified 11/02/18 10:50 Home Medications Home Medications Medication Instructions Recorded Confirmed Type Xarelto 20 mg PO QAM 05/30/18 11/02/18 History albuterol sulfate [Proventil HFA] 2 puff INHALATION Q6H PRN 05/30/18 11/02/18 History alprazolam [Xanax] 0.25 mg PO HS 05/30/18 11/02/18 History atorvastatin [Lipitor] 20 mg PO HS 05/30/18 11/02/18 History cholecalciferol (vitamin D3) 1,000 unit PO QAM 05/30/18 11/02/18 History [Vitamin D3] dutasteride [Avodart] 0.5 mg PO QAM 05/30/18 11/02/18 History multivitamin 1 tab PO QAM 05/30/18 11/02/18 History mupirocin [Centany] 1 applic TOPICAL BID 05/30/18 11/02/18 History pantoprazole [Protonix] 40 mg PO QAM 05/30/18 11/02/18 History ranitidine HCl [Zantac] 300 mg PO HS 05/30/18 11/02/18 History sodium chloride [Saline Nasal] 1 spray INTRANASAL BID 05/30/18 11/02/18 History triamcinolone acetonide 1 applic TOPICAL BID 05/30/18 11/02/18 History triamcinolone acetonide [Nasacort] 2 spray INTRANASAL BID 05/30/18 11/02/18 Hi story Spiriva with HandiHaler 1 puff INHALATION QAM #30 inh 06/03/18 11/02/18 Rx Patient History Medical History AVNRT (AV danette re-entry tachycardia) Atrial fibrillation BPH (benign prostatic hyperplasia) Chronic pulmonary aspiration Iliac artery aneurysm Spinal stenosis Surgical History History of back surgery Family History Mother Breast cancer Type 2 diabetes mellitus without complications Other Family history non-contributory Social History Preferred Language: Belarusian Communication Ability: Effective Communication Ability Comment: short term memory loss Secretary Receptionist Required: Yes Beliefs That Will Affect Care: None marital status: / Current Living Situation: Alone Other Information That Helps Us Care for You: No Feels Safe at Home: Yes Safety Concerns: Feels Safe At This Time Smoking Status: Former smoker Hx Alcohol Use: Yes Alcohol type: wine and hard liquor Hx Substance Use: No Physical Exam Physical Exam: In general this is a well-developed well-nourished white male in no acute distress. HEENT exam is negative. Neck is supple with full carotid upstrokes. There are no carotid bruits. Jugular venous pressure is flat at 90. There is no thyromegaly. Cardiovascular exam reveals an irregularly irregular rhythm with distant heart sounds. No obvious murmurs. Lungs are clear without rales, rhonchi, wheezes. Abdomen is soft and nontender without bruits. Extremities reveal intact radial artery and posterior tibial pulses bilaterally. There is trace pretibial edema. Results & Data Vital Signs (Past 12 Hours) Vital Signs Temp Pulse Pulse Resp BP Pulse Ox 11/03/18 15:16 69 18 154/84 H 100 11/03/18 10:52 36.5 C 77 18 127/77 96 11/03/18 07:15 83 11/03/18 06:54 36.4 C L 93 H 18 152/77 H 95 11/03/18 04:07 36.4 C L 83 18 151/80 H 96 Laboratory Results CBC notes a hemoglobin 13.2, hematocrit 40.4, white count 4.95, and platelet count [id number]. Electrolytes notice over 130, potassium 4.0, chloride 98, bicarb 27, BUN 12, creatinine 0.9, glucose of 106. Diagnostic Findings EKG notes atrial fibrillation with a controlled ventricular response. An old anteroseptal myocardial infarction pattern cannot be excluded. No change compared with a tracing of June 04, 2018. Chest x-ray notes cardiomegaly but no pulmonary edema. (1) Atrial fibrillation Atrial fibrillation type: permanent Qualified Code(s): I48.2 - Chronic atrial fibrillation (2) Hypertension Hypertension type: unspecified Qualified Code(s): I10 - Essential (primary) hypertension
[2018-11-03] MEDS ORDERED: POLYETHYLENE (MIRALAX) 17 GM PACK PO ONE (20:30)
[2018-11-03] MEDS: ENOXAPARIN INJ 40 MG/0.4 ML SYR SQ SCH (21:38)
[2018-11-03] MEDS: ATORVASTATIN 20 MG TAB PO SCH (21:38)
[2018-11-04] MEDS: SODIUM CHLORIDE 0.65% NA SOLN 45 ML (OCEAN) NAE SCH ×2 (09:03→20:19)
[2018-11-04] MEDS: PANTOprazole 40 MG TAB PO SCH (09:03)
[2018-11-04] MEDS: TRIAMCINOLONE ACET NASAL SPRAY 10.8ML BTL NAE SCH ×2 (09:03→20:18)
[2018-11-04] MEDS: TIOTROPIUM BROMIDE 5 PUFF/90 MCG INH INH SCH (09:04)
[2018-11-04] MEDS: MULTIVITAMIN TAB PO SCH (09:05)
[2018-11-04] MEDS: CHOLECALCIFEROL 1,000 UNITS TAB PO SCH (09:05)
[2018-11-04] MEDS: DUTASTERIDE - ORDER AWAITING ACTION SCH ×2 (09:11→18:36)
--- NOTE | 2018-11-04 09:42 | Anesthesiology Consultation ---
Date of Service November 04, 2018 Assessment & Plan (1) Encounter for pre-operative examination: Chart Review Chart Review: Acceptable Risk for Surgery Consults Requested none ASA ASA3 Proposed Anesthesia Anesthesia Type: General Risk / Benefits Reviewed With: PT / POA / Parent / Guardian, Accepts Plan and Informed Consent Obtained History Surgery Operation Date: 11/04/18 13:20 Proposed Procedures p Right Open Inguinal Hernia Repair with Mesh - Manolo Crook MD Height/Weight Height: 6 ft 1 in Weight: 93.8 kg Allergies Allergy/AdvReac Type Severity Reaction Status Date / Time cyclobenzaprine Allergy Intermediate RASH ON Verified 11/04/18 09:33 FACE flecainide Allergy Intermediate DISCOLORATION Verified 11/04/18 09:33 OF SKIN ibuprofen AdvReac Mild RHINORRHEA Verified 11/04/18 09:33 Medications Home Medications Medication Instructions Recorded Confirmed Last Taken Xarelto 20 mg PO QAM 05/30/18 11/02/18 11/01/18 albuterol sulfate [Proventil HFA] 2 puff INHALATION Q6H PRN 05/30/18 11/02/18 06/04/18 alprazolam [Xanax] 0.25 mg PO HS 05/30/18 11/02/18 11/01/18 atorvastatin [Lipitor] 20 mg PO HS 05/30/18 11/02/18 11/01/18 cholecalciferol (vitamin D3) 1,000 unit PO QAM 05/30/18 11/02/18 11/01/18 [Vitamin D3] dutasteride [Avodart] 0.5 mg PO QAM 05/30/18 11/02/18 11/01/18 multivitamin 1 tab PO QAM 05/30/18 11/02/18 11/01/18 mupirocin [Centany] 1 applic TOPICAL BID 05/30/18 11/02/18 11/01/18 pantoprazole [Protonix] 40 mg PO QAM 05/30/18 11/02/18 11/01/18 ranitidine HCl [Zantac] 300 mg PO HS 05/30/18 11/02/18 11/01/18 sodium chloride [Saline Nasal] 1 spray INTRANASAL BID 05/30/18 11/02/18 11/01/18 triamcinolone acetonide 1 applic TOPICAL BID 05/30/18 11/02/18 11/01/18 triamcinolone acetonide [Nasacort] 2 spray INTRANASAL BID 05/30/18 11/02/18 11/01/18 Spiriva with HandiHaler 1 puff INHALATION QAM #30 inh 06/03/18 11/02/18 11/01/18 Active Medications Generic Name Dose Route Start Last Admin Trade Name Freq PRN Reason Stop Dose Admin Acetaminophen 650 mg 11/02/18 16:39 11/03/18 13:32 Tylenol PO 12/02/18 16:38 650 mg Q4H PRN Administration Pain or Fever Atorvastatin Calcium 20 mg 11/02/18 21:00 11/03/18 21:38 Lipitor PO 12/02/18 20:59 20 mg HS VIBHA Administration Enoxaparin Sodium 40 mg 11/02/18 21:00 11/03/18 21:38 Lovenox SQ 12/02/18 20:59 40 mg HS VIBHA Administration Hydromorphone HCl 0.5 mg 11/02/18 11:45 11/02/18 11:50 Dilaudid IV 11/16/18 11:44 0.5 mg Q15M PRN Administration Pain Ioversol 94 ml 11/02/18 11:27 11/02/18 11:27 Optiray 320 100ml IV 11/06/18 11:26 94 ml ONCE PRN Administration Interaction Checking Miscellaneous 1 ea 11/03/18 00:00 11/04/18 09:11 Order Awaiting Action N/A 12/03/18 00:00 Not Given QS VIBHA Multivitamins 1 tab 11/03/18 09:00 11/04/18 09:05 Multivitamin Tab PO 12/03/18 08:59 Not Given QAM VIBHA Pantoprazole Sodium 40 mg 11/03/18 09:00 11/04/18 09:03 Protonix PO 12/03/18 08:59 40 mg QAM VIBHA Administration Ranitidine HCl 300 mg 11/02/18 20:00 11/03/18 21:39 Zantac PO 12/02/18 19:59 300 mg DAILY@1900 VIBHA Administration Sodium Chloride 1 sprays 11/02/18 21:00 11/04/18 09:03 [place] Nasal MARIAM 12/02/18 20:59 1 sprays BID VIBHA Administration Tiotropium [place] 1 puffs 11/03/18 09:00 11/04/18 09:04 Spiriva INH 12/03/18 08:59 1 puffs QAM VIBHA Administration Triamcinolone Acetonide 2 sprays 11/02/18 21:00 11/04/18 09:03 Nasacort MARIAM 12/02/18 20:59 2 sprays BID VIBHA Administration Vitamin D 1,000 units 11/03/18 09:00 11/04/18 09:05 Vitamin D3 PO 12/03/18 08:59 Not Given QAM VIBHA NPO Date Last Intake of Fluids: 11/04/18 Time Last Intake of Fluids: 09:00 Last Intake of Fluids Comment: Sip H2O Date Last Intake of Solids: 11/03/18 Time Last Intake of Solids: 22:00 Past Medical History Medical History Medication induced coagulopathy (Chronic) Barretts esophagus (Chronic) Esophageal dysmotility (Chronic) COPD (chronic obstructive pulmonary disease) (Chronic) Inguinal hernia (Acute) Atrial fibrillation (Chronic) AVNRT (AV danette re-entry tachycardia) Atrial fibrillation BPH (benign prostatic hyperplasia) Chronic pulmonary aspiration Iliac artery aneurysm Spinal stenosis Exercise / Class Metabolic Activity III < 4 Walking/Shop/Light housework Past Family History Family History Mother Breast cancer Type 2 diabetes mellitus without complications Other Family history non-contributory Past Surgical History Surgical History History of back surgery Past Anesthesia History No Hx of Anesthesia Complications and No Family Hx of Anesthesia Complications History of PONV No Hx of PONV and No Hx of Motion Sickness Social History Smoking Status: Former smoker Hx Alcohol Use: Yes Alcohol type: wine and hard liquor alcohol intake frequency: a few times a week Hx Substance Use: No Physical Exam Vital Signs Last Vital Signs Temp 97.9 F 11/04/18 09:37 Pulse 85 11/04/18 09:37 Resp 18 11/04/18 09:37 BP 137/83 11/04/18 09:37 Pulse Ox 97 11/04/18 09:37 ENMT Mouth: + dental restorations Thyromental Distance: > or= 3.5 Finger Breadths Mallampati Class: III Neck normal visual inspection Respiratory normal respiratory effort Auscultation: lungs clear to auscultation bilaterally Cardiovascular Rate/Rhythm: + abnormal rate and + abnormal rhythm Testing Laboratory Results 11/02/18 10:41 11/02/18 10:41 PT 11.9 Seconds (9.0-12.0) 11/02/18 17:26 INR 1.2 (0.9-1.1) H 11/02/18 17:26 APTT 28.8 Seconds (21.0-31.0) 11/02/18 17:26 Urine Color Yellow 11/02/18 11:12 Urine Appearance Clear (Clear) 11/02/18 11:12 Urine pH 7.0 (4.5-7.5) 11/02/18 11:12 Ur Specific [place] 1.016 (1.000-1.030) 11/02/18 11:12 Urine Protein Negative (Negative) 11/02/18 11:12 Urine Glucose (UA) Negative (Negative) 11/02/18 11:12 Urine Ketones Negative (Negative) 11/02/18 11:12 Urine Nitrite Negative (Negative) 11/02/18 11:12 Ur Leukocyte Esterase Negative (Negative) 11/02/18 11:12 Electrocardiogram Date: 11/02/18 Atrial fibrillation, rate 73 bpm Cannot rule out Septal infarct , age undetermined Abnormal ECG When compared with ECG of 04-JUN-2018 13:13, No significant change was found Confirmed by Derick Barrett ([id number]) on 11/02/2018 4:22:10 PM Chest X-Ray Date: 11/02/18 IMPRESSION: Mild stable cardiomegaly. Otherwise negative study. Echocardiogram Date: 11/03/18 EF: 60-65% LV Function: normal RWMA: + none Other Findings: + LVH (mild) Mild AR Mod MR Mild TR
[2018-11-04] MEDS ORDERED: LIDOCAINE HCL 2% 2 ML VIAL/AMP(20MG/ML) INFIL ONE (09:58)
[2018-11-04] MEDS ORDERED: PROPOFOL IV EMULSION 10 MG/ML 20 ML VIAL IV ONE (09:58)
[2018-11-04] MEDS ORDERED: fentaNYL citrate 100 MCG/2 ML VIAL ONE (09:58)
[2018-11-04] MEDS ORDERED: ONDANSETRON INJ 2 MG/ML 2 ML VIAL ONE (09:58)
[2018-11-04] MEDS ORDERED: ONDANSETRON INJ 2 MG/ML 2 ML VIAL IV PRN (09:59)
[2018-11-04] MEDS ORDERED: ATROPINE SULFATE 0.1 MG/ML 10ML SYR IV PRN (09:59)
[2018-11-04] MEDS ORDERED: ePHEDrine sulfate 50 MG/ML AMP IV PRN (09:59)
--- NOTE | 2018-11-04 10:03 | History & Physical Bridge Note ---
Date of Service November 04, 2018 History & Physical Bridge Note I have examined the patient, reviewed the History & Physical and in the interval since the performance of the History & Physical I have noted the following changes of clinical significance: no changes noted pt examined right ing area marked all questions answered hernia reduced at this time son to be here after surgery
[2018-11-04] MEDS ORDERED: BACITRACIN INJ 50,000 UNIT VIAL ONE (10:05)
[2018-11-04] MEDS ORDERED: BUPIVACAINE 0.5 % 5 MG/1 ML MPF 30ML VIAL ONE (10:05)
[2018-11-04] MEDS ORDERED: CEFAZOLIN 2000MG 2,000 MG/15 ML SYR IV ONE (10:34)
[2018-11-04] MEDS ORDERED: DEXAMETHASONE SOD INJ 4 MG/ML VIAL ONE (11:15)
[2018-11-04] MEDS ORDERED: ROCURONIUM BROMIDE 10 MG/ML 5 ML VIAL ONE (11:15)
--- NOTE | 2018-11-04 11:27 | Post Operative Brief Note ---
Immediate Post Op Note v1 Date of Surgery November 04, 2018 Pre & Post Diagnosis Operation Date: 11/04/18 13:20 Pre-Op Diagnosis: LARGE RIGHT INGUINAL HERNIA Lipoma of Cord Post-Op Diagnosis: LARGE RIGHT DIRECT AND INDIRECT INGUINAL HERNIA Lipoma of Cord Procedure Operation Date: 11/04/18 13:20 Actual Procedures p Right Open Direct and Indirect Incarcerated Inguinal Hernia Repair with Marlex Mesh, Lipoma of Cord(Right) - Manolo Crook MD Surgeon Manolo Crook MD Sagger Soak b ceferino man Estimated Blood Loss 15 Findings Consistent with Post-Op Diagnosis
--- NOTE | 2018-11-04 11:41 | Operative Report ---
Post Operative Report Pre & Post Diagnosis Operation Date: 11/04/18 13:20 Pre-Op Diagnosis: LARGE RIGHT INGUINAL HERNIA Lipoma of Cord Post-Op Diagnosis: LARGE RIGHT DIRECT AND INDIRECT INGUINAL HERNIA Lipoma of Cord Procedure Operation Date: 11/04/18 13:20 Actual Procedures p Right Open Direct and Indirect Incarcerated Inguinal Hernia Repair with Marlex Mesh, Lipoma of Cord(Right) - Manolo Crook MD The patient was brought into the operating room theater supine position general endotracheal anesthesia right lower quadrant was prepped Betadine scrub and solu tion properly draped systemic antibiotics on board a timeout was had patient identified 0.5% Marcaine plain was used to infiltrate 2 fingerbreadths medial to the anterior superior crest incision parallel the inguinal ligament was made about 3 inches long deepened to subcutaneous tissue patient about 4 inches of subcutaneous fat before we got to the external Bleich fascia retractor was inserted the external Bleich was exposed to the external ring with the patient had significant amount of tissue around the cord in that area external Bleich was open to the external ring we elevated the cord and structures and were able to start her dissection which we found that the patient has significant amount of fatty tissue protruding through the direct defect which after meticulous dissecting out and the cord away from the area we oversewed some transversalis fibers over the defect to return and into the preperitoneal area we also identified a very long indirect hernia which we then we were able to free it from the cord opened the hernia was about 8 inches long we took it down to the internal ring there was no sliding component we were able then to ligated to place with 2-0 silk suture and resected the hernia sac we will continue with 3-0 interrupted silk sutures to close the transversalis fascia beyond into an indirect area to close the internal ring to get most of the tissue out of the way. Once is before we dissected out underneath the external oblique fascia to expose the conjoined tendon and then we brought in a sheet of Marlex mesh and suture was systemically down to the symphysis pubis shelving portion of the inguinal ligament conjoined tendon to reconstruct the internal ring the could only accommodate the tip of a hemostat. Hemostasis was checked and appears sat isfactory. We then closed the external fascia over the cord and the mesh with 3 interrupted silk suture. Subcu was checked hemostasis appear satisfactory closed with 2-0 Dexon yenifer for skin edges dressing was applied procedure was tolerated well by the patient estimated blood loss 15 cc addendumB Tiffany man was present throughout the procedure and helped with exposure wound closure thank Surgeon Manolo Crook MD Slat Grader b tiffany man Estimated Blood Loss 15 Findings Consistent with Post-Op Diagnosis Specimens hernia sac Description of Procedure merda I attest to the content of the Intraoperative Record and any orders documented therein. Any exceptions are noted below.
[2018-11-04] MEDS ORDERED: GLYCOPYRROLATE 0.2 MG/ML VIAL ONE (11:49)
[2018-11-04] MEDS ORDERED: NEOSTIGMINE METHYLSULFATE 5 MG/5 ML SYR ONE (11:49)
[2018-11-04] MEDS: fentaNYL citrate 100 MCG/2 ML VIAL IV PRN ×3 (12:00→12:10)
--- NOTE | 2018-11-04 12:29 | Anesthesiology Progress Note ---
Date of Service November 04, 2018 Anesthesia Post Procedure Vital Signs Vital Signs: Temp Pulse Pulse Resp BP Pulse Ox 11/04/18 12:20 78 15 167/87 H 99 11/04/18 12:10 78 15 160/88 H 98 11/04/18 12:00 90 20 178/94 H 100 11/04/18 11:50 93 H 18 169/93 H 100 11/04/18 11:44 97.5 F L 96 H 16 135/97 98 11/04/18 09:37 97.9 F 85 18 137/83 97 11/04/18 07:44 97.5 F L 86 18 154/82 H 96 11/04/18 04:00 97.5 F L 84 18 143/79 H 97 11/03/18 23:48 96.6 F L 77 18 119/63 96 11/03/18 19:29 97.5 F L 70 18 163/76 H 99 11/03/18 15:16 69 18 154/84 H 100 Pain Intensity Right Testicles: Pain Intensity: 2 Right Groin: Pain Intensity: 4 Transfer of Care Handoff Completed per policy Notes Mental Status: alert / awake / arousable and participated in evaluation Patient Amnestic to Procedure: Yes Nausea / Vomiting: adequately controlled Pain: adequately controlled Airway Patency, RR, SpO2: stable & adequate BP & HR: stable & adequate Hydration State: stable & adequate Anesthetic Complications: no major complications apparent and Pt Satisfied with anesthetic care
[2018-11-04] MEDS ORDERED: OXYCODONE/ACETAMINOPHEN 5mg/325mg TAB PO PRN (12:51)
[2018-11-04] MEDS ORDERED: MoRPHine SULFATE 2 MG/ML CARP IV PRN (12:51)
--- NOTE | 2018-11-04 13:55 | Hospitalist Progress Note ---
Date of Service November 04, 2018 Assessment & Plan (1) Inguinal hernia: Reducible right inguinal/scrotal hernia which was reduced in the ED. General surgery has recommended surgical intervention 11/04. Xarelto has been placed on hold. cardiology feels is acceptable risk for surgery (2) Atrial fibrillation: Chronic. remains Rate controlled. Hold Xarelto. Cardiac echo without signifiant changes (3) COPD (chronic obstructive pulmonary disease): Stable. Continue inhalation therapy (4) Esophageal dysmotility: Thickened liquids and swallowing safe techniques (5) Barretts esophagus: Continue PPI and H2 leidy therapy (6) Medication induced coagulopathy: Hold Xarelto Subjective Patient is pleasant in mild distress this morning awaiting his surgery for single hernia repair he said no chest pain pressure shortness of breath is actually lying flat in bed competently when I was examining him this morning Review of Systems Review of Systems: ROS: well nourished well developed. No double vision blurry vision No problems with speech or swallowing No palpitations, chest pain or pressure No Wheezing or breathing issues Mild right lower quadrant abdominal pain without nausea / vomiting No burning urine urine frequency or changes in color No focal joint pain or muscle pain No skin rashes or oral lesions No unusual bruising or bleeding No focused back pain or numbness or loss of strength No changes in memory or confusion Physical Exam Physical Exam: The patient appeared well nourished and normally developed. Vital signs as documented. Head exam is unremarkable. normocephalic, atraumatic Neck is without jugular venous distension, thyromegaly, or lymphademopathy Lungs are clear to auscultation and percussion. Cardiac exam reveals Rhythm is regular. Systolic murmur is heard Abdominal exam reveals normal bowel sounds, no masses, no organomegaly mild tenderness to examination of the right lower quadrant of his abdomen Extremities are nonedematous and both pedal pulses are present Neurologic exam is A&Ox3, forgetfulness no focal deficits, strength is equal bilateral Psychologically seems neither anxious or depressed Skin is warm Dry Results & Data Vital Signs (Past 12 Hours) Vital Signs Temp Pulse Pulse Resp BP Pulse Ox 11/04/18 12:30 78 15 159/86 H 99 11/04/18 12:20 78 15 167/87 H 99 11/04/18 12:10 78 15 160/88 H 98 11/04/18 12:00 90 20 178/94 H 100 11/04/18 11:50 93 H 18 169/93 H 100 11/04/18 11:44 36.4 C L 96 H 16 135/97 98 11/04/18 09:37 36.6 C 85 18 137/83 97 11/04/18 07:44 36.4 C L 86 18 154/82 H 96 11/04/18 04:00 36.4 C L 84 18 143/79 H 97 PG Care Time/CCT Total # of Minutes Spent Total Time Spent with Patient: Total time spent is greater than 50% in coordination of care (as documented) at patient's floor/unit and/or counseling patient: (1) Atrial fibrillation Atrial fibrillation type: permanent Qualified Code(s): I48.2 - Chronic atrial fibrillation
[2018-11-04] MEDS ORDERED: METOPROLOL TARTRATE 1 MG/ML VIAL IV PRN (14:07)
[2018-11-04] MEDS ORDERED: cloNIDine HCl 0.1 MG TAB PO PRN (14:07)
[2018-11-04] MEDS ORDERED: POLYETHYLENE (MIRALAX) 17 GM PACK PO ONE (16:08)
[2018-11-04] MEDS: ATORVASTATIN 20 MG TAB PO SCH (20:18)
[2018-11-05] MEDS: DUTASTERIDE - ORDER AWAITING ACTION SCH ×2 (01:04→11:00)
--- NOTE | 2018-11-05 06:19 | Surgery Progress Note ---
Date of Service November 05, 2018 Assessment & Plan (1) Inguinal hernia: 11/05/18 POD#1 can be d/c from my point of view rec restart Xarelto in [place] 72 hours will see in office in one week plan for open repair with mesh tomorrow. hold anticoagulation/no bridge per medicine awaiting cardiology input discussed risks/options ( bleeding/infection/dvt/pe/mi/cva/injury to an organ/chronic pain etc...) questions answered for OR tomorrow/NPO after midnight. pt agreeable. Subjective no complaints Physical Exam Physical Exam: alert coherent op findings discussed with pt abd benign incision without hematoma or ecchymosis Results & Data Vital Signs (Past 12 Hours) Vital Signs Temp Pulse Pulse Resp BP BP Pulse Ox 11/05/18 03:13 36.6 C 64 17 119/69 96 11/05/18 00:00 36.5 C 79 20 121/56 L 93 11/04/18 20:02 36.9 C 77 18 125/74 96
[2018-11-05 07:01] LABS: Hematocrit (blood only) 35.7 % (42-52); Hemoglobin 11.5 g/dL (14.0-18.0); Mean Corpuscular Hgb Conc 32.2 g/dL (32-36); Mean Corpuscular Volume 84.2 fL (80-100); Mean Platelet Volume 12.1 fL (7.4-10.4); Platelet Count 174 K/uL (130-400); RDW Coefficient of Variation 14.2 % (11.5-14.5); RDW Standard Deviation 43.8 fL (36.4-46.3); Red Blood Count 4.24 M/uL (4.7-6.1); White Blood Count 10.28 K/uL (4.8-10.8)
[2018-11-05 07:36] LABS: Creatinine Clr Calc Pharmacy 85.5 ml/min; Est GFR (African American) 98.9; Est GFR (Non-African American) 85.3
--- NOTE | 2018-11-05 07:59 | Anesthesiology Progress Note ---
Date of Service November 05, 2018 Anesthesia Post Procedure Vital Signs Vital Signs: Temp Pulse Pulse Resp BP BP Pulse Ox 11/05/18 07:03 36.7 C 94 H 18 138/73 93 11/05/18 03:13 36.6 C 64 17 119/69 96 11/05/18 00:00 36.5 C 79 20 121/56 L 93 11/04/18 20:02 36.9 C 77 18 125/74 96 11/04/18 15:23 36.8 C 85 19 144/79 H 96 11/04/18 14:15 89 18 172/89 H 96 11/04/18 13:45 64 16 175/91 H 95 11/04/18 13:15 83 18 145/79 H 96 11/04/18 13:00 70 18 152/91 H 94 11/04/18 12:45 36.9 C 69 18 167/85 H 100 11/04/18 12:30 78 15 159/86 H 99 11/04/18 12:20 78 15 167/87 H 99 11/04/18 12:10 78 15 160/88 H 98 11/04/18 12:00 90 20 178/94 H 100 11/04/18 11:50 93 H 18 169/93 H 100 11/04/18 11:44 36.4 C L 96 H 16 135/97 98 11/04/18 09:37 36.6 C 85 18 137/83 97 Pain Intensity Right Testicles: Pain Intensity: 2 Right Groin: Pain Intensity: 0 Notes Mental Status: alert / awake / arousable and participated in evaluation Patient Amnestic to Procedure: Yes Nausea / Vomiting: adequately controlled Pain: adequately controlled Airway Patency, RR, SpO2: stable & adequate BP & HR: stable & adequate Hydration State: stable & adequate Anesthetic Complications: no major complications apparent and Pt Satisfied with anesthetic care
[2018-11-05] MEDS: SODIUM CHLORIDE 0.65% NA SOLN 45 ML (OCEAN) NAE SCH (08:12)
[2018-11-05] MEDS: TRIAMCINOLONE ACET NASAL SPRAY 10.8ML BTL NAE SCH (08:13)
[2018-11-05] MEDS: TIOTROPIUM BROMIDE 5 PUFF/90 MCG INH INH SCH (08:13)
[2018-11-05] MEDS: CHOLECALCIFEROL 1,000 UNITS TAB PO SCH (08:13)
[2018-11-05] MEDS: PANTOprazole 40 MG TAB PO SCH (08:13)
[2018-11-05] MEDS: MULTIVITAMIN TAB PO SCH (08:13)
[2018-11-05] MEDS: ACETAMINOPHEN 325 MG TAB PO PRN (08:14)
--- NOTE | 2018-11-05 11:30 | Cardiology Progress Note ---
Date of Service November 05, 2018 Assessment & Plan (1) Atrial fibrillation: The patient's Xarelto will be restarted in [address] Crook's suggestion. Ventricular response remains adequately controlled without medication. 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 He follows closely with Dr. Smith from [facility]. 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 (4) Hypertension: Adequate control on his current regimen. (5) Inguinal hernia: Status post open repair with use of mesh. Subjective Mr. Gao is resting comfortably bed without complaints of chest pain, dyspnea, palpitations. Postoperative pain is adequately controlled. Physical Exam Physical Exam: In general this is a well-developed well-nourished white male in no acute distress. HEENT exam is negative. Neck is supple with full carotid upstrokes. There are no carotid bruits. Jugular venous pressure is flat at 90. There is no thyromegaly. Cardiovascular exam reveals an irregularly irregular rhythm with distant heart sounds. No obvious murmurs. Lungs are clear without rales, rhonchi, wheezes. Abdomen is soft and nontender without bruits. Incision in the right lower quadrant is intact. Extremities reveal intact radial artery and posterior tibial pulses bilaterally. There is trace pretibial edema. 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 (1) Atrial fibrillation Atrial fibrillation type: permanent Qualified Code(s): I48.2 - Chronic atrial fibrillation (2) Hypertension Hypertension type: unspecified Qualified Code(s): I10 - Essential (primary) hypertension
--- NOTE | 2018-11-05 16:00 | Discharge Summary ---
Date of Service November 05, 2018 Admission HPI Per Admitting Provider 83-year-old male who is a poor historian. He states he awoke this morning with a large right inguinal bulge that prevented him from walking him he came to the ED for evaluation. He was found to have a large right inguinal/scrotal hernia that was reduced in the ED. He has been seen by general surgery who recommended surgical intervention. He is on Xarelto therapy for chronic atrial fibrillation which needs to be temporarily stopped. I do not believe he needs bridging anticoagulation due to chronic atrial fibrillation but cardiology consultation will be requested for their opinion. Cardiac echo is pending. He is asymptomatic at the time of my examination. No recent changes in bladder or bowel function. Principal Diagnosis Right Open Direct and Indirect Incarcerated Inguinal Hernia Repair with Marlex Mesh, Lipoma of Cord Surgeon: Manolo Crook Discharge Exam Constitutional well developed and average body habitus Eyes no conjunctival abnormality and no scleral abnormality Neck normal visual inspection and trachea midline Respiratory normal respiratory effort; no respiratory distress Auscultation: lungs clear to auscultation bilaterally Cardiovascular RRR, no murmur, no edema Gastrointestinal (Abdomen) Inspection/Auscultation: normal bowel sounds Percussion/Palpation: abdomen soft Musculoskeletal no cyanosis or clubbing, extremities motor strength 5/5 Discharge Data Allergies Allergy/AdvReac Type Severity Reaction Status Date / Time cyclobenzaprine Allergy Intermediate RASH ON Verified 11/04/18 09:33 FACE flecainide Allergy Intermediate DISCOLORATION Verified 11/04/18 09:33 OF SKIN ibuprofen AdvReac Mild RHINORRHEA Verified 11/04/18 09:33 Consultations 11/02/18 11:54 ED Decision to Admit Stat 11/02/18 12:36 Consult General Surgery Stat ED Decision to Admit Stat 11/02/18 16:39 Consult Cardiology Routine Consult General Surgery Routine Procedures Performed Operation Date: 11/04/18 13:20 Actual Procedures p Right Open Direct and Indirect Incarcerated Inguinal Hernia Repair with Marlex Mesh, Lipoma of Cord(Right) - Manolo Crook MD Ordered Studies 11/02/18 10:35 CT abd pelvis IV con only Stat Hospital Course (1) Inguinal hernia: Reducible right inguinal/scrotal hernia which was reduced in the ED. General surgery has recommended surgical intervention 11/04. Xarelto to be restarted 11/08 by surgical preference. cardiology feels is stable post op (2) Atrial fibrillation: Chronic. remains Rate controlled. resume Xarelto. Cardiac echo without signifiant changes (3) COPD (chronic obstructive pulmonary disease): Stable. Continue inhalation therapy (4) Esophageal dysmotility: Thickened liquids and swallowing safe techniques (5) Barretts esophagus: Continue outpt therapy (6) Medication induced coagulopathy: Held Xarelto, pre operatiely due to CKD III Total Time Total Time Spent Total Time Spent (In Minutes): greater than 30 minutes were required to prepare discharge Discharge Plan Discharge Items Patient Disposition: Home - Home Health Services Reason For Visit: LARGE RIGHT INGUINAL HERNIA Discharge Diagnosis: hernia repair. Right Open Direct and Indirect Incarcerated Inguinal Hernia Repair with Marlex Mesh, Lipoma of Cord Surgeon: Manolo Crook Discharge Goals: Decrease discomfort, Diagnostic testing and Improve disease control Activity: Resume your previous activity Lifting: No more than 10 pounds Bathing: No limitations Driving/Machine Use: Resume 3 days after discharge Non-emergency contact: Surgeon Call non-emergency contact if: you have any medication questions, your pain is not controlled, you have a fever, your temperature is above 101.5 and your wound has increased redness Follow-up/Referrals: Jared Mandujano MD [Primary Care Provider] - Manolo Crook MD [Surgeon] - (Call to make an appt in 1 week) Diet: Regular Addtl Provider Instructions: please restart your xarelto on wednesday 11/08 per surgical recommendations please no submersion bathing until follow up with surgeon ACTIVITY RECOMMENDATIONS: Resume activities as specified below and as tolerated. * Resume regular activity in 7 days. * No lifting over 10 pounds for 3 days. * Do not engage in vigorous exercise, sexual activity or sports for 7 days. * Do not drive or operate any motorized equipment for 7 days. * You may shower in 1 day. SPECIAL CARE INSTRUCTIONS: Call your doctor if: * Temperature above 101 degrees * Pain not relieved by pain medicine ordered * There is increased drainage or redness from any incision * You have any unanswered questions or concerns. Call your doctor at with any concerns or problems. FOLLOW UP VISIT: Return to the office in 1 week for follow-up visit. Office Number: [address] [place] [address] Prescriptions: New oxycodone-acetaminophen [Percocet] 5-325 mg tablet 1 - 2 tab PO Q4H PRN (Reason: pain) Qty: 12 RF: 0 Continued multivitamin Tablet 1 tab PO QAM RF: 0 atorvastatin [Lipitor] 20 mg tablet 20 mg PO HS RF: 0 ranitidine HCl [Zantac] 300 mg tablet 300 mg PO HS RF: 0 triamcinolone acetonide 0.1 % cream 1 applic topical BID RF: 0 alprazolam [Xanax] 0.25 mg tablet 0.25 mg PO HS RF: 0 pantoprazole [Protonix] 40 mg tablet,delayed release (DR/EC) 40 mg PO QAM RF: 0 triamcinolone acetonide [Nasacort] 55 mcg Aerosol,[place] 2 spray INTRANASAL BID RF: 0 mupirocin [Centany] 2 % ointment 1 applic topical BID RF: 0 albuterol sulfate [Proventil HFA] 90 mcg/actuation Hfa Aerosol Inhaler 2 puff INHALATION Q6H PRN (Reason: Shortness Of Breath) RF: 0 cholecalciferol (vitamin D3) [Vitamin D3] 1,000 unit Capsule 1,000 unit PO QAM RF: 0 dutasteride [Avodart] 0.5 mg capsule 0.5 mg PO QAM RF: 0 sodium chloride [Saline Nasal] 0.65 % Aerosol,[place] 1 spray INTRANASAL BID RF: 0 Spiriva with HandiHaler 18 mcg Capsule, W/Inhalation Device 1 puff Inhalation QAM Qty: 30 RF: 0 Xarelto 20 mg tablet 20 mg PO QAM Qty: 0 RF: 0 Stand-Alone Forms: [facility] Discharge Orders: Discharge Order (Routine); Ordered 11/05/18 Ordered By: Dustin Enriquez Admission Data Admit Date/Time: 11/02/18 13:40 Attending Provider: Dustin Enriquez Admit Provider: Uche Sifuentes Primary Care Provider: Jared Mandujano Other Providers: Yo Champagne ; Clifton Stubbs ; Martin Hassan ; Derick Barrett ; Anand Elliott ; Jonathan Figueroa Jr ; José Manuel Lemus ; Anne Maria ; Jacki Frye ; Martin Mario ; Martin Holloway ; Armin Almanza ; Uche Shanks ; Catrina Cope ; Dawn Brewster ; Uche Sifuentes Service: Telemetry
== END 2018-11-05 16:29 | disposition home health service (06) | DRG 351 ==
LOC: ED 10:12 → SUATTDRO 13:40 → 2S 13:40

== ENCOUNTER 2021-07-22 16:09 | Inpatient (IN) ==
[2021-07-22 17:16] LABS: Basophils # (auto) 0.04 K/uL (0-0.2); Basophils % (auto) 0.7 %; Eosinophils # (auto) 0.34 K/uL (0-0.5); Eosinophils % (auto) 5.9 %; Hematocrit (blood only) 38.2 % (42-52); Hemoglobin 11.9 g/dL (14.0-18.0); Immature Granulocytes # (auto) 0.03 K/uL (0.00-0.02); Immature Granulocytes % (auto) 0.5 %; Lymphocytes # (auto) 0.81 K/uL (1.2-3.4); Lymphocytes % (auto) 14.1 %; Mean Corpuscular Hemoglobin 27.5 pg (25-34); Mean Corpuscular Hgb Conc 31.2 g/dL (32-36); Mean Corpuscular Volume 88.2 fL (80-100); Monocytes # (auto) 0.59 K/uL (0.11-0.59); Monocytes % (auto) 10.2 %; Neutrophils # (auto) 3.95 K/uL (1.4-6.5); Neutrophils % (auto) 68.6 %; Platelet Count 267 K/uL (130-400); RDW Coefficient of Variation 18.5 % (11.5-14.5); RDW Standard Deviation 59.2 fL (36.4-46.3); Red Blood Count 4.33 M/uL (4.7-6.1); White Blood Count 5.76 K/uL (4.8-10.8)
[2021-07-22] MEDS ORDERED: OPTIRAY 320 100ml IV ONE (17:24)
[2021-07-22 17:45] LABS: Anion Gap 6 (3-11); BUN Creatinine Ratio 22.1 (10-20); Blood Urea Nitrogen 15 mg/dl (6-23); Calcium 8.8 mg/dl (8.5-10.1); Carbon Dioxide 30 mmol/L (21-32); Chloride 98 mmol/L (98-107); Est GFR (African American) 100.2 ml/min; Est GFR (Non-African American) 86.5 ml/min; Glucose 92 mg/dl (70-99(Fasting)); Potassium 4.7 mmol/L (3.5-5.1); Sodium 134 mmol/L (136-145)
--- NOTE | 2021-07-22 18:13 | CT Scan Report ---
CT facial bones w con HISTORY: 86 years-old Male ro R lower dental implant abscess acute facial pain with possible abscess . COMPARISON: CT head 07/05/2021 TECHNIQUE: Multiple axial CT images of the maxillofacial bones were obtained following the intravenou s administration of 94 mL Optiray 320. A dose lowering technique was used consistent with the princip als of ANDRESSA. FINDINGS: Image intracranial structures demonstrate no acute abnormality. Atherosclerosis of the carotid bulbs and internal carotid arteries. Streak artifact from dental hardware limits evaluation of the adjacent soft tissues. Prior bilateral lens repair. There is inflammatory stranding within the mandibular and submandibular subcutaneous tissues. Ill-defined peripheral enhancement is noted within the subendome trial tissues on image 58 of series 2. No drainable fluid collection. Subcentimeter submandibular and cervical chain lymph nodes are likely reactive. The mastoid air cells and middle ear cavities are clear. There is mild mucosal thickening of the ethm oid air cells and maxillary sinuses. Degenerative changes of the cervical spine. Demineralized appear ance of the bones. There are numerous large and coalescing periapical cysts noted throughout the marcelo ibular incisors and canines. Notably, there are osseous erosive changes with cortical dehiscence note d involving the right mandible in the expected location of the bicuspids which are absent. IMPRESSION: 1. Large coalescing periapical cysts of the mandible with osseous erosion and cortical dehiscence wit hin the right mandibular body. 2. Cellulitis of the mandibular and submandibular tissues with submandibular phlegmon. Close clinical follow-up is needed to exclude a developing abscess. ACT 112: Negative or not required by law. The above report was generated using voice recognition software. It may contain grammatical, syntax o r spelling errors. Electronically signed by: Delano Strauss M.D. 07/22/2021 6:10 PM
[2021-07-22] MEDS ORDERED: AMPICILLIN/SULBACTAM SOD 3,000 MG in 0.9 % SODIUM CHLORIDE 100 ML IV STA (18:31)
[2021-07-22] MEDS ORDERED: PIPERACILL/TAZOBAC CONSULT ACTIVE PRN ×2 (18:33→21:09)
[2021-07-22] MEDS ORDERED: PIPERACILLIN/TAZOBACTAM 4.5 GM/120 ML BAG IV ONE (18:33)
--- NOTE | 2021-07-22 18:55 | History & Physical Report ---
Date of Service July 22, 2021 Assessment & Plan (1) Facial cellulitis: Plan: With submental cellulitis with concern for early Aguila's angina on arrival He has no respiratory distress and vital signs are normal, afebrile. No leukocytosis. Facial CT with mandibular and submental cellulitis and submandibular phlegmon, but no drainable fluid collection, also with large coalescing periapical cyst of the mandible with osseous erosion and cortical dehiscence within the right mandibular body -Admit to medical floor telemetry given history of atrial fibrillation and potential for airway compromise if this infectious process worsens -Continue IV Zosyn started in the ER -Consult ENT and OMFS in case of need for surgical intervention -Tylenol as needed for pain-avoid opioids as per his daughter these make him very delirious -Okay for a diet for now -Will hold Xarelto in case of need for surgery over the next couple of days- discussed with patient and his daughter -Follow CBC, BMP in the morning (2) Atrial fibrillation: Plan: Rate controlled Holding Xarelto as above in case of need for surgical intervention Continue home metoprolol -Monitor on telemetry -Follow BMP, magnesium in the morning (3) Thoracic spine fracture: Plan: Recently fractured T7 after a fall at home in June and was seen at [facility] where he was deemed to not be a good surgical candidate was placed in a TLSO brace Maintain brace at all times except when in bed Tylenol as needed for pain, continue home methocarbamol Has plans for follow-up with orthopedic spine surgery there in a few weeks Currently is at snf facility at the [facility] PT/OT consults placed in case of need for reevaluation prior to discharge back to SNF (4) Hypertension: Plan: Blood pressures are well controlled Continue home metoprolol (5) BPH (benign prostatic hyperplasia): Plan: Currently has a Vera catheter in place as he developed urinary retention during his hospital stay at [place] a few weeks ago and then was seen by urology who recommended continuing Vera catheter for 2 more weeks Follow-up with urology as planned Maintain Vera catheter Continue tamsulosin and dutasteride (6) Iron deficiency anemia: Plan: Hemoglobin improved from previous at 11.6 He recently had acute blood loss anemia from a hematoma on his back after his thoracic spine fracture and hospital stay at [place] last month Follow CBC (7) COPD (chronic obstructive pulmonary disease): Plan: Stable, no acute issues Also with asthma Is on dupilumab Continue home Spiriva (8) Barretts esophagus: Plan: Continue home PPI (9) PVD (peripheral vascular disease): Plan: With known iliac artery aneurysm followed by vascular surgery (10) Mild dementia: Plan: Noted, supportive care (11) Hypercholesteremia: Plan: Continue atorvastatin Plan: DVT prophylaxis-holding Xarelto, continue MARY hose Disposition-bring in on observation, however I feel that he will likely need IV antibiotic therapy for at least 2 days and possible surgical intervention DNR/DNI as discussed with patient and his daughter at the bedside, however his son is his healthcare power of health care attorney History of Present Illness Chief Complaint: Facial infection Primary Care Provider: Justino Mandujano MD This pt is a 86-year-old male with a history of atrial fibrillation on Xarelto HTN, COPD, recent thoracic vertebral fracture, urinary retention with Vera catheter in place, Perez's esophagus, hyperlipidemia, anemia who presents to the ER after being seen by ENT today with concern for early Aguila's angina. He has a history of a right lower dental implant that has broken off and has been having pain in that area for the last 6 days. He has been staying at the snf facility at the [facility] since discharge from [facility] for his thoracic spine fracture. The doctor at the [facility] saw him and referred him to ENT due to concerns for developing infection in the submental region. ENT saw him today and was concerned for cellulitis in the submental region and early Aguila's angina and sent him to the ER. In the ER, his vital signs were normal, he had no respiratory distress, his laboratory work-up was fairly unremarkable. A facial CT was performed which showed cellulitis of the mandibular and submandibular tissues with submandibular phlegmon, large coalescing periapical cyst the mandible with osseous erosion cortical dehiscence in the right mandibular body. The patient denies any fevers or chills, no lightheadedness or headaches, no sore throat or trouble swallowing. He denies chest pains or shortness of breath. No nausea or vomiting, no abdominal pain. No changes in bowel habits. No blood in the stool. No pain in his back and he has been wearing a TLSO brace. No evidence of Simón's angina at this time He was given IV Zosyn and will be admitted for submental cellulitis with consultation with ENT and OMFS Allergies Allergy/AdvReac Type Severity Reaction Status Date / Time cephalexin [From Keflex] Allergy Intermediate Impaires Verified 07/22/21 17:27 Cognitive function cyclobenzaprine Allergy Intermediate RASH ON Verified 07/22/21 17:27 FACE flecainide Allergy Intermediate DISCOLORATION Verified 07/22/21 17:27 OF SKIN ibuprofen AdvReac Mild RHINORRHEA Verified 07/22/21 17:27 Home Medications Medication Instructions Recorded Confirmed Type multivitamin 1 tab PO QAM 05/30/18 07/22/21 History triamcinolone acetonide 0.1 % 1 applic TOPICAL BID 05/30/18 07/22/21 History topical cream Saccharomyces boulardii 250 mg 250 mg PO BID 10/14/19 07/22/21 History capsule (Florastor) compr.stocking,knee,long,large #12 ea 12/15/19 06/25/21 Rx cholecalciferol (vitamin D3) 25 1,000 unit PO QAM cap 02/13/20 07/22/21 History mcg (1,000 unit) capsule (Vitamin D3) pantoprazole 40 mg tablet,delayed 40 mg PO QAM #90 tab 08/08/20 07/22/21 Rx release (Protonix) atorvastatin 20 mg tablet (Lipitor) 20 mg PO QPM #90 tab 12/18/20 07/22/21 Rx dutasteride 0.5 mg capsule 0.5 mg PO QAM #90 cap 12/27/20 07/22/21 Rx (Avodart) tamsulosin 0.4 mg capsule 0.4 mg PO DAILY #90 cap 12/27/20 07/22/21 Rx rivaroxaban 20 mg tablet (Xarelto) 20 mg PO QAM #90 tab 03/16/21 07/22/21 Rx dupilumab 300 mg/2 mL subcutaneous See Rx Instructions .ROUTE 05/15/21 07/22/21 Rx syringe (Dupixent) .COMPLEX #4 ml acetaminophen 325 mg tablet 650 mg PO DIRECTED PRN 07/22/21 07/22/21 History (Tylenol) calcium carbonate 200 mg calcium 200 mg PO DIRECTED PRN 07/22/21 07/22/21 History (500 mg) chewable tablet (Tums) docusate sodium 100 mg capsule 100 mg PO BID 07/22/21 07/22/21 History ketoconazole 2 % topical cream 1 applic TOPICAL BID PRN 07/22/21 07/22/21 History melatonin 3 mg tablet 3 mg PO HS PRN 07/22/21 07/22/21 History methocarbamol 500 mg tablet 500 mg PO TID 07/22/21 07/22/21 History metoprolol succinate 50 mg capsule 50 mg PO DAILY 07/22/21 07/22/21 History sprinkle, ext. release 24 hr metronidazole 0.75 % topical cream 1 applic TOPICAL BID 07/22/21 07/22/21 History (MetroCream) mupirocin 2 % topical ointment 1 applic TOPICAL BID PRN 07/22/21 07/22/21 History oxycodone 5 mg tablet 5 mg PO Q6H PRN 07/22/21 07/22/21 History tiotropium bromide 18 mcg capsule 18 mcg INHALATION DAILY 07/22/21 07/22/21 History with inhalation device (Spiriva with HandiHaler) Past Med/Surg History Medical History (Updated 07/22/21 @ 19:32 by Christine Jackson MD) Anemia Atrial fibrillation AVNRT (AV danette re-entry tachycardia) Barretts esophagus BPH (benign prostatic hyperplasia) Chronic obstructive pulmonary disease Esophageal dysmotility with aspiration (hx) Hiatal hernia 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, 1mm exchange mechanic last year, 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 [facility] Inguinal hernia Polyposis of sinonasal region Poor historian Reactive airway disease Spinal stenosis, lumbar region, with neurogenic claudication Thoracic spine fracture Surgical History History of back surgery Hx of hernia repair Hx of laminectomy Family History Mother Breast cancer Type 2 diabetes mellitus without complications Other Family history non-contributory Denies family history of Ovarian cancer Prostate cancer Myocardial infarction Colorectal cancer Social History Smoking Status: Former smoker Hx Alcohol Use: Yes Alcohol type: wine and hard liquor Hx Substance Use: No Preferred Language: Hungarian Communication Ability: Impaired Visual Impairment: No Limitations Medical Staff Assistant Required: No Beliefs That Will Affect Care: None marital status: / Current Living Situation: Alone Feels Safe at Home: Yes Assistive Devices: Cane Review of Systems Review of Systems: All systems reviewed & are unremarkable except as noted in HPI & below Physical Exam Constitutional: WD/WN, vitals as above Eyes: PERRL, conjunctivae normal, anicteric sclerae ENMT: external ear and nose normal, oropharynx normal Ears: + hearing impairment Right mandibular first molar is broken off down to the base, no surrounding edema or erythema in the gums Entire submandibular region is with erythema, induration, swelling, and positive tenderness to palpation Trachea is not deviated Neck: trachea midline, no thyromegaly Respiratory: normal respiratory effort, lungs clear to auscultation Cardiovascular: Rate/Rhythm: regular rate and + irregularly irregular Heart Sounds: no murmur Extremities: + edema (Trace pitting edema of the legs bilaterally) Chest (Breasts): Chest: normal inspection of chest Gastrointestinal (Abdomen): normal bowel sounds, soft, nontender, no hepatosplenomegaly Musculoskeletal: Extremities: extremities normal to inspection; no cyanosis and no clubbing Skin: no rashes, warm and dry No hematoma in the back Neurologic: moves all extremities and awake; no focal motor deficits Psychiatric: A+Ox3, euthymic affect Lymphatic: no lymphedema Results & Data Results & Data ([facility]) Vital Signs (Past 12 Hours) Vital Signs Temp Pulse Resp BP Pulse Ox 07/22/21 16:14 36.7 C 86 20 112/60 97 Laboratory Results 07/22/21 07/22/21 07/22/21 Range/Units 17:09 17:01 17:01 WBC 5.76 (4.8-10.8) K/uL RBC 4.33 L (4.7-6.1) M/uL Hgb 11.9 L (14.0-18.0) g/dL Hct 38.2 L (42-52) % MCV 88.2 (80-100) fL MCH 27.5 (25-34) pg MCHC 31.2 L (32-36) g/dL RDW Std Deviation 59.2 H (36.4-46.3) fL RDW Coeff of Gilda 18.5 H (11.5-14.5) % Plt Count 267 (130-400) K/uL MPV 12.0 H (7.4-10.4) fL Immature Gran % (Auto) 0.5 % Neut % (Auto) 68.6 % Lymph % (Auto) 14.1 % [place]ston % (Auto) 10.2 % Eos % (Auto) 5.9 % Baso % (Auto) 0.7 % Neut # (Auto) 3.95 (1.4-6.5) K/uL Lymph # (Auto) 0.81 L (1.2-3.4) K/uL Livingston # (Auto) 0.59 (0.11-0.59) K/uL Eos # (Auto) 0.34 (0-0.5) K/uL Baso # (Auto) 0.04 (0-0.2) K/uL Immature Gran # (Auto) 0.03 H (0.00-0.02) K/uL Sodium 134 L (136-145) mmol/L Potassium 4.7 (3.5-5.1) mmol/L Chloride 98 (98-107) mmol/L Carbon Dioxide 30 (21-32) mmol/L Anion Gap 6 (3-11) BUN 15 (6-23) mg/dl Creatinine 0.68 (0.6-1.4) mg/dl Est Cr Clr Drug Dosing Not Reportable Est GFR ( Amer) 100.2 ml/min Est GFR (Non-Af Amer) 86.5 ml/min BUN/Creatinine Ratio 22.1 H (10-20) Glucose 92 (70-99(Fasting)) mg/dl Calcium 8.8 (8.5-10.1) mg/dl SARS-CoV-2, RNA, NAAT NEGATIVE (NEGATIVE) Diagnostic Findings Face CT 07/22/21 16:38 CT facial bones w con HISTORY: 86 years-old Male ro R lower dental implant abscess acute facial pain with possible abscess. COMPARISON: CT head 07/05/2021 TECHNIQUE: Multiple axial CT images of the maxillofacial bones were obtained following the intravenous administration of 94 mL Optiray 320. A dose lowering technique was used consistent with the principals of ANDRESSA. FINDINGS: Image intracranial structures demonstrate no acute abnormality. Atherosclerosis of the carotid bulbs and internal carotid arteries. Streak artifact from dental hardware limits evaluation of the adjacent soft tissues. Prior bilateral lens repair. There is inflammatory stranding within the mandibular and submandibular subcutaneous tissues. Ill-defined peripheral enhancement is noted within the subendometrial tissues on image 58 of series 2. No drainable fluid collection. Subcentimeter submandibular and cervical chain lymph nodes are likely reactive. The mastoid air cells and middle ear cavities are clear. There is mild mucosal thickening of the ethmoid air cells and maxillary sinuses. Degenerative changes of the cervical spine. Demineralized appearance of the bones. There are numerous large and coalescing periapical cysts noted throughout the mandibular incisors and canines. Notably, there are osseous erosive changes with cortical dehiscence noted involving the right mandible in the expected location of the bicuspids which are absent. IMPRESSION: 1. Large coalescing periapical cysts of the mandible with osseous erosion and cortical dehiscence within the right mandibular body. 2. Cellulitis of the mandibular and submandibular tissues with submandibular phlegmon. Close clinical follow-up is needed to exclude a developing abscess. ACT 112: Negative or not required by law. The above report was generated using voice recognition software. It may contain grammatical, syntax or spelling errors. Electronically signed by: Delano Strauss M.D. 07/22/2021 6:10 PM Code Status & VTE Plan Code Status DNR/DNI VTE Prophylaxis Plan VTE Prophylaxis will be ordered: Yes PG Care Time/CCT Total # of Minutes Spent Total Time Spent with Patient: Total time spent is greater than 50% in coordination of care (as documented) at patient's floor/unit and/or counseling patient: Coding Level of Care Code INT OBSERVATION CARE 70M LVL 3 Diagnoses Iron deficiency anemia D50.9 Mild dementia F03.90 BPH (benign prostatic hyperplasia) N40.0 Lower urinary tract symptom presence: symptoms absent Atrial fibrillation I48.91 Hypertension I10 Hypertension type: unspecified Hypercholesteremia E78.00 COPD (chronic obstructive pulmonary disease) J44.9 Barretts esophagus K22.70 PVD (peripheral vascular disease) I73.9 Facial cellulitis L03.211 Thoracic spine fracture S22.009A (1) BPH (benign prostatic hyperplasia) Lower urinary tract symptom presence: symptoms absent Qualified Code(s): N40.0 - Benign prostatic hyperplasia without lower urinary tract symptoms (2) Hypertension Hypertension type: unspecified Qualified Code(s): I10 - Essential (primary) hypertension
[2021-07-22] MEDS ORDERED: ACETAMINOPHEN 325 MG TAB PO PRN (21:09)
[2021-07-22] MEDS ORDERED: MELATONIN 3 MG TAB PO PRN (21:09)
[2021-07-22] MEDS ORDERED: CALCIUM CARBONATE 500 MG CHEWABLE TAB PO PRN (21:09)
[2021-07-22] MEDS ORDERED: ONDANSETRON INJ 2 MG/ML 2 ML VIAL IV PRN (21:09)
[2021-07-22] MEDS: DOCUSATE SODIUM 100 MG CAP PO SCH (22:14)
[2021-07-22] MEDS: ATORVASTATIN 20 MG TAB PO SCH (22:14)
[2021-07-22] MEDS: METHOCARBAMOL 500 MG TABLET PO SCH (22:14)
[2021-07-22] MEDS: SACCHAROMYCES BOULARDII 250 MG CAP PO SCH (22:15)
[2021-07-22] MEDS: PIPERACILLIN/TAZOBACTAM 3.375 GM in DEXTROSE 5% 100 ML IV SCH (23:16)
--- NOTE | 2021-07-22 23:42 | Emergency Department Note ---
History of Present Illness General Chief complaint: Infection Stated complaint: INFECTION UNDER CHIN, DR JOHN Time Seen by Provider: 07/22/21 16:26 History of Present Illness Provider complaint: Mouth infection Onset (ago): day(s) 4 Location: mouth Radiation: non-radiation Associated symptoms: no chest pain, no cough, no fever/chills, no headaches, no nausea/vomiting or no shortness of breath 86-year-old male presents emergency department with daughter for mouth infection. Patient's daughter states they referred here by ENT doctor Darrell and were told that the patient has a possible infection in his mouth. They report he has been having swelling under his chin and mouth for the last 4 days. No fevers. No difficulty breathing. No vomiting. Home Medications Medication Instructions Recorded Confirmed Type multivitamin 1 tab PO QAM 05/30/18 07/22/21 History triamcinolone acetonide 0.1 % 1 applic TOPICAL BID 05/30/18 07/22/21 History topical cream Saccharomyces boulardii 250 mg 250 mg PO BID 10/14/19 07/22/21 History capsule (Florastor) compr.stocking,knee,long,large #12 ea 12/15/19 06/25/21 Rx cholecalciferol (vitamin D3) 25 1,000 unit PO QAM cap 02/13/20 07/22/21 History mcg (1,000 unit) capsule (Vitamin D3) pantoprazole 40 mg tablet,delayed 40 mg PO QAM #90 tab 08/08/20 07/22/21 Rx release (Protonix) atorvastatin 20 mg tablet (Lipitor) 20 mg PO QPM #90 tab 12/18/20 07/22/21 Rx dutasteride 0.5 mg capsule 0.5 mg PO QAM #90 cap 12/27/20 07/22/21 Rx (Avodart) tamsulosin 0.4 mg capsule 0.4 mg PO DAILY #90 cap 12/27/20 07/22/21 Rx rivaroxaban 20 mg tablet (Xarelto) 20 mg PO QAM #90 tab 03/16/21 07/22/21 Rx dupilumab 300 mg/2 mL subcutaneous See Rx Instructions .ROUTE 05/15/21 07/22/21 Rx syringe (Dupixent) .COMPLEX #4 ml acetaminophen 325 mg tablet 650 mg PO DIRECTED PRN 07/22/21 07/22/21 History (Tylenol) calcium carbonate 200 mg calcium 200 mg PO DIRECTED PRN 07/22/21 07/22/21 History (500 mg) chewable tablet (Tums) docusate sodium 100 mg capsule 100 mg PO BID 07/22/21 07/22/21 History ketoconazole 2 % topical cream 1 applic TOPICAL BID PRN 07/22/21 07/22/21 History melatonin 3 mg tablet 3 mg PO HS PRN 07/22/21 07/22/21 History methocarbamol 500 mg tablet 500 mg PO TID 07/22/21 07/22/21 History metoprolol succinate 50 mg capsule 50 mg PO DAILY 07/22/21 07/22/21 History sprinkle, ext. release 24 hr metronidazole 0.75 % topical cream 1 applic TOPICAL BID 07/22/21 07/22/21 History (MetroCream) mupirocin 2 % topical ointment 1 applic TOPICAL BID PRN 07/22/21 07/22/21 History oxycodone 5 mg tablet 5 mg PO Q6H PRN 07/22/21 07/22/21 History tiotropium bromide 18 mcg capsule 18 mcg INHALATION DAILY 07/22/21 07/22/21 History with inhalation device (Spiriva with HandiHaler) Allergies Allergy/AdvReac Type Severity Reaction Status Date / Time cephalexin [From Keflex] Allergy Intermediate Impaires Verified 07/22/21 17:27 Cognitive function cyclobenzaprine Allergy Intermediate RASH ON Verified 07/22/21 17:27 FACE flecainide Allergy Intermediate DISCOLORATION Verified 07/22/21 17:27 OF SKIN ibuprofen AdvReac Mild RHINORRHEA Verified 07/22/21 17:27 Past Med/Surg History Medical History Anemia Atrial fibrillation AVNRT (AV danette re-entry tachycardia) Barretts esophagus BPH (benign prostatic hyperplasia) Chronic obstructive pulmonary disease Esophageal dysmotility with aspiration (hx) Hiatal hernia 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, 1mm manager of change last year, 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 [facility] Inguinal hernia Polyposis of sinonasal region Poor historian Reactive airway disease Spinal stenosis, lumbar region, with neurogenic claudication Thoracic spine fracture Surgical History History of back surgery Hx of hernia repair Hx of laminectomy Family History Mother Breast cancer Type 2 diabetes mellitus without complications Other Family history non-contributory Denies family history of Ovarian cancer Prostate cancer Myocardial infarction Colorectal cancer Social History Smoking Status: Former smoker Hx Alcohol Use: No Hx Substance Use: No Preferred Language: Norwegian Communication Ability: Effective Visual Impairment: No Limitations Roust[place] Head Required: No Beliefs That Will Affect Care: None marital status: / Current Living Situation: Personal Care Facility Current Living Situation Comment: patient reportedl resides in an assisted living facility Other Information That Helps Us Care for You: No Feels Safe at Home: Yes Safety Concerns: Feels Safe At This Time Assistive Devices: Brace/Splint/Immobilizer, Cane, Glasses and Walker Review of Systems A total of 10 systems reviewed and were otherwise negative Physical Exam Vital Signs Vital Signs - 24 hr 07/22/21 16:14 Temperature 36.7 C Temperature Source Temporal Artery Scan Pulse Rate 86 Pulse Rhythm Regular Pulse Strength Normal Respiratory Rate 20 Respiratory Effort / Characteristics Non-Labored Spontaneous Respiratory Depth Normal Respiratory Pattern Regular Blood Pressure 112/60 Blood Pressure Mean 77 Blood Pressure Position Sitting Pulse Oximetry 97 Oxygen Delivery Method Room Air Sepsis Recent Fever Within 48 Hours No Sepsis New/Unexplained Change in Mental Status N/A Sepsis Action Taken by Nursing No Action Required Physical Exam GENERAL: Sitting in wheelchair in a protective vest that the daughter states he wears for his vertebral fractures. HENT: Exam performed. - Head: Normocephalic and atraumatic. - Right Ear: External ear normal. No mastoid tenderness. - Left Ear: External ear normal. No mastoid tenderness. - Mouth/Throat: The oropharynx is clear and moist. No trismus in the jaw. No dental abscesses or uvula swelling. No oropharyngeal exudate or tonsillar abscesses. No tongue elevation. EYES: Conjunctivae and EOM are normal. Pupils are equal, round, and reactive to light. Right eye exhibits no discharge. Left eye exhibits no discharge. No scleral icterus. NECK: Normal range of motion. Neck supple. No JVD present. No spinous process tenderness present. No carotid bruit present. No rigidity. No tracheal deviation and normal range of motion present. No Brudzinski's sign and no Kernig's sign noted. CV: Normal rate, irregular rhythm, normal heart sounds and intact distal pulses. There is no peripheral edema. Palpable radial pulses bue. PULM/CHEST: Effort normal and breath sounds normal. No respiratory distress. No stridor. He has no wheezes. He has no rales. - Chest Wall: He exhibits no tenderness. ABD: The abdomen is soft. MUSC/SKEL: Normal range of motion. There is no peripheral edema, tenderness or deformity. NEURO: Motor and sensation grossly intact. Course Course 162: The patient was evaluated in room C5. A complete history and physical exam was performed Cardiac monitoring: An order was placed for continuous cardiac monitoring. The monitor shows a rate of 80 with sinus rhythm 163: Patient on Xarelto. Spoke with Dr. Ramírez states he is concerned that the patient has a right lower implant dental infection and has possible early Simón's angina. He recommends CT scan, IV antibiotics, and admission to hospitalist. He states he will be on consult. 1944: Vital signs stable. Labs within normal limits. Imaging shows no abscess but does show cellulitis of the mandibular and submandibular tissues. There is a coalescing periapical cyst of the mandible with osseous erosion. Discussed these findings with Dr. Renetta kahn [facility] hospitalist who agreed to admit the patient to her service. Jihan ordered for the patient. I did speak with the patient's son who is a physician at the daughter's request and explained the findings and plan with him. Administered Medications Atorvastatin Calcium (Atorvastatin 20 Mg Tab) 20 mg PO QPM [facility] Stop: 08/21/21 21:08 Last Admin: 07/22/21 22:14 Dose: 20 mg Documented by: [id number] Docusate Sodium (Docusate Sodium 100 Mg Cap) 100 mg PO BID [facility] Stop: 08/21/21 21:08 Last Admin: 07/22/21 22:14 Dose: 100 mg Documented by: [id number] Piperacillin Sod/Tazobactam (Sod 3.375 gm/ Dextrose) 115 mls @ 28.75 mls/hr IV Q8H [facility]; Protocol Stop: 08/02/21 00:00 Last Admin: 07/22/21 23:16 Dose: 28.8 mls/hr Documented by: [id number] Methocarbamol (Methocarbamol 500 Mg Tablet) 500 mg PO TID [facility] Stop: 08/21/21 21:08 Last Admin: 07/22/21 22:14 Dose: 500 mg Documented by: [id number] Miscellaneous (Dutasteride [Avodart] 0.5 Mg Capsule - Order Awaiting Action) 1 ea N/A QS [facility] Stop: 08/22/21 00:00 Last Admin: 07/22/21 23:11 Dose: Not Given Documented by: [id number] Saccharomyces Boulardii (Saccharomyces Boulardii 250 Mg Cap) 250 mg PO BID [facility] Stop: 08/21/21 21:08 Last Admin: 07/22/21 22:15 Dose: 250 mg Documented by: [id number] Discontinued Medications Piperacillin Sod/Tazobactam Sod (Zosyn) 4.5 gm in 120 mls @ 240 mls/hr IV NOW ONE Stop: 07/22/21 19:02 Last Infusion: 07/22/21 19:35 Dose: 0 mls/hr Documented by: [id number] Admin: 07/22/21 18:54 Dose: 240 mls/hr Documented by: [id number] Ioversol (Optiray 320 100ml) 94 ml IV ONCE ONE Stop: 07/22/21 17:25 Last Admin: 07/22/21 17:24 Dose: 94 ml Documented by: [id number] Medical Decision Making Laboratory Data Result diagrams: 07/22/21 17:01 07/22/21 17:01 Lab Results 07/22/21 07/22/21 07/22/21 Range/Units 17:01 17:01 17:09 WBC 5.76 (4.8-10.8) K/uL RBC 4.33 L (4.7-6.1) M/uL Hgb 11.9 L (14.0-18.0) g/dL Hct 38.2 L (42-52) % MCV 88.2 (80-100) fL MCH 27.5 (25-34) pg MCHC 31.2 L (32-36) g/dL RDW Std Deviation 59.2 H (36.4-46.3) fL RDW Coeff of Gilda 18.5 H (11.5-14.5) % Plt Count 267 (130-400) K/uL MPV 12.0 H (7.4-10.4) fL Immature Gran % (Auto) 0.5 % Neut % (Auto) 68.6 % Lymph % (Auto) 14.1 % [place] % (Auto) 10.2 % Eos % (Auto) 5.9 % Baso % (Auto) 0.7 % Neut # (Auto) 3.95 (1.4-6.5) K/uL Lymph # (Auto) 0.81 L (1.2-3.4) K/uL Independence # (Auto) 0.59 (0.11-0.59) K/uL Eos # (Auto) 0.34 (0-0.5) K/uL Baso # (Auto) 0.04 (0-0.2) K/uL Immature Gran # (Auto) 0.03 H (0.00-0.02) K/uL Sodium 134 L (136-145) mmol/L Potassium 4.7 (3.5-5.1) mmol/L Chloride 98 (98-107) mmol/L Carbon Dioxide 30 (21-32) mmol/L Anion Gap 6 (3-11) BUN 15 (6-23) mg/dl Creatinine 0.68 (0.6-1.4) mg/dl Est Cr Clr Drug Dosing Not Reportable Est GFR ( Amer) 100.2 ml/min Est GFR (Non-Af Amer) 86.5 ml/min BUN/Creatinine Ratio 22.1 H (10-20) Glucose 92 (70-99(Fasting)) mg/dl Calcium 8.8 (8.5-10.1) mg/dl SARS-CoV-2, RNA, NAAT NEGATIVE (NEGATIVE) Imaging Data Radiologist's Impression: Face CT 07/22/21 16:38 CT facial bones w con HISTORY: 86 years-old Male ro R lower dental implant abscess acute facial pain with possible abscess. COMPARISON: CT head 07/05/2021 TECHNIQUE: Multiple axial CT images of the maxillofacial bones were obtained following the intravenous administration of 94 mL Optiray 320. A dose lowering technique was used consistent with the principals of MOSESRA. FINDINGS: Image intracranial structures demonstrate no acute abnormality. Atherosclerosis of the carotid bulbs and internal carotid arteries. Streak artifact from dental hardware limits evaluation of the adjacent soft tissues. Prior bilateral lens repair. There is inflammatory stranding within the mandibular and submandibular subcutaneous tissues. Ill-defined peripheral enhancement is noted within the subendometrial tissues on image 58 of series 2. No drainable fluid collection. Subcentimeter submandibular and cervical chain lymph nodes are likely reactive. The mastoid air cells and middle ear cavities are clear. There is mild mucosal thickening of the ethmoid air cells and maxillary sinuses. Degenerative changes of the cervical spine. Demineralized appearance of the bones. There are numerous large and coalescing periapical cysts noted throughout the mandibular incisors and canines. Notably, there are osseous erosive changes with cortical dehiscence noted involving the right mandible in the expected location of the bicuspids which are absent. IMPRESSION: 1. Large coalescing periapical cysts of the mandible with osseous erosion and cortical dehiscence within the right mandibular body. 2. Cellulitis of the mandibular and submandibular tissues with submandibular phlegmon. Close clinical follow-up is needed to exclude a developing abscess. ACT 112: Negative or not required by law. The above report was generated using voice recognition software. It may contain grammatical, syntax or spelling errors. Electronically signed by: Delano Strauss M.D. 07/22/2021 6:10 PM [facility] Narrative 1626: The patient was evaluated in room C5. A complete history and physical exam was performed Cardiac monitoring: An order was placed for continuous cardiac monitoring. The monitor shows a rate of 80 with sinus rhythm 1638: Patient on Xarelto. Spoke with Dr. Ramírez states he is concerned that the patient has a right lower implant dental infection and has possible early Simón's angina. He recommends CT scan, IV antibiotics, and admission to hospitalist. He states he will be on consult. 1945: Vital signs stable. Labs within normal limits. Imaging shows no abscess but does show cellulitis of the mandibular and submandibular tissues. There is a coalescing periapical cyst of the mandible with osseous erosion. Discussed these findings with Dr. Renetta brandon hospitalist who agreed to admit the patient to her service. Jihan ordered for the patient. I did speak with the patient's son who is a physician at the daughter's request and explained the findings and plan with him. Impression & Plan Cellulitis Discharge Plan Visit Data Chief Complaint: Infection Stated Complaint: INFECTION UNDER CHIN, REF'D Discharge Problem: Cellulitis Patient Disposition: Admitted As Inpatient Discharge Instructions Interventions: ED Discharge Assessment Last Done: 07/22/21 20:55
[2021-07-23 07:10] LABS: Basophils # (auto) 0.03 K/uL (0-0.2); Basophils % (auto) 0.5 %; Eosinophils # (auto) 0.32 K/uL (0-0.5); Eosinophils % (auto) 5.8 %; Hematocrit (blood only) 35.5 % (42-52); Hemoglobin 11.2 g/dL (14.0-18.0); Immature Granulocytes # (auto) 0.02 K/uL (0.00-0.02); Immature Granulocytes % (auto) 0.4 %; Lymphocytes # (auto) 0.69 K/uL (1.2-3.4); Lymphocytes % (auto) 12.5 %; Mean Corpuscular Hemoglobin 27.5 pg (25-34); Mean Corpuscular Hgb Conc 31.5 g/dL (32-36); Mean Corpuscular Volume 87.2 fL (80-100); Mean Platelet Volume 11.3 fL (7.4-10.4); Monocytes # (auto) 0.43 K/uL (0.11-0.59); Monocytes % (auto) 7.8 %; Neutrophils # (auto) 4.02 K/uL (1.4-6.5); Platelet Count 230 K/uL (130-400); RDW Coefficient of Variation 18.3 % (11.5-14.5); RDW Standard Deviation 58.3 fL (36.4-46.3); Red Blood Count 4.07 M/uL (4.7-6.1); White Blood Count 5.51 K/uL (4.8-10.8)
[2021-07-23 07:33] LABS: Calcium 8.6 mg/dl (8.5-10.1); Creatinine Clr Calc Pharmacy 79.9 ml/min; Est GFR (African American) 96.3 ml/min; Est GFR (Non-African American) 83.1 ml/min; Magnesium 1.8 mg/dl (1.7-2.4); Potassium 4.1 mmol/L (3.5-5.1)
[2021-07-23] MEDS: METOPROLOL SUCC 50MG EXT REL TAB PO SCH (08:18)
[2021-07-23] MEDS: DOCUSATE SODIUM 100 MG CAP PO SCH ×2 (08:18→22:01)
[2021-07-23] MEDS: CHOLECALCIFEROL 1,000 UNITS 25 MCG TAB PO SCH (08:18)
[2021-07-23] MEDS: METHOCARBAMOL 500 MG TABLET PO SCH ×3 (08:18→22:02)
[2021-07-23] MEDS: PANTOprazole 40 MG TAB PO SCH (08:19)
[2021-07-23] MEDS: UMECLIDINIUM BROMIDE 62.5MCG/BLISTER 7 PUFFS/INHALER INH SCH (08:19)
[2021-07-23] MEDS: metroNIDAZOLE 0.75% TOPICAL GEL 45 GM TUBE TOP SCH ×2 (08:19→22:02)
[2021-07-23] MEDS: MULTIVITAMIN TAB PO SCH (08:19)
[2021-07-23] MEDS: SACCHAROMYCES BOULARDII 250 MG CAP PO SCH ×2 (08:19→22:03)
[2021-07-23] MEDS: TAMSULOSIN HCL 0.4 MG CAP PO SCH (08:19)
[2021-07-23] MEDS: PIPERACILLIN/TAZOBACTAM 3.375 GM in DEXTROSE 5% 100 ML IV SCH ×2 (08:25→17:08)
[2021-07-23 15:56] LABS: iSTAT Creatinine 0.7 mg/dl (0.6-1.3); iSTAT Hemoglobin 13.6 g/dl (14.0-18.0); iSTAT Ionized Calcium 1.23 mmol/l (1.12-1.32); iSTAT Potassium 4.7 mmol/L (3.3-5.0)
--- NOTE | 2021-07-23 17:24 | Oral/Maxillofacial Consult ---
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 The chin swelling started about a few months ago and reached a peak this week. I have pain/swelling/drainage from my lower right teeth. Symptoms have been ongoing for a while a few months Now submental swelling -- looks to be a possible osteo from loss of an infected dental implant lower right side Oral Exam: Finding--Lower right side , tender gingival tissue with deep pocket formation.Teeth are in an abnormal position and removal is clinical indicated. Submandibular swelling present a few months Oral drainage lower right side where the dental implant was lost Imaging: CT facial bones w con HISTORY: 86 years-old Male R lower dental implant abscess acute facial pain with possible abscess. FINDINGS: Image intracranial structures demonstrate no acute abnormality. Atherosclerosis of the carotid bulbs and internal carotid arteries. Streak artifact from dental hardware limits evaluation of the adjacent soft tissues. Prior bilateral lens repair. There is inflammatory stranding within the mandibular and submandibular subcutaneous tissues. Ill-defined peripheral enhancement is noted within the subendometrial tissues on image 58 of series 2. No drainable fluid collection. Subcentimeter submandibular and cervical chain lymph nodes are likely reactive. The mastoid air cells and middle ear cavities are clear. There is mild mucosal thickening of the ethmoid air cells and maxillary sinuses. Degenerative changes of the cervical spine. Demineralized appearance of the bones. There are numerous large and coalescing periapical cysts noted throughout the mandibular incisors and canines. Notably, there are osseous erosive changes with cortical dehiscence noted involving the right mandible in the expected location of the bicuspids which are absent. IMPRESSION: 1. Large coalescing periapical cysts of the mandible with osseous erosion and cortical dehiscence within the right mandibular body. 2. Cellulitis of the mandibular and submandibular tissues with submandibular phlegmon. Close clinical follow-up is needed to exclude a developing abscess. Soft tissue: floor of the mouth slight swelling anterior floor of the mouth and lingual ridge right side. The tongue, hard/soft palate, posterior pharyngeal area all with in normal limits, Submental swelling--getting fluctuant ready to drain--pressure on chin will cause flow of pus into mouth. Oral Care: Overall oral care is fair Occlusion: Class I missing teeth TMJ exam: some pop, clicking,no pain, good ROM, No history of TMJ injury or dysfunction Periodontal exam: Age appropriate gingival tissue condition without evidence of periodontal pathology except lower right side Head/Neck exam: Neck is supple, FROM, Able to extend and flex neck w/o difficulty, no airway issues Submental abscess from infected teeth Possible bone breakdown from assistant terminal manager dental infection, osteomyelitis is a possibility Treatment Plan: Obtain medical clearance for General anesthesia to allow I&D and extraction of teeth as needed right side Set up with general anesthesia in hospital due to complexity of the procedure I reviewed the treatment plan and consent with the patient Understanding was expressed. Time was given for questions regarding the surgery, risks and post op care. Discussed alternative to treatment--procedure as planned, Do not do surgery Risks discussed: Bleeding,Pain,swelling,infection, dry socket, delayed healing, nerve injury to face,lips,tongue,chin area which could be permanent (rare). TMJ, jaw stiffness, change in bite (rare), ear pain (referred). Sinus problems like fistula or infection. Need for custodial antibiotics if osteo Need to leave a small root fragment in place to avoid injury to nerve or sinus. Relationship of teeth to nerve and risk of jaw fracture. Surgery to be set up tomorrow pending medical clearance for general anesthesia Will Keep NPO Hold anticoagulant ( was held as of Thursday admission). Allergies Allergy/AdvReac Type Severity Reaction Status Date / Time cephalexin [From Keflex] Allergy Intermediate Impaires Verified 07/22/21 17:27 Cognitive function cyclobenzaprine Allergy Intermediate RASH ON Verified 07/22/21 17:27 FACE flecainide Allergy Intermediate DISCOLORATION Verified 07/22/21 17:27 OF SKIN ibuprofen AdvReac Mild RHINORRHEA Verified 07/22/21 17:27 Home Medications Medication Instructions Recorded Confirmed Type multivitamin 1 tab PO QAM 05/30/18 07/22/21 History triamcinolone acetonide 0.1 % 1 applic TOPICAL BID 05/30/18 07/22/21 History topical cream Saccharomyces boulardii 250 mg 250 mg PO BID 10/14/19 07/22/21 History capsule (Florastor) compr.stocking,knee,long,large #12 ea 12/15/19 06/25/21 Rx cholecalciferol (vitamin D3) 25 1,000 unit PO QAM cap 02/13/20 07/22/21 History mcg (1,000 unit) capsule (Vitamin D3) pantoprazole 40 mg tablet,delayed 40 mg PO QAM #90 tab 08/08/20 07/22/21 Rx release (Protonix) atorvastatin 20 mg tablet (Lipitor) 20 mg PO QPM #90 tab 12/18/20 07/22/21 Rx dutasteride 0.5 mg capsule 0.5 mg PO QAM #90 cap 12/27/20 07/22/21 Rx (Avodart) tamsulosin 0.4 mg capsule 0.4 mg PO DAILY #90 cap 12/27/20 07/22/21 Rx rivaroxaban 20 mg tablet (Xarelto) 20 mg PO QAM #90 tab 03/16/21 07/22/21 Rx dupilumab 300 mg/2 mL subcutaneous See Rx Instructions .ROUTE 05/15/21 07/22/21 Rx syringe (Dupixent) .COMPLEX #4 ml acetaminophen 325 mg tablet 650 mg PO DIRECTED PRN 07/22/21 07/22/21 History (Tylenol) calcium carbonate 200 mg calcium 200 mg PO DIRECTED PRN 07/22/21 07/22/21 History (500 mg) chewable tablet (Tums) docusate sodium 100 mg capsule 100 mg PO BID 07/22/21 07/22/21 History ketoconazole 2 % topical cream 1 applic TOPICAL BID PRN 07/22/21 07/22/21 History melatonin 3 mg tablet 3 mg PO HS PRN 07/22/21 07/22/21 History methocarbamol 500 mg tablet 500 mg PO TID 07/22/21 07/22/21 History metoprolol succinate 50 mg capsule 50 mg PO DAILY 07/22/21 07/22/21 History sprinkle, ext. release 24 hr metronidazole 0.75 % topical cream 1 applic TOPICAL BID 07/22/21 07/22/21 History (MetroCream) mupirocin 2 % topical ointment 1 applic TOPICAL BID PRN 07/22/21 07/22/21 History oxycodone 5 mg tablet 5 mg PO Q6H PRN 07/22/21 07/22/21 History tiotropium bromide 18 mcg capsule 18 mcg INHALATION DAILY 07/22/21 07/22/21 History with inhalation device (Spiriva with HandiHaler) Patient History Medical History Anemia Atrial fibrillation AVNRT (AV danette re-entry tachycardia) Barretts esophagus BPH (benign prostatic hyperplasia) Chronic obstructive pulmonary disease Esophageal dysmotility with aspiration (hx) Hiatal hernia 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, 1mm change management coordinator last year, 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 [facility] Inguinal hernia Polyposis of sinonasal region Poor historian Reactive airway disease Spinal stenosis, lumbar region, with neurogenic claudication Thoracic spine fracture Surgical History History of back surgery Hx of hernia repair Hx of laminectomy Family History Mother Breast cancer Type 2 diabetes mellitus without complications Other Family history non-contributory Denies family history of Ovarian cancer Prostate cancer Myocardial infarction Colorectal cancer Social History Smoking Status: Former smoker Hx Alcohol Use: No Hx Substance Use: No Preferred Language: Kiswahili Communication Ability: Effective Visual Impairment: No 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 Required: No Beliefs That Will Affect Care: None marital status: / Current Living Situation: Personal Care Facility Current Living Situation Comment: patient reportedl resides in an assisted living facility Feels Safe at Home: Yes Assistive Devices: Walker Results & Data ([facility]) Vital Signs (Past 12 Hours) Vital Signs Temp Pulse Pulse Resp BP BP Pulse Ox 07/23/21 16:19 36.8 C 84 20 107/59 L 97 07/23/21 11:42 36.8 C 61 20 100/61 97 07/23/21 08:04 78 07/23/21 07:53 36.9 C 63 20 102/61 95 PG Care Time/CCT Total # of Minutes Spent Total Time Spent with Patient: Total time spent is greater than 50% in coordination of care (as documented) at patient's floor/unit and/or counseling patient: Coding Level of Care Code 18174 Initial Inpt Care Lvl 3 Diagnoses Cellulitis L03.211 Site of cellulitis: face Facial cellulitis 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
--- NOTE | 2021-07-23 21:11 | Hospitalist Progress Note ---
Date of Service July 23, 2021 Assessment & Plan (1) Facial cellulitis: Plan: With submental cellulitis with concern for early Aguila's angina on arrival He has no respiratory distress and vital signs are normal, afebrile. No leukocytosis. Facial CT with mandibular and submental cellulitis and submandibular phlegmon, but no drainable fluid collection, also with large coalescing periapical cyst of the mandible with osseous erosion and cortical dehiscence within the right mandibular body -Admit to medical floor telemetry given history of atrial fibrillation and potential for airway compromise if this infectious process worsens -Continue IV Zosyn -Plan is for surgical intervention tomorrow. -Patient will be NPO after midnight. Meaghan perioperative risk is 0.2% for myocardial infarction or cardiac arrest, intraoperatively or up to 30 days post-op -Tylenol as needed for pain-avoid opioids as per his daughter these make him very delirious -Okay for a diet for now -Will hold Xarelto -Follow CBC, BMP in the morning (2) Atrial fibrillation: Plan: Rate controlled Holding Xarelto as above in case of need for surgical intervention Continue home metoprolol -Monitor on telemetry (3) Thoracic spine fracture: Plan: Recently fractured T7 after a fall at home in June and was seen at [facility] where he was deemed to not be a good surgical candidate was placed in a TLSO brace Maintain brace at all times except when in bed Tylenol as needed for pain, continue home methocarbamol Has plans for follow-up with orthopedic spine surgery there in a few weeks Currently is at fdc facility at the [facility] (4) Hypertension: Plan: Blood pressures are well controlled Continue home metoprolol (5) BPH (benign prostatic hyperplasia): Plan: Currently has a Vera catheter in place as he developed urinary retention during his hospital stay at [place] a few weeks ago and then was seen by urology who recommended continuing Vera catheter for 2 more weeks Follow-up with urology as planned Maintain Vera catheter Continue tamsulosin and dutasteride (6) Iron deficiency anemia: Plan: Hemoglobin improved from previous at 11.6 He recently had acute blood loss anemia from a hematoma on his back after his thoracic spine fracture and hospital stay at [place] last month Follow CBC (7) COPD (chronic obstructive pulmonary disease): Plan: Stable, no acute issues Also with asthma Is on dupilumab Continue home Spiriva (8) Barretts esophagus: Plan: Continue home PPI (9) PVD (peripheral vascular disease): Plan: With known iliac artery aneurysm followed by vascular surgery (10) Mild dementia: Plan: Noted, supportive care (11) Hypercholesteremia: Plan: Continue atorvastatin Plan: DVT prophylaxis-holding Xarelto, continue MARY hose Disposition-bring in on observation, however I feel that he will likely need IV antibiotic therapy for at least 2 days and possible surgical intervention DNR/DNI as discussed with patient and his daughter at the bedside, however his son is his healthcare power of contract attorney Admission and Anticipated Discharge Date Admission Date: July 23, 2021 Subjective 86 yo male reports no new symptoms. updated family. Review of Systems Review of Systems: All systems reviewed & are unremarkable except as noted in HPI & below Physical Exam Physical Exam: Constitutional: WD/WN, vitals as above Eyes: PERRL, conjunctivae normal, anicteric sclerae ENMT: external ear and nose normal, oropharynx normal Ears: + hearing impairment Entire submandibular region is with erythema, induration, swelling, and positive tenderness to palpation Trachea is not deviated Neck: trachea midline, no thyromegaly Respiratory: normal respiratory effort, lungs clear to auscultation Cardiovascular: Rate/Rhythm: regular rate and + irregularly irregular Heart Sounds: no murmur Extremities: + edema (Trace pitting edema of the legs bilaterally) Chest (Breasts): Chest: normal inspection of chest Gastrointestinal (Abdomen): normal bowel sounds, soft, nontender, no hepa tosplenomegaly Musculoskeletal: Extremities: extremities normal to inspection; no cyanosis and no clubbing Skin: no rashes, warm and dry No hematoma in the back Neurologic: moves all extremities and awake; no focal motor deficits Psychiatric: A+Ox3, euthymic affect Lymphatic: no lymphedema Results & Data Results & Data ([facility]) Vital Signs (Past 12 Hours) Vital Signs Temp Pulse Resp BP BP Pulse Ox 07/23/21 18:42 36.8 C 90 20 111/67 95 07/23/21 16:19 36.8 C 84 20 107/59 L 97 07/23/21 11:42 36.8 C 61 20 100/61 97 PG Care Time/CCT Total # of Minutes Spent Total Time Spent with Patient: Total time spent is greater than 50% in coordination of care (as documented) at patient's floor/unit and/or counseling patient: Coding Level of Care Code 05277 Subseq Hosp Care Lvl 2 Diagnoses Facial cellulitis L03.211 Atrial fibrillation I48.91 Thoracic spine fracture S22.009A Hypertension I10 Hypertension type: unspecified BPH (benign prostatic hyperplasia) N40.0 Lower urinary tract symptom presence: symptoms absent Iron deficiency anemia D50.9 COPD (chronic obstructive pulmonary disease) J44.9 Barretts esophagus K22.70 PVD (peripheral vascular disease) I73.9 Mild dementia F03.90 Hypercholesteremia E78.00 (1) BPH (benign prostatic hyperplasia) Lower urinary tract symptom presence: symptoms absent Qualified Code(s): N40.0 - Benign prostatic hyperplasia without lower urinary tract symptoms (2) Hypertension Hypertension type: unspecified Qualified Code(s): I10 - Essential (primary) hypertension
[2021-07-23] MEDS: ATORVASTATIN 20 MG TAB PO SCH (22:01)
[2021-07-23] MEDS ORDERED: Nursing to Pharmacy Communication SCH (22:45)
[2021-07-24] MEDS: PIPERACILLIN/TAZOBACTAM 3.375 GM in DEXTROSE 5% 100 ML IV SCH ×3 (05:06→22:45)
[2021-07-24 07:09] LABS: Hematocrit (blood only) 37.4 % (42-52); Hemoglobin 11.8 g/dL (14.0-18.0); Mean Corpuscular Hemoglobin 27.8 pg (25-34); Mean Corpuscular Hgb Conc 31.6 g/dL (32-36); Mean Corpuscular Volume 88.2 fL (80-100); Mean Platelet Volume 11.6 fL (7.4-10.4); Platelet Count 237 K/uL (130-400); RDW Coefficient of Variation 18.2 % (11.5-14.5); Red Blood Count 4.24 M/uL (4.7-6.1); White Blood Count 5.78 K/uL (4.8-10.8)
[2021-07-24 07:22] LABS: BUN Creatinine Ratio 13.4 (10-20); Calcium 8.7 mg/dl (8.5-10.1); Creatinine Clr Calc Pharmacy 73.1 ml/min; Est GFR (African American) 92.8 ml/min; Est GFR (Non-African American) 80.1 ml/min; Potassium 4.8 mmol/L (3.5-5.1)
[2021-07-24] MEDS ORDERED: TIOTROPIUM BROMIDE 5 PUFF/90 MCG INH INH SCH (09:00)
[2021-07-24] MEDS: UMECLIDINIUM BROMIDE 62.5MCG/BLISTER 7 PUFFS/INHALER INH SCH (09:18)
[2021-07-24] MEDS: CHOLECALCIFEROL 1,000 UNITS 25 MCG TAB PO SCH (13:17)
[2021-07-24] MEDS: MULTIVITAMIN TAB PO SCH (13:17)
[2021-07-24] MEDS: DOCUSATE SODIUM 100 MG CAP PO SCH ×2 (13:17→20:39)
[2021-07-24] MEDS: METHOCARBAMOL 500 MG TABLET PO SCH ×3 (13:17→20:39)
[2021-07-24] MEDS: METOPROLOL SUCC 50MG EXT REL TAB PO SCH (13:17)
[2021-07-24] MEDS: PANTOprazole 40 MG TAB PO SCH (13:17)
[2021-07-24] MEDS: TAMSULOSIN HCL 0.4 MG CAP PO SCH (13:18)
[2021-07-24] MEDS: SACCHAROMYCES BOULARDII 250 MG CAP PO SCH ×2 (13:18→20:38)
--- NOTE | 2021-07-24 13:27 | Anesthesiology Consultation ---
Date of Service July 24, 2021 Assessment & Plan Chart Review Chart Review: Acceptable Risk for Surgery and Patient NOT seen in Pre Admission Testing History Surgery Operation Date: 07/24/21 07:00 Proposed Procedures p Incision and Drainage Facial and Neck Abscess - Den Erazo DMD s Possible Removal of Teeth - Den Erazo DMD Height/Weight Height: 6 ft 1 in Weight: 87.3 kg Allergies Allergy/AdvReac Type Severity Reaction Status Date / Time cephalexin [From Keflex] Allergy Intermediate Impaires Verified 07/22/21 17:27 Cognitive function cyclobenzaprine Allergy Intermediate RASH ON Verified 07/22/21 17:27 FACE flecainide Allergy Intermediate DISCOLORATION Verified 07/22/21 17:27 OF SKIN ibuprofen AdvReac Mild RHINORRHEA Verified 07/22/21 17:27 Medications Home Medications Medication Instructions Recorded Confirmed Last Taken multivitamin 1 tab PO QAM 05/30/18 07/22/21 07/22/21 triamcinolone acetonide 0.1 % 1 applic TOPICAL BID 05/30/18 07/22/21 07/22/21 08:00 topical cream Saccharomyces boulardii 250 mg 250 mg PO BID 10/14/19 07/22/21 07/22/21 08:00 capsule (Florastor) compr.stocking,knee,long,large #12 ea 12/15/19 06/25/21 Unknown cholecalciferol (vitamin D3) 25 1,000 unit PO QAM cap 02/13/20 07/22/21 07/22/21 mcg (1,000 unit) capsule (Vitamin D3) pantoprazole 40 mg tablet,delayed 40 mg PO QAM #90 tab 08/08/20 07/22/21 07/22/21 release (Protonix) atorvastatin 20 mg tablet (Lipitor) 20 mg PO QPM #90 tab 12/18/20 07/22/21 07/21/21 dutasteride 0.5 mg capsule 0.5 mg PO QAM #90 cap 12/27/20 07/22/21 07/22/21 (Avodart) tamsulosin 0.4 mg capsule 0.4 mg PO DAILY #90 cap 12/27/20 07/22/21 07/22/21 rivaroxaban 20 mg tablet (Xarelto) 20 mg PO QAM #90 tab 12/08/0107/22/21 07/22/21 dupilumab 300 mg/2 mL subcutaneous See Rx Instructions .ROUTE 05/15/21 07/22/21 Unknown syringe (Dupixent) .COMPLEX #4 ml acetaminophen 325 mg tablet 650 mg PO DIRECTED PRN 07/22/21 07/22/21 Unknown (Tylenol) calcium carbonate 200 mg calcium 200 mg PO DIRECTED PRN 07/22/21 07/22/21 Unknown (500 mg) chewable tablet (Tums) docusate sodium 100 mg capsule 100 mg PO BID 07/22/21 07/22/21 07/22/21 08:00 ketoconazole 2 % topical cream 1 applic TOPICAL BID PRN 07/22/21 07/22/21 Unknown melatonin 3 mg tablet 3 mg PO HS PRN 07/22/21 07/22/21 Unknown methocarbamol 500 mg tablet 500 mg PO TID 07/22/21 07/22/21 07/22/21 08:00 metoprolol succinate 50 mg capsule 50 mg PO DAILY 07/22/21 07/22/21 07/22/21 brittany, ext. release 24 hr metronidazole 0.75 % topical cream 1 applic TOPICAL BID 07/22/21 07/22/21 07/22/21 08:00 (MetroCream) mupirocin 2 % topical ointment 1 applic TOPICAL BID PRN 07/22/21 07/22/21 Unknown oxycodone 5 mg tablet 5 mg PO Q6H PRN 07/22/21 07/22/21 Unknown tiotropium bromide 18 mcg capsule 18 mcg INHALATION DAILY 07/22/21 07/22/21 Unknown with inhalation device (Spiriva with HandiHaler) Active Medications Generic Name Dose Route Start Last Admin Trade Name Freq PRN Reason Stop Dose Admin Acetaminophen 650 mg 07/22/21 21:09 07/23/21 04:06 Acetaminophen 325 Mg Tab PO 08/21/21 21:08 650 mg Q6H PRN Administration FEVER/PAIN Atorvastatin Calcium 20 mg 07/22/21 21:09 07/23/21 22:01 Atorvastatin 20 Mg Tab PO 08/21/21 21:08 20 mg QPM VIBHA Administration Docusate Sodium 100 mg 07/22/21 21:09 07/24/21 13:17 Docusate Sodium 100 Mg Cap PO 08/21/21 21:08 Not Given BID [facility] Piperacillin Sod/Tazobactam 115 mls @ 28.75 mls/hr 07/23/21 00:00 07/24/21 09:06 Sod 3.375 gm/ Dextrose IV 08/02/21 00:00 Infused Q8H [facility] Infusion Protocol Methocarbamol 500 mg 07/22/21 21:09 07/24/21 13:17 Methocarbamol 500 Mg Tablet PO 08/21/21 21:08 Not Given TID VIBHA Metoprolol Succinate 50 mg 07/23/21 09:00 07/24/21 13:17 Metoprolol Succ 50mg Ext Rel Tab PO 08/22/21 08:59 Not Given DAILY VIBHA Metronidazole 1 appln 07/23/21 09:00 07/23/21 22:02 Metronidazole 0.75% Topical Gel 45 Gm Tube TOP 08/02/21 08:59 1 appln BID [facility] Administration Miscellaneous 1 ea 07/23/21 00:00 07/24/21 11:19 Dutasteride [Avodart] 0.5 Mg Capsule - Order Awaiting Action N/A 08/22/21 00:00 Not Given QS [facility] Multivitamins 1 tab 07/23/21 09:00 07/24/21 13:17 Multivitamin Tab PO 08/22/21 08:59 Not Given QAM [facility] Pantoprazole Sodium 40 mg 07/23/21 09:00 07/24/21 13:17 Pantoprazole 40 Mg Tab PO 08/22/21 08:59 Not Given QAM [facility] Saccharomyces Boulardii 250 mg 07/22/21 21:09 07/24/21 13:18 Saccharomyces Boulardii 250 Mg Cap PO 08/21/21 21:08 Not Given BID [facility] Tamsulosin HCl 0.4 mg 07/23/21 09:00 07/24/21 13:18 Tamsulosin Hcl 0.4 Mg Cap PO 08/22/21 08:59 Not Given DAILY [facility] Umeclidinium [place] 1 puffs 07/23/21 09:00 07/24/21 09:18 Umeclidinium [place] 62.5mcg/Blister 7 Puffs/Inhaler INH 08/22/21 08:59 1 puffs DAILY VIBHA Administration Vitamin D 1,000 units 07/23/21 09:00 07/24/21 13:17 Cholecalciferol 1,000 Units 25 Mcg Tab PO 08/22/21 08:59 Not Given QAM [facility] Past Medical History Medical History Anemia Atrial fibrillation AVNRT (AV danette re-entry tachycardia) Barretts esophagus BPH (benign prostatic hyperplasia) Chronic obstructive pulmonary disease Esophageal dysmotility with aspiration (hx) Hiatal hernia 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, 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, 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 [employer] Inguinal hernia Polyposis of sinonasal region Poor historian Reactive airway disease Spinal stenosis, lumbar region, with neurogenic claudication Thoracic spine fracture Past Family History Family History Mother Breast cancer Type 2 diabetes mellitus without complications Other Family history non-contributory Denies family history of Ovarian cancer Prostate cancer Myocardial infarction Colorectal cancer Past Surgical History Surgical History History of back surgery Hx of hernia repair Hx of laminectomy Social History Smoking Status: Former smoker Hx Alcohol Use: No Alcohol type: wine and hard liquor alcohol intake frequency: a few times a week Hx Substance Use: No Physical Exam Vital Signs Last Vital Signs Temp 36.6 C 07/24/21 11:14 Pulse 73 07/24/21 11:14 Resp 18 07/24/21 11:14 BP 126/69 07/24/21 11:14 Pulse Ox 99 07/24/21 11:14 Testing Laboratory Results 07/24/21 06:44 07/24/21 06:44
[2021-07-24] MEDS ORDERED: MIDAZOLAM HCL 1 MG/ML 2ML VIAL ONE (15:23)
[2021-07-24] MEDS ORDERED: fentaNYL citrate 100 MCG/2 ML VIAL ONE (15:23)
[2021-07-24] MEDS ORDERED: BACITRACIN OINT 15 GM TUBE ONE (15:24)
[2021-07-24] MEDS ORDERED: CHLORHEXIDINE GLUCONATE 0.12% 480 ML ONE (15:24)
[2021-07-24] MEDS ORDERED: BUPIVACAINE/EPINEPHRINE 0.5% 1:200,000 1.8 ML CARP ONE (15:24)
--- NOTE | 2021-07-24 15:53 | History & Physical Bridge Note ---
Date of Service July 24, 2021 History & Physical Bridge Note I have examined the patient, reviewed the History & Physical and in the interval since the performance of the History & Physical I have noted the following changes of clinical significance: no changes noted OK for procedure today Discussed case with his son
[2021-07-24] MEDS ORDERED: ATROPINE SULFATE 0.1 MG/ML 10ML SYR IV PRN (15:55)
[2021-07-24] MEDS ORDERED: ONDANSETRON INJ 2 MG/ML 2 ML VIAL IV PRN (15:55)
[2021-07-24] MEDS ORDERED: LARYING-O-JET KIT (LTA) ONE (16:33)
[2021-07-24] MEDS ORDERED: LIDOCAINE 2% 2 ML VIAL/AMP(20MG/ML) INFIL ONE (16:33)
[2021-07-24] MEDS ORDERED: SUCCINYLCHOLINE CHLORIDE 20 MG/ML 10 ML VIAL IV ONE (16:33)
[2021-07-24] MEDS ORDERED: PROPOFOL IV EMULSION 10 MG/ML 20 ML VIAL IV ONE (16:33)
[2021-07-24] MEDS ORDERED: ONDANSETRON INJ 2 MG/ML 2 ML VIAL ONE (16:33)
[2021-07-24] MEDS: fentaNYL citrate 100 MCG/2 ML VIAL IV PRN ×2 (17:19→17:24)
--- NOTE | 2021-07-24 17:34 | Operative Report ---
PG Post Operative Report Pre & Post Diagnosis Operation Date: 07/24/21 07:00 Pre-Op Diagnosis: Submental Cellulitis/Abscess Post-Op Diagnosis: Submental Cellulitis/Abscess I identified the patient and participated in the time-out.: Yes Procedure Operation Date: 07/24/21 07:00 Actual Procedures p Incision and Drainage Facial and Neck Abscess - Den Erazo DMD Surgeon Den Erazo DMD Compass Operator none Estimated Blood Loss 5 Findings Consistent with Post-Op Diagnosis acute submental abscess--Aguila like swelling Specimens PUS and infected tissue and necrotic bone Drains yes--1/ Joel drain Complications none Indications infection face Description of Procedure Actual Procedures p Incision and Drainage Submental and floor of the mouth complicated I & D right Abscess; curetment of socket where the implant failed (Not Applicable) - Den Erazo DMD Once cleared for surgery general anesthesia was achieved, the eyes were protected by the anesthesia dept criteria. A time out was take for patient ID, antibiotics, equipment and position verification once all agreed the procedure began. Local anesthesia using Marcaine with a vasoconstrictor ( 1.8 ml per site) given into right inferior alveolar nerve A throat pack was placed after the oral cavity was irrigated with saline. Once a surgical level of anesthesia was obtained and the local anesthesia was given time for the blocks the surgery was started. I turned my attention to the infection which was located in the floor of the mouth and submental area. The tongue was elevated and there was also swelling associated with area # 28 ( see CT scan report) Incision and Drainage Using a 15 blade an incision was made lateral to the alveolar ridge and medial to the duct of the submandibular gland. Once the incision was made a lot of pus extruded from the site. This drainage was cultured for anaerobic and aerobic bacteria. A curved hemostat was carefully placed into the infected space along the medial side of the lower jaw and into the submental space. Some further drainage was now allowed to escape. I palpated the chin and submental area and no further drainage was expressed. The area was irrigated with at least 100 ml of NS solution. I now turned my attention to remove the # 28-29 area. Lower # 28-29 area The full thick Muco-periosteal flap was made on the facial aspect from # 26-30. The flap was reflected to expose the the subperiosteal space the bone adjacent to the failed implant site which fell out a few months ago. The rogue was used to remove bone, the socket was curetted, the mental nerve was intact, there was a large amount of granulation tissue and some more pus that was expressed. The drill was used to recontour the bone. At this time I placed a hemostat and advanced it superior into the floor of the mouth. A 1/4 [place] drain was placed and sutured into place with a 5-0 nylon. The intraoral site was irrigated and sutured closed with a chromic 2-0 suture. I inspected the sites to insure all bleeding was controlled. I removed the throat pack and suctioned the throat. All instrument and sponge count was correct. the patient was allowed to awake from the anesthesia. Once full awake the anesthesia tube was removed and the patient was taken to the recovery room with all vital sign stable. The patient tolerated the surgery very well. I will follow the patient in my office, Rx and instructions will be given upon discharge. I attest to the content of the Intraoperative Record and any orders documented therein. Any exceptions are noted below.
[2021-07-24] MEDS: metroNIDAZOLE 0.75% TOPICAL GEL 45 GM TUBE TOP SCH ×2 (17:36→20:39)
--- NOTE | 2021-07-24 17:55 | Anesthesiology Progress Note ---
Date of Service July 24, 2021 Anesthesia Post Procedure Vital Signs Vital Signs: Temp Pulse Pulse Resp BP BP Pulse Ox 07/24/21 17:49 36.4 C L 67 20 124/61 97 07/24/21 17:30 36.1 C L 68 16 135/62 98 07/24/21 17:20 66 16 136/66 98 07/24/21 17:10 36.0 C L 81 16 137/85 98 07/24/21 15:22 37 C 72 18 118/69 98 07/24/21 15:00 36.6 C 84 18 144/80 H 94 07/24/21 11:14 36.6 C 73 18 126/69 99 07/24/21 07:20 36.5 C 82 18 129/72 91 07/23/21 23:03 36.5 C 66 18 124/73 96 07/23/21 18:42 36.8 C 90 20 111/67 95 Transfer of Care Handoff Completed per policy Notes Mental Status: alert / awake / arousable Patient Amnestic to Procedure: Yes Nausea / Vomiting: adequately controlled Pain: adequately controlled Airway Patency, RR, SpO2: stable & adequate BP & HR: stable & adequate Hydration State: stable & adequate Anesthetic Complications: no major complications apparent
[2021-07-24] MEDS: ATORVASTATIN 20 MG TAB PO SCH (20:39)
--- NOTE | 2021-07-25 00:06 | Communication Note ---
Date of Service: July 25, 2021 Notified by nursing at midnight that patient had a transfer order to med tele postop. However, patient is currently on med/surg without tele, room 375-2. The surgery was 6 hours ago and patient is stable. Therefore, will not transfer to med tele at this time. Sohail Yap PGY2 night resident
[2021-07-25] MEDS: PIPERACILLIN/TAZOBACTAM 3.375 GM in DEXTROSE 5% 100 ML IV SCH ×2 (05:29→17:35)
--- NOTE | 2021-07-25 05:49 | Hospitalist Progress Note ---
Date of Service July 24, 2021 Assessment & Plan (1) Facial cellulitis: Plan: With submental cellulitis with concern for early Aguila's angina on arrival He has no respiratory distress and vital signs are normal, afebrile. No leukocytosis. Facial CT with mandibular and submental cellulitis and submandibular phlegmon, but no drainable fluid collection, also with large coalescing periapical cyst of the mandible with osseous erosion and cortical dehiscence within the right mandibular body -Admit to medical floor telemetry given history of atrial fibrillation and potential for airway compromise if this infectious process worsens -Continue IV Zosyn -Plan is for surgical intervention later today. Meaghan perioperative risk is 0.2% for myocardial infarction or cardiac arrest, intraoperatively or up to 30 days post-op -Tylenol as needed for pain-avoid opioids as per his daughter these make him very delirious -Okay for a diet for now -Will hold Xarelto -Follow CBC, BMP in the morning (2) Atrial fibrillation: Plan: Rate controlled Holding Xarelto as above in case of need for surgical intervention Continue home metoprolol -Monitor on telemetry (3) Thoracic spine fracture: Plan: Recently fractured T7 after a fall at home in June and was seen at [facility] where he was deemed to not be a good surgical candidate was placed in a TLSO brace Maintain brace at all times except when in bed Tylenol as needed for pain, continue home methocarbamol Has plans for follow-up with orthopedic spine surgery there in a few weeks [facility] (4) Hypertension: Plan: Blood pressures are well controlled Continue home metoprolol (5) BPH (benign prostatic hyperplasia): Plan: Currently has a Vera catheter in place as he developed urinary retention during his hospital stay at [place] a few weeks ago and then was seen by urology who recommended continuing Vera catheter for 2 more weeks Follow-up with urology as planned Maintain Vera catheter Continue tamsulosin and dutasteride (6) Iron deficiency anemia: Plan: Hemoglobin improved from previous at 11.6 He recently had acute blood loss anemia from a hematoma on his back after his thoracic spine fracture and hospital stay at [place] last month Follow CBC (7) COPD (chronic obstructive pulmonary disease): Plan: Stable, no acute issues Also with asthma Is on dupilumab Continue home Spiriva (8) Barretts esophagus: Plan: Continue home PPI (9) PVD (peripheral vascular disease): Plan: With known iliac artery aneurysm followed by vascular surgery (10) Mild dementia: Plan: Noted, supportive care (11) Hypercholesteremia: Plan: Continue atorvastatin Plan: DVT prophylaxis-holding Xarelto, continue MARY hose Disposition-bring in on observation, however I feel that he will likely need IV antibiotic therapy for at least 2 days and possible surgical intervention DNR/DNI as discussed with patient and his daughter at the bedside, however his son is his healthcare power of privacy attorney Admission and Anticipated Discharge Date Admission Date: July 23, 2021 Subjective Patient has no new symptoms. Review of Systems Review of Systems: All systems reviewed & are unremarkable except as noted in HPI & below Physical Exam Physical Exam: Constitutional: WD/WN, vitals as above Eyes: PERRL, conjunctivae normal, anicteric sclerae ENMT: external ear and nose normal, oropharynx normal Ears: + hearing impairment Entire submandibular region is with erythema, induration, swelling, and positive tenderness to palpation Trachea is not deviated Neck: trachea midline, no thyromegaly Respiratory: normal respiratory effort, lungs clear to auscultation Cardiovascular: Rate/Rhythm: regular rate and + irregularly irregular Heart Sounds: no murmur Extremities: + edema (Trace pitting edema of the legs bilaterally) Chest (Breasts): Chest: normal inspection of chest Gastrointestinal (Abdomen): normal bowel sounds, soft, nontender, no hepatosplenomegaly Musculoskeletal: Extremities: extremities normal to inspection; no cyanosis and no clubbing Skin: no rashes, warm and dry No hematoma in the back Neurologic: moves all extremities and awake; no focal motor deficits Psychiatric: A+Ox3, euthymic affect Lymphatic: no lymphedema Results & Data Results & Data ([facility]) Vital Signs (Past 12 Hours) Vital Signs Temp Pulse Pulse Resp BP BP Pulse Ox 07/25/21 03:40 36.6 C 77 16 147/78 H 94 07/24/21 23:19 36.9 C 76 18 149/68 H 97 07/24/21 21:09 07/24/21 20:56 36.4 C L 81 20 132/75 96 07/24/21 19:57 36.4 C L 89 18 138/77 07/24/21 18:43 36.4 C L 65 16 151/77 H 97 07/24/21 18:22 36.5 C 68 18 148/73 H 98 07/24/21 17:49 36.4 C L 67 20 124/61 97 Pulse Ox 07/25/21 03:40 07/24/21 23:19 07/24/21 21:09 96 07/24/21 20:56 07/24/21 19:57 07/24/21 18:43 07/24/21 18:22 07/24/21 17:49 PG Care Time/CCT Total # of Minutes Spent Total Time Spent with Patient: Total time spent is greater than 50% in coordination of care (as documented) at patient's floor/unit and/or counseling patient: Coding Level of Care Code 69876 Subseq Hosp Care Lvl 2 Diagnoses Facial cellulitis L03.211 Atrial fibrillation I48.91 Thoracic spine fracture S22.009A Hypertension I10 Hypertension type: unspecified BPH (benign prostatic hyperplasia) N40.0 Lower urinary tract symptom presence: symptoms absent Iron deficiency anemia D50.9 COPD (chronic obstructive pulmonary disease) J44.9 Barretts esophagus K22.70 PVD (peripheral vascular disease) I73.9 Mild dementia F03.90 Hypercholesteremia E78.00 (1) Hypertension Hypertension type: unspecified Qualified Code(s): I10 - Essential (primary) hypertension (2) BPH (benign prostatic hyperplasia) Lower urinary tract symptom presence: symptoms absent Qualified Code(s): N40.0 - Benign prostatic hyperplasia without lower urinary tract symptoms
--- NOTE | 2021-07-25 07:06 | Oral/Maxillofacial Progress Nt ---
Date of Service July 25, 2021 Post Op infection evaluation OK for D/C as per Oral Surgery The infected area is responding well Swelling is down surrounding tissue is softer No oral drainage is noted. Drain functioning well I will plan removal on ThursdayJuly 30 at 2:30. Cultures pending I will review once completed Infection has responded very well to the antibiotics and the I and D. I requested that the patient continue with massage, heat and wound care. At this time the area is responded well to treatment. RTC for drain removal on at 2:30 I called his son and gave him an update last night . Assessment & Plan Admission and Anticipated Discharge Date Admission Date: July 23, 2021 Results & Data ([facility]) Vital Signs (Past 12 Hours) Vital Signs Temp Pulse Resp BP BP Pulse Ox Pulse Ox 07/25/21 03:40 36.6 C 77 16 147/78 H 94 07/24/21 23:19 36.9 C 76 18 149/68 H 97 07/24/21 21:09 96 07/24/21 20:56 36.4 C L 81 20 132/75 96 07/24/21 19:57 36.4 C L 89 18 138/77 PG Care Time/CCT Total # of Minutes Spent Total Time Spent with Patient: Total time spent is greater than 50% in coordination of care (as documented) at patient's floor/unit and/or counseling patient: Coding Level of Care Code None
[2021-07-25] MEDS: CHOLECALCIFEROL 1,000 UNITS 25 MCG TAB PO SCH (08:57)
[2021-07-25] MEDS: MULTIVITAMIN TAB PO SCH (08:58)
[2021-07-25] MEDS: METOPROLOL SUCC 50MG EXT REL TAB PO SCH (08:58)
[2021-07-25] MEDS: METHOCARBAMOL 500 MG TABLET PO SCH ×3 (08:58→20:26)
[2021-07-25] MEDS: PANTOprazole 40 MG TAB PO SCH (08:59)
[2021-07-25] MEDS: SACCHAROMYCES BOULARDII 250 MG CAP PO SCH ×2 (09:00→20:27)
[2021-07-25] MEDS: UMECLIDINIUM BROMIDE 62.5MCG/BLISTER 7 PUFFS/INHALER INH SCH (09:00)
[2021-07-25] MEDS: TAMSULOSIN HCL 0.4 MG CAP PO SCH (09:00)
[2021-07-25] MEDS: metroNIDAZOLE 0.75% TOPICAL GEL 45 GM TUBE TOP SCH ×2 (13:18→20:27)
--- NOTE | 2021-07-25 14:23 | Hospitalist Progress Note ---
Date of Service July 25, 2021 Assessment & Plan (1) Facial cellulitis: Plan: -With submental cellulitis with concern for early Aguila's angina on arrival -He has no respiratory distress and vital signs are normal, afebrile. No leukocytosis. -Facial CT with mandibular and submental cellulitis and submandibular phlegmon, but no drainable fluid collection, also with large coalescing periapical cyst of the mandible with osseous erosion and cortical dehiscence within the right mandibular body - s/p I&D on 07/24 (periapical abscess)- Dr. Erazo - Remains empirically on Zosyn - White blood cell count remains normal. Patient remains afebrile and hemodynamically stable. -There was suggestion that he can be discharged home with oral antibiotics; however, given osseous erosion noted on imaging, I am concerned that this is consistent with osteomyelitis. -- I have reached out to radiology and findings are in fact consistent with OSTEOMYELITIS - see below (2) Osteomyelitis: Plan: -Osteomyelitis/destructive changes seen about the right mandible -Will require 6 weeks of IV antibiotics -Currently on Zosyn empirically. This should provide adequate coverage. Will de-escalation to Unasyn as do not necessarily need antipseudomonal coverage -I have consulted infectious disease for guidance regarding what specific antibiotic to utilize given lack of helpful culture data (patient was on antibiotics prior to obtaining culture data/sampling)--appreciate assistance -PICC line ordered. Obtain written consent (3) Atrial fibrillation: Plan: Rate controlled Xarelto on hold given surgical intervention. can resume once appropriate hemostasis has been achievedat discretion of surgeon Continue home metoprolol -Monitor on telemetry (4) Thoracic spine fracture: Plan: Recently fractured T7 after a fall at home in June and was seen at [facility] where he was deemed to not be a good surgical candidate was placed in a TLSO brace Maintain brace at all times except when in bed Tylenol as needed for pain, continue home methocarbamol Has plans for follow-up with orthopedic spine surgery there in a few weeks Currently is at alf facility at the [facility] (5) Hypertension: Plan: Blood pressures are well controlled Continue home metoprolol (6) BPH (benign prostatic hyperplasia): Plan: Currently has a Vera catheter in place as he developed urinary retention during his hospital stay at [facility] a few weeks ago and then was seen by urology who recommended continuing Vera catheter for 2 more weeks Follow-up with urology as planned Maintain Vera catheter Continue tamsulosin and dutasteride (7) Iron deficiency anemia: Plan: Hemoglobin improved from previous at 11.6 He recently had acute blood loss anemia from a hematoma on his back after his thoracic spine fracture and hospital stay at [facility] last month Follow CBC (8) COPD (chronic obstructive pulmonary disease): Plan: Stable, no acute issues Also with asthma Is on dupilumab Continue home Spiriva (9) Barretts esophagus: Plan: Continue home PPI (10) PVD (peripheral vascular disease): Plan: With known iliac artery aneurysm followed by vascular surgery (11) Mild dementia: Plan: Noted, supportive care (12) Hypercholesteremia: Plan: Continue atorvastatin Plan: Attempted to call patient's son (Alvaro) who is his power of commercial attorney and a physician. A message was left. Did talk with Alessandra (real estate valuer) who reports she will update Alvaro. Admission and Anticipated Discharge Date Admission Date: July 23, 2021 Subjective Patient seen on daily rounds today. Hospitalized on 07/22 with concern for periapical abscess. Reports pain in the lower jaw ongoing X 1 month. Seen by ENT and given concern for cellulitis/erysipelas and abscess, he was sent to the emergency department. There he was found to be afebrile without leukocytosis. A CT scan showed a large periapical cyst with associated osseous erosion of the right mandible. 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 Seen by Dr. Erazo and underwent I&D of the abscess on 07/24 with subsequent packing of the wound. Remains on Zosyn empirically. Culture data currently with pinpoint growthreincubating. Patient does complain of pain in the jaw when he eats or talks but otherwise he denies fevers or chills, chest pain, shortness of breath, abdominal pain, nausea or vomiting. Review of Systems Review of Systems: All systems reviewed and are unremarkable except as noted in HPI and below Denies fevers, chills, headache, nasal congestion, sore throat, cough, chest pain, shortness of breath, palpitations, orthopnea, PND, abdominal pain, nausea, vomiting, diarrhea, constipation, dysuria, hematuria, frequency, back pain, joint pain or swelling, easy bruising or bleeding, Physical Exam Physical Exam: General: Resting comfortably in his hospital bed. He does not appear ill or toxic NAD. HEENT: Mild erythema noted of the bilateral chin. Surgical dressing under the lower mandible. Packing noted to the wound. Periwound erythema is mild Neck: No JVD. Negative hepatojugular reflex Cardiac: Irregular with controlled rate Lungs: CTA without W/R/R Abdomen: Normoactive X4. Soft and nontender in all quadrants. Noted to have an indwelling Vera catheter. Patient reports this is chronic Extremities: No peripheral clubbing cyanosis or edema Neuro: A&O X4. Cranial nerves II through XII are grossly intact. No focal neuro deficits Skin: See above Psych: Appropriate affect. Pleasant and cooperative Results & Data Results & Data ([facility]) Vital Signs (Past 12 Hours) Vital Signs Temp Pulse Pulse Resp BP BP Pulse Ox 07/25/21 12:00 36.9 C 69 18 119/64 96 07/25/21 07:14 36.9 C 71 16 133/76 99 07/25/21 03:40 36.6 C 77 16 147/78 H 94 Laboratory Results 07/24/21 06:44 07/24/21 06:44 PG Care Time/CCT Total # of Minutes Spent Total Time Spent with Patient: Total time spent is greater than 50% in coordination of care (as documented) at patient's floor/unit and/or counseling patient: Coding Level of Care Code 74522 Subseq Hosp Care Lvl 3 Diagnoses Facial cellulitis L03.211 Atrial fibrillation I48.91 Thoracic spine fracture S22.009A Hypertension I10 Hypertension type: unspecified BPH (benign prostatic hyperplasia) N40.0 Lower urinary tract symptom presence: symptoms absent Iron deficiency anemia D50.9 COPD (chronic obstructive pulmonary disease) J44.9 Barretts esophagus K22.70 PVD (peripheral vascular disease) I73.9 Mild dementia F03.90 Hypercholesteremia E78.00 Osteomyelitis M86.9 (1) Hypertension Hypertension type: unspecified Qualified Code(s): I10 - Essential (primary) hypertension (2) BPH (benign prostatic hyperplasia) Lower urinary tract symptom presence: symptoms absent Qualified Code(s): N40.0 - Benign prostatic hyperplasia without lower urinary tract symptoms
[2021-07-25] MEDS: DOCUSATE SODIUM 100 MG CAP PO SCH ×2 (18:46→20:26)
[2021-07-25] MEDS: ATORVASTATIN 20 MG TAB PO SCH (20:26)
[2021-07-26] MEDS: AMPICILLIN/SULBACTAM SOD 3,000 MG in 0.9 % SODIUM CHLORIDE 100 ML IV SCH ×4 (01:05→17:35)
[2021-07-26 08:07] LABS: Basophils # (auto) 0.03 K/uL (0-0.2); Basophils % (auto) 0.5 %; Eosinophils # (auto) 0.29 K/uL (0-0.5); Eosinophils % (auto) 4.5 %; Hematocrit (blood only) 39.6 % (42-52); Hemoglobin 12.3 g/dL (14.0-18.0); Immature Granulocytes # (auto) 0.03 K/uL (0.00-0.02); Immature Granulocytes % (auto) 0.5 %; Lymphocytes # (auto) 0.75 K/uL (1.2-3.4); Lymphocytes % (auto) 11.7 %; Mean Corpuscular Hemoglobin 27.1 pg (25-34); Mean Corpuscular Hgb Conc 31.1 g/dL (32-36); Mean Corpuscular Volume 87.2 fL (80-100); Mean Platelet Volume 11.6 fL (7.4-10.4); Monocytes # (auto) 0.56 K/uL (0.11-0.59); Monocytes % (auto) 8.7 %; Neutrophils # (auto) 4.75 K/uL (1.4-6.5); Neutrophils % (auto) 74.1 %; Platelet Count 225 K/uL (130-400); RDW Coefficient of Variation 17.8 % (11.5-14.5); RDW Standard Deviation 57.3 fL (36.4-46.3); Red Blood Count 4.54 M/uL (4.7-6.1); White Blood Count 6.41 K/uL (4.8-10.8)
[2021-07-26 08:29] LABS: BUN Creatinine Ratio 13.2 (10-20); Calcium 8.6 mg/dl (8.5-10.1); Creatinine Clr Calc Pharmacy 78.8 ml/min; Est GFR (African American) 95.7 ml/min; Est GFR (Non-African American) 82.6 ml/min; Magnesium 1.9 mg/dl (1.7-2.4); Potassium 4.1 mmol/L (3.5-5.1)
[2021-07-26] MEDS: METHOCARBAMOL 500 MG TABLET PO SCH ×3 (09:08→20:25)
[2021-07-26] MEDS: MULTIVITAMIN TAB PO SCH (09:09)
[2021-07-26] MEDS: METOPROLOL SUCC 50MG EXT REL TAB PO SCH (09:09)
[2021-07-26] MEDS: PANTOprazole 40 MG TAB PO SCH (09:09)
[2021-07-26] MEDS: CHOLECALCIFEROL 1,000 UNITS 25 MCG TAB PO SCH (09:09)
[2021-07-26] MEDS: ADVANCED PROBIOTIC 1250 MG CAPSULE PO SCH (09:10)
[2021-07-26] MEDS: SACCHAROMYCES BOULARDII 250 MG CAP PO SCH ×2 (09:10→20:24)
[2021-07-26] MEDS: TAMSULOSIN HCL 0.4 MG CAP PO SCH (09:10)
[2021-07-26] MEDS: UMECLIDINIUM BROMIDE 62.5MCG/BLISTER 7 PUFFS/INHALER INH SCH (09:12)
[2021-07-26] MEDS: metroNIDAZOLE 0.75% TOPICAL GEL 45 GM TUBE TOP SCH ×2 (09:12→20:24)
[2021-07-26] MEDS: DOCUSATE SODIUM 100 MG CAP PO SCH ×2 (09:23→20:25)
--- NOTE | 2021-07-26 14:41 | Hospitalist Progress Note ---
Date of Service July 26, 2021 Assessment & Plan (1) Facial cellulitis: Plan: - With submental cellulitis with concern for early Aguila's angina on arrival - He has no respiratory distress and vital signs are normal, afebrile. No leukocytosis. - Facial CT with mandibular and submental cellulitis and submandibular phlegmon, but no drainable fluid collection, also with large coalescing periapical cyst of the mandible with osseous erosion and cortical dehiscence within the right mandibular body - s/p I&D on 07/24 (periapical abscess)- Dr. Erazo - Remains empirically on Zosyn - White blood cell count remains normal. Patient remains afebrile and hemodynamically stable. - There was suggestion that he can be discharged home with oral antibiotics; however, given osseous erosion noted on imaging, this is consistent with osteomyelitis (2) Osteomyelitis: Plan: - Osteomyelitis/destructive changes seen about the right mandible - Will require 6 weeks of IV antibiotics - Placed on Zosyn empirically but de-escalated to Unasyn as do not necessarily need antipseudomonal coverage on 07/26 - I have consulted infectious disease for guidance regarding what specific antibiotic to utilize given lack of helpful culture data (patient was on antibiotics prior to obtaining culture data/sampling)--appreciate assistance - PICC line ordered. Obtain written consent (3) Atrial fibrillation: Plan: - Rate controlled - Xarelto on hold given surgical intervention. Will resume 07/27 if ok w/ OMFS - Continue home metoprolol - Currently on tele - controlled rate, will d/c tele (4) Thoracic spine fracture: Plan: - Recently fractured T7 after a fall at home in June and was seen at [facility] where he was deemed to not be a good surgical candidate was placed in a TLSO brace - Maintain brace at all times except when in bed - Tylenol as needed for pain, continue home methocarbamol - Has plans for follow-up with orthopedic spine surgery there in a few weeks - Currently is at alf facility at the [facility] (5) Hypertension: Plan: - Blood pressures are well controlled - Continue home metoprolol (6) BPH (benign prostatic hyperplasia): Plan: - Currently has a Vera catheter in place as he developed urinary retention during his hospital stay at [place] a few weeks ago and then was seen by urology who recommended continuing Vera catheter for 2 more weeks - Follow-up with urology as planned - Maintain Vera catheter - Continue tamsulosin and dutasteride (7) Iron deficiency anemia: Plan: - Hemoglobin improved from previous at 11.6 - He recently had acute blood loss anemia from a hematoma on his back after his thoracic spine fracture and hospital stay at [place] last month - Follow CBC (8) COPD (chronic obstructive pulmonary disease): Plan: - Stable, no acute issues - Also with asthma - Is on dupilumab - Continue home Spiriva (9) Barretts esophagus: Plan: - Continue home PPI (10) PVD (peripheral vascular disease): Plan: - With known iliac artery aneurysm followed by vascular surgery (11) Mild dementia: Plan: - Noted, supportive care (12) Hypercholesteremia: Plan: - Continue atorvastatin Plan: Both previous provider as well as myself attempted to call patient's son (Alvaro) who is his power of tax associate attorney and a physician, no answer. Previous provider called Alessandra (national facilities manager) on 07/25 who reports she will update Alvaro--no change or update as of 07/26. I did attempt to contact Alessandra on 07/26 and no answer. Follow up labs in AM. [facility] cannot take back until Sunday 07/30 when they will be able to obtain the Unasyn or whatever antibiotic is advised by ID. Awaiting ID input, anticipate they will not see pt until Saturday 07/29 given they did not see pt today (07/26) Admission and Anticipated Discharge Date Admission Date: July 23, 2021 Subjective Patient seen on daily rounds today. Hospitalized on 07/22 with concern for periapical abscess. Reports pain in the lower jaw ongoing X 1 month. Seen by ENT and given concern for cellulitis/erysipelas and abscess, he was sent to the emergency department. There he was found to be afebrile without leukocytosis. A CT scan showed a large periapical cyst with associated osseous erosion of the right mandible. 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 Seen by Dr. Erazo and underwent I&D of the abscess on 07/24 with subsequent packing of the wound. Put on Zosyn empirically. Culture data yields no growth at this time, antibiotics de-escalated to Unasyn 07/26. Patient does complain of pain in the jaw when he eats or talks but otherwise he denies fevers or chills, chest pain, shortness of breath, abdominal pain, nausea or vomiting. Review of Systems Review of Systems: All systems reviewed and are unremarkable except as noted in HPI and below Denies fevers, chills, headache, nasal congestion, sore throat, cough, chest pain, shortness of breath, palpitations, orthopnea, PND, abdominal pain, nausea, vomiting, diarrhea, constipation, dysuria, hematuria, frequency, back pain, joint pain or swelling, easy bruising or bleeding, Physical Exam Physical Exam: GENERAL: 86 yo well-developed, well-nourished WM. NAD. HENT: Submental edema, packing visualized from surgical site. Dressing in place. LUNGS: Clear to auscultation bilaterally. CARDIOVASCULAR: Irregular with controlled rate ABDOMEN: Soft, non-tender and non-distended. BS normal x 4 quad. EXTREMITIES: No edema. Non-tender. Peripheral pulses +2/4. NEUROLOGIC: A&O x3. PSYCHIATRIC: Cooperative. Appropriate mood and affect. SKIN: Warm, dry, intact. See ENT exam Results & Data Results & Data ([facility]) Vital Signs (Past 12 Hours) Vital Signs Temp Pulse Resp BP Pulse Ox 07/26/21 09:07 81 127/73 07/26/21 07:28 36.7 C 81 12 136/72 95 Laboratory Results 07/26/21 07:48 07/26/21 07:48 PG Care Time/CCT Total # of Minutes Spent Total Time Spent with Patient: Total time spent is greater than 50% in coordination of care (as documented) at patient's floor/unit and/or counseling patient: Coding Level of Care Code 43670 Subseq Hosp Care Lvl 3 Diagnoses Facial cellulitis L03.211 Osteomyelitis M86.9 Atrial fibrillation I48.91 Thoracic spine fracture S22.009A Hypertension I10 Hypertension type: unspecified BPH (benign prostatic hyperplasia) N40.0 Lower urinary tract symptom presence: symptoms absent Iron deficiency anemia D50.9 COPD (chronic obstructive pulmonary disease) J44.9 Barretts esophagus K22.70 PVD (peripheral vascular disease) I73.9 Mild dementia F03.90 Hypercholesteremia E78.00 (1) BPH (benign prostatic hyperplasia) Lower urinary tract symptom presence: symptoms absent Qualified Code(s): N40.0 - Benign prostatic hyperplasia without lower urinary tract symptoms (2) Hypertension Hypertension type: unspecified Qualified Code(s): I10 - Essential (primary) hypertension
[2021-07-26] MEDS: ATORVASTATIN 20 MG TAB PO SCH (20:25)
[2021-07-27] MEDS: AMPICILLIN/SULBACTAM SOD 3,000 MG in 0.9 % SODIUM CHLORIDE 100 ML IV SCH ×4 (00:25→17:42)
[2021-07-27 06:44] LABS: Basophils # (auto) 0.03 K/uL (0-0.2); Basophils % (auto) 0.4 %; Eosinophils # (auto) 0.32 K/uL (0-0.5); Eosinophils % (auto) 4.2 %; Hematocrit (blood only) 36.7 % (42-52); Hemoglobin 11.4 g/dL (14.0-18.0); Immature Granulocytes # (auto) 0.02 K/uL (0.00-0.02); Immature Granulocytes % (auto) 0.3 %; Lymphocytes % (auto) 13.3 %; Mean Corpuscular Hemoglobin 27.4 pg (25-34); Mean Corpuscular Hgb Conc 31.1 g/dL (32-36); Mean Corpuscular Volume 88.2 fL (80-100); Mean Platelet Volume 11.4 fL (7.4-10.4); Monocytes # (auto) 0.49 K/uL (0.11-0.59); Monocytes % (auto) 6.5 %; Neutrophils # (auto) 5.68 K/uL (1.4-6.5); Neutrophils % (auto) 75.3 %; Platelet Count 212 K/uL (130-400); RDW Coefficient of Variation 17.9 % (11.5-14.5); RDW Standard Deviation 57.9 fL (36.4-46.3); Red Blood Count 4.16 M/uL (4.7-6.1); White Blood Count 7.54 K/uL (4.8-10.8)
[2021-07-27 07:07] LABS: BUN Creatinine Ratio 15.4 (10-20); Calcium 8.2 mg/dl (8.5-10.1); Creatinine Clr Calc Pharmacy 76.8 ml/min; Est GFR (African American) 94.7 ml/min; Est GFR (Non-African American) 81.7 ml/min; Potassium 3.9 mmol/L (3.5-5.1)
[2021-07-27] MEDS: MULTIVITAMIN TAB PO SCH (08:49)
[2021-07-27] MEDS: TAMSULOSIN HCL 0.4 MG CAP PO SCH (08:50)
[2021-07-27] MEDS: METOPROLOL SUCC 50MG EXT REL TAB PO SCH (08:50)
[2021-07-27] MEDS: CHOLECALCIFEROL 1,000 UNITS 25 MCG TAB PO SCH (08:50)
[2021-07-27] MEDS: DOCUSATE SODIUM 100 MG CAP PO SCH ×2 (08:51→20:07)
[2021-07-27] MEDS: PANTOprazole 40 MG TAB PO SCH (08:51)
[2021-07-27] MEDS: METHOCARBAMOL 500 MG TABLET PO SCH ×3 (08:51→20:07)
[2021-07-27] MEDS: ADVANCED PROBIOTIC 1250 MG CAPSULE PO SCH (08:52)
[2021-07-27] MEDS: SACCHAROMYCES BOULARDII 250 MG CAP PO SCH ×2 (08:52→20:07)
[2021-07-27] MEDS: UMECLIDINIUM BROMIDE 62.5MCG/BLISTER 7 PUFFS/INHALER INH SCH (08:52)
[2021-07-27] MEDS: metroNIDAZOLE 0.75% TOPICAL GEL 45 GM TUBE TOP SCH ×2 (08:53→20:07)
[2021-07-27] MEDS ORDERED: RIVAROXABAN 20 MG TAB PO SCH (09:00)
--- NOTE | 2021-07-27 09:36 | ENT Consultation ---
Date of Consultation July 27, 2021 Assessment & Plan (1) Aguila's angina: Status post incision and drainage by Dr. Erazo, doing well, recovering well. He will follow up with Dr. Erazo. 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 I diagnosed Aguila's angina most likely from the right lower molar implant. Admitted and treated by Dr. Erazo with incision and drainage. Recovering well. Tolerating diet. Allergies Allergy/AdvReac Type Severity Reaction Status Date / Time cephalexin [From Keflex] Allergy Intermediate Impaires Verified 07/24/21 15:31 Cognitive function cyclobenzaprine Allergy Intermediate RASH ON Verified 07/24/21 15:31 FACE flecainide Allergy Intermediate DISCOLORATION Verified 07/24/21 15:31 OF SKIN ibuprofen AdvReac Mild RHINORRHEA Verified 07/24/21 15:31 Home Medications Medication Instructions Recorded Confirmed Type multivitamin 1 tab PO QAM 05/30/18 07/22/21 History triamcinolone acetonide 0.1 % 1 applic TOPICAL BID 05/30/18 07/22/21 History topical cream Saccharomyces boulardii 250 mg 250 mg PO BID 10/14/19 07/22/21 History capsule (Florastor) compr.stocking,knee,long,large #12 ea 12/15/19 06/25/21 Rx cholecalciferol (vitamin D3) 25 1,000 unit PO QAM cap 02/13/20 07/22/21 History mcg (1,000 unit) capsule (Vitamin D3) atorvastatin 20 mg tablet (Lipitor) 20 mg PO QPM #90 tab 12/18/20 07/22/21 Rx dutasteride 0.5 mg capsule 0.5 mg PO QAM #90 cap 12/27/20 07/22/21 Rx (Avodart) tamsulosin 0.4 mg capsule 0.4 mg PO DAILY #90 cap 12/27/20 07/22/21 Rx rivaroxaban 20 mg tablet (Xarelto) 20 mg PO QAM #90 tab 03/16/21 07/22/21 Rx dupilumab 300 mg/2 mL subcutaneous See Rx Instructions .ROUTE 05/15/21 07/22/21 Rx syringe (Dupixent) .COMPLEX #4 ml acetaminophen 325 mg tablet 650 mg PO DIRECTED PRN 07/22/21 07/22/21 History (Tylenol) calcium carbonate 200 mg calcium 200 mg PO DIRECTED PRN 07/22/21 07/22/21 History (500 mg) chewable tablet (Tums) docusate sodium 100 mg capsule 100 mg PO BID 07/22/21 07/22/21 History ketoconazole 2 % topical cream 1 applic TOPICAL BID PRN 07/22/21 07/22/21 History melatonin 3 mg tablet 3 mg PO HS PRN 07/22/21 07/22/21 History methocarbamol 500 mg tablet 500 mg PO TID 07/22/21 07/22/21 History metoprolol succinate 50 mg capsule 50 mg PO DAILY 07/22/21 07/22/21 History sprinkle, ext. release 24 hr metronidazole 0.75 % topical cream 1 applic TOPICAL BID 07/22/21 07/22/21 History (MetroCream) mupirocin 2 % topical ointment 1 applic TOPICAL BID PRN 07/22/21 07/22/21 History oxycodone 5 mg tablet 5 mg PO Q6H PRN 07/22/21 07/22/21 History tiotropium bromide 18 mcg capsule 18 mcg INHALATION DAILY 07/22/21 07/22/21 History with inhalation device (Spiriva with HandiHaler) pantoprazole 40 mg tablet,delayed 40 mg PO QAM #90 tab 07/26/21 Rx release (Protonix) Patient History Medical History Anemia Atrial fibrillation AVNRT (AV danette re-entry tachycardia) Barretts esophagus BPH (benign prostatic hyperplasia) Chronic obstructive pulmonary disease Esophageal dysmotility with aspiration (hx) Hiatal hernia 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, 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, 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 [facility] Inguinal hernia Polyposis of sinonasal region Poor historian Reactive airway disease Spinal stenosis, lumbar region, with neurogenic claudication Thoracic spine fracture Surgical History History of back surgery History of incision and drainage (07/24/21) Incision and Drainage Facial and Neck Abscess - Den Hoover Erazo, DMD 07/24/2021 Hx of hernia repair Hx of laminectomy Family History Mother Breast cancer Type 2 diabetes mellitus without complications Other Family history non-contributory Denies family history of Ovarian cancer Prostate cancer Myocardial infarction Colorectal cancer Social History Smoking Status: Former smoker Hx Alcohol Use: No Hx Substance Use: No Preferred Language: German Communication Ability: Effective Visual Impairment: No Limitations Information Clerk Cashier Required: No Beliefs That Will Affect Care: None marital status: / Current Living Situation: Personal Care Facility Current Living Situation Comment: patient reportedl resides in an assisted living facility Feels Safe at Home: Yes Assistive Devices: Walker Physical Exam Constitutional: WD/WN, vitals as above Eyes: PERRL, conjunctivae normal, anicteric sclerae ENMT: external ear and nose normal, oropharynx normal Mouth: + oropharynx abnormality (Drain in place right lower mandible, functioning well) Neck: Submental induration subsiding Results & Data ([facility]) Vital Signs (Past 12 Hours) Vital Signs Temp Pulse Resp BP Pulse Ox 07/27/21 08:48 82 111/72 07/27/21 07:20 36.6 C 80 14 130/76 95
--- NOTE | 2021-07-27 12:18 | Hospitalist Progress Note ---
Date of Service July 27, 2021 Assessment & Plan (1) Facial cellulitis: Plan: - With submental cellulitis with concern for early Aguila's angina on arrival - He has no respiratory distress and vital signs are normal, afebrile. No leukocytosis. - Facial CT with mandibular and submental cellulitis and submandibular phlegmon, but no drainable fluid collection, also with large coalescing periapical cyst of the mandible with osseous erosion and cortical dehiscence within the right mandibular body - s/p I&D on 07/24 (periapical abscess)- Dr. Erazo - Empirically started on Zosyn which has since been de-escalated to Unasyn (done on 07/26) - White blood cell count remains normal. Patient remains afebrile and hemodynamically stable. - There was suggestion that he can be discharged home with oral antibiotics; however, given osseous erosion noted on imaging, this is consistent with osteomyelitis (2) Osteomyelitis: Plan: - Osteomyelitis/destructive changes seen about the right mandible - Will require 6 weeks of IV antibiotics - Placed on Zosyn empirically but de-escalated to Unasyn as do not necessarily need antipseudomonal coverage on 07/26 - I have consulted infectious disease for guidance regarding what specific antibiotic to utilize given lack of helpful culture data (patient was on antibiotics prior to obtaining culture data/sampling)--appreciate assistance - PICC line ordered. Obtain written consent - Still awaiting ID consult/input (anticipate Thursday) (3) Atrial fibrillation: Plan: - Rate controlled - Xarelto held given surgical intervention. Resumed 07/27 - Continue home metoprolol - Currently on tele - controlled rate, will d/c tele (4) Thoracic spine fracture: Plan: - Recently fractured T7 after a fall at home in June and was seen at [facility] where he was deemed to not be a good surgical candidate was placed in a TLSO brace - Maintain brace at all times except when in bed - Tylenol as needed for pain, continue home methocarbamol - Has plans for follow-up with orthopedic spine surgery there in a few weeks - Currently is at alf facility at the [facility] (5) Hypertension: Plan: - Blood pressures are well controlled - Continue home metoprolol (6) BPH (benign prostatic hyperplasia): Plan: - Currently has a Vera catheter in place as he developed urinary retention during his hospital stay at [place] a few weeks ago and then was seen by urology who recommended continuing Vera catheter for 2 more weeks - Follow-up with urology as planned - Maintain Vera catheter - Continue tamsulosin and dutasteride (7) Iron deficiency anemia: Plan: - Hemoglobin improved from previous at 11.6 - He recently had acute blood loss anemia from a hematoma on his back after his thoracic spine fracture and hospital stay at [place] last month - Follow CBC (8) COPD (chronic obstructive pulmonary disease): Plan: - Stable, no acute issues - Also with asthma - Is on dupilumab - Continue home Spiriva (9) Barretts esophagus: Plan: - Continue home PPI (10) PVD (peripheral vascular disease): Plan: - With known iliac artery aneurysm followed by vascular surgery (11) Mild dementia: Plan: - Noted, supportive care (12) Hypercholesteremia: Plan: - Continue atorvastatin Plan: Provided update to patient's son, Alvaro (Dr. Gao) today (07/27). [facility] and noted his father is currently paying out of pocket to hold his bed and isn't being covered by his insurance. He notes they have been looking at [place] and trying to get him into that facility over the past week. He is requesting that Case management reach out to him to look at other options that would be covered by his insurance upon d/c. At this point, the [facility] cannot take back until Sunday 07/30 when they will be able to obtain the Unasyn (unless another abx is advised by ID they would have be able to get that). Awaiting ID input, anticipate they will not see pt until Saturday 07/29. Case management is on board, I did relay the above concerns to assigned rn field case manager today (07/27). PICC line to be inserted preferably today prior to restarting Xarelto this evening. Will reach out to IV team to have this done. Plan to be d/w Dr. Moran. Admission and Anticipated Discharge Date Admission Date: July 23, 2021 Subjective Patient seen on daily rounds today. Hospitalized on 07/22 with concern for periapical abscess. Reported pain in the lower jaw ongoing X 1 month. Seen by ENT and given concern for cellulitis/erysipelas and abscess, he was sent to the emergency department. There he was found to be afebrile without leukocytosis. A CT scan showed a large periapical cyst with associated osseous erosion of the right mandible. 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 Seen by Dr. Erazo and underwent I&D of the abscess on 07/24 with subsequent packing of the wound. Put on Zosyn empirically. Culture data yields no growth at this time, antibiotics de-escalated to Unasyn 07/26. Patient does complain of pain in the jaw when he eats or talks but otherwise he denies fevers or chills, chest pain, shortness of breath, abdominal pain, nausea or vomiting. Review of Systems Review of Systems: All systems reviewed and are unremarkable except as noted in HPI and below Denies fevers, chills, headache, nasal congestion, sore throat, cough, chest pain, shortness of breath, palpitations, orthopnea, PND, abdominal pain, nausea, vomiting, diarrhea, constipation, dysuria, hematuria, frequency, back pain, joint pain or swelling, easy bruising or bleeding, Physical Exam Physical Exam: GENERAL: 86 yo well-developed, well-nourished WM. NAD. HENT: Submental edema, drain visualized from surgical site. No active bleeding or draining observed. Dressing in place. LUNGS: Clear to auscultation bilaterally. CARDIOVASCULAR: Irregular with controlled rate ABDOMEN: Soft, non-tender and non-distended. BS normal x 4 quad. EXTREMITIES: No edema. Non-tender. Peripheral pulses +2/4. NEUROLOGIC: A&O x3. PSYCHIATRIC: Cooperative. Appropriate mood and affect. SKIN: Warm, dry, intact. See above Results & Data Results & Data ([facility]) Vital Signs (Past 12 Hours) Vital Signs Temp Pulse Resp BP Pulse Ox 07/27/21 08:48 82 111/72 07/27/21 07:20 36.6 C 80 14 130/76 95 Laboratory Results 07/27/21 06:02 07/27/21 06:02 PG Care Time/CCT Total # of Minutes Spent Total Time Spent with Patient: Total time spent is greater than 50% in coordination of care (as documented) at patient's floor/unit and/or counseling patient: Coding Level of Care Code 57306 Subseq Hosp Care Lvl 2 Diagnoses Facial cellulitis L03.211 Osteomyelitis M86.9 Atrial fibrillation I48.91 Thoracic spine fracture S22.009A Hypertension I10 Hypertension type: unspecified BPH (benign prostatic hyperplasia) N40.0 Lower urinary tract symptom presence: symptoms absent Iron deficiency anemia D50.9 COPD (chronic obstructive pulmonary disease) J44.9 Barretts esophagus K22.70 PVD (peripheral vascular disease) I73.9 Mild dementia F03.90 Hypercholesteremia E78.00 (1) Hypertension Hypertension type: unspecified Qualified Code(s): I10 - Essential (primary) hypertension (2) BPH (benign prostatic hyperplasia) Lower urinary tract symptom presence: symptoms absent Qualified Code(s): N40.0 - Benign prostatic hyperplasia without lower urinary tract symptoms
--- NOTE | 2021-07-27 15:20 | XRay Report ---
XR chest 1V portable CLINICAL HISTORY: right PICC tip placement. COMPARISON STUDY: 06/27/2020 TECHNIQUE: 1 view of the chest FINDINGS: Single frontal view of the chest demonstrates the cardiomediastinal silhouette to be within normal li mits. Right-sided PICC line has been placed with its tip in the distal SVC. There is no evidence for pneumothorax. The lungs are clear of alveolar opacities. There is no evidence for pleural effusion. T here is no evidence for vascular congestion. There is no acute osseous pathology. IMPRESSION: 1. No acute cardiopulmonary disease. 2. Tip of right-sided PICC line in distal SVC. ACT 112: Negative or not required by law. Electronically signed by: Delmer Polo M.D. 07/27/2021 3:18 PM
--- NOTE | 2021-07-27 15:22 | XRay Report ---
XR chest 1V portable at 2:28 PM CLINICAL HISTORY: after adjustment, right PICC tip placement. COMPARISON STUDY: 07/27/2021 at 224. TECHNIQUE: 1 view of the chest FINDINGS: Single frontal view of the chest demonstrates the heart size to again be enlarged. Right-sided PICC l ine has been retracted so that its tip is in the mid SVC. The lungs are clear of alveolar opacities. There is no evidence for pneumothorax. There is no evidence for pleural effusion. There is no evidenc e for vascular congestion. There is no acute osseous pathology. IMPRESSION: 1. No acute cardiopulmonary disease. 2. PICC line has been slightly retracted so that its tip is in the mid SVC. ACT 112: Negative or not required by law. Electronically signed by: Delmer Polo M.D. 07/27/2021 3:20 PM
[2021-07-27] MEDS: RIVAROXABAN 20 MG TAB PO SCH (17:41)
[2021-07-27] MEDS: ATORVASTATIN 20 MG TAB PO SCH (20:07)
--- NOTE | 2021-07-27 23:35 | Communication Note ---
Date of Service: July 27, 2021 Low chandler output past 12 hours->200mL. Instructed nursing to irrigate chandler. Reviewed chart. Starting 80ml/hr nss.
[2021-07-27] MEDS ORDERED: SODIUM CHLORIDE 0.9% 500 ML IV SCH (23:45)
[2021-07-27] MEDS ORDERED: SODIUM CHLORIDE 0.9% 1000ML 1,000 ML IV SCH (23:45)
[2021-07-27] MEDS: SODIUM CHLORIDE 0.9% 1000ML 1,000 ML IV SCH (23:59)
[2021-07-28] MEDS: AMPICILLIN/SULBACTAM SOD 3,000 MG in 0.9 % SODIUM CHLORIDE 100 ML IV SCH ×5 (05:06→23:33)
[2021-07-28 07:48] LABS: Basophils # (auto) 0.03 K/uL (0-0.2); Basophils % (auto) 0.5 %; Eosinophils # (auto) 0.37 K/uL (0-0.5); Eosinophils % (auto) 6.2 %; Hematocrit (blood only) 36.3 % (42-52); Hemoglobin 11.4 g/dL (14.0-18.0); Immature Granulocytes # (auto) 0.02 K/uL (0.00-0.02); Immature Granulocytes % (auto) 0.3 %; Lymphocytes # (auto) 0.75 K/uL (1.2-3.4); Lymphocytes % (auto) 12.6 %; Mean Corpuscular Hemoglobin 27.7 pg (25-34); Mean Corpuscular Hgb Conc 31.4 g/dL (32-36); Mean Corpuscular Volume 88.3 fL (80-100); Mean Platelet Volume 11.9 fL (7.4-10.4); Monocytes # (auto) 0.58 K/uL (0.11-0.59); Monocytes % (auto) 9.7 %; Neutrophils # (auto) 4.21 K/uL (1.4-6.5); Neutrophils % (auto) 70.7 %; Platelet Count 203 K/uL (130-400); RDW Coefficient of Variation 17.8 % (11.5-14.5); RDW Standard Deviation 58.1 fL (36.4-46.3); Red Blood Count 4.11 M/uL (4.7-6.1); White Blood Count 5.96 K/uL (4.8-10.8)
[2021-07-28 08:21] LABS: BUN Creatinine Ratio 15.6 (10-20); Calcium 8.3 mg/dl (8.5-10.1); Creatinine Clr Calc Pharmacy 93.6 ml/min; Est GFR (African American) 102.8 ml/min; Est GFR (Non-African American) 88.7 ml/min; Potassium 3.8 mmol/L (3.5-5.1)
[2021-07-28] MEDS: UMECLIDINIUM BROMIDE 62.5MCG/BLISTER 7 PUFFS/INHALER INH SCH (09:08)
[2021-07-28] MEDS: CHOLECALCIFEROL 1,000 UNITS 25 MCG TAB PO SCH (09:09)
[2021-07-28] MEDS: TAMSULOSIN HCL 0.4 MG CAP PO SCH (09:10)
[2021-07-28] MEDS: MULTIVITAMIN TAB PO SCH (09:10)
[2021-07-28] MEDS: metroNIDAZOLE 0.75% TOPICAL GEL 45 GM TUBE TOP SCH ×2 (09:10→21:24)
[2021-07-28] MEDS: PANTOprazole 40 MG TAB PO SCH (09:10)
[2021-07-28] MEDS: METHOCARBAMOL 500 MG TABLET PO SCH ×3 (09:10→21:24)
[2021-07-28] MEDS: METOPROLOL SUCC 50MG EXT REL TAB PO SCH (09:10)
[2021-07-28] MEDS: SACCHAROMYCES BOULARDII 250 MG CAP PO SCH ×2 (09:10→21:24)
[2021-07-28] MEDS: ADVANCED PROBIOTIC 1250 MG CAPSULE PO SCH (09:10)
[2021-07-28] MEDS: DOCUSATE SODIUM 100 MG CAP PO SCH ×2 (09:10→21:24)
[2021-07-28] MEDS: SODIUM CHLORIDE 0.9% 1000ML 1,000 ML IV SCH (12:32)
[2021-07-28] MEDS: RIVAROXABAN 20 MG TAB PO SCH (15:04)
--- NOTE | 2021-07-28 16:15 | Hospitalist Progress Note ---
Date of Service July 28, 2021 Assessment & Plan (1) Facial cellulitis: Plan: - With submental cellulitis with concern for early Aguila's angina on arrival - He has no respiratory distress and vital signs are normal, afebrile. No leukocytosis. - Facial CT : mandibular and submental cellulitis and submandibular phlegmon, but no drainable fluid collection, also with large coalescing periapical cyst of the mandible with osseous erosion and cortical dehiscence within the right mandibular body - s/p I&D on 07/24 (periapical abscess)- Dr. Erazo. --Dr. Erazo to see patient in the office on Thursday to remove drain but did ask staff to reach out to him as patient will likely still be in house. They will reach out to him on Thursday - Empirically started on Zosyn which has since been de-escalated to Unasyn (done on 07/26) - White blood cell count remains normal. Patient remains afebrile and hemodynamically stable. - There was suggestion that he can be discharged home with oral antibiotics; however, given osseous erosion noted on imaging, this is consistent with osteomyelitis (2) Osteomyelitis: Plan: - Osteomyelitis/destructive changes seen about the right mandible - Will require 6 weeks of IV antibiotics - Placed on Zosyn empirically but de-escalated to Unasyn as do not necessarily need antipseudomonal coverage on 07/26 - I have consulted infectious disease for guidance regarding what specific antibiotic to utilize given lack of helpful culture data (patient was on antibiotics prior to obtaining culture data/sampling)--appreciate assistance - PICC line in place - Still awaiting ID consult/input (anticipate Thursday) (3) Atrial fibrillation: Plan: - Rate controlled - Xarelto held given surgical intervention. Resumed 07/27 - Continue home metoprolol - Currently on tele - controlled rate, will d/c tele (4) Thoracic spine fracture: Plan: - Recently fractured T7 after a fall at home in June and was seen at [facility] where he was deemed to not be a good surgical candidate was placed in a TLSO brace - Maintain brace at all times except when in bed - Tylenol as needed for pain, continue home methocarbamol - Has plans for follow-up with orthopedic spine surgery there in a few weeks - Currently is at custodial facility at the [facility] (but son requesting different facility) (5) Hypertension: Plan: - Blood pressures are well controlled - Continue home metoprolol (6) BPH (benign prostatic hyperplasia): Plan: - Currently has a Vera catheter in place as he developed urinary retention during his hospital stay at [place] a few weeks ago and then was seen by urology who recommended continuing Vera catheter for 2 more weeks - Follow-up with urology as planned - Maintain Vera catheter - Continue tamsulosin and dutasteride (7) Iron deficiency anemia: Plan: - Hemoglobin improved from previous at 11.6 - He recently had acute blood loss anemia from a hematoma on his back after his thoracic spine fracture and hospital stay at [place] last month - Follow CBC (8) COPD (chronic obstructive pulmonary disease): Plan: - Stable, no acute issues - Also with asthma - Is on dupilumab - Continue home Spiriva (9) Barretts esophagus: Plan: - Continue home PPI (10) PVD (peripheral vascular disease): Plan: - With known iliac artery aneurysm followed by vascular surgery (11) Mild dementia: Plan: - Noted, supportive care (12) Hypercholesteremia: Plan: - Continue atorvastatin Plan: Provided update to patient's son, Alvaro (Dr. Gao) (07/27). [facility] and noted his father is currently paying out of pocket to hold his bed and isn't being covered by his insurance. He notes they have been looking at [place] and trying to get him into that facility over the past week. He is requesting that Case management reach out to him to look at other options that would be covered by his insurance upon d/c. At this point, the [facility] cannot take back until Sunday 07/30 when they will be able to obtain the Unasyn (unless another abx is advised by ID they would have be able to get that). Awaiting ID input, anticipate they will not see pt until Saturday 07/29. Case management is on board, I did relay the above concerns to assigned rn field case manager today (07/27). Plan to be d/w Dr. Moran. Admission and Anticipated Discharge Date Admission Date: July 23, 2021 Subjective Patient seen on daily rounds today. Vocalizes no significant complaints or concerns. Denies fevers, chills, chest pain, shortness breath, abdominal pain, nausea or vomiting. The pain under his chin seems to be improving Review of Systems Review of Systems: All systems reviewed and are unremarkable except as noted in HPI and below Denies fevers, chills, headache, nasal congestion, sore throat, cough, chest p ain, shortness of breath, palpitations, orthopnea, PND, abdominal pain, nausea, vomiting, diarrhea, constipation, dysuria, hematuria, frequency, back pain, joint pain or swelling, easy bruising or bleeding, skin lesions or rashes. Physical Exam Physical Exam: General: Resting comfortably in his hospital bed. He does not appear ill or toxic NAD. HEENT: Mild erythema noted of the bilateral chin. Surgical dressing under the lower mandible with obvious [place] drain. Periwound erythema is mild Neck: No JVD. Negative hepatojugular reflex Cardiac: Irregular with controlled rate Lungs: CTA without W/R/R Abdomen: Normoactive X4. Soft and nontender in all quadrants. Noted to have an indwelling Vera catheter. Patient reports this is chronic Extremities: No peripheral clubbing cyanosis or edema Neuro: A&O X4. Cranial nerves II through XII are grossly intact. No focal neuro deficits Skin: See above Psych: Appropriate affect. Pleasant and cooperative Results & Data Results & Data ([facility]) Vital Signs (Past 12 Hours) Vital Signs Temp Pulse Pulse Resp BP Pulse Ox 07/28/21 15:01 36.5 C 65 18 109/57 L 93 07/28/21 07:04 36.4 C L 73 12 133/91 93 Laboratory Results 07/28/21 06:57 07/28/21 06:57 PG Care Time/CCT Total # of Minutes Spent Total Time Spent with Patient: Total time spent is greater than 50% in coordination of care (as documented) at patient's floor/unit and/or counseling patient: Coding Level of Care Code 92099 Subseq Hosp Care Lvl 1 Diagnoses Facial cellulitis L03.211 Osteomyelitis M86.9 Atrial fibrillation I48.91 Thoracic spine fracture S22.009A Hypertension I10 Hypertension type: unspecified BPH (benign prostatic hyperplasia) N40.0 Lower urinary tract symptom presence: symptoms absent Iron deficiency anemia D50.9 COPD (chronic obstructive pulmonary disease) J44.9 Barretts esophagus K22.70 PVD (peripheral vascular disease) I73.9 Mild dementia F03.90 Hypercholesteremia E78.00 (1) Hypertension Hypertension type: unspecified Qualified Code(s): I10 - Essential (primary) hypertension (2) BPH (benign prostatic hyperplasia) Lower urinary tract symptom presence: symptoms absent Qualified Code(s): N40.0 - Benign prostatic hyperplasia without lower urinary tract symptoms
[2021-07-28] MEDS: ATORVASTATIN 20 MG TAB PO SCH (21:24)
[2021-07-29] MEDS: AMPICILLIN/SULBACTAM SOD 3,000 MG in 0.9 % SODIUM CHLORIDE 100 ML IV SCH ×3 (05:34→17:38)
[2021-07-29 06:41] LABS: Basophils # (auto) 0.03 K/uL (0-0.2); Basophils % (auto) 0.6 %; Eosinophils # (auto) 0.29 K/uL (0-0.5); Eosinophils % (auto) 5.4 %; Hematocrit (blood only) 35.3 % (42-52); Hemoglobin 10.9 g/dL (14.0-18.0); Immature Granulocytes # (auto) 0.02 K/uL (0.00-0.02); Immature Granulocytes % (auto) 0.4 %; Lymphocytes # (auto) 0.86 K/uL (1.2-3.4); Lymphocytes % (auto) 16.1 %; Mean Corpuscular Hemoglobin 27.2 pg (25-34); Mean Corpuscular Hgb Conc 30.9 g/dL (32-36); Mean Platelet Volume 11.7 fL (7.4-10.4); Monocytes # (auto) 0.51 K/uL (0.11-0.59); Monocytes % (auto) 9.6 %; Neutrophils # (auto) 3.63 K/uL (1.4-6.5); Neutrophils % (auto) 67.9 %; Platelet Count 199 K/uL (130-400); RDW Coefficient of Variation 17.9 % (11.5-14.5); Red Blood Count 4.01 M/uL (4.7-6.1); White Blood Count 5.34 K/uL (4.8-10.8)
[2021-07-29 06:56] LABS: BUN Creatinine Ratio 14.1 (10-20); Calcium 8.2 mg/dl (8.5-10.1); Creatinine Clr Calc Pharmacy 93.6 ml/min; Est GFR (African American) 102.8 ml/min; Est GFR (Non-African American) 88.7 ml/min; Magnesium 1.7 mg/dl (1.7-2.4); Potassium 3.7 mmol/L (3.5-5.1)
[2021-07-29] MEDS: METHOCARBAMOL 500 MG TABLET PO SCH ×3 (09:17→20:19)
[2021-07-29] MEDS: METOPROLOL SUCC 50MG EXT REL TAB PO SCH (09:17)
[2021-07-29] MEDS: CHOLECALCIFEROL 1,000 UNITS 25 MCG TAB PO SCH (09:17)
[2021-07-29] MEDS: SACCHAROMYCES BOULARDII 250 MG CAP PO SCH (09:17)
[2021-07-29] MEDS: UMECLIDINIUM BROMIDE 62.5MCG/BLISTER 7 PUFFS/INHALER INH SCH (09:17)
[2021-07-29] MEDS: metroNIDAZOLE 0.75% TOPICAL GEL 45 GM TUBE TOP SCH ×2 (09:17→20:19)
[2021-07-29] MEDS: PANTOprazole 40 MG TAB PO SCH (09:17)
[2021-07-29] MEDS: MULTIVITAMIN TAB PO SCH (09:17)
[2021-07-29] MEDS: TAMSULOSIN HCL 0.4 MG CAP PO SCH (09:17)
[2021-07-29] MEDS: DOCUSATE SODIUM 100 MG CAP PO SCH ×2 (09:17→20:19)
[2021-07-29] MEDS: ADVANCED PROBIOTIC 1250 MG CAPSULE PO SCH (09:17)
--- NOTE | 2021-07-29 12:46 | Hospitalist Progress Note ---
Date of Service July 29, 2021 Assessment & Plan (1) Facial cellulitis: Plan: - With submental cellulitis with concern for early Aguila's angina on arrival - He has no respiratory distress and vital signs are normal, afebrile. No leukocytosis. - Facial CT : mandibular and submental cellulitis and submandibular phlegmon, but no drainable fluid collection, also with large coalescing periapical cyst of the mandible with osseous erosion and cortical dehiscence within the right mandibular body - s/p I&D on 07/24 (periapical abscess)- Dr. Erazo. --Dr. Erazo to see patient in the office on Thursday to remove drain but did ask staff to reach out to him as patient will likely still be in house. They will reach out to him on Thursday - Empirically started on Zosyn which has since been de-escalated to Unasyn (done on 07/26) - White blood cell count remains normal. Patient remains afebrile and hemodynamically stable. - There was suggestion that he can be discharged home with oral antibiotics; however, given osseous erosion noted on imaging, this is consistent with osteomyelitis (2) Osteomyelitis: Plan: - Osteomyelitis/destructive changes seen about the right mandible - Will require 6 weeks of IV antibiotics - Placed on Zosyn empirically but de-escalated to Unasyn as do not necessarily need antipseudomonal coverage on 07/26 - I have consulted infectious disease for guidance regarding what specific antibiotic to utilize given lack of helpful culture data (patient was on antibiotics prior to obtaining culture data/sampling)--appreciate assistance - PICC line in place - Still awaiting ID consult/input -- consult to be done @ 1500, will await recommendations, appreciate assistance (3) Atrial fibrillation: Plan: - Rate controlled - Xarelto held given surgical intervention. Resumed 07/27 - Continue home metoprolol (4) Thoracic spine fracture: Plan: - Recently fractured T7 after a fall at home in June and was seen at [facility] where he was deemed to not be a good surgical candidate was placed in a TLSO brace - Maintain brace at all times except when in bed - Tylenol as needed for pain, continue home methocarbamol - Has plans for follow-up with orthopedic spine surgery there in a few weeks - Currently is at long-term facility at the [facility] (but son requesting different facility) (5) Hypertension: Plan: - Blood pressures are well controlled - Continue home metoprolol (6) BPH (benign prostatic hyperplasia): Plan: - Currently has a Vera catheter in place as he developed urinary retention during his hospital stay at [place] a few weeks ago and then was seen by urology who recommended continuing Vera catheter for 2 more weeks - Follow-up with urology as planned - Maintain Vera catheter - Continue tamsulosin and dutasteride (7) Iron deficiency anemia: Plan: - Hemoglobin improved from previous at 11.6 - He recently had acute blood loss anemia from a hematoma on his back after his thoracic spine fracture and hospital stay at [place] last month - Follow CBC (8) COPD (chronic obstructive pulmonary disease): Plan: - Stable, no acute issues - Also with asthma - Is on dupilumab - Continue home Spiriva (9) Barretts esophagus: Plan: - Continue home PPI (10) PVD (peripheral vascular disease): Plan: - With known iliac artery aneurysm followed by vascular surgery (11) Mild dementia: Plan: - Noted, supportive care (12) Hypercholesteremia: Plan: - Continue atorvastatin Plan: Provided update to patient's son, Alvaro (Dr. Gao) (07/27). [facility] and noted his father is currently paying out of pocket to hold his bed and isn't being covered by his insurance. He notes they have been looking at [place] and trying to get him into that facility over the past week. He is requesting that Case management reach out to him to look at other options that would be covered by his insurance upon d/c. D/w case management social worker today who is assisting in d/c plan. At this point, the [facility] cannot take back until 07/30 when they will be able to obtain the Unasyn (unless another abx is advised by ID they would have be able to get that). Plan to be d/w Dr. Moran. Admission and Anticipated Discharge Date Admission Date: July 23, 2021 Subjective Patient seen on daily rounds today. Vocalizes no significant complaints or concerns. Denies fevers, chills, chest pain, shortness breath, abdominal pain, nausea or vomiting. The pain and swelling under his chin seems to be improving. Review of Systems Review of Systems: All systems reviewed and are unremarkable except as noted in HPI and below Denies fevers, chills, headache, nasal congestion, sore throat, cough, chest pain, shortness of breath, palpitations, orthopnea, PND, abdominal pain, nausea, vomiting, diarrhea, constipation, dysuria, hematuria, frequency, back pain, joint pain or swelling, easy bruising or bleeding, skin lesions or rashes. Physical Exam Physical Exam: GENERAL: 86 yo well-developed, well-nourished WM. NAD. HENT: Submental edema, drain visualized from surgical site. No active bleeding or draining observed. Dressing in place. LUNGS: Clear to auscultation bilaterally. CARDIOVASCULAR: Irregular with controlled rate ABDOMEN: Soft, non-tender and non-distended. BS normal x 4 quad. EXTREMITIES: No edema. Non-tender. Peripheral pulses +2/4. NEUROLOGIC: A&O x3. PSYCHIATRIC: Cooperative. Appropriate mood and affect. SKIN: Warm, dry, intact. See above Results & Data Results & Data ([facility]) Vital Signs (Past 12 Hours) Vital Signs Temp Pulse Resp BP Pulse Ox 07/29/21 07:00 36.9 C 73 16 120/63 96 Laboratory Results 07/29/21 06:02 07/29/21 06:02 PG Care Time/CCT Total # of Minutes Spent Total Time Spent with Patient: Total time spent is greater than 50% in coordination of care (as documented) at patient's floor/unit and/or counseling patient: Coding Level of Care Code 41129 Subseq Hosp Care Lvl 2 Diagnoses Facial cellulitis L03.211 Osteomyelitis M86.9 Atrial fibrillation I48.91 Thoracic spine fracture S22.009A Hypertension I10 Hypertension type: unspecified BPH (benign prostatic hyperplasia) N40.0 Lower urinary tract symptom presence: symptoms absent Iron deficiency anemia D50.9 COPD (chronic obstructive pulmonary disease) J44.9 Barretts esophagus K22.70 PVD (peripheral vascular disease) I73.9 Mild dementia F03.90 Hypercholesteremia E78.00 (1) Hypertension Hypertension type: unspecified Qualified Code(s): I10 - Essential (primary) hypertension (2) BPH (benign prostatic hyperplasia) Lower urinary tract symptom presence: symptoms absent Qualified Code(s): N40.0 - Benign prostatic hyperplasia without lower urinary tract symptoms
[2021-07-29] MEDS: RIVAROXABAN 20 MG TAB PO SCH (17:39)
[2021-07-29] MEDS: ATORVASTATIN 20 MG TAB PO SCH (20:19)
--- NOTE | 2021-07-29 20:34 | Oral/Maxillofacial Progress Nt ---
Date of Service July 29, 2021 Assessment & Plan Admission and Anticipated Discharge Date Admission Date: July 23, 2021 Subjective Post Op infection evaluation 5 days The infected area is now healing very well. Swelling is gone and the tissue is soft and not further swelling noted. Intra oral site -excellent No drainage is noted. Drain was removed tonight Cultures were reviewed. Infection has responded very well to the antibiotics and the I and D. I requested that the patient continue with massage, heat and wound care. At this time the area is well healed and responded well to treatment. No need for office visit tomorrow RTC as needed but NO formal follow up needed at this time Follow instructions as per hospital medicine and ID Results & Data ([facility]) Vital Signs (Past 12 Hours) Vital Signs Temp Pulse Resp BP Pulse Ox 07/29/21 15:23 36.3 C L 75 14 119/68 95 PG Care Time/CCT Total # of Minutes Spent Total Time Spent with Patient: Total time spent is greater than 50% in coordination of care (as documented) at patient's floor/unit and/or counseling patient: Coding Level of Care Code 58212 Subseq Hosp Care Lvl 1
[2021-07-30] MEDS: AMPICILLIN/SULBACTAM SOD 3,000 MG in 0.9 % SODIUM CHLORIDE 100 ML IV SCH (00:15)
[2021-07-30] MEDS: METHOCARBAMOL 500 MG TABLET PO SCH (08:35)
[2021-07-30] MEDS: METOPROLOL SUCC 50MG EXT REL TAB PO SCH (08:35)
[2021-07-30] MEDS: TAMSULOSIN HCL 0.4 MG CAP PO SCH (08:35)
[2021-07-30] MEDS: CHOLECALCIFEROL 1,000 UNITS 25 MCG TAB PO SCH (08:35)
[2021-07-30] MEDS: DOCUSATE SODIUM 100 MG CAP PO SCH (08:35)
[2021-07-30] MEDS: ADVANCED PROBIOTIC 1250 MG CAPSULE PO SCH (08:36)
[2021-07-30] MEDS: MULTIVITAMIN TAB PO SCH (08:36)
[2021-07-30] MEDS: metroNIDAZOLE 0.75% TOPICAL GEL 45 GM TUBE TOP SCH (08:36)
[2021-07-30] MEDS: PANTOprazole 40 MG TAB PO SCH (08:36)
[2021-07-30] MEDS: UMECLIDINIUM BROMIDE 62.5MCG/BLISTER 7 PUFFS/INHALER INH SCH (08:37)
[2021-07-30] MEDS ORDERED: ERTAPENEM SODIUM 1,000 MG in SYRINGE 0 ML IV SCH (09:00)
--- NOTE | 2021-07-30 11:37 | Discharge Summary ---
Date of Service July 30, 2021 Admission HPI Per Admitting Provider This pt is a 86-year-old male with a history of atrial fibrillation on Xarelto HTN, COPD, recent thoracic vertebral fracture, urinary retention with Vera catheter in place, Perez's esophagus, hyperlipidemia, anemia who presents to the ER after being seen by ENT today with concern for early Aguila's angina. He has a history of a right lower dental implant that has broken off and has been having pain in that area for the last 6 days. He has been staying at the shelter facility at the [facility] since discharge from [facility] for his thoracic spine fracture. The doctor at the [facility] saw him and referred him to ENT due to concerns for developing infection in the submental region. ENT saw him today and was concerned for cellulitis in the submental region and early Aguila's angina and sent him to the ER. In the ER, his vital signs were normal, he had no respiratory distress, his laboratory work-up was fairly unremarkable. A facial CT was performed which showed cellulitis of the mandibular and submandibular tissues with submandibular phlegmon, large coalescing periapical cyst the mandible with osseous erosion cortical dehiscence in the right mandibular body. The patient denies any fevers or chills, no lightheadedness or headaches, no sore throat or trouble swallowing. He denies chest pains or shortness of breath. No nausea or vomiting, no abdominal pain. No changes in bowel habits. No blood in the stool. No pain in his back and he has been wearing a TLSO brace. No evidence of Simón's angina at this time He was given IV Zosyn and will be admitted for submental cellulitis with consultation with ENT and OMFS Principal Diagnosis Submental cellulitis and Aguila's angina Mandibular osteomyelitis Discharge Exam GENERAL: 86 yo well-developed, well-nourished WM. NAD. HENT: Submental edema improved. No erythema. No active bleeding or draining observed. Dressing in place. LUNGS: Clear to auscultation bilaterally. CARDIOVASCULAR: Irregular with controlled rate ABDOMEN: Soft, non-tender and non-distended. BS normal x 4 quad. EXTREMITIES: No edema. Non-tender. Peripheral pulses +2/4. NEUROLOGIC: A&O x3. PSYCHIATRIC: Cooperative. Appropriate mood and affect. SKIN: Warm, dry, intact. See above Discharge Data Allergies Allergy/AdvReac Type Severity Reaction Status Date / Time cephalexin [From Keflex] Allergy Intermediate Impaires Verified 07/24/21 15:31 Cognitive function cyclobenzaprine Allergy Intermediate RASH ON Verified 07/24/21 15:31 FACE flecainide Allergy Intermediate DISCOLORATION Verified 07/24/21 15:31 OF SKIN ibuprofen AdvReac Mild RHINORRHEA Verified 07/24/21 15:31 Consultations 07/22/21 18:41 ED Decision to Admit Stat 07/22/21 21:09 Consult Oromaxillofacial Surgery Routine Consult Otolaryngology (Head and Neck) Routine 07/25/21 14:19 Consult Infectious Diseases Routine Procedures Performed Operation Date: 07/24/21 07:00 Actual Procedures p Incision and Drainage Facial and Neck Abscess - Den Erazo DMD Ordered Studies Face CT 07/22/21 16:38 CT facial bones w con HISTORY: 86 years-old Male ro R lower dental implant abscess acute facial pain with possible abscess. COMPARISON: CT head 07/05/2021 TECHNIQUE: Multiple axial CT images of the maxillofacial bones were obtained following the intravenous administration of 94 mL Optiray 320. A dose lowering technique was used consistent with the principals of ALARA. FINDINGS: Image intracranial structures demonstrate no acute abnormality. Atherosclerosis of the carotid bulbs and internal carotid arteries. Streak artifact from dental hardware limits evaluation of the adjacent soft tissues. Prior bilateral lens repair. There is inflammatory stranding within the mandibular and submandibular subcutaneous tissues. Ill-defined peripheral enhancement is noted within the subendometrial tissues on image 58 of series 2. No drainable fluid collection. Subcentimeter submandibular and cervical chain lymph nodes are likely reactive. The mastoid air cells and middle ear cavities are clear. There is mild mucosal thickening of the ethmoid air cells and maxillary sinuses. Degenerative changes of the cervical spine. Demineralized appearance of the bones. There are numerous large and coalescing periapical cysts noted throughout the mandibular incisors and canines. Notably, there are osseous erosive changes with cortical dehiscence noted involving the right mandible in the expected location of the bicuspids which are absent. IMPRESSION: 1. Large coalescing periapical cysts of the mandible with osseous erosion and cortical dehiscence within the right mandibular body. 2. Cellulitis of the mandibular and submandibular tissues with submandibular phlegmon. Close clinical follow-up is needed to exclude a developing abscess. ACT 112: Negative or not required by law. The above report was generated using voice recognition software. It may contain grammatical, syntax or spelling errors. Electronically signed by: Delano Strauss M.D. 07/22/2021 6:10 PM Chest X-Ray 07/27/21 14:39 XR chest 1V portable CLINICAL HISTORY: right PICC tip placement. COMPARISON STUDY: 06/27/2020 TECHNIQUE: 1 view of the chest FINDINGS: Single frontal view of the chest demonstrates the cardiomediastinal silhouette to be within normal limits. Right-sided PICC line has been placed with its tip in the distal SVC. There is no evidence for pneumothorax. The lungs are clear of alveolar opacities. There is no evidence for pleural effusion. There is no evidence for vascular congestion. There is no acute osseous pathology. IMPRESSION: 1. No acute cardiopulmonary disease. 2. Tip of right-sided PICC line in distal SVC. ACT 112: Negative or not required by law. Electronically signed by: Delmer Polo M.D. 07/27/2021 3:18 PM Chest X-Ray 07/27/21 14:50 XR chest 1V portable at 2:28 PM CLINICAL HISTORY: after adjustment, right PICC tip placement. COMPARISON STUDY: 07/27/2021 at 224. TECHNIQUE: 1 view of the chest FINDINGS: Single frontal view of the chest demonstrates the heart size to again be enlarged. Right-sided PICC line has been retracted so that its tip is in the mid SVC. The lungs are clear of alveolar opacities. There is no evidence for pneumothorax. There is no evidence for pleural effusion. There is no evidence for vascular congestion. There is no acute osseous pathology. IMPRESSION: 1. No acute cardiopulmonary disease. 2. PICC line has been slightly retracted so that its tip is in the mid SVC. ACT 112: Negative or not required by law. Electronically signed by: Delmer Polo M.D. 07/27/2021 3:20 PM Hospital Course (1) Facial cellulitis: - With submental cellulitis with concern for early Aguila's angina on arrival - He has no respiratory distress and vital signs are normal, afebrile. No leukocytosis. - Facial CT : mandibular and submental cellulitis and submandibular phlegmon, but no drainable fluid collection, also with large coalescing periapical cyst of the mandible with osseous erosion and cortical dehiscence within the right mandibular body - s/p I&D on 07/24 (periapical abscess) by Dr. Erazo - Empirically started on Zosyn which was de-escalated to Unasyn on 07/26 - White blood cell count remains normal. Patient remains afebrile and hemodynamically stable. - There was suggestion that he can be discharged home with oral antibiotics; however, given osseous erosion noted on imaging, this is consistent with osteomyelitis (2) Osteomyelitis: - Osteomyelitis/destructive changes seen about the right mandible - Will require 6 weeks of IV antibiotics (total) - Placed on Zosyn empirically but de-escalated to Unasyn as do not necessarily need antipseudomonal coverage on 07/26 - PICC line placed - Seen by ID on 07/29, recommending changing abx to Invanz 1g daily, total of 4 weeks of IV and then as long as still doing well, can either do trial off abx or convert to Augmentin 875-125mg for the last two weeks * He will require 21 more days of Invanz, first dose given this morning which he tolerated well * Will arrange for ID follow up in 3 weeks (3) Atrial fibrillation: - Rate controlled - Xarelto held given surgical intervention. Resumed 07/27 - Continue home metoprolol (4) Thoracic spine fracture: - Recently fractured T7 after a fall at home in June and was seen at [facility] where he was deemed to not be a good surgical candidate was placed in a TLSO brace - Maintain brace at all times except when in bed - Tylenol as needed for pain, continue home methocarbamol - Has plans for follow-up with orthopedic spine surgery there in a few weeks - Currently is at shelter facility at the [facility] (but son requesting different facility) (5) Hypertension: - Blood pressures are well controlled - Continue home metoprolol (6) BPH (benign prostatic hyperplasia): - Currently has a Vera catheter in place as he developed urinary retention during his hospital stay at [place] a few weeks ago and then was seen by urology who recommended continuing Vera catheter for 2 more weeks - Follow-up with urology as planned - Maintain Vera catheter - Continue tamsulosin and dutasteride (7) Iron deficiency anemia: - Hemoglobin improved from previous at 11.6 - He recently had acute blood loss anemia from a hematoma on his back after his thoracic spine fracture and hospital stay at [place] last month (8) COPD (chronic obstructive pulmonary disease): - Stable, no acute issues - Also with asthma - Is on dupilumab - Continue home Spiriva (9) Barretts esophagus: - Continue home PPI (10) PVD (peripheral vascular disease): - With known iliac artery aneurysm followed by vascular surgery (11) Mild dementia: - Noted, supportive care (12) Hypercholesteremia: - Continue atorvastatin At this time, pt is medically and hemodynamically stable for discharge back to the [facility] to continue rehabilitation as well as IV antibiotic therapy for his osteomyelitis. Pt has a scheduled f/u arranged with Dr. Erazo. Will arrange for f/u with ID in about 3 weeks to determine whether to observe off abx completely or to transition to Augmentin for last two weeks of therapy. Recommend f/u with healthcare provider at SNF within 48-72 hours. Remaining medications can be taken as outlined on med reconciliation. Above plan of care has been d/w Dr. Moran who has also seen and evaluated this patient prior to discharge. Total Time Total Time Spent Total Time Spent (In Minutes): >30 minutes Discharge Plan Discharge Items Patient Disposition: Transfer Long Term Fac Reason For Visit: SUBMENTAL CELLULITIS/ABSCESS Discharge Diagnosis: s/p facial infection Condition on Discharge: Good Activity: Resume your previous activity Lifting: Gradually increase as tolerated Bathing: No limitations Bathing Comment: as per potocol at his facility Exercise/Sports: Gradually increase as tolerated Non-emergency contact: Surgeon Call non-emergency contact if: your wound has increased redness, your wound has increased drainage and your wound pain has increased Follow-up/Referrals: Justino Mandujano MD [Primary Care Provider] - Den Erazo DMD [Physician] - 07/30/21 2:30 pm Shawn Jordan MD [Physician] - (schedule f/u for 3 weeks) Diet: Regular Diet Texture: Easy to Chew Diet Comment: clear-- full-- dental soft Addtl Attending Provider Instructions: ADDITIONAL ACTIVITY RECOMMENDATIONS: * [place] teeth after every meal. It is very important to keep your mouth clean to prevent infection. * Starting tonight rinse with the Peridex as directed then 2 x a day * it is very important to keep well hydrated, this prevents fever SPECIAL CARE INSTRUCTIONS: *It is not uncommon that between day 2-4 that your swelling will be at its worst this is very normal, do not be alarmed. * After 36 hours, apply heat (hot water bottle or heating pad) for the next two days, as often as possible. * Tomorrow start rinsing your mouth with 1/2 teaspoon salt in 8 ounces warm water. This rinse should be used every 4-6 hours. * Some swelling is common. It should gradually decrease within 4-5 days. * A certain amount of bleeding is to be expected. It is often possible to control mild oozing by placing folded gauze over the area and biting down for 30 minutes. If you are unable to control excessive bleeding, call Dr Erazo at [phone] * You may experience some discomfort for a few days. If pain or swelling increases, Call Dr Erazo * Return to the office for a follow up check up on: ThursdayJULY 30 at 2 : 30 pm for drain removal * office address--[facility] [address]. phone # [phone] Pending Studies at Discharge: Yes Studies:: cultures from infection drainage Stand-Alone Forms: My [facility] Skilled Items Patient informed of condition?: Yes DNR: Yes Discharge Level of Care: Skilled Communicable Disease: No Discharge Prognosis: Improving Lines: PICC Urinary Catheter: Yes Medications and DC Order Prescriptions: New Advanced Probiotic 625 mg (10 billion cell) Capsule 2 cap PO DAILY Qty: 30 RF: 0 ertapenem 1 gram recon soln 1 g IV DAILY 21 Days RF: 0 Continued atorvastatin [Lipitor] 20 mg tablet 20 mg PO QPM Qty: 90 RF: 3 Xarelto 20 mg tablet 20 mg PO QAM Qty: 90 RF: 3 Dupixent Syringe 300 mg/2 mL syringe See Rx Instructions .ROUTE .COMPLEX Qty: 4 RF: 11 pantoprazole [Protonix] 40 mg tablet,delayed release (DR/EC) 40 mg PO QAM Qty: 90 RF: 3 (DME) compr.stocking,knee,long,large Misc See Rx Instructions .ROUTE .MEDSUPPLY Qty: 12 RF: 0 tamsulosin 0.4 mg capsule 0.4 mg PO DAILY Qty: 90 RF: 3 dutasteride [Avodart] 0.5 mg capsule 0.5 mg PO QAM Qty: 90 RF: 3 multivitamin Tablet 1 tab PO QAM RF: 0 triamcinolone acetonide 0.1 % cream 1 applic topical BID RF: 0 cholecalciferol (vitamin D3) [Vitamin D3] 25 mcg (1,000 unit) capsule 1,000 unit PO QAM RF: 0 Saccharomyces boulardii [Florastor] 250 mg Capsule 250 mg PO BID RF: 0 methocarbamol 500 mg Tablet 500 mg PO TID RF: 0 acetaminophen [Tylenol] 325 mg Tablet 650 mg PO DIRECTED PRN (Reason: FEVER/PAIN) RF: 0 melatonin 3 mg Tablet 3 mg PO HS PRN (Reason: Sleep) RF: 0 calcium carbonate [Tums] 200 mg calcium (500 mg) Tablet,Chewable 200 mg PO DIRECTED PRN (Reason: HEARTBURN/INDIGESTION) RF: 0 metronidazole [MetroCream] 0.75 % Cream 1 applic TOPICAL BID RF: 0 docusate sodium 100 mg Capsule 100 mg PO BID RF: 0 mupirocin 2 % Ointment 1 applic TOPICAL BID PRN (Reason: AFFECTED AREA) RF: 0 ketoconazole 2 % Cream 1 applic TOPICAL BID PRN (Reason: EFFECTED AREAS) RF: 0 oxycodone 5 mg Tablet 5 mg PO Q6H PRN (Reason: Pain) RF: 0 Spiriva with HandiHaler 18 mcg capsule, w/inhalation device 18 mcg INHALATION DAILY RF: 0 metoprolol succinate 50 mg Capsule,Sprinkle,Er 24hr 50 mg PO DAILY RF: 0 Discharge Orders: Discharge Order (Routine); Ordered 07/30/21 Ordered By: Patricia Love Admission Data Admit Date/Time: 07/23/21 13:18 Attending Provider: Justino Moran Admit Provider: Christine Jackson Primary Care Provider: Justino Mandujano Other Providers: Christine Jackson ; Den Erazo Yi How ; Quintin Lacy ; Elissa Merritt ; Shawn Jordan I. ; Harsh Davis II ; Beatrice Cope ; Lg Gar ; Uche Garcia Coding Level of Care Code D/C DAY MANAGEMENT >30 MINS Diagnoses Facial cellulitis L03.211 Osteomyelitis M86.9 Atrial fibrillation I48.91 Thoracic spine fracture S22.009A Hypertension I10 Hypertension type: unspecified BPH (benign prostatic hyperplasia) N40.0 Lower urinary tract symptom presence: symptoms absent Iron deficiency anemia D50.9 COPD (chronic obstructive pulmonary disease) J44.9 Barretts esophagus K22.70 PVD (peripheral vascular disease) I73.9 Mild dementia F03.90 Hypercholesteremia E78.00
== END 2021-07-30 13:19 | DRG 141 ==
LOC: 2N 16:09 → ED 16:09 → SUATTDRO 20:04 → 2N 20:55 → SUATTDRO 07-23 13:18 → 2N 07-23 23:18 → 3N 07-24 21:55

== ENCOUNTER 2021-08-04 20:33 | Observation (INO) ==
[2021-08-04 21:23] LABS: Basophils # (auto) 0.04 K/uL (0-0.2); Basophils % (auto) 0.6 %; Eosinophils # (auto) 0.29 K/uL (0-0.5); Eosinophils % (auto) 4.3 %; Hematocrit (blood only) 34.2 % (42-52); Hemoglobin 10.6 g/dL (14.0-18.0); Immature Granulocytes # (auto) 0.01 K/uL (0.00-0.02); Immature Granulocytes % (auto) 0.1 %; Lymphocytes # (auto) 0.95 K/uL (1.2-3.4); Lymphocytes % (auto) 14.1 %; Mean Corpuscular Hemoglobin 27.6 pg (25-34); Mean Corpuscular Volume 89.1 fL (80-100); Mean Platelet Volume 12.2 fL (7.4-10.4); Monocytes # (auto) 0.58 K/uL (0.11-0.59); Monocytes % (auto) 8.6 %; Neutrophils # (auto) 4.88 K/uL (1.4-6.5); Neutrophils % (auto) 72.3 %; Platelet Count 221 K/uL (130-400); RDW Coefficient of Variation 18.9 % (11.5-14.5); RDW Standard Deviation 61.2 fL (36.4-46.3); Red Blood Count 3.84 M/uL (4.7-6.1); White Blood Count 6.75 K/uL (4.8-10.8)
[2021-08-04 21:25] LABS: INR 1.5 (0.9-1.1); Partial Thromboplastin Ratio 1.3
[2021-08-04 21:32] LABS: Albumin Globulin Ratio 1.1 (0.9-2); Albumin Level 3.3 gm/dl (3.4-5.0); BUN Creatinine Ratio 25.2 (10-20); Bilirubin,Total 0.8 mg/dl (0.2-1.0); Calcium 8.4 mg/dl (8.5-10.1); Creatinine Clr Calc Pharmacy 63.3 ml/min; Est GFR (African American) 75.9 ml/min; Est GFR (Non-African American) 65.5 ml/min; Globulin 3.1 gm/dl (2.5-4.0); Potassium 4.2 mmol/L (3.5-5.1); Total Protein 6.4 gm/dl (6.0-8.3)
[2021-08-04] MEDS ORDERED: SODIUM CHLORIDE 0.9% 1000ML 1,000 ML IV ONE (22:20)
--- NOTE | 2021-08-04 23:36 | Emergency Department Note ---
History of Present Illness General Chief complaint: Catheter Replacement Stated complaint: Bleeding, Catheter Replacement Time Seen by Provider: 08/04/21 21:23 History of Present Illness Maximum Pain Intensity: 8 86-year-old male presents to the ED with a chief complaint of hematuria after he accidentally pulled his Vera catheter out last night. He resides at the [facility]. He has had some bleeding throughout the day and was brought to the ED for evaluation. A bladder scan prior to me seeing the patient showed 544 cc of urine in the bladder. Patient has no specific complaints at this time. He was reportedly hypotensive at the nursing facility and near syncopal. The patient was recently diagnosed with truman-implantitis and is currently getting Unasyn through PICC line. Home Medications Medication Instructions Recorded Confirmed Type triamcinolone acetonide 0.1 % 1 applic TOPICAL BID 05/30/18 08/04/21 History topical cream Saccharomyces boulardii 250 mg 250 mg PO BID17 10/14/19 08/04/21 History capsule (Florastor) compr.stocking,knee,long,large #12 ea 12/15/19 06/25/21 Rx cholecalciferol (vitamin D3) 25 1,000 unit PO QAM cap 02/13/20 08/04/21 History mcg (1,000 unit) capsule (Vitamin D3) dutasteride 0.5 mg capsule 0.5 mg PO QAM #90 cap 12/27/20 08/04/21 Rx (Avodart) tamsulosin 0.4 mg capsule 0.4 mg PO DAILY #90 cap 12/27/20 08/04/21 Rx rivaroxaban 20 mg tablet (Xarelto) 20 mg PO QAM #90 tab 03/16/21 08/04/21 Rx acetaminophen 325 mg tablet 650 mg PO DIRECTED PRN 07/22/21 08/04/21 History (Tylenol) calcium carbonate 200 mg calcium 400 mg PO QAM 07/22/21 08/04/21 History (500 mg) chewable tablet (Tums) docusate sodium 100 mg capsule 100 mg PO BID 07/22/21 08/04/21 History methocarbamol 500 mg tablet 500 mg PO TID 07/22/21 08/04/21 History metoprolol succinate 50 mg capsule 50 mg PO DAILY 07/22/21 08/04/21 History sprinkle, ext. release 24 hr metronidazole 0.75 % topical cream 1 applic TOPICAL BID17 07/22/21 08/04/21 History (MetroCream) tiotropium bromide 18 mcg capsule 18 mcg INHALATION DAILY 07/22/21 08/04/21 History with inhalation device (Spiriva with HandiHaler) pantoprazole 40 mg tablet,delayed 40 mg PO QAM #90 tab 07/26/21 08/04/21 Rx release (Protonix) ertapenem 1 gram solution for 1 g IV DAILY 21 Days ea 07/30/21 08/04/21 Rx injection atorvastatin 20 mg tablet (Lipitor) 20 mg PO HS 08/04/21 08/04/21 History chlorhexidine gluconate 0.12 % 1 applic PO BID 08/04/21 08/04/21 History mouthwash (Peridex) heparin lock flush (porcine) 10 5 unit IV QAM 08/04/21 08/04/21 History unit/mL intravenous solution multivitamin with minerals 1 tab PO DAILY 08/04/21 08/04/21 History sodium chloride 0.9 % 10 ml IV DAILY 08/04/21 08/04/21 History Allergies Allergy/AdvReac Type Severity Reaction Status Date / Time cephalexin [From Keflex] Allergy Intermediate Impaires Verified 08/04/21 21:14 Cognitive function cyclobenzaprine Allergy Intermediate RASH ON Verified 08/04/21 21:14 FACE flecainide Allergy Intermediate DISCOLORATION Verified 08/04/21 21:14 OF SKIN ibuprofen AdvReac Mild RHINORRHEA Verified 08/04/21 21:14 Past Med/Surg History Medical History Anemia Atrial fibrillation AVNRT (AV danette re-entry tachycardia) Barretts esophagus BPH (benign prostatic hyperplasia) Chronic obstructive pulmonary disease Esophageal dysmotility with aspiration (hx) Hiatal hernia 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, 1mm exchange consultant last year, 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 [facility] Inguinal hernia Polyposis of sinonasal region Poor historian Reactive airway disease Spinal stenosis, lumbar region, with neurogenic claudication Thoracic spine fracture Surgical History History of back surgery History of incision and drainage (07/24/21) Incision and Drainage Facial and Neck Abscess - Den Erazo, DMD 07/24/2021 Hx of hernia repair Hx of laminectomy Family History Mother Breast cancer Type 2 diabetes mellitus without complications Other Family history non-contributory Denies family history of Ovarian cancer Prostate cancer Myocardial infarction Colorectal cancer Social History Smoking Status: Former smoker Hx Alcohol Use: No Hx Substance Use: No Preferred Language: Kittitian Communication Ability: Effective Visual Impairment: No Limitations Stopper Setter Required: No Beliefs That Will Affect Care: None marital status: / Current Living Situation: Personal Care Facility Current Living Situation Comment: patient reportedl resides in an assisted living facility Feels Safe at Home: Yes Assistive Devices: Walker Review of Systems A total of 10 systems reviewed and were otherwise negative Physical Exam Vital Signs Vital Signs - 24 hr 08/04/21 20:40 08/04/21 21:06 08/04/21 23:00 Temperature 36.5 C 36.8 C Temperature Source Oral Oral Pulse Rate 64 Pulse Rate [Apical] 55 L 95 H Pulse Rhythm [Apical] Irregular Pulse Strength [Apical] Normal Respiratory Rate 15 16 18 Respiratory Effort / Characteristics Non-Labored Spontaneous Non-Labored Spontaneous Non-Labored Respiratory Depth Normal Normal Normal Respiratory Pattern Regular Regular Blood Pressure 88/50 L Blood Pressure [Left Arm] 101/46 L 107/50 L Blood Pressure Mean 62 Blood Pressure Mean [Left Arm] 64 69 Pulse Oximetry 99 100 100 Oxygen Delivery Method Room Air Room Air Sepsis Recent Fever Within 48 Hours No Sepsis New/Unexplained Change in Mental Status No Sepsis Action Taken by Nursing No Action Required CONSTITUTIONAL/VITAL SIGNS: Reviewed / noted above. GENERAL: Non-toxic in appearance. INTEGUMENTARY: Warm, dry, and Trooper. HEAD: Normocephalic. EYES: without scleral icterus or trauma. ENT/OROPHARYNX: clear and moist. RESPIRATORY: Clear to auscultation bilaterally. No increased work of breathing. CARDIOVASCULAR: Regular rate and rhythm. GI/ABDOMEN: Soft and nontender. No organomegaly or pulsatile mass. EXTREMITIES: Warm and well perfused. NEUROLOGICAL: Intact without focal deficits. PSYCHIATRIC: normal affect. MUSCULOSKELETAL: Normally developed with good muscle tone. TRIAGE NURSING DOCUMENTATION REVIEWED. Course Administered Medications Discontinued Medications Sodium Chloride (Nss 1000ml) 1,000 mls @ 999 mls/hr IV .Q1H1M ONE Stop: 08/04/21 23:20 Last Admin: 08/04/21 22:25 Dose: 999 mls/hr Documented by: [id number] Medical Decision Making Differential Diagnosis Differential includes acute coronary syndrome, myocardial infarction, CVA, TIA, anemia, infection, pneumonia, UTI, pyelonephritis, poor nutrition, dehydration, electrolyte disturbance,hypoglycemia. Medical Records Attestation: I reviewed the patient's medical records. Home Medications Current Medication List: was personally reviewed by me Laboratory Data Attestation: I reviewed the patient's lab results. Result diagrams: 08/04/21 21:00 08/04/21 21:00 Lab Results 08/04/21 08/04/21 08/04/21 Range/Units 21:00 21:00 21:00 WBC 6.75 (4.8-10.8) K/uL RBC 3.84 L (4.7-6.1) M/uL Hgb 10.6 L (14.0-18.0) g/dL Hct 34.2 L (42-52) % MCV 89.1 (80-100) fL MCH 27.6 (25-34) pg MCHC 31.0 L (32-36) g/dL RDW Std Deviation 61.2 H (36.4-46.3) fL RDW Coeff of Gilda 18.9 H (11.5-14.5) % Plt Count 221 (130-400) K/uL MPV 12.2 H (7.4-10.4) fL Immature Gran % (Auto) 0.1 % Neut % (Auto) 72.3 % Lymph % (Auto) 14.1 % Winkler % (Auto) 8.6 % Eos % (Auto) 4.3 % Baso % (Auto) 0.6 % Neut # (Auto) 4.88 (1.4-6.5) K/uL Lymph # (Auto) 0.95 L (1.2-3.4) K/uL Winkler # (Auto) 0.58 (0.11-0.59) K/uL Eos # (Auto) 0.29 (0-0.5) K/uL Baso # (Auto) 0.04 (0-0.2) K/uL Immature Gran # (Auto) 0.01 (0.00-0.02) K/uL PT 16.0 H (9.0-12.0) Seconds INR 1.5 H (0.9-1.1) APTT 35.0 H (21.0-31.0) Seconds PTT Ratio 1.3 Sodium 134 L (136-145) mmol/L Potassium 4.2 (3.5-5.1) mmol/L Chloride 101 (98-107) mmol/L Carbon Dioxide 25 (21-32) mmol/L Anion Gap 8 (3-11) BUN 26 H (6-23) mg/dl Creatinine 1.03 (0.6-1.4) mg/dl Est Cr Clr Drug Dosing 63.3 ml/min Est GFR ( Amer) 75.9 ml/min Est GFR (Non-Af Amer) 65.5 ml/min BUN/Creatinine Ratio 25.2 H (10-20) Glucose 134 H (70-99(Fasting)) mg/dl Calcium 8.4 L (8.5-10.1) mg/dl Total Bilirubin 0.8 (0.2-1.0) mg/dl AST 23 (13-39) U/L ALT 25 (7-52) U/L Alkaline Phosphatase 78 (34-104) U/L Total Protein 6.4 (6.0-8.3) gm/dl Albumin 3.3 L (3.4-5.0) gm/dl Globulin 3.1 (2.5-4.0) gm/dl Albumin/Globulin Ratio 1.1 (0.9-2) Imaging Data My Impression: Chest x-ray: Per my interpretation there is no acute disease. No pneumothorax or pneumonia. ECG Data Attestation: I personally reviewed and interpreted this ECG as follows: Additional Comments: Twelve-lead EKG: Per my interpretation shows chronic A. fib at a rate of 54. No ST elevation. No PVCs. Normal QTC peer MDM Narrative 86-year-old male presents as noted above. Primary concern was that he pull out his Vera catheter accidentally causing some hematuria and urinary retention. Bladder scan showed 544 cc. A Vera catheter was placed. Urine dip shows some blood. The patient is currently on Unasyn. Infection is unlikely. The patient's chest x-ray did not show acute process. His CBC shows a hemoglobin of 10.6. This is near baseline. BUN is 26 suggesting dehydration. EKG shows chronic A. fib. Patient is chronically on Eliquis. The patient was hydrated with a liter normal saline IV. Blood pressures remained stable. He is felt to be stable for discharge. Impression & Plan Dislodged Vera catheter, Urinary retention, Acute dehydration Discharge Plan Visit Data Chief Complaint: Catheter Replacement Stated Complaint: Bleeding, Catheter Replacement ED Provider: Chin Valdez Discharge Problem: Dislodged Vera catheter, Urinary retention, Acute dehydration Patient Disposition: Home - Self-Care Discharge Instructions Activity Restrictions/Additional Instructions: Your test results today did not show any concerning abnormalities. The blood work does suggest some dehydration. Your hemoglobin today is 10.6. This is about baseline. Return for any concerns. Follow-up with your doctor for further care and evaluation in 1-3 days if sympt oms persist. Return to the emergency department for worsening or new symptoms or any concerns. You have been examined and treated today on an emergency basis only. This is not a substitute for, or an effort to provide, complete comprehensive medical care. It is impossible to recognize and treat all injuries or illnesses in a single emergency department visit. It is therefore important that you follow up closely with your doctor. Call as soon as possible for an appointment. Forms Stand Alone Forms: My [facility], Virtual Emergency Department, [facility] Visit Information Prescriptions Prescriptions: No Action Xarelto 20 mg tablet 20 mg PO QAM Qty: 90 RF: 3 pantoprazole [Protonix] 40 mg tablet,delayed release (DR/EC) 40 mg PO QAM Qty: 90 RF: 3 (DME) compr.stocking,knee,long,large Misc See Rx Instructions .ROUTE .MEDSUPPLY Qty: 12 RF: 0 tamsulosin 0.4 mg capsule 0.4 mg PO DAILY Qty: 90 RF: 3 dutasteride [Avodart] 0.5 mg capsule 0.5 mg PO QAM Qty: 90 RF: 3 triamcinolone acetonide 0.1 % cream 1 applic topical BID RF: 0 cholecalciferol (vitamin D3) [Vitamin D3] 25 mcg (1,000 unit) capsule 1,000 unit PO QAM RF: 0 Saccharomyces boulardii [Florastor] 250 mg Capsule 250 mg PO BID17 RF: 0 methocarbamol 500 mg Tablet 500 mg PO TID RF: 0 acetaminophen [Tylenol] 325 mg Tablet 650 mg PO DIRECTED PRN (Reason: FEVER/PAIN) RF: 0 calcium carbonate [Tums] 200 mg calcium (500 mg) Tablet,Chewable 400 mg PO QAM RF: 0 metronidazole [MetroCream] 0.75 % Cream 1 applic TOPICAL BID17 RF: 0 docusate sodium 100 mg Capsule 100 mg PO BID RF: 0 Spiriva with HandiHaler 18 mcg capsule, w/inhalation device 18 mcg INHALATION DAILY RF: 0 metoprolol succinate 50 mg Capsule,Sprinkle,Er 24hr 50 mg PO DAILY RF: 0 ertapenem 1 gram recon soln 1 g IV DAILY 21 Days RF: 0 sodium chloride 0.9 % [Normal Saline] Solution 10 ml IV DAILY RF: 0 heparin lock flush (porcine) [heparin lock flush] 10 unit/mL Solution 5 unit IV QAM RF: 0 multivitamin with minerals Tablet 1 tab PO DAILY RF: 0 chlorhexidine gluconate [Peridex] 0.12 % Mouthwash 1 applic PO BID RF: 0 atorvastatin [Lipitor] 20 mg tablet 20 mg PO HS RF: 0 Referrals Referrals: Justino Mandujano MD [Primary Care Provider] -
[2021-08-05 00:17] LABS: Appearance Urine Cloudy (Clear); Bacteria Urine Automated Negative (Negative); Bilirubin Urine Negative (Negative); Blood Urine 3+ (Negative); Color Urine Dark Yellow; Glucose Urine UA Negative (Negative); Ketones Urine Negative (Negative); Leukocyte Esterase Urine Trace (Negative); Nitrite Urine Negative (Negative); Protein Urine 1+ (Negative); RBC Urine Automated >30 /hpf (0-4); Specific Gravity Urine 1.015 (1.000-1.030); Urobilinogen Urine Negative (Negative); pH Urine 5.5 (4.5-7.5)
[2021-08-05] MEDS ORDERED: SODIUM CHLORIDE 0.9% 1000ML 1,000 ML IV ONE (00:38)
--- NOTE | 2021-08-05 01:49 | History & Physical Report ---
Date of Service August 05, 2021 Assessment & Plan (1) Dislodged Vera catheter: Plan: Patient with urinary retention which developed during his hospital stay at [facility], Vera catheter in place. Accidental removal earlier today. Mild urinary retention in the ER with 544 mL of urine noted on bladder scan. Vera replaced with passage of hematuria with clots. Patient hemodynamically stable. Hemoglobin = 20.6, hematocrit = 34.2. Suspect hematuria is posttraumatic. Vera management If hematuria persists would consult urology We will hold rivaroxaban for now CBC in a.m. Continue Flomax 0.4 mg daily Outpatient follow-up with urology as scheduled (2) Orthostatic hypotension: Plan: Patient with orthostatic hypotension noted in the ER Given 2 L of IV fluids Ambulatory trial in the morning (3) Osteomyelitis: Plan: Patient was admitted 07/23 - 07/30/2021 with concern for early Aguila's angina. He had an I&D performed by OMFS on 07/24. He was found to have osteomyelitis/destructive changes seen at the right mandible. Patient had PICC line placed and has been receiving IV Ivanz 1 g daily. He is to continue this x4 weeks with possible transition to Augmentin for the remaining 2 weeks of the antibiotic course Continue Ivanz 1 g IV daily ID follow-up as arranged (4) Thoracic spine fracture: Plan: Patient with recent fracture of T7 after a fall at home in June. He was seen at [facility] following the fall. He had a hematoma on his back resulting in acute blood loss anemia. He was not a good surgical candidate for intervention on the T7 fracture therefore he was placed in a TLSO brace. Maintain brace at all times except when in bed Continue home Tylenol and methocarbamol as needed (5) Iron deficiency anemia: Plan: Stable H&H. Repeat in a.m. following acute hematuria Transfusion for symptomatic anemia, ongoing bleed or hemoglobin less than 7 (6) Mild dementia: Plan: Patient oriented during my exam Delirium prevention strategies (7) Atrial fibrillation: Plan: Patient with episodes of bradycardia. Anticoagulated on rivaroxaban Hold rivaroxaban in setting of acute hematuria Hold metoprolol in setting of bradycardia (8) Hypertension: Plan: Blood pressure stable Continue to monitor (9) Hypercholesteremia: Plan: Chronic. Stable on medications. Continue atorvastatin 20 mg p.o. nightly (10) COPD (chronic obstructive pulmonary disease): Plan: Chronic. Stable. No cough, shortness of breath, wheeze Continue tiotropium, umeclidinium Plan: F/E/Nhas received 2 L of IV fluid. Encourage oral intake as tolerated. 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 Patient presently resides at the [facility]. He accidentally removed his Vera catheter today. He had some intermittent hematuria throughout the day which is what prompted the visit to the ER. Bladder scan performed in the ER showed 544 mL of urine in the bladder. Vera catheter was replaced in the ER with passage of bloody urine as well as clots. Patient was to be discharged home with Vera in place. However, he attempted to get up and became significantly orthostatic with blood pressure going from 112/64 lying flat to 76/51 standing patient became dizzy and presyncopal. Observation overnight requested by ER. During my encounter patient with no acute complaints. He states that he feels tired otherwise denies fever/chills/chest pain/cough/shortness of breath/abdominal pain/nausea/vomiting/diarrhea/constipation ER course: Normal saline solution x2 L Allergies Allergy/AdvReac Type Severity Reaction Status Date / Time cephalexin [From Keflex] Allergy Intermediate Impaires Verified 08/04/21 21:14 Cognitive function cyclobenzaprine Allergy Intermediate RASH ON Verified 08/04/21 21:14 FACE flecainide Allergy Intermediate DISCOLORATION Verified 08/04/21 21:14 OF SKIN ibuprofen AdvReac Mild RHINORRHEA Verified 08/04/21 21:14 Home Medications Medication Instructions Recorded Confirmed Type triamcinolone acetonide 0.1 % 1 applic TOPICAL BID 05/30/18 08/04/21 History topical cream Saccharomyces boulardii 250 mg 250 mg PO BID17 10/14/19 08/04/21 History capsule (Florastor) compr.stocking,knee,long,large #12 ea 12/15/19 06/25/21 Rx cholecalciferol (vitamin D3) 25 1,000 unit PO QAM cap 02/13/20 08/04/21 History mcg (1,000 unit) capsule (Vitamin D3) dutasteride 0.5 mg capsule 0.5 mg PO QAM #90 cap 12/27/20 08/04/21 Rx (Avodart) tamsulosin 0.4 mg capsule 0.4 mg PO DAILY #90 cap 12/27/20 08/04/21 Rx rivaroxaban 20 mg tablet (Xarelto) 20 mg PO QAM #90 tab 03/16/21 08/04/21 Rx acetaminophen 325 mg tablet 650 mg PO DIRECTED PRN 07/22/21 08/04/21 History (Tylenol) calcium carbonate 200 mg calcium 400 mg PO QAM 07/22/21 08/04/21 History (500 mg) chewable tablet (Tums) docusate sodium 100 mg capsule 100 mg PO BID 07/22/21 08/04/21 History methocarbamol 500 mg tablet 500 mg PO TID 07/22/21 08/04/21 History metoprolol succinate 50 mg capsule 50 mg PO DAILY 07/22/21 08/04/21 History sprinkle, ext. release 24 hr metronidazole 0.75 % topical cream 1 applic TOPICAL BID17 07/22/21 08/04/21 History (MetroCream) tiotropium bromide 18 mcg capsule 18 mcg INHALATION DAILY 07/22/21 08/04/21 History with inhalation device (Spiriva with HandiHaler) pantoprazole 40 mg tablet,delayed 40 mg PO QAM #90 tab 07/26/21 08/04/21 Rx release (Protonix) ertapenem 1 gram solution for 1 g IV DAILY 21 Days ea 07/30/21 08/04/21 Rx injection atorvastatin 20 mg tablet (Lipitor) 20 mg PO HS 08/04/21 08/04/21 History chlorhexidine gluconate 0.12 % 1 applic PO BID 08/04/21 08/04/21 History mouthwash (Peridex) heparin lock flush (porcine) 10 5 unit IV QAM 08/04/21 08/04/21 History unit/mL intravenous solution multivitamin with minerals 1 tab PO DAILY 08/04/21 08/04/21 History sodium chloride 0.9 % 10 ml IV DAILY 08/04/21 08/04/21 History Past Med/Surg History Medical History Anemia Atrial fibrillation AVNRT (AV danette re-entry tachycardia) Barretts esophagus BPH (benign prostatic hyperplasia) Chronic obstructive pulmonary disease Esophageal dysmotility with aspiration (hx) Hiatal hernia 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, 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, 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 [facility] Inguinal hernia Polyposis of sinonasal region Poor historian Reactive airway disease Spinal stenosis, lumbar region, with neurogenic claudication Thoracic spine fracture Surgical History History of back surgery History of incision and drainage (07/24/21) Incision and Drainage Facial and Neck Abscess - Den Erazo, DMD 07/24/2021 Hx of hernia repair Hx of laminectomy Family History Mother Breast cancer Type 2 diabetes mellitus without complications Other Family history non-contributory Denies family history of Ovarian cancer Prostate cancer Myocardial infarction Colorectal cancer Social History Smoking Status: Former smoker Hx Alcohol Use: No Hx Substance Use: No Preferred Language: Yakut Communication Ability: Effective Visual Impairment: No Limitations Process Checker Required: No Beliefs That Will Affect Care: None marital status: / Current Living Situation: Personal Care Facility Current Living Situation Comment: patient reportedl resides in an assisted living facility Feels Safe at Home: Yes Assistive Devices: Walker Review of Systems Review of Systems: All systems reviewed & are unremarkable except as noted in HPI & below Physical Exam Physical Exam: General: patient resting comfortably, NAD, non-toxic in appearance, AA&O x 4 Skin: warm, dry, intact, no rashes or lesions HEENT: NC/AT, PERRL, EOMI, anicteric sclera, conjunctiva without injection, external ear normal to inspection and nontender, nares patent, moist mucus membranes, dentition intact, no oropharyngeal lesions, neck supple, trachea midline, no LAD, no thyromegaly, no JVD Heart: +S1/S2, regular, no m/r/g Lungs: equal air entry bilaterally, no rales/rhonchi/wheezes Abd: +BS, soft, NT/ND, no masses/organomegaly/ascites Ext: warm, 2+ pulses in UE/LE bilaterally, no clubbing/cyanosis or edema Vera in place with dark bloody urine in bag with small amount of clot Neuro: nonfocal, patient AA&O x 4, speech intact, no facial droop, moving all extremities on command with equal strength 5/5 Results & Data Results & Data ([facility]) Vital Signs (Past 12 Hours) Vital Signs Temp Pulse Pulse Resp BP BP Pulse Ox 08/05/21 01:00 36.9 C 68 18 112/59 L 97 08/04/21 23:00 36.8 C 95 H 18 107/50 L 100 08/04/21 21:06 55 L 16 101/46 L 100 08/04/21 20:40 36.5 C 64 15 88/50 L 99 Laboratory Results Laboratory Results WBC 6.75 K/uL (4.8-10.8) 08/04/21 21:00 RBC 3.84 M/uL (4.7-6.1) L 08/04/21 21:00 Hgb 10.6 g/dL (14.0-18.0) L 08/04/21 21:00 Hct 34.2 % (42-52) L 08/04/21 21:00 MCV 89.1 fL (80-100) 08/04/21 21:00 MCH 27.6 pg (25-34) 08/04/21 21:00 MCHC 31.0 g/dL (32-36) L 08/04/21 21:00 RDW Std Deviation 61.2 fL (36.4-46.3) H 08/04/21 21:00 RDW Coeff of Gilda 18.9 % (11.5-14.5) H 08/04/21 21:00 Plt Count 221 K/uL (130-400) 08/04/21 21:00 MPV 12.2 fL (7.4-10.4) H 08/04/21 21:00 Immature Gran % (Auto) 0.1 % 08/04/21 21:00 Neut % (Auto) 72.3 % 08/04/21 21:00 Lymph % (Auto) 14.1 % 08/04/21 21:00 Kane % (Auto) 8.6 % 08/04/21 21:00 Eos % (Auto) 4.3 % 08/04/21 21:00 Baso % (Auto) 0.6 % 08/04/21 21:00 Neut # (Auto) 4.88 K/uL (1.4-6.5) 08/04/21 21:00 Lymph # (Auto) 0.95 K/uL (1.2-3.4) L 08/04/21 21:00 Kane # (Auto) 0.58 K/uL (0.11-0.59) 08/04/21 21:00 Eos # (Auto) 0.29 K/uL (0-0.5) 08/04/21 21:00 Baso # (Auto) 0.04 K/uL (0-0.2) 08/04/21 21:00 Immature Gran # (Auto) 0.01 K/uL (0.00-0.02) 08/04/21 21:00 PT 16.0 Seconds (9.0-12.0) H 08/04/21 21:00 INR 1.5 (0.9-1.1) H 08/04/21 21:00 APTT 35.0 Seconds (21.0-31.0) H 08/04/21 21:00 PTT Ratio 1.3 08/04/21 21:00 Sodium 134 mmol/L (136-145) L 08/04/21 21:00 Potassium 4.2 mmol/L (3.5-5.1) 08/04/21 21:00 Chloride 101 mmol/L (98-107) 08/04/21 21:00 Carbon Dioxide 25 mmol/L (21-32) 08/04/21 21:00 Anion Gap 8 (3-11) 08/04/21 21:00 BUN 26 mg/dl (6-23) H 08/04/21 21:00 Creatinine 1.03 mg/dl (0.6-1.4) 08/04/21 21:00 Est Cr Clr Drug Dosing 63.3 ml/min 08/04/21 21:00 Est GFR ( Amer) 75.9 ml/min 08/04/21 21:00 Est GFR (Non-Af Amer) 65.5 ml/min 08/04/21 21:00 BUN/Creatinine Ratio 25.2 (10-20) H 08/04/21 21:00 Glucose 134 mg/dl (70-99(Fasting)) H 08/04/21 21:00 Calcium 8.4 mg/dl (8.5-10.1) L 08/04/21 21:00 Total Bilirubin 0.8 mg/dl (0.2-1.0) 08/04/21 21:00 AST 23 U/L (13-39) 08/04/21 21:00 ALT 25 U/L (7-52) 08/04/21 21:00 Alkaline Phosphatase 78 U/L (34-104) 08/04/21 21:00 Total Protein 6.4 gm/dl (6.0-8.3) 08/04/21 21:00 Albumin 3.3 gm/dl (3.4-5.0) L 08/04/21 21:00 Globulin 3.1 gm/dl (2.5-4.0) 08/04/21 21:00 Albumin/Globulin Ratio 1.1 (0.9-2) 08/04/21 21:00 Urine Color Dark Yellow 08/04/21 23:50 Urine Appearance Cloudy (Clear) A 08/04/21 23:50 Urine pH 5.5 (4.5-7.5) 08/04/21 23:50 Ur Specific [place] 1.015 (1.000-1.030) 08/04/21 23:50 Urine Protein 1+ (Negative) H 08/04/21 23:50 Urine Glucose (UA) Negative (Negative) 08/04/21 23:50 Urine Ketones Negative (Negative) 08/04/21 23:50 Urine Blood 3+ (Negative) H 08/04/21 23:50 Urine Nitrite Negative (Negative) 08/04/21 23:50 Urine Bilirubin Negative (Negative) 08/04/21 23:50 Urine Urobilinogen Negative (Negative) 08/04/21 23:50 Ur Leukocyte Esterase Trace (Negative) H 08/04/21 23:50 Urine WBC (Auto) 5-10 /hpf (0-5) H 08/04/21 23:50 Urine RBC (Auto) >30 /hpf (0-4) H 08/04/21 23:50 U Hyaline Cast (Auto) 1-5 /lpf (0-5) 08/04/21 23:50 U Epithel Cells (Auto) 5-10 /lpf (0-5) H 08/04/21 23:50 Urine Bacteria (Auto) Negative (Negative) 08/04/21 23:50 SARS-CoV-2, RNA, NAAT NEGATIVE (NEGATIVE) 08/05/21 00:50 Code Status & VTE Plan VTE Prophylaxis Plan VTE Prophylaxis will be ordered: Yes PG Care Time/CCT Total # of Minutes Spent Total Time Spent with Patient: Total time spent is greater than 50% in coordination of care (as documented) at patient's floor/unit and/or counseling patient: Coding Level of Care Code 46530 Initial Inpt Care Lvl 3 Diagnoses Dislodged Vera catheter T83.021A Osteomyelitis M86.9 Thoracic spine fracture S22.009A Iron deficiency anemia D50.9 Mild dementia F03.90 Atrial fibrillation I48.91 Hypertension I10 Hypertension type: unspecified Hypercholesteremia E78.00 COPD (chronic obstructive pulmonary disease) J44.9 Orthostatic hypotension I95.1 (1) Hypertension Hypertension type: unspecified Qualified Code(s): I10 - Essential (primary) hypertension
[2021-08-05] MEDS ORDERED: ACETAMINOPHEN 325 MG TAB PO PRN (03:16)
[2021-08-05] MEDS: SACCHAROMYCES BOULARDII 250 MG CAP PO SCH ×2 (08:35→17:49)
[2021-08-05] MEDS: METHOCARBAMOL 500 MG TABLET PO SCH ×3 (08:35→17:49)
[2021-08-05] MEDS: CHOLECALCIFEROL 1,000 UNITS 25 MCG TAB PO SCH (08:35)
[2021-08-05] MEDS: PANTOprazole 40 MG TAB PO SCH (08:35)
[2021-08-05] MEDS: UMECLIDINIUM BROMIDE 62.5MCG/BLISTER 7 PUFFS/INHALER INH SCH (08:35)
[2021-08-05] MEDS: CALCIUM CARBONATE 500 MG CHEWABLE TAB PO SCH (08:35)
[2021-08-05] MEDS: TAMSULOSIN HCL 0.4 MG CAP PO SCH (08:35)
[2021-08-05] MEDS: TRIAMCINOLONE ACET 0.1% CR 15 GM TUBE TOP SCH ×2 (08:36→20:09)
[2021-08-05] MEDS: DOCUSATE SODIUM 100 MG CAP PO SCH ×2 (08:36→20:02)
--- NOTE | 2021-08-05 08:51 | XRay Report ---
XR chest 1V portable CLINICAL HISTORY: illness TECHNIQUE: Single frontal radiograph of the chest was obtained. Comparison: Comparison is made to chest radiograph 07/27/2021 FINDINGS: A right PICC catheter is again noted with the tip in the mid SVC. Calcified aortic knob is seen. The lungs are clear. No evidence of pleural effusion or pneumothorax. IMPRESSION: No acute chest disease. ACT 112: Negative or not required by law. Electronically signed by: Cash Lo M.D. 08/05/2021 8:50 AM
[2021-08-05] MEDS ORDERED: TIOTROPIUM BROMIDE 5 PUFF/90 MCG INH INH SCH (09:00)
[2021-08-05] MEDS ORDERED: ERTAPENEM 285 MG/ML 1GM VIAL **IM USE IM SCH (09:00)
[2021-08-05] MEDS: ERTAPENEM SODIUM 1,000 MG in SYRINGE 0 ML IV SCH (09:13)
[2021-08-05] MEDS: CHLORHEXIDINE GLUCONATE 0.12% 480 ML MT SCH ×2 (09:13→20:03)
--- NOTE | 2021-08-05 15:24 | Electrocardiogram Report ---
Test Reason : Blood Pressure : / mmHG Vent. Rate : 054 BPM Atrial Rate : 043 BPM P-R Int : 000 ms QRS Dur : 092 ms QT Int : 448 ms P-R-T Axes : 000 011 034 degrees QTc Int : 424 ms Atrial fibrillation with slow ventricular response Abnormal ECG When compared with ECG of 05-JUL-2021 04:35, Vent. rate has decreased BY 41 BPM Confirmed by Derick Barrett ([id number]) on 08/05/2021 3:23:44 PM Referred By: REFERRED SELF Confirmed By:Derick Barrett
[2021-08-05] MEDS ORDERED: ATORVASTATIN 20 MG TAB PO SCH (21:00)
[2021-08-06 06:14] LABS: Basophils # (auto) 0.04 K/uL (0-0.2); Eosinophils % (auto) 5.1 %; Lymphocytes # (auto) 0.69 K/uL (1.2-3.4); Lymphocytes % (auto) 17.6 %; Mean Corpuscular Hemoglobin 27.5 pg (25-34); Mean Corpuscular Volume 88.7 fL (80-100); Mean Platelet Volume 11.9 fL (7.4-10.4); Monocytes # (auto) 0.44 K/uL (0.11-0.59); Monocytes % (auto) 11.3 %; Neutrophils # (auto) 2.54 K/uL (1.4-6.5); Platelet Count 181 K/uL (130-400); RDW Coefficient of Variation 18.7 % (11.5-14.5); RDW Standard Deviation 60.8 fL (36.4-46.3); Red Blood Count 3.27 M/uL (4.7-6.1); White Blood Count 3.91 K/uL (4.8-10.8)
[2021-08-06 06:40] LABS: BUN Creatinine Ratio 19.1 (10-20); Calcium 8.2 mg/dl (8.5-10.1); Creatinine Clr Calc Pharmacy 88.1 ml/min; Est GFR (African American) 100.2 ml/min; Est GFR (Non-African American) 86.5 ml/min; Potassium 3.9 mmol/L (3.5-5.1)
[2021-08-06] MEDS: DOCUSATE SODIUM 100 MG CAP PO SCH (08:27)
[2021-08-06] MEDS: PANTOprazole 40 MG TAB PO SCH (08:28)
[2021-08-06] MEDS: CHOLECALCIFEROL 1,000 UNITS 25 MCG TAB PO SCH (08:28)
[2021-08-06] MEDS: UMECLIDINIUM BROMIDE 62.5MCG/BLISTER 7 PUFFS/INHALER INH SCH (08:28)
[2021-08-06] MEDS: TRIAMCINOLONE ACET 0.1% CR 15 GM TUBE TOP SCH (08:28)
[2021-08-06] MEDS: CALCIUM CARBONATE 500 MG CHEWABLE TAB PO SCH (08:28)
[2021-08-06] MEDS: SACCHAROMYCES BOULARDII 250 MG CAP PO SCH (08:28)
[2021-08-06] MEDS: TAMSULOSIN HCL 0.4 MG CAP PO SCH (08:28)
[2021-08-06] MEDS: METHOCARBAMOL 500 MG TABLET PO SCH (08:28)
[2021-08-06] MEDS: CHLORHEXIDINE GLUCONATE 0.12% 480 ML MT SCH (08:30)
[2021-08-06] MEDS: ERTAPENEM SODIUM 1,000 MG in SYRINGE 0 ML IV SCH (08:34)
[2021-08-06] MEDS ORDERED: ACETAMINOPHEN 325 MG TAB PO PRN (11:36)
--- NOTE | 2021-08-06 11:48 | Discharge Summary ---
Date of Service August 06, 2021 Admission HPI Per Admitting Provider Piero Gao is an 86-year-old male with history of atrial fibrillation on Xarelto, BPH, COPD, recent thoracic vertebral fracture with back hematoma status post evacuation performed at [facility], urinary retention with chronic Chandler in place presenting with hematuria. Patient presently resides at the [facility]. He accidentally removed his Chandler catheter today. He had some intermittent hematuria throughout the day which is what prompted the visit to the ER. Bladder scan performed in the ER showed 544 mL of urine in the bladder. Chandler catheter was replaced in the ER with passage of bloody urine as well as clots. Patient was to be discharged home with Chandler in place. However, he attempted to get up and became significantly orthostatic with blood pressure going from 112/64 lying flat to 76/51 standing patient became dizzy and presyncopal. Observation overnight requested by ER. During my encounter patient with no acute complaints. He states that he feels tired otherwise denies fever/chills/chest pain/cough/shortness of breath/abdominal pain/nausea/vomiting/diarrhea/constipation ER course: Normal saline solution x2 L Principal Diagnosis Hematuria Discharge Exam General: patient resting comfortably, NAD, non-toxic in appearance, AA&O x 4 Skin: warm, dry, intact, no rashes or lesions HEENT: NC/AT, PERRL, EOMI, anicteric sclera, conjunctiva without injection, external ear normal to inspection and nontender, nares patent, moist mucus membranes, dentition intact, no oropharyngeal lesions, neck supple, trachea midline, no LAD, no thyromegaly, no JVD Heart: +S1/S2, regular, no m/r/g Lungs: equal air entry bilaterally, no rales/rhonchi/wheezes Abd: +BS, soft, NT/ND, no masses/organomegaly/ascites Ext: warm, 2+ pulses in UE/LE bilaterally, no clubbing/cyanosis or edema Chandler in place with dark bloody urine in bag with small amount of clot Neuro: nonfocal, patient AA&O x 4, speech intact, no facial droop, moving all extremities on command with equal strength 5/5 Discharge Data Allergies Allergy/AdvReac Type Severity Reaction Status Date / Time cephalexin [From Keflex] Allergy Intermediate Impaires Verified 08/04/21 21:14 Cognitive function cyclobenzaprine Allergy Intermediate RASH ON Verified 08/04/21 21:14 FACE flecainide Allergy Intermediate DISCOLORATION Verified 08/04/21 21:14 OF SKIN ibuprofen AdvReac Mild RHINORRHEA Verified 08/04/21 21:14 Consultations 08/05/21 00:40 ED Decision to Admit Stat Hospital Course (1) Dislodged Chandler catheter: Patient with urinary retention which developed during his hospital stay at [place], Chandler catheter in place. Accidental removal earlier today. Mild urinary retention in the ER with 544 mL of urine noted on bladder scan. Chandler replaced with passage of hematuria with clots. Patient hemodynamically stable but hemoglobin dropped from 10.6 upon admission to 9 prior to discharge suspect . That was felt to be secondary to hematuria Chandler catheter was reinserted Currently patient has blood-tinged urine however hemoglobin is stable - Continue Flomax 0.4 mg daily Outpatient follow-up with urology as scheduled (2) Orthostatic hypotension: Patient with orthostatic hypotension noted in the ER Given 2 L of IV fluids Ambulatory trial in the morning -He is to be checked for orthostatic vitals when discharged to rehab facility (3) Osteomyelitis: Patient was admitted 07/23 - 07/30/2021 with concern for early Aguila's angina. He had an I&D performed by [facility]FS on 07/24. He was found to have osteomyelitis/destructive changes seen at the right mandible. Patient had PICC line placed and has been receiving IV Ivanz 1 g daily. He is to continue this x4 weeks with possible transition to Augmentin for the remaining 2 weeks of the antibiotic course Continue Ivanz 1 g IV daily ID follow-up as arranged (4) Thoracic spine fracture: Patient with recent fracture of T7 after a fall at home in June. He was seen at [facility] following the fall. He had a hematoma on his back resulting in acute blood loss anemia. He was not a good surgical candidate for intervention on the T7 fracture therefore he was placed in a TLSO brace. Maintain brace at all times except when in bed Continue home Tylenol and methocarbamol as needed (5) Iron deficiency anemia: Hemoglobin dropped to 9 after patient has significant hematuria Hemoglobin is to be taking for 4-5 days (6) Mild dementia: Patient oriented during my exam Delirium prevention strategies (7) Atrial fibrillation: Patient with episodes of bradycardia. Anticoagulated on rivaroxaban Xarelto has been held I will defer to the primary care physician to evaluate the patient in 1 week to resume Xarelto Metoprolol was initially held but resumed prior to discharge heart rate prior to discharge as 67 (8) Hypertension: Blood pressure stable Continue to monitor (9) Hypercholesteremia: Chronic. Stable on medications. Continue atorvastatin 20 mg p.o. nightly (10) COPD (chronic obstructive pulmonary disease): Chronic. Stable. No cough, shortness of breath, wheeze Continue tiotropium, umeclidinium The patient is to be evaluated by PCP in 3 to 4 days to recheck the CBC given patient had post traumatic hematuria and hemoglobin drop during this admission from 10-9 Patient is to be admitted by PCP in almost 1 week to see if it is appropriate resume Xarelto Patient is to be evaluated for orthostatic vitals on a daily basis given patient has significant bleeding recently during this admission Follow-up as already scheduled with infectious disease, urology Total Time Total Time Spent Total Time Spent (In Minutes): 45 Discharge Plan Discharge Items Patient Disposition: Transfer [facility] Fac Reason For Visit: HEMATURIA, + ORTHOSTASIS Discharge Diagnosis: dislodged chandler catheter , Hematuria , orthostatic hypotension Activity: Resume your previous activity Bathing: No limitations Sexual Activity: When tolerated Exercise/Sports: Gradually increase as tolerated Driving/Machine Use: No limitations Weightbearing: Full weightbearing Non-emergency contact: Primary Care Provider Call non-emergency contact if: you have any medication questions Follow-up/Referrals: Justino Mandujano MD [Primary Care Provider] - Diet: Low Sodium (2gm) Addtl Attending Provider Instructions: Xarelto has been held due to traumatized urethra and hematuria .Also his Meto prolol has been held due to hematuria and orthostatic hypotension that has been resolved now . He needs to be seen by PCP in 3-4 days to see if it is appropriate to resume Metoprolol and Xarelto Pending Studies at Discharge: No Stand-Alone Forms: My [facility] Skilled Items Patient informed of condition?: Yes DNR: Yes Discharge Level of Care: Skilled Communicable Disease: No Discharge Prognosis: Stable Lines: PICC Urinary Catheter: Yes Medications and DC Order Prescriptions: New atorvastatin 20 mg Tablet 20 mg PO HS Qty: 20 RF: 0 Continued pantoprazole [Protonix] 40 mg tablet,delayed release (DR/EC) 40 mg PO QAM Qty: 90 RF: 3 (DME) compr.stocking,knee,long,large Misc See Rx Instructions .ROUTE .MEDSUPPLY Qty: 12 RF: 0 tamsulosin 0.4 mg capsule 0.4 mg PO DAILY Qty: 90 RF: 3 dutasteride [Avodart] 0.5 mg capsule 0.5 mg PO QAM Qty: 90 RF: 3 triamcinolone acetonide 0.1 % cream 1 applic topical BID RF: 0 cholecalciferol (vitamin D3) [Vitamin D3] 25 mcg (1,000 unit) capsule 1,000 unit PO QAM RF: 0 Saccharomyces boulardii [Florastor] 250 mg Capsule 250 mg PO BID17 RF: 0 methocarbamol 500 mg Tablet 500 mg PO TID RF: 0 acetaminophen [Tylenol] 325 mg Tablet 650 mg PO DIRECTED PRN (Reason: FEVER/PAIN) RF: 0 calcium carbonate [Tums] 200 mg calcium (500 mg) Tablet,Chewable 400 mg PO QAM RF: 0 metronidazole [MetroCream] 0.75 % Cream 1 applic TOPICAL BID17 RF: 0 docusate sodium 100 mg Capsule 100 mg PO BID RF: 0 Spiriva with HandiHaler 18 mcg capsule, w/inhalation device 18 mcg INHALATION DAILY RF: 0 metoprolol succinate 50 mg Capsule,Sprinkle,Er 24hr 50 mg PO DAILY RF: 0 ertapenem 1 gram recon soln 1 g IV DAILY 21 Days RF: 0 sodium chloride 0.9 % Solution 10 ml IV DAILY RF: 0 heparin lock flush (porcine) 10 unit/mL Solution 5 unit IV QAM RF: 0 multivitamin with minerals Tablet 1 tab PO DAILY RF: 0 chlorhexidine gluconate [Peridex] 0.12 % Mouthwash 1 applic PO BID RF: 0 Discontinued Xarelto 20 mg tablet 20 mg PO QAM Qty: 90 RF: 3 atorvastatin [Lipitor] 20 mg tablet 20 mg PO HS RF: 0 Discharge Orders: Discharge Order (Routine); Ordered 08/06/21 Ordered By: Leighton Jimenez Admission Data Admit Date/Time: 08/05/21 01:47 Attending Provider: Leighton Jimenez Admit Provider: Berta Jordan Primary Care Provider: Justino Mandujano Other Providers: Berta Jordan Other Interventions: Discharge Summary Assessment (RN) Last Done: 08/06/21 11:24 Coding Level of Care Code 31017 OBS Care - Discharge Diagnoses Dislodged Chandler catheter T83.021A Orthostatic hypotension I95.1 Osteomyelitis M86.9 Thoracic spine fracture S22.009A Iron deficiency anemia D50.9 Mild dementia F03.90 Atrial fibrillation I48.91 Hypertension I10 Hypertension type: unspecified Hypercholesteremia E78.00 COPD (chronic obstructive pulmonary disease) J44.9
[2021-08-06] MEDS ORDERED: METRONIDAZOLE 0.75% TOP SCH (17:00)
[2021-08-07] MEDS ORDERED: [UNRECOGNIZED DRUG - OTHER] IV SCH (09:00)
[2021-08-07] MEDS ORDERED: SODIUM CHLORIDE 0.9% IV SCH (09:00)
[2021-08-07] MEDS ORDERED: METOPROLOL SUCC 50MG EXT REL TAB PO SCH (09:00)
[2021-08-07] MEDS ORDERED: MULTIVITAMIN TAB PO SCH (09:00)
== END 2021-08-06 12:10 | DRG 700 ==
LOC: ED 20:33 → INTOOBSV 08-05 01:47 → SUATTDRO 08-05 01:47 → 2N 08-05 01:47

== ENCOUNTER 2022-09-03 05:56 | Inpatient (IN) ==
--- NOTE | 2022-07-29 14:28 | PAT Medication Instructions ---
Medication Instructions Date of Service July 29, 2022 Home Medications Medication Instructions Recorded compr.stocking,knee,long,large #12 ea 12/15/19 dutasteride 0.5 mg capsule 0.5 mg PO QAM #90 caps 12/27/20 (Avodart) atorvastatin 20 mg tablet 20 mg PO HS #20 tabs 08/06/21 donepezil 5 mg tablet 5 mg PO HS #30 tabs 01/24/22 dupilumab 300 mg/2 mL subcutaneous See Rx Instructions subcut 03/13/22 syringe (Dupixent) .COMPLEX #4 mL cholecalciferol (vitamin D3) 25 mcg (1,000 unit) capsule (Vitamin D3) 1,000 unit PO QAM dutasteride 0.5 mg capsule (Avodart) 0.5 mg PO QAM tiotropium bromide 18 mcg capsule with inhalation device (Spiriva with HandiHaler) 18 mcg inhalation QAM multivitamin with minerals 1 tab PO QAM atorvastatin 20 mg tablet 20 mg PO HS apixaban 5 mg tablet (Eliquis) 5 mg PO BID ferrous sulfate 325 mg (65 mg iron) tablet 325 mg PO QAM donepezil 5 mg tablet 5 mg PO HS acetaminophen 500 mg tablet (Tylenol Extra Strength) 1,000 mg PO TID PRN Pain lidocaine 4 % topical patch 1 patch topical DAILY PRN Pain nystatin 100,000 unit/gram topical cream 1 applic topical BID PRN SKIN RASH/EXCORIATION dupilumab 300 mg/2 mL subcutaneous syringe (Dupixent) See Rx Instructions subcut .COMPLEX omeprazole 20 mg tablet,delayed release 20 mg PO QPM Continue as directed lidocaine 4 % topical patch 1 patch topical DAILY PRN Pain (Avoid placement near surgery site prior to surgery) ASK your prescriber and surgeon apixaban 5 mg tablet (Eliquis) 5 mg PO BID dupilumab 300 mg/2 mL subcutaneous syringe (Dupixent) See Rx Instructions subcut .COMPLEX STOP taking 24 hours before surgery nystatin 100,000 unit/gram topical cream 1 applic topical BID PRN SKIN RASH/EXCORIATION DO NOT take the morning of surgery cholecalciferol (vitamin D3) 25 mcg (1,000 unit) capsule (Vitamin D3) 1,000 unit PO QAM multivitamin with minerals 1 tab PO QAM ferrous sulfate 325 mg (65 mg iron) tablet 325 mg PO QAM Take morning of surgery With a small sip of water, OTHERWISE NOTHING TO EAT OR DRINK AFTER MIDNIGHT: dutasteride 0.5 mg capsule (Avodart) 0.5 mg PO QAM tiotropium bromide 18 mcg capsule with inhalation device (Spiriva with HandiHaler) 18 mcg inhalation QAM acetaminophen 500 mg tablet (Tylenol Extra Strength) 1,000 mg PO TID PRN Pain (if needed) Take evening before surgery atorvastatin 20 mg tablet 20 mg PO HS donepezil 5 mg tablet 5 mg PO HS acetaminophen 500 mg tablet (Tylenol Extra Strength) 1,000 mg PO TID PRN Pain (if needed) omeprazole 20 mg tablet,delayed release 20 mg PO QPM Other Notes If you have any questions please call us at [phone] or [phone] or [phone] or [phone]
--- NOTE | 2022-08-14 13:13 | Anesthesiology Consultation ---
Date of Service August 14, 2022 Assessment & Plan (1) Encounter for pre-operative examination: - COVID screening: Per assessment on 08/14: No known COVID-19 positive contacts or current COVID-19 related symptoms. Travel screen negative. [place] resident. Patient Covid positive panther ([place]) 06/16/22- symptoms at time: cold symptoms, congestion, rhinorrhea > resolved. Pt can proceed as scheduled without additional preop Covid testing or additional Covid contact precautions per protocol. - Hx glidescope intubation: Incision and Drainage Facial and Neck Abscess (07/24/21): Glidescope #4, Grade view 1, ETT 8.0 at [facility] - Cardiology visit (10/08/21): "Permanent atrial fibrillation: He remains in atrial fibrillation which is almost certainly permanent at this point. His heart rate is slow, I last saw him he was not on AV danette blockers although he is now on metoprolol succinate. I do not think he should take this with a slow heart rate and I recommended he discontinue it.. Anticoagulation: He is on Xarelto, he is having difficulty with bleeding and Xarelto is more prone to cause bleeding than Eliquis. He does need anticoagulant and I recommended he switch to Eliquis.. Edema: The cause of his edema is not clear. This appears to be stable on his current regimen although still present to some degree.. Follow Up: 1 Year" - Apixaban instructions: Per surgeon/prescriber - Chandler concern: Per patient/[place] caregiver, request for Chandler to be removed as soon as it can be postoperatively d/t complications with previous extended Chandler use in the past. They state surgeon's office has been made aware* - POA: Son (Alvaro Gao, ). Spoke with patient's son- he is aware of upcoming surgery/anesthesia. Perioperative questions regarding anesthesia discussed and patient given surgeon's contact information to discuss concerns regarding perioperative chandler use further. He states that he is available for consent via phone but that it would be difficult to ensure he is available when needed for phone consent DOS d/t work schedule- requests consent be obtained earlier if possible via phone. He does states that patient is able to sign own consents if needed. Chart Review Chart Review: Acceptable Risk for Surgery (pending evaluation AM DOS) and Patient seen in Pre Admission Testing Teaching & Discussion Pre-Anesthesia Teaching/Discussion Notes: Instructed NPO after midnight before surgery,except medications with 15 cc of water. Medication instructions provided according to the PAT guidelines. History Surgery Operation Date: 09/03/22 07:30 Proposed Procedures p Endovascular Repair of Right Common Iliac Artery Aneurysm - Erasto Swain MD Height/Weight Height: 6 ft 1 in Weight: 107.9 kg Allergies Allergy/AdvReac Type Severity Reaction Status Date / Time cyclobenzaprine Allergy Intermediate Facial rash Verified 07/29/22 15:04 flecainide Allergy Intermediate Skin Verified 07/29/22 15:04 discoloration cephalexin [From Keflex] AdvReac Intermediate Impaires Verified 07/29/22 15:04 cognitive function ibuprofen AdvReac Mild Rhinorrhea Verified 07/29/22 15:04 Medications Home Medications Medication Instructions Recorded Confirmed Last Taken compr.stocking,knee,long,large #12 ea 12/15/19 09/13/21 Unknown cholecalciferol (vitamin D3) 25 1,000 unit PO QAM 02/13/20 07/29/22 03/02/22 mcg (1,000 unit) capsule (Vitamin D3) dutasteride 0.5 mg capsule 0.5 mg PO QAM #90 caps 12/27/20 07/29/22 03/02/22 (Avodart) tiotropium bromide 18 mcg capsule 18 mcg inhalation QAM 07/22/21 07/29/22 03/02/22 with inhalation device (Spiriva with HandiHaler) multivitamin with minerals 1 tab PO QAM 08/04/21 07/29/22 03/02/22 atorvastatin 20 mg tablet 20 mg PO HS #20 tabs 08/06/21 07/29/22 03/02/22 apixaban 5 mg tablet (Eliquis) 5 mg PO BID 11/17/21 07/29/22 03/02/22 ferrous sulfate 325 mg (65 mg 325 mg PO QAM 11/17/21 07/29/22 03/02/22 iron) tablet donepezil 5 mg tablet 5 mg PO HS #30 tabs 01/24/22 07/29/22 03/02/22 acetaminophen 500 mg tablet 1,000 mg PO TID PRN Pain 03/03/22 07/29/22 Unknown (Tylenol Extra Strength) lidocaine 4 % topical patch 1 patch topical DAILY PRN Pain 03/03/22 07/29/22 03/02/22 nystatin 100,000 unit/gram topical 1 applic topical BID PRN SKIN 03/03/22 07/29/22 Unknown cream RASH/EXCORIATION dupilumab 300 mg/2 mL subcutaneous See Rx Instructions subcut 03/13/22 07/29/22 Unknown syringe (Dupixent) .COMPLEX #4 mL omeprazole 20 mg tablet,delayed 20 mg PO QPM 07/29/22 07/29/22 Unknown release Past Medical History Medical History (Updated 08/15/22 @ 10:44 by May Rendon) Anemia Atrial fibrillation Reason for Eliquis Follows with [facility] AVNRT (AV danette re-entry tachycardia) Barretts esophagus BPH (benign prostatic hyperplasia) Cervical spine fracture 6+ months ago, treated with collar/medical management (no surgical intervention needed) Chronic obstructive pulmonary disease Cognitive impairment Esophageal dysmotility with aspiration per remote hx GERD (gastroesophageal reflux disease) Hiatal hernia [place] (hard of hearing) Iliac artery aneurysm Iron deficiency anemia MVP (mitral valve prolapse) MVP with mild to moderate MR per 08/2022 echo Polyposis of sinonasal region Poor historian Poor memory Reactive airway disease Right foot drop Spinal stenosis, lumbar region, with neurogenic claudication Exercise / Class Metabolic Activity III < 4 Walking/Shop/Light housework Past Family History Family History Mother Breast cancer Type 2 diabetes mellitus without complications Other Family history non-contributory Denies family history of Ovarian cancer Prostate cancer Myocardial infarction Colorectal cancer Past Surgical History Surgical History History of back surgery History of colonoscopy History of incision and drainage Incision and Drainage Facial and Neck Abscess (07/24/21): Glidescope #4, Grade view 1, ETT 8.0 at [facility] History of Mohs micrographic surgery for skin cancer History of oral surgery Hx of hernia repair Hx of laminectomy Social History Smoking Status: Former smoker Do You Dip or Chew Tobacco: No Smoking End Date: Quit age 30s Hx Alcohol Use: No Alcohol type: wine and hard liquor alcohol intake frequency: a few times a week Hx Substance Use: No substance use type: does not use Review of Systems Chronic PND-related cough, improved. Patient denies chest pain, shortness of breath, fever, chills, wheezing, palpitations. Physical Exam Vital Signs VITALS BP 100/62 P 57 TEMP 98.5 SP02 96%RA RESP 16 PHYSICAL Significantly decreased cervical extension range of motion. Full TMJ range of motion. TMD 3 finger breaths Mallampati Score 2 Dentition: upper right missing teeth (previous bridge removed) Lungs: course breath sounds Cardiac: regular rate and rhythm, distant heart sounds Spine: normal Carotid arteries: negative bruit Extremities: no LE edema Lab Results Anesthesia Preop Results Results Anesthesia Widget: WBC 4.76 K/ul (4.8-10.8) L 08/14/22 Hgb 13.9 g/dl (14.0-18.0) L 08/14/22 Hct 42.2 % (42.0-52.0) 08/14/22 Plt 133 K/uL (130-400) 08/14/22 Na 138 mmol/L (136-145) 08/14/22 K 4.3 mmol/L (3.5-5.1) 08/14/22 Cl 106 mmol/L (98-107) 08/14/22 CO2 27 mmol/L (21-32) 08/14/22 BUN 16 mg/dl (6-23) 08/14/22 Creat 0.95 mg/dl (0.6-1.4) 08/14/22 Glucose Level 81 mg/dl (70-99(Fasting)) 08/14/22 PT 12.2 Seconds (9.0-12.0) H 08/14/22 PTT 29.8 Seconds (21.0-31.0) 08/14/22 INR 1.1 (0.9-1.1) 08/14/22 Blood Type B Positive 08/14/22 Antibody Screen NEGATIVE 08/14/22 Testing Electrocardiogram Date: 03/03/22 A. fib with PVCs or aberrantly conducted complexes at 65bpm. Chest X-Ray Date: 08/14/22 FINDINGS: Lung volumes are normal. Lungs are clear. There is no pneumothorax or pleural effusion. Cardiomegaly is unchanged. Mediastinal contours are normal. There is no evidence for pulmonary edema. IMPRESSION: No acute cardiopulmonary findings. Stable cardiomegaly. Echocardiogram Date: 08/12/22 EF 60%. Mild LVH. Asymmetric basal septal hypertrophy of the elderly. Probably type II diastolic dysfunction. Dilated right ventricle with normal RV function. Severe LAD. Markedly dilated right atrium. Dilated aortic root (4.1 cm) and ascending aorta (four-point centimeters). Calcified, tricuspid aortic valve without stenosis. Mild AI. Bileaflet MVP (posterior > anterior) with mild to moderate MR. Mild TR.
--- NOTE | 2022-09-02 15:02 | History & Physical Report ---
Date of Service September 02, 2022 Assessment & Plan (1) Aneurysm of right iliac artery: Plan: Patient for repair of his right common iliac artery aneurysm. I have discussed the risks options and benefits of the procedure with the patient. The patient understands the risks options and benefits and agrees to the procedure. History of Present Illness Chief Complaint: Right common iliac artery aneurysm Primary Care Provider: [facility] Mr. Gao is an elderly male who presentstoday for an annual follow-up visit r egarding his iliac artery aneurysm. Patient's been followed for many years for this aneurysm, first at [facility] by Dr. Guille Smith, and more recently here in [place]. Patient currently resides at [facility], after unfortunately suffering spinal fractures over the past year, and requiring hospitalization down at [facility], and long-term clamshell brace and TLSO brace and rehab. He states at this point he is almost as strong as he was prior to going into the hospital. He ambulates with a walker. He does have a supervisor meter repair shop with him today but no family member. 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 Patient does have a son who is a physician and works a few hours from here. The son would also be his power of real estate associate attorney if needed. Patient denies any significant complaints at this time, including headache, fever, chest pain, shortness of breath, abdominal pain, nausea, vomiting, rest pain, claudication, discoloration of the toes, other complaints. Allergies Allergy/AdvReac Type Severity Reaction Status Date / Time cyclobenzaprine Allergy Intermediate Facial rash Verified 07/29/22 15:04 flecainide Allergy Intermediate Skin Verified 07/29/22 15:04 discoloration cephalexin [From Keflex] AdvReac Intermediate Impaires Verified 07/29/22 15:04 cognitive function ibuprofen AdvReac Mild Rhinorrhea Verified 07/29/22 15:04 Home Medications Medication Instructions Recorded Confirmed Type compr.stocking,knee,long,large #12 ea 12/15/19 09/13/21 Rx cholecalciferol (vitamin D3) 25 1,000 unit PO QAM 02/13/20 07/29/22 History mcg (1,000 unit) capsule (Vitamin D3) dutasteride 0.5 mg capsule 0.5 mg PO QAM #90 caps 12/27/20 07/29/22 Rx (Avodart) tiotropium bromide 18 mcg capsule 18 mcg inhalation QAM 07/22/21 07/29/22 History with inhalation device (Spiriva with HandiHaler) multivitamin with minerals 1 tab PO QAM 08/04/21 07/29/22 History atorvastatin 20 mg tablet 20 mg PO HS #20 tabs 08/06/21 07/29/22 Rx apixaban 5 mg tablet (Eliquis) 5 mg PO BID 11/17/21 07/29/22 History ferrous sulfate 325 mg (65 mg 325 mg PO QAM 11/17/21 07/29/22 History iron) tablet acetaminophen 500 mg tablet 1,000 mg PO TID PRN Pain 03/03/22 07/29/22 History (Tylenol Extra Strength) lidocaine 4 % topical patch 1 patch topical DAILY PRN Pain 03/03/22 07/29/22 History nystatin 100,000 unit/gram topical 1 applic topical BID PRN SKIN 03/03/22 07/29/22 History cream RASH/EXCORIATION dupilumab 300 mg/2 mL subcutaneous See Rx Instructions subcut 03/13/22 07/29/22 Rx syringe (Dupixent) .COMPLEX #4 mL omeprazole 20 mg tablet,delayed 20 mg PO QPM 07/29/22 07/29/22 History release donepezil 5 mg tablet 5 mg PO HS #30 tabs 08/20/22 Rx Past Med/Surg History Medical History Anemia Atrial fibrillation Reason for Eliquis Follows with [place] [facility] AVNRT (AV danette re-entry tachycardia) Barretts esophagus BPH (benign prostatic hyperplasia) Cervical spine fracture 6+ months ago, treated with collar/medical management (no surgical intervention needed) Chronic obstructive pulmonary disease Cognitive impairment Esophageal dysmotility with aspiration per remote hx GERD (gastroesophageal reflux disease) Hiatal hernia [place] (hard of hearing) Iliac artery aneurysm Iron deficiency anemia MVP (mitral valve prolapse) MVP with mild to moderate MR per 08/2022 echo Polyposis of sinonasal region Poor historian Poor memory Reactive airway disease Right foot drop Spinal stenosis, lumbar region, with neurogenic claudication Surgical History History of back surgery History of colonoscopy History of incision and drainage Incision and Drainage Facial and Neck Abscess (07/24/21): Glidescope #4, Grade view 1, ETT 8.0 at [facility] History of Mohs micrographic surgery for skin cancer History of oral surgery Hx of hernia repair Hx of laminectomy Family History Mother Breast cancer Type 2 diabetes mellitus without complications Other Family history non-contributory Denies family history of Ovarian cancer Prostate cancer Myocardial infarction Colorectal cancer Social History Smoking Status: Former smoker Smoking End Date: Quit age 30s; Second Hand Exposure: No; Do You Dip or Chew Tobacco: No; Tobacco Cessation Education Requested by Patient: No Hx Alcohol Use: No Hx Substance Use: No Preferred Language: Indonesian Communication Ability: Effective Communication Ability Comment: very poor historian Visual Impairment: No Limitations Dimension Specification Inspector Required: No Beliefs That Will Affect Care: None marital status: / Current Living Situation: Personal Care Facility Current Living Situation Comment: [facility] Assistive Devices: Glasses and Walker Review of Systems All systems reviewed & are unremarkable except as noted in HPI & below Physical Exam Physical Exam: onstitutional: In general patient is a healthy-appearing well-nourished well- developed elderly male no distress. He does ambulate with a walker. His heart is regular, his lungs are clear bilaterally. His abdomen is soft nontender with normoactive bowel sounds. Brachial and radial pulses are +3. Femoral pulses are +3. Lower extremity distal pulses are +2. He has brisk capillary refill and no sign of distal ischemia. He does have trace edema of the lower extremities and does wear compression stockings.
[2022-09-03] MEDS ORDERED: LR 15ML/HR IV SCH (06:00)
[2022-09-03] MEDS ORDERED: LIDOCAINE 2% 2 ML VIAL/AMP(20MG/ML) INFIL ONE (06:40)
[2022-09-03] MEDS ORDERED: PROPOFOL IV EMULSION 10 MG/ML 20 ML VIAL IV ONE (06:40)
[2022-09-03] MEDS ORDERED: ROCURONIUM BROMIDE 10 MG/ML 5 ML VIAL IV ONE (06:40)
[2022-09-03] MEDS ORDERED: fentaNYL citrate PF 100 MCG/2 ML VIAL ONE (06:40)
[2022-09-03] MEDS ORDERED: PHENYLEPHRINE HCL 10 MG/ML VIAL ONE (07:11)
--- NOTE | 2022-09-03 07:30 | History & Physical Bridge Note ---
Date of Service September 03, 2022 History & Physical Bridge Note I have examined the patient, reviewed the History & Physical and in the interval since the performance of the History & Physical I have noted the following changes of clinical significance: no changes noted
[2022-09-03] MEDS ORDERED: ceFAZolin 2000MG 2,000 MG/15 ML SYR IV SCH (07:38)
[2022-09-03] MEDS ORDERED: ceFAZolin 2,000 MG/15 ML IV PUSH IV ONE (07:39)
[2022-09-03] MEDS ORDERED: ONDANSETRON INJ 2 MG/ML 2 ML VIAL ONE (08:59)
[2022-09-03] MEDS ORDERED: ePHEDrine sulfate 50 MG/ML SYR ONE (08:59)
[2022-09-03] MEDS ORDERED: DEXAMETHASONE SOD INJ 4 MG/ML VIAL ONE (08:59)
[2022-09-03] MEDS ORDERED: ATROPINE SULFATE 0.1 MG/ML 10ML SYR IV PRN (09:08)
[2022-09-03] MEDS ORDERED: ePHEDrine sulfate 50 MG/ML AMP IV PRN (09:08)
[2022-09-03] MEDS ORDERED: ONDANSETRON INJ 2 MG/ML 2 ML VIAL IV PRN ×2 (09:08→11:58)
[2022-09-03] MEDS ORDERED: NALOXONE HCL 0.4 MG/1 ML VIAL/CARP IV PRN (09:08)
[2022-09-03] MEDS ORDERED: FLUMAZENIL 0.1 MG/1 ML 10 ML VIAL IV PRN (09:08)
[2022-09-03] MEDS ORDERED: fentaNYL citrate PF 100 MCG/2 ML VIAL IV PRN (09:08)
[2022-09-03] MEDS ORDERED: PROMETHAZINE HCL 12.5 MG in SODIUM CHLORIDE 0.9% 50 ML IV PRN (09:08)
[2022-09-03] MEDS ORDERED: LABETALOL HCL IV 5 MG/ML 20ML IV PRN (09:08)
[2022-09-03] MEDS ORDERED: SUGAMMADEX SODIUM 200 MG/2 ML VIAL IV ONE (09:31)
[2022-09-03] MEDS ORDERED: ARISTA ABSORBABLE HEMOSTAT 3GM TOP ONE (09:35)
[2022-09-03] MEDS ORDERED: VISIPAQUE IV PRN (09:35)
--- NOTE | 2022-09-03 10:01 | Procedure Note ---
Angiogram Post Procedure Fluoroscopy Time (minutes): 8.3 Radiation (mGy): 218 Contrast: 55 Post Operative Report Pre & Post Diagnosis Operation Date: 09/03/22 08:00 Pre-Op Diagnosis: Right Common Iliac Artery Aneurysm Post-Op Diagnosis: Right Common Iliac Artery Aneurysm I identified the patient and participated in the time-out.: Yes Procedure Operation Date: 09/03/22 08:00 Actual Procedures p Endovascular Repair of Right Common Iliac Artery Aneurysm,Mechanical Closure of Bilateral Femoral Arteries, Ultrasound Localization of Bilateral Femoral Arteries(Bilateral) - Erasto Swain MD Surgeon Erasto Swain MD End Lathe Operator YISSEL Jacobs Estimated Blood Loss 50 Findings Consistent with Post-Op Diagnosis Specimens none Anesthesia Type General Complications none Disposition Accompanied Patient To Recovery: No Disposition: Recovery Room Indications This is an 87-year-old gentleman a large right common iliac artery aneurysm. Endovascular repair was recommended. I have discussed the risks options and benefits of the procedure with the patient. The patient understands the risks options and benefits and agrees to the procedure. Description of Procedure The patient was brought to the OR and placed in supine position. Patient was intubated and general anesthesia was accomplished. A safety timeout was performed to identify patient's name, date of and the correct procedure. Abdomen and groins were prepped and draped in sterile fashion. Ultrasound guided percutaneous access of the right groin was performed. The right common femoral artery was patent. A percutaneous puncture was made in the right common femoral artery using ultrasound. The depth finder for the Manta device was used to measure the depth of the puncture. It was found to be 7 cm. The depth finder was removed and the 8 Burmese sheath inserted. We turned our attention to the left side and we similarly accessed the left common femoral artery. The left common femoral artery was patent. Using ultrasound left common femoral artery was punctured. The depth finder was used to measure the depth of the puncture of the left side and also found to be 6 cm from the skin edge. This was removed and 8 Burmese sheath was inserted. Patient was heparinized with 9000 of IV heparin. Through the right groin, we advanced a soft Glidewire followed by a Kumpe catheter. The wire then was exchanged for a stiff Ant wire. We then cannulated the aorta from the left side using 035 Glidewire and a Kumpe catheter. Once this was placed in the super renal aorta the wire was exchanged to a Ant wire.. We then upsized our access on the right side with a 14 Burmese dilator and subsequently to 16 Burmese dry seal sheath. The left groin sheath was then exchanged to a 12 Burmese dry seal sheath. The sheaths were advanced all the way up in the aortic bifurcation. A marker pig was inserted to the left groin. Aortography was performed. We then inserted a snare over an 035 wire through the left groin and an 035 wire through the right groin. We snared the wire from the right groin and brought it out through the left groin dry seal sheath. We then inserted the main body of the iliac branch device. We used a 23 x 12 x 10 cm RAHAT. Aortography was performed. We placed the top of the graft right at the origin of the right common iliac artery. We then deployed the main body. We then inserted the dilator back into the 12 Burmese sheath and using the 035 wire as a rail we advanced a 12 Burmese sheath down into the internal iliac limb of the branch device. We then cannulated the internal iliac artery with an 035 wire. We then did a hand-injection through the 12 Burmese sheath to confirm the position of the wire. This at that point the use and 8 mm x 79 mm VBX covered graft. This was advanced over the 035 wire down of the internal iliac and deployed without difficulty. We inflated the balloon to 12 ayanna. We then ballooned the overlap with a 14 x 2 balloon. Hand-injection done at that time showed no endoleak's from the internal iliac limb. We then remove the wire from the internal iliac and pulled the 12 Burmese sheath back to the left side. The over the rim wire was removed. We then inserted the Q50 balloon through the right groin and balloon the proximal attachment site and the external iliac limb. The pigtail was then inserted through the left side to above the aortic bifurcation. A final arteriogram was then performed which showed no evidence of a type I endoleak. Graft showed no evidence of narrowing throughout. The microwire was then reinserted into the pigtail and the pigtail removed. The 12 Burmese sheath was then pulled and a 14 Burmese Manta device was inserted. This was deployed without difficulty. No bleeding was noted after deployment. The right groin sheath was then also pulled. An 16 Burmese Manta device was inserted and deployed. No evidence of bleeding was seen on the right side either. Sterile dressings were applied to the wounds.The patient left the operation room in satisfactory condition and tolerated the procedure well. All needle and sponge counts were correct at the end of the procedure. Ratna Ann Pac assisted due to lack of resident availability and was necessary for positioning, draping, retraction, wound closure deep layers, subcutaneous tissue, and skin closure and was necessary for assisting with the case. I attest to the content of the Intraoperative Record and any orders documented therein. Any exceptions are noted below.
[2022-09-03 10:45] LABS: Hematocrit (blood only) 39.9 % (42.0-52.0); Hemoglobin 13.3 g/dl (14.0-18.0)
--- NOTE | 2022-09-03 10:57 | Anesthesiology Progress Note ---
Date of Service September 03, 2022 Anesthesia Post Procedure Vital Signs Vital Signs: Temp Pulse Resp BP BP BP Pulse Ox 09/03/22 10:20 18 136/50 L 98 09/03/22 10:10 18 142/56 H 95 09/03/22 10:00 17 145/49 H 99 09/03/22 09:53 36.4 C L 16 156/64 H 166/86 H 92 09/03/22 06:49 36.7 C 63 20 133/70 136/65 96 O2 Del Method O2 Flow Rate 09/03/22 10:20 Oxymask 6 09/03/22 10:10 Oxymask 6 09/03/22 10:00 Oxymask 6 09/03/22 09:53 Oxymask 6 09/03/22 06:49 Room Air Pain Intensity Bilateral Groin: Pain Intensity: 5 Transfer of Care Handoff Completed per policy Notes Mental Status: alert / awake / arousable Patient Amnestic to Procedure: Yes Nausea / Vomiting: adequately controlled Pain: adequately controlled Airway Patency, RR, SpO2: stable & adequate BP & HR: stable & adequate Hydration State: stable & adequate Anesthetic Complications: no major complications apparent
[2022-09-03] MEDS ORDERED: bisacodyL 10 MG SUPP PR PRN (11:58)
[2022-09-03] MEDS ORDERED: MoRPHine SULFATE 4 MG/ML 1 ML CARP\\VIAL IV PRN (11:58)
[2022-09-03] MEDS ORDERED: oxyCODONE/ACETAMINOPHEN 5mg/325mg TAB PO PRN (11:58)
[2022-09-03] MEDS ORDERED: MAGNESIUM HYDROXIDE SUSP 30 ML UDC PO PRN (11:58)
[2022-09-03] MEDS ORDERED: D5W AND 1/2NSS 1,000 ML IV SCH (11:58)
[2022-09-03] MEDS ORDERED: NYSTATIN CR 15 GM TUBE EXT PRN (11:58)
[2022-09-03] MEDS ORDERED: LIDOCAINE 5% 1 PATCH TD PRN (12:12)
[2022-09-03] MEDS ORDERED: PHENAZOPYRIDINE HCL 100 MG TAB PO PRN (12:14)
[2022-09-03] MEDS ORDERED: LABETALOL HCL IV 5 MG/ML 20ML IV ONE (12:26)
[2022-09-03] MEDS: ceFAZolin 2000MG 2,000 MG/15 ML SYR IV SCH (16:16)
--- NOTE | 2022-09-03 16:40 | Critical Care Consultation ---
Date of Consultation September 03, 2022 Assessment & Plan (1) Aneurysm of right iliac artery: Postop day 0 (2) Atrial fibrillation: Chronic A-fib on Eliquis for systemic anticoagulation -Defer anticoagulation decisions to vascular surgery (3) Hypertension: Well-controlled continue antihypertensives (4) Hypercholesteremia: Continue statin therapy (5) PVD (peripheral vascular disease): (6) Anticoagulant long-term use: History of Present Illness Reason for Consultation: Postoperative endovascular right iliac artery aneurysm Attending Physician: Erasto Swain MD History of Present Illness Patient is an 87-year-old male who underwent endovascular repair of an right common iliac artery aneurysm Allergies Allergy/AdvReac Type Severity Reaction Status Date / Time cyclobenzaprine Allergy Intermediate Facial rash Verified 09/03/22 06:31 flecainide Allergy Intermediate Skin Verified 09/03/22 06:31 discoloration cephalexin [From Keflex] AdvReac Intermediate Impaires Verified 09/03/22 06:31 cognitive function ibuprofen AdvReac Mild Rhinorrhea Verified 09/03/22 06:31 Home Medications Medication Instructions Recorded Confirmed Type compr.stocking,knee,long,large #12 ea 12/15/19 09/13/21 Rx cholecalciferol (vitamin D3) 25 1,000 unit PO QAM 02/13/20 09/03/22 History mcg (1,000 unit) capsule (Vitamin D3) dutasteride 0.5 mg capsule 0.5 mg PO QAM #90 caps 12/27/20 09/03/22 Rx (Avodart) tiotropium bromide 18 mcg capsule 18 mcg inhalation QAM 07/22/21 09/03/22 History with inhalation device (Spiriva with HandiHaler) multivitamin with minerals 1 tab PO QAM 08/04/21 09/03/22 History atorvastatin 20 mg tablet 20 mg PO HS #20 tabs 08/06/21 09/03/22 Rx apixaban 5 mg tablet (Eliquis) 5 mg PO BID 11/17/21 09/03/22 History ferrous sulfate 325 mg (65 mg 325 mg PO QAM 11/17/21 09/03/22 History iron) tablet acetaminophen 500 mg tablet 1,000 mg PO TID PRN Pain 03/03/22 09/03/22 History (Tylenol Extra Strength) lidocaine 4 % topical patch 1 patch topical DAILY PRN Pain 03/03/22 09/03/22 History nystatin 100,000 unit/gram topical 1 applic topical BID PRN SKIN 03/03/22 09/03/22 History cream RASH/EXCORIATION dupilumab 300 mg/2 mL subcutaneous See Rx Instructions subcut 03/13/22 09/03/22 Rx syringe (Dupixent) .COMPLEX #4 mL donepezil 5 mg tablet 5 mg PO HS #30 tabs 08/20/22 09/03/22 Rx Saccharomyces boulardii 250 mg 250 mg PO BID 09/03/22 09/03/22 History capsule bisacodyl 10 mg rectal suppository 10 mg AK DAILY PRN Constipation 09/03/22 09/03/22 History (Dulcolax (bisacodyl)) calcium carbonate 500 mg capsule 500 mg PO DAILY 09/03/22 09/03/22 History magnesium hydroxide 400 mg/5 mL 400 mg PO DAILY PRN Constipation 09/03/22 09/03/22 History oral suspension (Milk of Magnesia) pantoprazole 40 mg tablet,delayed 40 mg PO DAILY 09/03/22 09/03/22 History release phenazopyridine 99.5 mg tablet 99.5 mg PO TID PRN urinary 09/03/22 09/03/22 History discomfort tamsulosin 0.4 mg capsule 0.4 mg PO DAILY 09/03/22 09/03/22 History Patient History Medical History Anemia Atrial fibrillation Reason for Eliquis Follows with [facility] AVNRT (AV danette re-entry tachycardia) Barretts esophagus BPH (benign prostatic hyperplasia) Cervical spine fracture 6+ months ago, treated with collar/medical management (no surgical intervention needed) Chronic obstructive pulmonary disease Cognitive impairment Esophageal dysmotility with aspiration per remote hx GERD (gastroesophageal reflux disease) Hiatal hernia [place] (hard of hearing) Iliac artery aneurysm Iron deficiency anemia MVP (mitral valve prolapse) MVP with mild to moderate MR per 08/2022 echo Polyposis of sinonasal region Poor historian Poor memory Reactive airway disease Right foot drop Spinal stenosis, lumbar region, with neurogenic claudication Surgical History History of back surgery History of colonoscopy History of incision and drainage Incision and Drainage Facial and Neck Abscess (07/24/21): Glidescope #4, Grade view 1, ETT 8.0 at [facility] History of Mohs micrographic surgery for skin cancer History of oral surgery Hx of hernia repair Hx of laminectomy Family History Mother Breast cancer Type 2 diabetes mellitus without complications Other Family history non-contributory Denies family history of Ovarian cancer Prostate cancer Myocardial infarction Colorectal cancer Social History Smoking Status: Former smoker Smoking End Date: Quit age 30s; Second Hand Exposure: No; Do You Dip or Chew Tobacco: No; Tobacco Cessation Education Requested by Patient: No Hx Alcohol Use: No Hx Substance Use: No Preferred Language: Ghanaian Communication Ability: Effective Communication Ability Comment: very poor historian Visual Impairment: No Limitations 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 Mild tenderness in groin bilaterally at puncture sites Physical Exam Physical Exam: General: Alert. nontoxic. Skin: Warm, dry, Head: Atraumatic Ears, nose, mouth and throat: airway patent Cardiovascular: Normal peripheral perfusion Respiratory: no respiratory distress Gastrointestinal: Non distended Groin: Dressing in place, no ecchymoses, no hematoma noted Musculoskeletal: No deformity Results & Data Results & Data Vital Signs (Past 12 Hours) Vital Signs Temp Pulse Pulse Resp BP BP BP 09/03/22 16:00 52 L 21 09/03/22 15:00 64 19 09/03/22 16:00 52 L 09/03/22 14:00 54 L 14 09/03/22 14:00 139/73 09/03/22 13:01 58 L 20 09/03/22 13:01 137/72 09/03/22 13:00 58 L 16 09/03/22 14:00 36.5 C 16 158/61 H 09/03/22 12:30 71 16 09/03/22 12:15 67 19 09/03/22 12:00 62 19 09/03/22 12:00 140/69 09/03/22 11:45 53 L 15 09/03/22 11:37 56 L 16 09/03/22 10:50 14 141/49 H 09/03/22 10:40 36.5 C 16 132/44 L 09/03/22 10:20 18 136/50 L 09/03/22 10:10 18 142/56 H 09/03/22 10:30 19 133/50 L 09/03/22 10:00 17 145/49 H 09/03/22 09:53 36.4 C L 16 156/64 H 09/03/22 06:49 36.7 C 63 20 133/70 BP Pulse Ox O2 Del Method O2 Flow Rate 09/03/22 16:00 97 09/03/22 15:00 96 09/03/22 16:00 09/03/22 14:00 96 09/03/22 14:00 09/03/22 13:01 97 09/03/22 13:01 09/03/22 13:00 95 09/03/22 14:00 95 Room Air 09/03/22 12:30 92 09/03/22 12:15 93 09/03/22 12:00 90 09/03/22 12:00 09/03/22 11:45 93 09/03/22 11:37 86 L 09/03/22 10:50 95 Nasal Cannula 2 09/03/22 10:40 98 Nasal Cannula 2 09/03/22 10:20 98 Oxymask 6 09/03/22 10:10 95 Oxymask 6 09/03/22 10:30 100 Oxymask 6 09/03/22 10:00 99 Oxymask 6 09/03/22 09:53 166/86 H 92 Oxymask 6 09/03/22 06:49 136/65 96 Room Air Critical Care Results & Data Vital Signs (Past 12 Hours) Vital Signs Temp Pulse Pulse Resp BP BP BP 09/03/22 16:00 52 L 21 09/03/22 15:00 64 19 09/03/22 16:00 52 L 09/03/22 14:00 54 L 14 09/03/22 14:00 139/73 09/03/22 13:01 58 L 20 09/03/22 13:01 137/72 09/03/22 13:00 58 L 16 09/03/22 14:00 36.5 C 16 158/61 H 09/03/22 12:30 71 16 09/03/22 12:15 67 19 09/03/22 12:00 62 19 09/03/22 12:00 140/69 09/03/22 11:45 53 L 15 09/03/22 11:37 56 L 16 09/03/22 10:50 14 141/49 H 09/03/22 10:40 36.5 C 16 132/44 L 09/03/22 10:20 18 136/50 L 09/03/22 10:10 18 142/56 H 09/03/22 10:30 19 133/50 L 09/03/22 10:00 17 145/49 H 09/03/22 09:53 36.4 C L 16 156/64 H 09/03/22 06:49 36.7 C 63 20 133/70 BP Pulse Ox O2 Del Method O2 Flow Rate 09/03/22 16:00 97 09/03/22 15:00 96 09/03/22 16:00 09/03/22 14:00 96 09/03/22 14:00 09/03/22 13:01 97 09/03/22 13:01 09/03/22 13:00 95 09/03/22 14:00 95 Room Air 09/03/22 12:30 92 09/03/22 12:15 93 09/03/22 12:00 90 09/03/22 12:00 09/03/22 11:45 93 09/03/22 11:37 86 L 09/03/22 10:50 95 Nasal Cannula 2 09/03/22 10:40 98 Nasal Cannula 2 09/03/22 10:20 98 Oxymask 6 09/03/22 10:10 95 Oxymask 6 09/03/22 10:30 100 Oxymask 6 09/03/22 10:00 99 Oxymask 6 09/03/22 09:53 166/86 H 92 Oxymask 6 09/03/22 06:49 136/65 96 Room Air Lab & Micro Results (Past 24 Hours) Hgb 13.3 g/dl (14.0-18.0) L 09/03/22 Hct 39.9 % (42.0-52.0) L 09/03/22 No Data to Display No Data to Display I & O Totals 24 Hours 09/02/22 09/03/22 09/04/22 06:59 06:59 06:59 Intake Total 800 / 800 Output Total 350 / 350 Balance 450 / 450 Cumulative 07/25/22 14:11 thru 09/03/22 16:09 Intake Total 800 Output Total 350 Balance 450 RT Ventilator Mngmt (Last Documented) Ventilator Ordered Settings Respiratory Rate 21 09/03/22 16:00 Ventilator - PT Measurements Respiratory Rate 21 Coding Level of Care Code 07455 IN/OBS CONSULT LVL 2,35M Diagnoses Aneurysm of right iliac artery I72.3 Atrial fibrillation I48.21 Atrial fibrillation type: permanent Hypertension I10 Hypertension type: unspecified Hypercholesteremia E78.00 PVD (peripheral vascular disease) I73.9 Anticoagulant long-term use Z79.01 (2) Atrial fibrillation Atrial fibrillation type: permanent Qualified Code(s): I48.21 - Permanent atrial fibrillation (3) Hypertension Hypertension type: unspecified Qualified Code(s): I10 - Essential (primary) hypertension
[2022-09-03] MEDS: SACCHAROMYCES BOULARDII 250 MG CAP PO SCH (20:35)
[2022-09-03] MEDS: APIXABAN 5 MG TABLET PO SCH (20:36)
[2022-09-03] MEDS ORDERED: ATORVASTATIN 20 MG TAB PO SCH (21:00)
[2022-09-03] MEDS ORDERED: DONEPEZIL HCL 5 MG TAB PO SCH (21:00)
[2022-09-04] MEDS: ceFAZolin 2000MG 2,000 MG/15 ML SYR IV SCH (00:40)
[2022-09-04 05:07] LABS: Basophils # (auto) 0.02 K/uL (0-0.2); Basophils % (auto) 0.2 %; Eosinophils # (auto) 0.02 K/uL (0-0.50); Eosinophils % (auto) 0.2 %; Hematocrit (blood only) 36.5 % (42.0-52.0); Hemoglobin 12.4 g/dl (14.0-18.0); Immature Granulocytes # (auto) 0.03 K/uL (0.01-0.20); Immature Granulocytes % (auto) 0.3 %; Lymphocytes # (auto) 0.89 K/uL (1.2-3.4); Lymphocytes % (auto) 8.2 %; Mean Corpuscular Hemoglobin 31.3 pg (25.0-34.0); Mean Corpuscular Volume 92.2 fL (80.0-100.0); Mean Platelet Volume 12.2 fL (9.4-12.4); Monocytes % (auto) 8.2 %; Neutrophils # (auto) 9.06 K/uL (1.40-6.50); Neutrophils % (auto) 82.9 %; Platelet Count 129 K/uL (130-400); RDW Coefficient of Variation 13.1 % (11.5-14.5); RDW Standard Deviation 44.7 fL (36.4-46.3); Red Blood Count 3.96 M/uL (4.70-6.10); White Blood Count 10.92 K/ul (4.8-10.8)
[2022-09-04 05:23] LABS: BUN Creatinine Ratio 17.4 (10-20); Calcium 8.6 mg/dl (8.6-10.3); Creatinine Clr Calc Pharmacy 78.3 ml/min; Est GFR (African American) 90.4 ml/min; Potassium 4.2 mmol/L (3.5-5.1)
[2022-09-04] MEDS ORDERED: FERROUS SULFATE 325 MG TAB PO SCH (09:00)
[2022-09-04] MEDS ORDERED: UMECLIDINIUM BROMIDE 62.5MCG/BLISTER 7 PUFFS/INHALER INH SCH (09:00)
[2022-09-04] MEDS ORDERED: CHOLECALCIFEROL 1,000 UNITS 25 MCG TAB PO SCH (09:00)
[2022-09-04] MEDS ORDERED: CEROVITE ADV FORMULA TAB PO SCH (09:00)
[2022-09-04] MEDS ORDERED: CALCIUM CARBONATE 1250MG TAB PO SCH (09:00)
[2022-09-04] MEDS ORDERED: TAMSULOSIN HCL 0.4 MG CAP PO SCH (09:00)
[2022-09-04] MEDS ORDERED: PANTOprazole 40 MG TAB PO SCH (09:00)
[2022-09-04] MEDS ORDERED: FINASTERIDE 5 MG TAB PO SCH (09:00)
[2022-09-04] MEDS: APIXABAN 5 MG TABLET PO SCH (09:37)
[2022-09-04] MEDS: SACCHAROMYCES BOULARDII 250 MG CAP PO SCH (09:37)
--- NOTE | 2022-09-04 15:43 | Surgery Progress Note ---
Date of Service September 04, 2022 Assessment & Plan Admission and Anticipated Discharge Date Admission Date: September 03, 2022 Subjective Date of Service September 04, 2022 Assessment & Plan (1) Iliac artery aneurysm, right: Plan: This gentleman is postoperative day 1 from endovascular repair of a right common iliac artery aneurysm. He is doing extremely well. He will be discharged later today. Admission and Anticipated Discharge Date Admission Date: September 03, 2022 Subjective Patient is claiming to feel good. He has no complaints. He has no groin pain or foot pain or back pain. Physical Exam Constitutional: WD/WN, vitals as above Respiratory: normal respiratory effort, lungs clear to auscultation Cardiovascular: Rate/Rhythm: regular rate and regular rhythm Vessels: posterior tibial pulses present and dorsalis pedis pulses present Extremities: normal capillary refill Gastrointestinal (Abdomen): normal bowel sounds, soft, nontender, no hepatosplenomegaly Musculoskeletal: no cyanosis or clubbing, extremities motor strength 5/5 Skin: + incision (No complication of the groin. There is no hematoma or bleeding at this poi) Neurologic: CN's II-XI intact bilaterally and moves all extremities Psychiatric: Orientation: alert and oriented x 3 Results & Data Vital Signs (Past 12 Hours) Vital Signs Temp Pulse Resp BP Pulse Ox O2 Del Method 09/04/22 12:01 67 16 95 Room Air 09/04/22 12:01 145/82 H 09/04/22 12:00 62 18 09/04/22 11:00 56 L 18 96 09/04/22 11:00 145/71 H 09/04/22 10:00 51 L 17 90 Room Air 09/04/22 10:00 139/78 09/04/22 09:00 51 L 19 95 09/04/22 09:00 136/63 09/04/22 08:00 36.6 C 09/04/22 08:01 52 L 16 09/04/22 08:01 140/71 09/04/22 08:00 50 L 17 92 Room Air 09/04/22 07:00 46 L 16 94 09/04/22 07:00 116/67 09/04/22 06:00 52 L 15 100/64 96 Room Air 09/04/22 05:00 53 L 16 119/56 L 95 Room Air 09/04/22 04:00 37.2 C 57 L 17 117/64 95 Room Air
== END 2022-09-04 16:55 | disposition home or self-care (01) | DRG 271 ==
LOC: ASU 05:56 → 1E 07:30

== ENCOUNTER 2025-01-03 07:47 | Observation (INO) ==
[2025-01-03 08:35] LABS: Hematocrit (blood only) 46.5 % (42.0-52.0); Hemoglobin 14.7 g/dl (14.0-18.0); Immature Granulocytes # (auto) 0.04 K/uL (0.01-0.20); Immature Granulocytes % (auto) 0.3 %; Mean Corpuscular Hemoglobin 29.1 pg (25.0-34.0); Mean Corpuscular Volume 92.1 fL (80.0-100.0); Platelet Count 168 K/uL (130-400); RDW Standard Deviation 46.2 fL (36.4-46.3); Red Blood Count 5.05 M/uL (4.70-6.10); White Blood Count 11.95 K/ul (4.8-10.8)
--- NOTE | 2025-01-03 08:41 | XRay Report ---
XR chest 1V portable CLINICAL HISTORY: Trauma COMPARISON STUDY: 06/20/2024 FINDINGS: Stable cardiomegaly with mild pulmonary vascular congestion. There is interval mild hazy op acity at the lung bases. No other consolidation or pleural effusion. No pneumothorax. No grossly disp laced rib fracture seen. IMPRESSION: 1. Interval mild hazy opacity in the lung bases could represent atelectasis or pulmonary contusions. 2. No other acute findings seen. ACT 112: Negative or not required by law. Electronically signed by: Guille Cruz M.D. 01/03/2025 8:39 AM
--- NOTE | 2025-01-03 08:51 | Emergency Department Note ---
Impression & Plan Fall, Closed rib fracture, Atelectasis, Closed L4 vertebral fracture, Pseudohyponatremia, Chronic anticoagulation ED Provider Note NAME: JANETTE ESPINOSA AGE: 89 SEX: M : 1935 ARRIVES VIA: Ambulance INFORMANT: Patient, EMS ED PROVIDER(S): Bart Francois DO CHIEF COMPLAINT: fall HPI: This was prehospital injury alert by EMS. This is an 89-year-old male with the PMHx of orthostatic hypotension, dementia, hypertension, hyperlipidemia, pAfib on chronic anticoagulation, vascular disease, COPD, and BPH presenting to [facility] for further evaluation of unwitnessed fall. Patient is accompanied by EMS who provide additional history. EMS reported that the patient was found down in his living facility today. It is unclear if the patient struck his head. Patient is on chronic anticoagulation. They endorse anticoagulation with apixaban. They deny neck pain. The patient does report back pain that is lower. He reports this is somewhat of a chronic issue. They deny fever or chills. No cough or congestion. Denies chest pain or palpitations. No shortness of breath. They deny abdominal pain, nausea and vomiting. No urinary complaints. No recent changes in bowel movements. Patient denies recent changes in medications or OTC supplements. Patient offers no other complaints, today. ADDITIONAL HISTORY OBTAINED: Per HPI Chronic Medical/Social Conditions Affecting Care: Per HPI PAST MEDICAL HISTORY: See Below PAST SURGICAL HISTORY: See Below FAMILY HISTORY: See Below SOCIAL HISTORY: See Below HOME MEDICATIONS: See Below ALLERGIES: See Below VITALS: See Below PHYSICAL EXAMINATION: Primary Survey Airway: Intact Breathing: Normal, breath sounds equal bilaterally Circulation: Skin warm, distal pulses 2+, capillary refill less than 2 seconds Disability Pupils: Equal and reactive to light, 3mm, brisk GCS: 15, E = 4, V=4, M= 6 Motor Function: Moves all extremities. Sensory: No deficits Secondary Survey GEN: Well developed and well-nourished HENT: Head: No external signs of trauma. No obvious contusions, abrasions, or laceration. No raccoon eyes or chester sign. Mouth/Throat: No blood within the oral cavity. No malocclusion. Eyes: EOMI. Pupils are 3 mm, round and reactive bilaterally. Ears: TMs are intact bilaterally. No hematomas. No hemotympanum. Nose: No nasal septal hematoma. No gross deformity. Neck: C-collar in place. No midline C-spine tenderness. No step-offs. Cardiovascular: RRR. Pulses present in all 4 extremities. Pulmonary/Chest: BS equal bilaterally. No tenderness or ecchymosis. Abdomen: No tenderness or ecchymosis. Musculoskeletal: Pelvis: No instability. Back: No midline tenderness. No step-offs or deformities. Extremities: No gross deformities. No TTP. Skin: No laceration. Multiple scattered abrasions and ecchymoses. Neuro: No focal neurological deficits. GCS as above. Psych: Normal mood and affect. MEDICAL DECISION MAKING: Vitals: The patient is hypertensive but otherwise afebrile and HDS. An order was placed for continuous cardiorespiratory monitoring. I reviewed and this shows a rate of 60-80s with regular rhythm. EKG: EKG independently interpreted by me as rate controlled atrial fibrillation with PVCs at a rate of [address] segment changes to suggest STEMI. Intervals are within normal limits. Differential diagnoses include but not limited to multi-system trauma, ICH, skull fracture, spine / spinal cord injury, fracture, dislocation, traumatic abdominal injuries, solid / visceral organ injuries, MSK sprain / strain, contusion, whiplash, concussion In summary, this is an 89-year-old male who presented as an injury alert. Patient was brought into the emergency/resuscitation room by EMS. Full ATLS protocol was initiated under direction of the ED team. The history was concerning for multi-system trauma. Airway intact and self maintained, breath sounds bilateral and equal along with normal effort, circulation intact with pp in 4 extremities, GCS 14 (mild confusion) with normal speech and sensorium and LÓPEZ. Full physical examination as above. History and secondary survey as above. Labs drawn. eFAST deferred for WBCT as the patient has no abdominal/chest complaints, evidence of trauma in these areas or hemodynamic instability. Collar was placed. Pt was not given tetanus. Initial/stabilizing treatments include close observation and continuous cardiorespiratory monitoring. Imaging performed and reviewed as above. Patient was taken to the CT suite for WBCT. Labs were independently interpreted by me as minimal leukocytosis. No significant anemia. Coagulation studies are normal. Minimal hyponatremia that is likely pseudohyponatremia in the setting of minimal hyperglycemia. Total bilirubin was minimally elevated. LFTs and lipase otherwise normal. Chest x- ray independently interpreted by me reveals some changes that would suggest atelectasis rather than pneumonia or pulmonary contusion but still a possibility in the setting of the patient's trauma. CTH independently interpreted by me reveals no evidence of ICH. No significant hydrocephalus. No major skull fractures. CTH does not demonstrate findings to suggest an etiology of the patient's symptoms or presentation, today. CT C-spine was independently interpreted by me as negative for acute fracture or dislocation. Patient does have evidence of a single rib fracture as well as possible atelectasis or pulmonary contusion. Could have developing pneumonia. Patient's CT of the abdomen/pelvis did reveal possible superior endplate fracture of L4. The patient is neurovascularly intact with minimal pain. Do not feel the patient needs further evaluation for this as I do not believe the spinal cord is involved. This should be a stable fracture. The patient's cervical collar was removed today. The patient's imaging was reviewed and the CT C-Spine was negative for acute injury. The patient was alert and oriented prior to his exam. On exam, he was non-tender to palpation midline and had full ROM without any neurologic deficits. The patient tolerated this procedure well. Collar removed at 1025. The patient's complex injuries include unwitnessed fall from standing with a single rib fracture and possible developing pneumonia or pulmonary contusions.. Based on the patient's age, code existing illnesses, exam and lab findings, the decision to treat as an inpatient was made. given the patient's age as well as comorbidities, I do have significant concerns regarding the patient's capability of being discharged at this time. The patient could be developing pulmonary contusions or possible pneumonia. While his respiratory status has been stable, I do recommend admission for respiratory hygiene and close observation. Patient will need to have repeat chest x-ray to observe for developing pneumonia or blossoming pulmonary contusions. His respiratory status will need to be closely monitored. Patient was discussed with the hospitalist team and subsequently admitted. Past Med/Surg History Problem List (Updated 01/03/25 @ 10:31 by Bart Francois DO) Chronic anticoagulation (Acute) Pseudohyponatremia (Acute) Closed L4 vertebral fracture (Acute) Atelectasis (Acute) Closed rib fracture (Acute) Fall (Acute) Gait apraxia Acute bilateral knee pain (Acute) Dementia Aneurysm of right iliac artery BPH (benign prostatic hyperplasia) (Chronic) Atrial fibrillation (Chronic) Hypertension (Chronic) Hypercholesteremia (Chronic) Constipation COPD (chronic obstructive pulmonary disease) Esophageal dysmotility Barretts esophagus (Chronic) PVD (peripheral vascular disease) Urinary frequency (Chronic) Anemia (Chronic) Hyperglycemia (Chronic) Anticoagulant long-term use Edema of both lower legs (Chronic) Mild cognitive impairment (Chronic) Gait instability (Chronic) Mild dementia (Acute) Fall (Chronic) Rash of face (Acute) Pain of left calf Left leg swelling Weight gain (Acute) Acute urinary retention 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 Osteomyelitis Dislodged Vera catheter (Acute) Urinary retention (Acute) Orthostatic hypotension Thoracic spine fracture Medical History MVP (mitral valve prolapse) MVP with mild to moderate MR per 08/2022 echo Cervical spine fracture 6+ months ago, treated with collar/medical management (no surgical intervention needed) [place] (hard of hearing) Poor memory Cognitive impairment GERD (gastroesophageal reflux disease) Right foot drop Iron deficiency anemia Esophageal dysmotility with aspiration per remote hx BPH (benign prostatic hyperplasia) Chronic obstructive pulmonary disease Barretts esophagus Atrial fibrillation Reason for Eliquis Follows with [place] [facility] Reactive airway disease Hiatal hernia Anemia Poor historian 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, lumbar region, with neurogenic claudication Surgical History History of Mohs micrographic surgery for skin cancer History of oral surgery History of colonoscopy History of incision and drainage Incision and Drainage Facial and Neck Abscess (07/24/21): Glidescope #4, Grade view 1, ETT 8.0 at [facility] Hx of laminectomy Hx of hernia repair History of back surgery Family History Mother Breast cancer Type 2 diabetes mellitus without complications Other Family history non-contributory Denies family history of Ovarian cancer Prostate cancer Myocardial infarction Colorectal cancer Social History Smoking Status: Former smoker Tobacco Type: Cigarettes Second Hand Exposure: No; Do You Dip or Chew Tobacco: No; Hx Alcohol Use: No Hx Substance Use: No Preferred Language: Czech Communication Ability: Effective Communication Ability Comment: very poor historian Visual Impairment: No Limitations Customer Engineer Required: No Beliefs That Will Affect Care: None marital status: / Current Living Situation: Personal Care Facility Current Living Situation Comment: [facility] Feels Safe at Home: Yes Assistive Devices: Walker Allergies Allergies Allergy/AdvReac Type Severity Reaction Status Date / Time cyclobenzaprine Allergy Intermediate Facial rash Verified 12/20/24 11:36 flecainide Allergy Intermediate Skin Verified 12/20/24 11:36 discoloration cephalexin [From Keflex] AdvReac Intermediate Impaires Verified 12/20/24 11:36 cognitive function ibuprofen AdvReac Mild Rhinorrhea Verified 12/20/24 11:36 Home Meds Home Medications Medication Instructions Recorded Confirmed cholecalciferol (vitamin D3) 25 1,000 unit PO QAM 02/13/20 12/20/24 mcg (1,000 unit) capsule (Vitamin D3) apixaban 5 mg tablet (Eliquis) 5 mg PO BID 11/17/21 12/20/24 ferrous sulfate 325 mg (65 mg 325 mg PO QAM 11/17/21 12/20/24 iron) tablet acetaminophen 500 mg tablet 1,000 mg PO TID PRN Pain 03/03/22 12/20/24 (Tylenol Extra Strength) Saccharomyces boulardii 250 mg 250 mg PO BID 10/17/23 12/20/24 capsule hydrocortisone 2.5 % topical cream 1 applic topical BID PRN Other 10/17/23 12/20/24 magnesium hydroxide 400 mg/5 mL 2,400 ml PO DAILY PRN Constipation 10/17/23 12/20/24 oral suspension (Milk of Magnesia) multivitamin,tx-minerals 1 tab PO DAILY 10/17/23 12/20/24 nystatin 100,000 unit/gram topical 1 applic topical DAILY PRN Rash 10/17/23 12/20/24 powder pantoprazole 40 mg tablet,delayed 40 mg PO DAILY 10/17/23 12/20/24 release sodium phosphates 19 gram-7 118 ml TN DAILY PRN Constipation 10/17/23 12/20/24 gram/118 mL enema (Fleet Enema) tamsulosin 0.4 mg capsule 0.4 mg PO DAILY 10/17/23 12/20/24 tiotropium bromide 18 mcg capsule 18 mcg inhalation DAILY 10/17/23 12/20/24 with inhalation device (Spiriva with HandiHaler) metronidazole 0.75 % topical cream 1 applic topical BID 05/16/24 12/20/24 (MetroCream) bisacodyl 10 mg rectal suppository 10 mg TN DAILY PRN Constipation 09/27/24 12/20/24 (Dulcolax (bisacodyl)) calcium carbonate (Calcium 500) 500 mg PO DAILY 09/27/24 12/20/24 fluticasone propionate 50 2 spray intranasal DAILY 12/20/24 12/20/24 mcg/actuation nasal spray,suspension (Flonase Allergy Relief) Previous Rx's Medication Instructions Recorded compr.stocking,knee,long,large #12 ea 12/15/19 dutasteride 0.5 mg capsule 0.5 mg PO QAM #90 caps 12/27/20 (Avodart) atorvastatin 20 mg tablet 20 mg PO HS #20 tabs 08/06/21 donepezil 10 mg tablet 10 mg PO HS #30 tabs 11/03/24 dupilumab 300 mg/2 mL subcutaneous 300 mg (2 mL) subcut .every 2 12/16/24 syringe (Dupixent) weeks #4 mL memantine 10 mg tablet 10 mg PO BID #60 tabs 12/20/24 Results & Data (ED) Vital Signs Vital Signs - 24 hr 01/03/25 07:50 01/03/25 07:54 01/03/25 07:56 Temperature 36.5 C Temperature Source Oral Pulse Rate 78 68 Pulse Rate from SpO2 Sensor Respiratory Rate 20 18 Respiratory Effort / Characteristics Non-Labored Spontaneous Respiratory Depth Normal Respiratory Pattern Regular Blood Pressure 162/107 H 162/102 H Blood Pressure Mean 135 122 Pulse Oximetry 92 Oxygen Delivery Method Room Air Sepsis Recent Fever Within 48 Hours No Sepsis New/Unexplained Change in Mental Status No Sepsis Action Taken by Nursing No Action Required 01/03/25 08:00 01/03/25 08:32 01/03/25 08:33 Temperature Temperature Source Pulse Rate 80 75 79 Pulse Rate from SpO2 Sensor 88 79 Respiratory Rate 19 15 Respiratory Effort / Characteristics Respiratory Depth Respiratory Pattern Blood Pressure Blood Pressure Mean Pulse Oximetry 90 Oxygen Delivery Method Room Air Sepsis Recent Fever Within 48 Hours Sepsis New/Unexplained Change in Mental Status Sepsis Action Taken by Nursing 01/03/25 09:03 01/03/25 09:09 01/03/25 09:23 Temperature Temperature Source Pulse Rate 75 79 Pulse Rate from SpO2 Sensor 79 Respiratory Rate 18 17 Respiratory Effort / Characteristics Respiratory Depth Respiratory Pattern Blood Pressure 145/84 H Blood Pressure Mean 94 Pulse Oximetry 90 Oxygen Delivery Method Room Air Sepsis Recent Fever Within 48 Hours Sepsis New/Unexplained Change in Mental Status Sepsis Action Taken by Nursing 01/03/25 09:24 01/03/25 09:27 01/03/25 09:31 Temperature Temperature Source Pulse Rate 79 Pulse Rate from SpO2 Sensor 80 Respiratory Rate 12 Respiratory Effort / Characteristics Respiratory Depth Respiratory Pattern Blood Pressure 145/84 H 155/82 H Blood Pressure Mean 104 124 Pulse Oximetry Oxygen Delivery Method Sepsis Recent Fever Within 48 Hours Sepsis New/Unexplained Change in Mental Status Sepsis Action Taken by Nursing 01/03/25 09:36 01/03/25 09:51 01/03/25 10:00 Temperature Temperature Source Pulse Rate 84 74 Pulse Rate from SpO2 Sensor 83 83 Respiratory Rate 19 15 Respiratory Effort / Characteristics Respiratory Depth Respiratory Pattern Blood Pressure 162/81 H Blood Pressure Mean 94 Pulse Oximetry Oxygen Delivery Method Sepsis Recent Fever Within 48 Hours Sepsis New/Unexplained Change in Mental Status Sepsis Action Taken by Nursing 01/03/25 10:03 Temperature Temperature Source Pulse Rate 81 Pulse Rate from SpO2 Sensor 87 Respiratory Rate 22 Respiratory Effort / Characteristics Respiratory Depth Respiratory Pattern Blood Pressure Blood Pressure Mean Pulse Oximetry Oxygen Delivery Method Sepsis Recent Fever Within 48 Hours Sepsis New/Unexplained Change in Mental Status Sepsis Action Taken by Nursing Laboratory Data 01/03/25 08:00 01/03/25 08:00 Lab Results 01/03/25 01/03/25 Range/Units 08:00 08:21 WBC 11.95 H (4.8-10.8) K/ul RBC 5.05 (4.70-6.10) M/uL Hgb 14.7 (14.0-18.0) g/dl POC Hgb 16.7 (14.0-18.0) g/dl Hct 46.5 (42.0-52.0) % POC Hct 49 (42-52) % MCV 92.1 (80.0-100.0) fL MCH 29.1 (25.0-34.0) pg MCHC 31.6 L (32.0-36.0) g/dL RDW Std Deviation 46.2 (36.4-46.3) fL RDW Coeff of Gilda 13.6 (11.5-14.5) % Plt Count 168 (130-400) K/uL MPV 12.0 (9.4-12.4) fL Immature Gran % (Auto) 0.3 % Neut % (Auto) 87.2 % Lymph % (Auto) 5.6 % Placer % (Auto) 6.6 % Eos % (Auto) 0.0 % Baso % (Auto) 0.3 % Neut # (Auto) 10.42 H (1.40-6.50) K/uL Lymph # (Auto) 0.67 L (1.20-3.40) K/uL Placer # (Auto) 0.79 H (0.11-0.59) K/uL Eos # (Auto) 0.00 (0.00-0.50) K/uL Baso # (Auto) 0.03 (0.00-0.20) K/uL Immature Gran # (Auto) 0.04 (0.01-0.20) K/uL PT 11.4 (9.0-12.0) Seconds INR 1.1 (0.9-1.1) APTT 30 (21-31) Seconds PTT Ratio 1.1 POC Sodium 137 (135-144) mmol/L Sodium 135 L (136-145) mmol/L POC Potassium 4.1 (3.3-5.0) mmol/L Potassium 4.1 (3.5-5.1) mmol/L POC Chloride 100 L (101-112) mmol/L Chloride 99 (98-107) mmol/L Carbon Dioxide 28 (21-32) mmol/L POC Total CO2 25 (24-31) mmol/L Anion Gap 8 (3-11) POC Anion Gap 16.0 (16-25) mmol/L POC BUN 19 H (7-18) mg/dl BUN 18 (6-23) mg/dl Creatinine 0.94 (0.6-1.4) mg/dl POC Creatinine 1.0 (0.6-1.3) mg/dl Est Cr Clr Drug Dosing 64.7 ml/min eGFR 77.49 BUN/Creatinine Ratio 19.1 (10-20) Glucose 134 H (70-99(Fasting)) mg/dl POC Glucose (other) 135 H (70-99) mg/dl Calcium 9.7 (8.6-10.3) mg/dl POC Ioniz Calcium Tahira 1.18 (1.12-1.32) mmol/l Total Bilirubin 2.4 H (0.2-1.0) mg/dl AST 31 (13-39) U/L ALT 19 (7-52) U/L Alkaline Phosphatase 92 (34-104) U/L Total Protein 8.2 (6.0-8.3) gm/dl Albumin 4.8 (3.4-5.0) gm/dl Globulin 3.4 (2.5-4.0) gm/dl Albumin/Globulin Ratio 1.4 (0.9-2) Lipase 30 (11-82) U/L Administered Medications Discontinued Medications Ioversol (Optiray 320 100ml) 94 ml IV ONCE ONE Stop: 01/03/25 08:54 Last Admin: 01/03/25 08:53 Dose: 94 ml Documented By: ISAI Imaging Data Radiologist's Impression: Abdomen/Pelvis CT 01/03/25 08:16 CT SCAN OF THE ABDOMEN AND PELVIS WITH IV CONTRAST CLINICAL HISTORY: Trauma. COMPARISON STUDY: Abdominal CT dated 10/28/2022. TECHNIQUE: Following the IV administration of 94 cc of Optiray 320, CT scan of the abdomen and pelvis is performed from the lung bases to the proximal femora. Images are reviewed in the axial, sagittal, and coronal planes. IV contrast was administered without complication. A dose lowering technique was utilized adhering to the principles of ALARA. The examination is degraded by motion artifact, as well as by streak artifact from the arms which could not be elevated above the abdomen. FINDINGS: Lung bases: The heart is enlarged and without pericardial effusion. The coronary arteries are densely calcified. There is a [id number] hiatal hernia. There are trace pleural effusions with dependent atelectasis. Mild patchy consolidation is seen at the left lung base. Liver: The contrast-enhanced liver is normal in size, contour, and attenuation. There is no intrahepatic biliary ductal dilatation. The hepatic veins and portal veins are patent. Gallbladder: There are calcified gallstones with no CT evidence of acute cholecystitis. There is choledocholithiasis with a 5 mm gallstone in the distal common bile duct seen on image #139. Spleen: Normal in size and attenuation. Pancreas: Moderately atrophic and grossly unremarkable. Adrenal glands: Unremarkable. Kidneys: The contrast enhanced kidneys demonstrate cortical atrophy and are without hydronephrosis. The kidneys enhance symmetrically. Bilateral renal cysts measure up to 12.3 cm. Additional subcentimeter cortical hypodensities also likely represent cysts but are too small for definitive characterization. Abdominal vasculature: There is advanced atherosclerotic calcification and ectasia of the abdominal aorta. 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 Stents in the right common iliac artery and spanning the right iliac bifurcation within the right internal and external iliac arteries are patent. Bowel: There is dkzv-[id number] colonic diverticulosis without CT evidence of acute diverticulitis. No bowel obstruction is seen. The appendix is well- visualized and normal. Peritoneum: There is no intraperitoneal free air or abdominal ascites. There is a fat-containing umbilical hernia. Lymphadenopathy: None. Pelvic viscera: The prostate gland is enlarged and heterogeneous. The bladder is distended, and the wall is thickened/trabeculated indicating chronic outlet obstruction. There are bilateral fat-containing groin hernias. Surgical clips are noted in the groin bilaterally. Skeletal structures: The skeletal structures are osteopenic. There is moderate to advanced lumbosacral spondylosis. Postsurgical change is noted in the lower lumbar spine. A minimal chronic superior endplate compression deformity of L1 is unchanged. No lytic or blastic lesions are seen. Acute left posterior 7th rib fracture is partially visualized. There are subacute/healing left anterior 6th and 7th rib fractures. Additional chronic/healed rib fractures are seen bilaterally. There is age indeterminant fracture through a left anterior osteophyte end the anterior/superior endplate of L4 which is new from 10/28/2022. This best seen on sagittal reformatted image #120. There is no significant paravertebral edema to suggest acuity. The lumbosacral spine and bony pelvis otherwise appear intact. IMPRESSION: 1. There is no evidence of solid organ injury in the abdomen or pelvis. 2. An acute left posterior 7th rib fracture is partially visualized. 3. There are subacute/healing left anterior rib fractures. 4. There is an age indeterminant fracture through a left anterior osteophyte as well as the left anterior/superior endplate of L4 which is new from 10/28/2022. There is no paravertebral edema to suggest acuity. 5. Cardiomegaly and trace pleural effusions. 6. Mild patchy consolidation at the left lung base could represent a mild pneumonia/aspiration pneumonitis. Correlate clinically. 7. Cholelithiasis and choledocholithiasis without CT evidence of acute cholecystitis. 8. Prostatomegaly with bladder distention evidence of chronic outlet obstruction. 9. Additional findings as above. ACT 112: Negative or not required by law. Electronically signed by: Kevin Still M.D. 01/03/2025 9:[address] 01/03/25 08:16 CT cervical spine wo con CT DOSE: 1805.34 mGy.cm CLINICAL HISTORY: 89 years-old Male with Trauma. Acute neck trauma COMPARISON: Head CT of same day, CT cervical spine 09/27/2024 TECHNIQUE: Multiple axial CT images of the cervical spine were obtained without contrast. A dose lowering technique was utilized adhering to the principles of ALARA. FINDINGS: Straightening of the cervical lordosis is unchanged redemonstrated. Note is again made of extensive anterior osteophytosis within the cervical spine. There are stable findings following C6-C7 anterior discectomy and fusion. There is also fusion of the C5 and C6 vertebral bodies. Severe facet arthrosis is present. Central canal and neural foramen are suboptimally assessed given CT technique. There is no prevertebral edema. The appearance of the cervical spine is unchanged. No pneumothorax. Nonspecific mild groundglass densities of the lung apices. Atherosclerosis of the carotid bulbs. IMPRESSION: 1. No acute cervical spine fracture or subluxation. 2. Chronic postoperative and degenerative changes of the cervical spine redemonstrated. ACT 112: Negative or not required by law. The above report was generated using voice recognition software. It may contain grammatical, syntax or spelling errors. Electronically signed by: Delano Strauss M.D. 01/03/2025 9:[address] 01/03/25 08:[address] WITH CONTRAST CT DOSE: 2703.36 mGy.cm HISTORY: Trauma TECHNIQUE: Multiaxial CT images of the chest were performed following the IV administration of 90 cc of Optiray. A dose lowering technique was utilized adhering to the principles of ALARA. COMPARISON STUDY: 06/27/2021 FINDINGS: There are mild airway secretions. There is mild dependent atelectasis in the lung bases. No other pulmonary consolidation or pleural effusion. No pneumothorax. No mediastinal hematoma or evidence of thoracic aortic injury. There is prominent cardiomegaly with mild prominence of the pulmonary vasculature consistent with CHF. No pericardial effusion. There are diffuse coronary artery calcifications. There is an acute mildly displaced fracture posteriorly at the left seventh rib. No other acute fractures seen at the visualized osseous structures. IMPRESSION: Acute fracture posterior left seventh rib with no pneumothorax. No other acute injury seen of the chest. Otherwise as described. ACT 112: Negative or not required by law. Electronically signed by: Guille Cruz M.D. 01/03/2025 9:20 AM Chest X-Ray 01/03/25 08:16 XR chest 1V portable CLINICAL HISTORY: Trauma COMPARISON STUDY: 06/20/2024 FINDINGS: Stable cardiomegaly with mild pulmonary vascular congestion. There is interval mild hazy opacity at the lung bases. No other consolidation or pleural effusion. No pneumothorax. No grossly displaced rib fracture seen. IMPRESSION: 1. Interval mild hazy opacity in the lung bases could represent atelectasis or pulmonary contusions. 2. No other acute findings seen. ACT 112: Negative or not required by law. Electronically signed by: Guille Cruz M.D. 01/03/2025 8:[address] 01/03/25 08:16 CT SCAN OF THE BRAIN WITHOUT IV CONTRAST CLINICAL HISTORY: Trauma COMPARISON STUDY: CT of the brain dated 09/27/2024. TECHNIQUE: Unenhanced axial CT scan of the brain is performed from the vertex to the skull base. Images are reviewed in the axial, sagittal, coronal planes. A dose lowering technique was utilized adhering to the principles of ALARA. FINDINGS: Brain parenchyma: There is age-related involutional change noting [id number] subcortical and periventricular microangiopathic disease. There is no hemorrhage, mass effect, or evidence of acute territorial ischemia by CT criteria. Varghese-white matter differentiation is preserved. No extra-axial fluid collection is seen. Ventricles, sulci, cisterns: Prominent secondary to involutional change. Intracranial vasculature: There is atherosclerotic calcification of the cavernous carotid and vertebral arteries. Calvarium: Unremarkable. Sinuses and mastoids: The visualized paranasal sinuses are clear. There is a left mastoid effusion. The right mastoid air cells are well pneumatized. Orbits: The bony orbits are grossly intact. There are bilateral ocular lens implants. IMPRESSION: There is no hemorrhage, mass effect, or evidence of acute territorial ischemia by CT criteria. ACT 112: Negative or not required by law. Electronically signed by: Kevin Still M.D. 01/03/2025 9:09 AM Discharge Plan Visit Data Chief Complaint: Fall Stated Complaint: FALL, BACK PAIN ED Provider: Bart Francois Discharge Problem: Fall, Closed rib fracture, Atelectasis, Closed L4 vertebral fracture, Pseudohyponatremia, Chronic anticoagulation Patient Disposition: Admitted As Inpatient Condition: Fair Forms Stand Alone Forms: [facility] Prescriptions Prescriptions: No Action donepezil 10 mg tablet 10 mg PO HS Qty: 30 5RF Dupixent Syringe 300 mg/2 mL syringe 300 mg subcut .every 2 weeks Qty: 4 11RF Rx Instructions: Inject Dupixent 300mg/2ml subqutaneously every 2 weeks Approved 10/14/24-12/14/25 Reference # [id number] ([facility] [place]) compr.stocking,knee,long,large Misc See Rx Instructions .ROUTE .MEDSUPPLY Qty: 12 0RF Rx Instructions: As directed dutasteride [Avodart] 0.5 mg capsule 0.5 mg PO QAM Qty: 90 3RF fluticasone propionate [Flonase Allergy Relief] 50 mcg/actuation spray,suspension 2 spray intranasal DAILY Rx Instructions: administer into each nostril memantine 10 mg tablet 10 mg PO BID Qty: 60 5RF cholecalciferol (vitamin D3) [Vitamin D3] 25 mcg (1,000 unit) capsule 1,000 unit PO QAM atorvastatin 20 mg Tablet 20 mg PO HS Qty: 20 0RF ferrous sulfate 325 mg (65 mg iron) Tablet 325 mg PO QAM Eliquis 5 mg tablet 5 mg PO BID acetaminophen [Tylenol Extra Strength] 500 mg Tablet 1,000 mg PO TID PRN (Reason: Pain) magnesium hydroxide [Milk of Magnesia] 400 mg/5 mL Suspension 2,400 ml PO DAILY PRN (Reason: Constipation) Rx Instructions: If no BM in 2 days tamsulosin 0.4 mg capsule 0.4 mg PO DAILY pantoprazole 40 mg tablet,delayed release (DR/EC) 40 mg PO DAILY Fleet Enema 19-7 gram/118 mL Enema 118 ml TN DAILY PRN (Reason: Constipation) Rx Instructions: If no BM after MOM or Dulcolax hydrocortisone 2.5 % Cream 1 applic TOPICAL BID PRN (Reason: Other) nystatin 100,000 unit/gram powder 1 applic TOPICAL DAILY PRN (Reason: Rash) Thera M Tablet 1 tab PO DAILY Saccharomyces boulardii 250 mg Capsule 250 mg PO BID tiotropium bromide [Spiriva with HandiHaler] 18 mcg capsule, w/inhalation device 18 mcg INHALATION DAILY metronidazole [MetroCream] 0.75 % Cream 1 applic TOPICAL BID bisacodyl [Dulcolax (bisacodyl)] 10 mg Suppository 10 mg TN DAILY PRN (Reason: Constipation) Rx Instructions: If no BM from MOM calcium carbonate [Calcium 500] 500 mg calcium (1,250 mg) Tablet,Chewable 500 mg PO DAILY Referrals Referrals: López Munoz MD [Primary Care Provider] -
[2025-01-03 08:52] LABS: Alanine Aminotransferase 19.0 U/L (7-52); Albumin Globulin Ratio 1.4 (0.9-2); Albumin Level 4.8 gm/dl (3.4-5.0); Alkaline Phosphatase 92.0 U/L (34-104); Anion Gap 8.0 (3-11); Bilirubin,Total 2.4 mg/dl (0.2-1.0); Blood Urea Nitrogen 18.0 mg/dl (6-23); Calcium 9.7 mg/dl (8.6-10.3); Carbon Dioxide 28.0 mmol/L (21-32); Chloride 99.0 mmol/L (98-107); Creatinine Clr Calc Pharmacy 64.7 ml/min; Globulin 3.4 gm/dl (2.5-4.0); Glucose 134.0 mg/dl (70-99(Fasting)); Lipase 30.0 U/L (11-82); Potassium 4.1 mmol/L (3.5-5.1); Sodium 135.0 mmol/L (136-145); Total Protein 8.2 gm/dl (6.0-8.3)
[2025-01-03] MEDS: OPTIRAY 320 100ml IV ONE (08:53)
[2025-01-03 09:07] LABS: INR 1.1 (0.9-1.1); Partial Thromboplastin Time 30 Seconds (21-31); Prothrombin Time 11.4 Seconds (9.0-12.0)
--- NOTE | 2025-01-03 09:10 | CT Scan Report ---
CT SCAN OF THE BRAIN WITHOUT IV CONTRAST CLINICAL HISTORY: Trauma COMPARISON STUDY: CT of the brain dated 09/27/2024. TECHNIQUE: Unenhanced axial CT scan of the brain is performed from the vertex to the skull base. Imag es are reviewed in the axial, sagittal, coronal planes. A dose lowering technique was utilized adheri ng to the principles of ALARA. FINDINGS: Brain parenchyma: There is age-related involutional change noting [id number] subcortical and pe riventricular microangiopathic disease. There is no hemorrhage, mass effect, or evidence of acute ter ritorial ischemia by CT criteria. Varghese-white matter differentiation is preserved. No extra-axial flui d collection is seen. Ventricles, sulci, cisterns: Prominent secondary to involutional change. Intracranial vasculature: There is atherosclerotic calcification of the cavernous carotid and vertebr al arteries. Calvarium: Unremarkable. Sinuses and mastoids: The visualized paranasal sinuses are clear. There is a left mastoid effusion. T he right mastoid air cells are well pneumatized. Orbits: The bony orbits are grossly intact. There are bilateral ocular lens implants. IMPRESSION: There is no hemorrhage, mass effect, or evidence of acute territorial ischemia by CT agatha woods. ACT 112: Negative or not required by law. Electronically signed by: Kevin Still M.D. 01/03/2025 9:09 AM
--- NOTE | 2025-01-03 09:16 | CT Scan Report ---
CT cervical spine wo con CT DOSE: 1805.34 mGy.cm CLINICAL HISTORY: 89 years-old Male with Trauma. Acute neck trauma COMPARISON: Head CT of same day, CT cervical spine 09/27/2024 TECHNIQUE: Multiple axial CT images of the cervical spine were obtained without contrast. A dose low ering technique was utilized adhering to the principles of ALARA. FINDINGS: Straightening of the cervical lordosis is unchanged redemonstrated. Note is again made of e xtensive anterior osteophytosis within the cervical spine. There are stable findings following C6-C7 anterior discectomy and fusion. There is also fusion of the C5 and C6 vertebral bodies. Severe facet arthrosis is present. Central canal and neural foramen are suboptimally assessed given CT technique. There is no prevertebral edema. The appearance of the cervical spine is unchanged. No pneumothorax. N onspecific mild groundglass densities of the lung apices. Atherosclerosis of the carotid bulbs. IMPRESSION: 1. No acute cervical spine fracture or subluxation. 2. Chronic postoperative and degenerative changes of the cervical spine redemonstrated. ACT 112: Negative or not required by law. The above report was generated using voice recognition software. It may contain grammatical, syntax o r spelling errors. Electronically signed by: Delano Strauss M.D. 01/03/2025 9:14 AM
--- NOTE | 2025-01-03 09:23 | CT Scan Report ---
CHEST CT WITH CONTRAST CT DOSE: 2703.36 mGy.cm HISTORY: Trauma TECHNIQUE: Multiaxial CT images of the chest were performed following the IV administration of 90 cc of Optiray. A dose lowering technique was utilized adhering to the principles of ALARA. COMPARISON STUDY: 06/27/2021 FINDINGS: There are mild airway secretions. There is mild dependent atelectasis in the lung bases. No other pulmonary consolidation or pleural effusion. No pneumothorax. No mediastinal hematoma or evide nce of thoracic aortic injury. There is prominent cardiomegaly with mild prominence of the pulmonary vasculature consistent with CHF. No pericardial effusion. There are diffuse coronary artery calcifica tions. There is an acute mildly displaced fracture posteriorly at the left seventh rib. No other acut e fractures seen at the visualized osseous structures. IMPRESSION: Acute fracture posterior left seventh rib with no pneumothorax. No other acute injury see n of the chest. Otherwise as described. ACT 112: Negative or not required by law. Electronically signed by: Guille Cruz M.D. 01/03/2025 9:20 AM
--- NOTE | 2025-01-03 09:29 | CT Scan Report ---
CT SCAN OF THE ABDOMEN AND PELVIS WITH IV CONTRAST CLINICAL HISTORY: Trauma. COMPARISON STUDY: Abdominal CT dated 10/28/2022. TECHNIQUE: Following the IV administration of 94 cc of Optiray 320, CT scan of the abdomen and pelvi s is performed from the lung bases to the proximal femora. Images are reviewed in the axial, sagittal , and coronal planes. IV contrast was administered without complication. A dose lowering technique wa s utilized adhering to the principles of ALARA. The examination is degraded by motion artifact, as we ll as by streak artifact from the arms which could not be elevated above the abdomen. FINDINGS: Lung bases: The heart is enlarged and without pericardial effusion. The coronary arteries are densely calcified. There is a rnhgd-fw-czgyigzs hiatal hernia. There are trace pleural effusions with depend ent atelectasis. Mild patchy consolidation is seen at the left lung base. Liver: The contrast-enhanced liver is normal in size, contour, and attenuation. There is no intrahepa tic biliary ductal dilatation. The hepatic veins and portal veins are patent. Gallbladder: There are calcified gallstones with no CT evidence of acute cholecystitis. There is chol edocholithiasis with a 5 mm gallstone in the distal common bile duct seen on image #139. Spleen: Normal in size and attenuation. Pancreas: Moderately atrophic and grossly unremarkable. Adrenal glands: Unremarkable. Kidneys: The contrast enhanced kidneys demonstrate cortical atrophy and are without hydronephrosis. T he kidneys enhance symmetrically. Bilateral renal cysts measure up to 12.3 cm. Additional subcentimet er cortical hypodensities also likely represent cysts but are too small for definitive characterizati on. Abdominal vasculature: There is advanced atherosclerotic calcification and ectasia of the abdominal a lauren. 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 Stents in the right common iliac a rtery and spanning the right iliac bifurcation within the right internal and external iliac arteries are patent. Bowel: There is emxo-gw-cbozohxl colonic diverticulosis without CT evidence of acute diverticulitis. No bowel obstruction is seen. The appendix is well-visualized and normal. Peritoneum: There is no intraperitoneal free air or abdominal ascites. There is a fat-containing umbi lical hernia. Lymphadenopathy: None. Pelvic viscera: The prostate gland is enlarged and heterogeneous. The bladder is distended, and the w all is thickened/trabeculated indicating chronic outlet obstruction. There are bilateral fat-containi ng groin hernias. Surgical clips are noted in the groin bilaterally. Skeletal structures: The skeletal structures are osteopenic. There is moderate to advanced lumbosacra l spondylosis. Postsurgical change is noted in the lower lumbar spine. A minimal chronic superior end plate compression deformity of L1 is unchanged. No lytic or blastic lesions are seen. Acute left post erior 7th rib fracture is partially visualized. There are subacute/healing left anterior 6th and 7th rib fractures. Additional chronic/healed rib fractures are seen bilaterally. There is age indetermin ant fracture through a left anterior osteophyte end the anterior/superior endplate of L4 which is new from 10/28/2022. This best seen on sagittal reformatted image #120. There is no significant paraverte bral edema to suggest acuity. The lumbosacral spine and bony pelvis otherwise appear intact. IMPRESSION: 1. There is no evidence of solid organ injury in the abdomen or pelvis. 2. An acute left posterior 7th rib fracture is partially visualized. 3. There are subacute/healing left anterior rib fractures. 4. There is an age indeterminant fracture through a left anterior osteophyte as well as the left ante rior/superior endplate of L4 which is new from 10/28/2022. There is no paravertebral edema to suggest acuity. 5. Cardiomegaly and trace pleural effusions. 6. Mild patchy consolidation at the left lung base could represent a mild pneumonia/aspiration pneumo nitis. Correlate clinically. 7. Cholelithiasis and choledocholithiasis without CT evidence of acute cholecystitis. 8. Prostatomegaly with bladder distention evidence of chronic outlet obstruction. 9. Additional findings as above. ACT 112: Negative or not required by law. Electronically signed by: Kevin Still M.D. 01/03/2025 9:28 AM
--- NOTE | 2025-01-03 10:11 | History & Physical Report ---
<Statement entered by Jennifer Monge MD - 01/03/25 16:01> I have reviewed vital signs, chart notes, labs and imaging. I have personally seen, evaluated and examined the patient. I have also discussed the management of the patient with Dr. Sweeney and I agree with the exam findings documented in the history and physical examination and the documented assessment and plan unless otherwise stated below. Mr. Gao denies any pain currently. He says he fell because "I tripped over my own feet" His sides hurt a little but no neck/back chest or abdominal pain currently. He is a poor historian Physical exam is unremarkable - head atraumatic, no neck tenderness or pain on full range of motion. He has no tenderness of chest wall in the area of the L posterior 7th rib fracture. Heart irreg distant no mumur. Lungs CTA bilaterally and diminished in bases. I do not see any significant ecchymoses and no deformity of extremities. LE wwp without edema. A/P: Mechanical fall from standing without apparent serious injury, anticoagulated -flomax could cause orthostatic hypotension. Known to have gait dysfunction and falls at baseline -PT/OT eval Bibasilar opacities on CT chest - probably atelectasis. Checking serial procal but no pneumonia s/sx. Pulmonary contusion is possible but seems unlikely given mechanism of injury. -procal -monitor resp status and monitor for hypoxia -IS, mobility DVT ppx - on apixaban [facility] home to [facility] tomorrow Date of Service January 03, 2025 Assessment & Plan (1) Closed rib fracture: (2) Fall: (3) Atelectasis: (4) Atrial fibrillation: (5) BPH (benign prostatic hyperplasia): (6) Constipation: (7) COPD (chronic obstructive pulmonary disease): Plan #Unwitnessed Fall/Posterior Rib Fracture/Pulmonary contusion - unwitnessed fall w/ pt unable to recall whether he hit head or other part of body during fall - uncertain etiology, possible med risk w/ donepezil - Cervical spine CT: 1) no acute fracture or dislocation, 2) chronic degenerative changes noted - CT-AP: 1) acute posterior l. 7th rib fracture, 2) age-indeterminant fracture of l. anterior osteophyte and l. anterior/superior endplate of L4, 3) mild patchy consolidation of l. lung base - CXR: 1) hazy opacities at lung bases concerning for atelectasis or pulmonary contusions - Consider repeat CXR in a tomorrow to monitor possible pulmonary contusion - Pain control - Tylenol, 1000 mg, q8hr, PO (mild-moderate pain (severity 1-6)) - morphine sulfate, 2 mg, q3hr, IV (severe pain (severity, 7-10)) #Lung opacity/atelectasis at lung bases - baseline atelectasis vs. lung contusion vs. developing pneumonia - ordered procalcitonin to rule out pneumonia - trend CBC AM labs #Choledocholithiasis (asymptomatic) - CT-AP: There are calcified gallstones with no CT evidence of acute cholecystitis. There is choledocholithiasis with a 5 mm gallstone in the distal common bile duct seen on image #139 - Total bilirubin, 2.4; AlkPhos, 92 (normal) - Trend CMP AM labs Chronic conditions #AFib - continue Eliquis, 5 mg, PO, BID #Dementia - continue memantine, 10 mg, PO, BID; continue donepezil, 10 mg, PO, qHS #GERD - continue pantoprazole, 40 mg, PO, daily #BPH -continue tamsulosin, 0.4 mg, PO, daily #COPD - continue tiotropium bromide, 18 mcg, inh, daily #Hx of cervical fracture - continue vit D and calcium #Constipation - continue Dulcolax, 10 mg, PO, daily; add Miralax, 17 g, PO, daily, PRN #HLD - hold atorvastatin Code status: DNR/DNI Disposition: Med-Surg Tele, Obs FENGI: regular diet, VTE Prophylaxis: Eliquis, 5mg, PO, BID (on for AFib) History of Present Illness Chief Complaint: unwitnessed fall, pain of l. abdomen Primary Care Provider: López Munoz MD Patient is a 89 yo M w/ a PMHx of AFib (on Eliquis), dementia, BPH, HTN, HLD, COPD, Perez's esophagus, esophageal dysmotility, PVD, anemia, BCC, falls, living at [facility], who is presenting today after having an unwitnessed fall earlier this morning, after which he was able to press the button on his Life Alert necklace and call for help. He does not remember if he hit anything when he fell, but also denies any loss of consciousness when he fell. He simply feels like it all happened so fast that he doesn't have a good memory of what occurred. Patient is AAO x 2, being neither oriented to time nor why he is here (thinks it's because he has a sore throat). Pt denies any neck or head pain, denies any back pain, denies any leg, knee, or hip pain; denies any arm, wrist, elbow, or shoulder pain; but does endorse some l. abdominal pain (+2/10). Allergies Allergy/AdvReac Type Severity Reaction Status Date / Time cyclobenzaprine Allergy Intermediate Facial rash Verified 12/20/24 11:36 flecainide Allergy Intermediate Skin Verified 12/20/24 11:36 discoloration cephalexin [From Keflex] AdvReac Intermediate Impaires Verified 12/20/24 11:36 cognitive function ibuprofen AdvReac Mild Rhinorrhea Verified 12/20/24 11:36 Home Medications Medication Instructions Recorded Confirmed Type compr.stocking,knee,long,large #12 ea 12/15/19 12/20/24 Rx cholecalciferol (vitamin D3) 25 1,000 unit PO QAM 02/13/20 01/03/25 History mcg (1,000 unit) capsule (Vitamin D3) dutasteride 0.5 mg capsule 0.5 mg PO QAM #90 caps 12/27/20 01/03/25 Rx (Avodart) atorvastatin 20 mg tablet 20 mg PO HS #20 tabs 08/06/21 01/03/25 Rx apixaban 5 mg tablet (Eliquis) 5 mg PO BID 11/17/21 01/03/25 History ferrous sulfate 325 mg (65 mg 325 mg PO QAM 11/17/21 01/03/25 History iron) tablet acetaminophen 500 mg tablet 1,000 mg PO TID PRN Pain 03/03/22 01/03/25 History (Tylenol Extra Strength) Saccharomyces boulardii 250 mg 250 mg PO BID 10/17/23 01/03/25 History capsule hydrocortisone 2.5 % topical cream 1 applic topical BID PRN Other 10/17/23 01/03/25 History magnesium hydroxide 400 mg/5 mL 2,400 ml PO DAILY PRN Constipation 10/17/23 01/03/25 History oral suspension (Milk of Magnesia) multivitamin,tx-minerals 1 tab PO DAILY 10/17/23 01/03/25 History nystatin 100,000 unit/gram topical 1 applic topical DAILY PRN Rash 10/17/23 01/03/25 History powder pantoprazole 40 mg tablet,delayed 40 mg PO DAILY 10/17/23 01/03/25 History release sodium phosphates 19 gram-7 118 ml WI DAILY PRN Constipation 10/17/23 01/03/25 History gram/118 mL enema (Fleet Enema) tamsulosin 0.4 mg capsule 0.4 mg PO DAILY 10/17/23 01/03/25 History tiotropium bromide 18 mcg capsule 18 mcg inhalation DAILY 10/17/23 01/03/25 History with inhalation device (Spiriva with HandiHaler) metronidazole 0.75 % topical cream 1 applic topical BID 05/16/24 01/03/25 History (MetroCream) bisacodyl 10 mg rectal suppository 10 mg WI DAILY PRN Constipation 09/27/24 01/03/25 History (Dulcolax (bisacodyl)) calcium carbonate (Calcium 500) 500 mg PO QAM 09/27/24 01/03/25 History donepezil 10 mg tablet 10 mg PO HS #30 tabs 11/03/24 01/03/25 Rx fluticasone propionate 50 2 spray intranasal DAILY 12/20/24 01/03/25 History mcg/actuation nasal spray,suspension (Flonase Allergy Relief) memantine 10 mg tablet 10 mg PO BID #60 tabs 12/20/24 01/03/25 Rx dupilumab 300 mg/2 mL subcutaneous 300 mg subcut Q14D 01/03/25 01/03/25 History syringe (Dupixent) Past Med/Surg History Problem List (Updated 01/03/25 @ 10:31 by Bart Francois DO) Chronic anticoagulation (Acute) Pseudohyponatremia (Acute) Closed L4 vertebral fracture (Acute) Atelectasis (Acute) Closed rib fracture (Acute) Fall (Acute) Gait apraxia Acute bilateral knee pain (Acute) Dementia Aneurysm of right iliac artery BPH (benign prostatic hyperplasia) (Chronic) Atrial fibrillation (Chronic) Hypertension (Chronic) Hypercholesteremia (Chronic) Constipation COPD (chronic obstructive pulmonary disease) Esophageal dysmotility Barretts esophagus (Chronic) PVD (peripheral vascular disease) Urinary frequency (Chronic) Anemia (Chronic) Hyperglycemia (Chronic) Anticoagulant long-term use Edema of both lower legs (Chronic) Mild cognitive impairment (Chronic) Gait instability (Chronic) Mild dementia (Acute) Fall (Chronic) Rash of face (Acute) Pain of left calf Left leg swelling Weight gain (Acute) Acute urinary retention 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 Osteomyelitis Dislodged Vera catheter (Acute) Urinary retention (Acute) Orthostatic hypotension Thoracic spine fracture Medical History MVP (mitral valve prolapse) MVP with mild to moderate MR per 08/2022 echo Cervical spine fracture 6+ months ago, treated with collar/medical management (no surgical intervention needed) [facility] (hard of hearing) Poor memory Cognitive impairment GERD (gastroesophageal reflux disease) Right foot drop Iron deficiency anemia Esophageal dysmotility with aspiration per remote hx BPH (benign prostatic hyperplasia) Chronic obstructive pulmonary disease Barretts esophagus Atrial fibrillation Reason for Eliquis Follows with [facility] Reactive airway disease Hiatal hernia Anemia Poor historian 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 Hx of laminectomy Hx of hernia repair History of back surgery Family History Mother Breast cancer Type 2 diabetes mellitus without complications Other Family history non-contributory Denies family history of Ovarian cancer Prostate cancer Myocardial infarction Colorectal cancer Social History Smoking Status: Former smoker Tobacco Type: Cigarettes Second Hand Exposure: No; Do You Dip or Chew Tobacco: No; Hx Alcohol Use: No Hx Substance Use: No Preferred Language: Luxembourgish Communication Ability: Effective Communication Ability Comment: very poor historian Visual Impairment: No Limitations Single Stroke Preformer Required: No Beliefs That Will Affect Care: None marital status: / Current Living Situation: Personal Care Facility Current Living Situation Comment: [facility] Feels Safe at Home: Yes Assistive Devices: Walker Physical Exam Constitutional: WD/WN, vitals as above Neck: neck nontender Respiratory: normal respiratory effort, lungs clear to auscultation Cardiovascular: Rate/Rhythm: + irregularly irregular Heart Sounds: + murmur Extremities: normal capillary refill; no calf tenderness and no pedal edema Gastrointestinal (Abdomen): Inspection/Auscultation: abdomen normal to inspection and normal bowel sounds Percussion/Palpation: + abdomen tender and abdomen soft; abdomen not rigid and no ascites Musculoskeletal: Patient unable to sit up on his own Psychiatric: Orientation: alert, oriented to person, oriented to place and cooperative; + not oriented to time Results & Data Results & Data Vital Signs (Past 12 Hours) Vital Signs Temp Pulse Resp BP Pulse Ox O2 Del Method 01/03/25 09:24 145/84 H 01/03/25 09:03 75 18 01/03/25 08:33 79 15 90 Room Air 01/03/25 08:32 75 01/03/25 08:00 80 19 01/03/25 07:56 36.5 C 68 18 162/102 H 92 Room Air 01/03/25 07:54 78 20 01/03/25 07:50 162/107 H (4) Atrial fibrillation Atrial fibrillation type: permanent Qualified Code(s): I48.21 - Permanent atrial fibrillation (5) BPH (benign prostatic hyperplasia) Lower urinary tract symptom presence: symptoms absent Qualified Code(s): N40.0 - Benign prostatic hyperplasia without lower urinary tract symptoms
[2025-01-03] MEDS ORDERED: ONDANSETRON INJ 2 MG/ML 2 ML VIAL IV PRN (11:58)
[2025-01-03] MEDS ORDERED: POLYETHYLENE (MIRALAX) 17 GM PACK PO PRN (11:58)
[2025-01-03] MEDS ORDERED: MAGNESIUM HYDROXIDE SUSP 30 ML UDC PO PRN (14:42)
[2025-01-03] MEDS ORDERED: MoRPHine SULFATE 2 MG/ML CARP IV PRN (14:42)
--- NOTE | 2025-01-03 14:56 | Electrocardiogram Report ---
Test Reason : Blood Pressure : */* mmHG Vent. Rate : 74 BPM Atrial Rate : * BPM P-R Int : * ms QRS Dur : 76 ms QT Int : 402 ms P-R-T Axes : * 18 12 degrees QTcB Int : 446 ms Atrial fibrillation with premature ventricular or aberrantly conducted complexes Septal infarct , age undetermined Abnormal ECG When compared with ECG of 16-Jun-2024 00:08, No significant change was found Confirmed by Derick Barrett ([id number]) on 01/03/2025 2:56:19 PM Referred By: REFERRED SELF Confirmed By: Derick Barrett
[2025-01-03] MEDS: CHOLECALCIFEROL 25 MCG (1000 UNITS) TAB PO SCH (17:28)
[2025-01-03] MEDS: TAMSULOSIN HCL 0.4 MG CAP PO SCH (17:28)
[2025-01-03] MEDS: FERROUS SULFATE 325 MG TAB PO SCH (17:29)
[2025-01-03] MEDS: UMECLIDINIUM BROMIDE 62.5MCG/BLISTER 7 PUFFS/INHALER INH SCH (17:30)
[2025-01-03] MEDS: FINASTERIDE 5 MG TAB PO SCH (17:30)
[2025-01-03] MEDS: NYSTATIN POWDER 15GM BTL EXT PRN (17:30)
[2025-01-03] MEDS: CALCIUM CARBONATE 1250MG TAB PO SCH (17:31)
[2025-01-03] MEDS: FLUTICASONE PROPIONATE NA SPR 16 GM BTL SCH (17:40)
[2025-01-03] MEDS: ACETAMINOPHEN 500 MG TAB PO PRN (18:21)
[2025-01-03] MEDS ORDERED: PHA DELIRIUM CONSULT PRN ×2 (20:02→20:38)
[2025-01-03] MEDS: MELATONIN 3 MG TAB PO PRN (20:23)
[2025-01-03] MEDS: DONEPEZIL HCL 10 MG TAB PO SCH (20:23)
[2025-01-03] MEDS: APIXABAN 5 MG TABLET PO SCH (20:24)
[2025-01-03] MEDS: MEMANTINE HCL 10 MG TAB PO SCH (20:24)
[2025-01-04 06:53] LABS: Hematocrit (blood only) 40.5 % (42.0-52.0); Hemoglobin 13.6 g/dl (14.0-18.0); Mean Corpuscular Hemoglobin 30.4 pg (25.0-34.0); Mean Corpuscular Volume 90.4 fL (80.0-100.0); Platelet Count 151 K/uL (130-400); RDW Standard Deviation 46.1 fL (36.4-46.3); Red Blood Count 4.48 M/uL (4.70-6.10); White Blood Count 8.63 K/ul (4.8-10.8)
[2025-01-04 07:32] LABS: Alanine Aminotransferase 23.0 U/L (7-52); Albumin Globulin Ratio 1.4 (0.9-2); Albumin Level 3.7 gm/dl (3.4-5.0); Alkaline Phosphatase 62.0 U/L (34-104); Anion Gap 6.0 (3-11); Bilirubin,Total 2.9 mg/dl (0.2-1.0); Blood Urea Nitrogen 17.0 mg/dl (6-23); Calcium 8.9 mg/dl (8.6-10.3); Carbon Dioxide 28.0 mmol/L (21-32); Chloride 102.0 mmol/L (98-107); Creatinine Clr Calc Pharmacy 67.9 ml/min; Globulin 2.6 gm/dl (2.5-4.0); Glucose 112.0 mg/dl (70-99(Fasting)); Potassium 4.0 mmol/L (3.5-5.1); Sodium 136.0 mmol/L (136-145); Total Protein 6.3 gm/dl (6.0-8.3)
--- NOTE | 2025-01-04 10:25 | Hospitalist Progress Note ---
Date of Service January 04, 2025 Assessment & Plan (1) Closed rib fracture: (2) Fall: (3) Atelectasis: (4) Atrial fibrillation: (5) BPH (benign prostatic hyperplasia): (6) Constipation: (7) COPD (chronic obstructive pulmonary disease): Plan Patient is a 89 yo M w/a PMHx of AFib (on Eliquis), dementia, BPH, HTN, HLD, COPD, Perez's esophagus, esophageal dysmotility, PVD, anemia, BCC, falls, living at [facility], presented after unwitnessed likely mechanical fall, presented to ED, trauma scan negative except rib # and pulmonary contusion, stable HD santacruz admitted for further care. #Unwitnessed Fall/Posterior Rib Fracture/Pulmonary contusion *likely mechanical fall. - fluid status corrected this AM. - Donepezil on hold. - Cervical spine CT : UR - CT-AP: acute posterior 7th rib fracture, mild patchy consolidation of Left Lung. - CXR: hazy opacities at lung bases concerning for atelectasis or pulmonary contusions - Pain: Optimised - Tylenol, 1000 mg, q8hr, PO mild-moderate pain - morphine sulfate, 2 mg, q3hr, IV, severe pain #Lung opacity/atelectasis at lung bases - Stable, conservative management. #Afib: Rate controlled, BP stable Continue home med. #Choledocholithiasis (asymptomatic) - CT-AP: There are calcified gallstones with no CT evidence of acute cholecystitis. - Follow Surgery outpatient Other Chronic #Dementia: continue memantine, hold donepezil #GERD: continue pantoprazole #BPH;continue tamsulosin #COPD: continue inhalers. #Hx of cervical fracture: continue vit D and calcium #Constipation:Continue Dulcolax, 10 mg, PO, daily; add Miralax, 17 g, PO, daily, [place] Code status: DNR/DNI Disposition: OT/PT recs rehab, pending placement VTE Prophylaxis: Eliquis, 5mg, PO, BID (on for AFib Admission and Anticipated Discharge Date Admission Date: January 03, 2025 Supervising Physician Co-Signing Physician Notes I personally examined the patient and verified all potts points of history and exam, discussed case, and agree with decision making with Dr Cortes pleasantly confused, offers no complaints. On directed questioning he has no pain. Vitals noted, in general he is awake and alert pleasant no distress. HEENT normocephalic atraumatic mucous membranes moist. Breathing unlabored no accessory muscle use good effort. Skin without rashes pallor or icterus. Neuro without focal deficits. Fallseems to have been a mechanical fall. Rib fracture and pulmonary contusion noted, fortunately vital stable showing no significant pain or respiratory distress. Continue current care. In regards to his weakness, unfortunately looks like he will need SNFawaiting authorization. Dementiaappears to have fairly significant functional impairment. Baseline is at personal-care. Will need SNF for now. Otherwise as above. Subjective Remains stable, no ON issue. Patient answering most question as yes or no. No pain, fever, cough, SOB, leg swelling this AM. Review of Systems Review of Systems: Per HPI Physical Exam Physical Exam: Constitutional: Well appearing, No acute distress, PILCCOD: Negative HEENT: Atraumatic, Normocephalic, No conjunctival injection CVS: S1 S2 systolic murmur+, Regular Rhythm, no LE edema Respiratory: BL equal air entry with NVBS. No rhonchi, wheezes, or crackles. No increased work of breathing GI: Soft, Nondistended, Nontender, Normal Bowel sounds + MSK: No gross deformities noted Skin: Warm, Dry, No rashes Neuro:Not Oriented to TPP, fairly demented, No Focal deficit Psych: Cooperative on exam Results & Data Results & Data Vital Signs (Past 12 Hours) Vital Signs Temp Pulse Pulse Resp BP Pulse Ox O2 Del Method 01/04/25 07:37 36.7 C 91 H 18 158/89 H 90 Room Air 01/04/25 02:24 36.8 C 81 20 111/68 90 Room Air 01/03/25 23:23 36.8 C 91 H 18 120/78 92 Room Air (4) Atrial fibrillation Atrial fibrillation type: permanent Qualified Code(s): I48.21 - Permanent atrial fibrillation (5) BPH (benign prostatic hyperplasia) Lower urinary tract symptom presence: symptoms absent Qualified Code(s): N40.0 - Benign prostatic hyperplasia without lower urinary tract symptoms
[2025-01-04 13:42] LABS: Appearance Urine Clear (Clear); Bacteria Urine Automated None Seen (None Seen); Cast Urine Automated 0-2 /lpf (0-2); Epithelial Cell Urine Auto 0-2 /hpf (0-2); Glucose Urine UA Negative (Negative); RBC Urine Automated >20 /hpf (0-2); WBC Urine Automated 0-5 /hpf (0-5)
--- NOTE | 2025-01-04 16:13 | Billing Data ---
Date of Service January 04, 2025 Coding Level of Care Code 75168 SUB INP/OBS CARE
[2025-01-04] MEDS: MICONAZOLE NITRATE POWDER 85 GM EXT PRN (21:33)
[2025-01-05 08:17] VITALS: O2SAT 90
--- NOTE | 2025-01-05 09:38 | Discharge Summary ---
Date of Service January 05, 2025 Admission HPI Per Admitting Provider Patient is a 89 yo M w/ a PMHx of AFib (on Eliquis), dementia, BPH, HTN, HLD, COPD, Perez's esophagus, esophageal dysmotility, PVD, anemia, BCC, falls, living at [facility], who is presenting today after having an unwitnessed fall earlier this morning, after which he was able to press the button on his Life Alert necklace and call for help. He does not remember if he hit anything when he fell, but also denies any loss of consciousness when he fell. He simply feels like it all happened so fast that he doesn't have a good memory of what occurred. Patient is AAO x 2, being neither oriented to time nor why he is here (thinks it's because he has a sore throat). Pt denies any neck or head pain, denies any back pain, denies any leg, knee, or hip pain; denies any arm, wrist, elbow, or shoulder pain; but does endorse some l. abdominal pain (+2/10). Admission Exam Per Admitting Provider Constitutional: WD/WN, vitals as above Neck: neck nontender Respiratory: normal respiratory effort, lungs clear to auscultation Cardiovascular: Rate/Rhythm: + irregularly irregular Heart Sounds: + murmur Extremities: normal capillary refill; no calf tenderness and no pedal edema Gastrointestinal (Abdomen): Inspection/Auscultation: abdomen normal to inspection and normal bowel sounds Percussion/Palpation: + abdomen tender and abdomen soft; abdomen not rigid and no ascites Musculoskeletal: Patient unable to sit up on his own Psychiatric: Orientation: alert, oriented to person, oriented to place and cooperative; + not oriented to time Principal Diagnosis Mechanical fall Discharge Exam Constitutional: Well appearing, No acute distress, PILCCOD: Negative HEENT: Atraumatic, Normocephalic, No conjunctival injection CVS: S1 S2 systolic murmur+, Regular Rhythm, no LE edema Respiratory: BL equal air entry with NVBS. No rhonchi, wheezes, or crackles. No increased work of breathing GI: Soft, Nondistended, Nontender, Normal Bowel sounds + MSK: No gross deformities noted Skin: Warm, Dry, No rashes Neuro:Not Oriented to TPP, fairly demented, No Focal deficit Psych: Cooperative on exam Discharge Data Allergies Allergy/AdvReac Type Severity Reaction Status Date / Time cyclobenzaprine Allergy Intermediate Facial rash Verified 12/20/24 11:36 flecainide Allergy Intermediate Skin Verified 12/20/24 11:36 discoloration cephalexin [From Keflex] AdvReac Intermediate Impaires Verified 12/20/24 11:36 cognitive function ibuprofen AdvReac Mild Rhinorrhea Verified 12/20/24 11:36 Consultations 01/03/25 09:45 ED Decision to Admit Stat Ordered Studies 01/03/25 08:16 CT abd pelvis IV con only Stat CT cervical spine wo con Stat CT chest diagnostic w con Stat CT head/brain wo con Stat Hospital Course (1) Closed rib fracture: (2) Fall: (3) Atelectasis: (4) Atrial fibrillation: (5) BPH (benign prostatic hyperplasia): (6) Constipation: (7) COPD (chronic obstructive pulmonary disease): Plan Patient is a 89 yo M w/a PMHx of AFib (on Eliquis), dementia, BPH, HTN, HLD, COPD, Perez's esophagus, esophageal dysmotility, PVD, anemia, BCC, falls, living at [facility], presented after unwitnessed likely mechanical fall, presented to ED, trauma scan negative except rib # and pulmonary contusion, stable HD santacruz admitted for further care. #Unwitnessed Fall/Posterior Rib Fracture/Pulmonary contusion *likely mechanical fall. - fluid status corrected this AM. - Donepezil on hold. - Cervical spine CT : UR - CT-AP: acute posterior 7th rib fracture, mild patchy consolidation of Left Lung. - CXR: hazy opacities at lung bases concerning for atelectasis or pulmonary contusions - Pain: Optimised #Lung opacity/atelectasis at lung bases - Stable, conservative management. #Afib: Rate controlled, BP stable Continue home med. #Choledocholithiasis (asymptomatic) - CT-AP: There are calcified gallstones with no CT evidence of acute cholecystitis. - Follow Surgery outpatient Other Chronic #Dementia: continue memantine, hold donepezil #GERD: continue pantoprazole #BPH;continue tamsulosin #COPD: continue inhalers. #Hx of cervical fracture: continue vit D and calcium #Constipation:Continue Dulcolax, 10 mg, PO, daily; add Miralax, 17 g, PO, daily, CT Code status: DNR/DNI Disposition: DC to [facility] Total Time Total Time Spent Total Time Spent (In Minutes): <30 Discharge Plan Discharge Items Patient Disposition: Transfer [facility] Fac Reason For Visit: FALL, RIB FRACTURE, PULM CONTUSION Discharge Diagnosis: Mechanical Fall Dementia Stable Rib farcture Condition on Discharge: Fair Activity: Per Instructions section Non-emergency contact: Primary Care Provider Call non-emergency contact if: your symptoms worsen Follow-up/Referrals: López Munoz MD [Primary Care Provider] - Diet: Heart Healthy Addtl Attending Provider Instructions: You were admitted to the hospital after you presented to ED with h/o unwitnessed fall. Trauma imaging at ED revealed posterior rib fracture, which is stable and you do not need surgery/ other treatment for this except from pain management. Pain seemed pretty controlled during your hospital stay. You can take OTC Tylenol/Motrin for pain as needed. The primary reason for your fall seems mechanical depending on history, however could potentially be secondary to overall deconditioning d/t age and underlying dementia. Physical / occupational therapy team evaluated your in the hospital, who are recommending you to have rehabilitation. Hence we are discharging you with recommendation for physical therapy. Incidentally in imaging, stones in Gallbladder duct were identified but you were not symptomatic for this. If you are ever symptomatic in future, symptoms including pain right upper abdomen, fever, chills, epigastrium pain radiating to back, we recommend you to visit PCP/ED depending on severity of your symptoms. Otherwise your chronic medical conditions seems generally optimized. A discharge summary will be sent to your primary care physician to ensure continuity of care. Please bring this discharge summary with you to your next office appointment so that your provider can review it at that time. Medications: Your medication list has been reviewed and reconciled upon discharge to ensure accuracy and continuity of care. An updated list of all your medications is included with your hospital discharge paperwork. Please review this list closely and make note of any changes to your medications. 1.Hold Donepezil until next PCP eval Follow up appointments: - Make a follow up appointment with your PCP within the next week. It is very important that you follow up with them shortly after discharge from the hospital. - Keep all of your follow up appointments as already scheduled. If you cannot make an appointment, notify your provider. CONTACT YOUR PRIMARY CARE PROVIDER if you experience any of the following: - Difficulty following your treatment plan - Difficulty taking any of your medications CALL 911 OR GO TO THE EMERGENCY DEPARTMENT if you experience any of the following: - Another significant fall, loss of consciousness. - Sudden, severe abdominal pain or nausea/vomiting - Severe chest pain or chest pain that radiates to your jaw or arm - Sudden, severe shortness of breath or difficulty breathing Pending Studies at Discharge: No Stand-Alone Forms: My [facility] Skilled Items Patient informed of condition?: Yes DNR: Yes Discharge Level of Care: Skilled Communicable Disease: No Discharge Prognosis: Stable Lines: None Urinary Catheter: No Medications and DC Order Prescriptions: Continued (DME) compr.stocking,knee,long,large Misc See Rx Instructions .ROUTE .MEDSUPPLY Qty: 12 0RF Rx Instructions: As directed dutasteride [Avodart] 0.5 mg capsule 0.5 mg PO QAM Qty: 90 3RF fluticasone propionate [Flonase Allergy Relief] 50 mcg/actuation spray,suspension 2 spray intranasal DAILY Rx Instructions: administer into each nostril memantine 10 mg tablet 10 mg PO BID Qty: 60 5RF cholecalciferol (vitamin D3) [Vitamin D3] 25 mcg (1,000 unit) capsule 1,000 unit PO QAM atorvastatin 20 mg Tablet 20 mg PO HS Qty: 20 0RF ferrous sulfate 325 mg (65 mg iron) Tablet 325 mg PO QAM Eliquis 5 mg tablet 5 mg PO BID acetaminophen [Tylenol Extra Strength] 500 mg Tablet 1,000 mg PO TID PRN (Reason: Pain) Dupixent Syringe 300 mg/2 mL syringe 300 mg subcut Q14D Rx Instructions: Inject Dupixent 300mg/2ml subqutaneously every 2 weeks Approved 10/14/24-12/14/25 Reference # [id number] magnesium hydroxide [Milk of Magnesia] 400 mg/5 mL Suspension 2,400 ml PO DAILY PRN (Reason: Constipation) Rx Instructions: If no BM in 2 days tamsulosin 0.4 mg capsule 0.4 mg PO DAILY pantoprazole 40 mg tablet,delayed release (DR/EC) 40 mg PO DAILY Fleet Enema 19-7 gram/118 mL Enema [address] DAILY PRN (Reason: Constipation) Rx Instructions: If no BM after MOM or Dulcolax hydrocortisone 2.5 % Cream 1 applic TOPICAL BID PRN (Reason: Other) nystatin 100,000 unit/gram powder 1 applic TOPICAL DAILY PRN (Reason: Rash) multivitamin,tx-minerals Tablet 1 tab PO DAILY Saccharomyces boulardii 250 mg Capsule 250 mg PO BID tiotropium bromide [Spiriva with HandiHaler] 18 mcg capsule, w/inhalation device 18 mcg INHALATION DAILY metronidazole [MetroCream] 0.75 % Cream 1 applic TOPICAL BID bisacodyl [Dulcolax (bisacodyl)] 10 mg Suppository [address] DAILY PRN (Reason: Constipation) Rx Instructions: If no BM from MOM calcium carbonate [Calcium 500] 500 mg calcium (1,250 mg) Tablet,Chewable 500 mg PO QAM Held donepezil 10 mg tablet 10 mg PO HS Qty: 30 5RF Hold Instructions: Resume on 01/13/25. After PCP eval Discharge Orders: Discharge Order (Routine); Ordered 01/05/25 Ordered By: Deena Mullins/Other Patient Handouts: Falls Prevent Adjust Living Space, ED Mechanical Fall Admission Data Admit Date/Time: 01/03/25 12:41 Attending Provider: Yves Tavarez Admit Provider: Ray Sweeney Primary Care Provider: López Munoz Other Providers: Jennifer Monge Other Interventions: Discharge Summary Assessment (RN) Last Done: 01/05/25 12:09 Supervising Physician Co-Signing Physician Notes I personally examined the patient and verified all potts points of history and exam, discussed case, and agree with decision making with Dr Cortes pleasantly confused, offers no complaints. for SNF today. Vitals noted, in general he is awake and alert pleasant no distress. HEENT normocephalic atraumatic mucous membranes moist. Breathing unlabored no accessory muscle use good effort. Skin without rashes pallor or icterus. Neuro without focal deficits. Fallseems to have been a mechanical fall. Rib fracture and pulmonary contusion noted, fortunately vital stable showing no significant pain or respiratory distress. Weakness continue PT and OT. Safe/stable for SNF Dementiaappears to have fairly significant functional impairment. Baseline is at personal-care. Will need SNF for now. stable further today. Otherwise as above. Resident Activity Tracking Resident Involvement: Resident Care Provided Care Provided: Adult [facility] Medicine
[2025-01-05 12:11] VITALS: BP 145/84; PULSE 82; RESP 18; TEMP 98
--- NOTE | 2025-01-05 17:02 | Billing Data ---
Date of Service January 05, 2025 Coding Level of Care Code 24564 IN/OBS DISCH 30 MIN/LESS
== END 2025-01-05 13:40 ==
LOC: ED 07:47 → 2W 07:47 → SUATTDRO 12:41 → 2W 15:02